=== PATIENT | female | born 1940 | race Caucasian/White ===

== ENCOUNTER 2018-02-01 18:26 | Inpatient (IN) ==
[2018-02-01] MEDS ORDERED: IOPAMIDOL 100 ML BOTTLE IV ONE (18:27)
[2018-02-01] MEDS ORDERED: 0.9 % SODIUM CHLORIDE 1,000 ML IV ONE ×2 (18:42→18:57)
[2018-02-01] MEDS ORDERED: POTASSIUM CHLORIDE 40 MEQ in DEXTROSE 5% IN WATER 500 ML IV ONE (19:09)
[2018-02-01] MEDS ORDERED: POTASSIUM CHLORIDE 20 MEQ/10 ML VIAL IV ONE (19:14)
[2018-02-01 19:27] LABS: Basophils # (Auto) 0 K/mcL (0.0-0.3); Basophils % (Auto) 0.4 % (0.0-2.0); Eosinophils # (Auto) 0 K/mcL (0.0-0.7); Eosinophils % (Auto) 0.1 % (0.0-7.0); Lymphocytes # (Auto) 0.5 K/mcL (1.5-4.8); Lymphocytes % (Auto) 17.6 % (15.5-49.0); Mean Cell Volume 88.9 fL (80.0-100.0); Mean Corpuscular HGB Conc 32.6 g/dL (31.0-36.0); Monocytes # (Auto) 0.4 K/mcL (0.1-0.9); Monocytes % (Auto) 11.9 % (1.0-12.0); Platelet Count 128 K/mcL (140-440); RBC 3.42 M/mcL (4.00-5.20); Red Cell Distribution Width 15.5 % (11.5-14.5)
[2018-02-01 20:00] LABS: ALT/SGPT 11 U/l (0-40); Albumin 2.5 gm/dL (3.2-5.2); Albumin/Globulin Ratio 1.3 (1.0-2.3); Alkaline Phosphatase 40 U/L (39-117); Blood Urea Nitrogen 19 mg/dl (8-23); Creatine Kinase 19 IU/L (24-170)
[2018-02-01] MEDS ORDERED: CALCIUM GLUCONATE 7 MEQ in DEXTROSE 5% IN WATER 50 ML IV ONE (20:07)
--- NOTE | 2018-02-01 20:09 | Emergency Department Note ---
General Adult HPI - General Chief complaint: Dizziness Stated complaint: Weakness/Diarrhea/hypotension Time Seen by Provider: 02/01/18 18:30 Source: patient, EMS Mode of arrival: EMS Limitations: no limitations - History of Present Illness HPI Narrative: 77-year-old female who lives alone since her 2 months ago, was found down by EMS unable to get up at home. She denies losing consciousness or any head injury but does state that she was so weak she could not get up. She has had a stroke and her balance has not been good ever since then. She has been sick for the last couple weeks with general malaise and incontinence of stool. It has been watery. She denies melena or hematochezia. She notes that she has not been taking her potassium pills. She has been having quite a bit of nausea but no vomiting. She last ate last night and had a chocolatey clear. She denies any fever - Related Data Home Medications Medication Instructions Recorded Confirmed Flexin Supplement PO .DAILY 05/07/15 01/17/18 biotin 1 mg tablet 1 mg PO QDAY tab 05/07/15 01/17/18 metoprolol tartrate 25 mg tablet 100 mg PO BID tab 08/12/16 01/17/18 Previous Rx's Medication Instructions Recorded atorvastatin 80 mg tablet 80 mg PO QDAY #90 tab 06/29/17 dabigatran etexilate 150 mg capsule 150 mg PO BID #180 cap 06/29/17 digoxin 125 mcg tablet 125 mcg PO QDAY #90 tab 06/29/17 furosemide 20 mg tablet 20 mg PO QDAY #90 tab 06/29/17 isosorbide mononitrate 10 mg tablet 10 mg PO BID 90 Days #180 tab 06/29/17 mirabegron ER 25 mg 25 mg PO QDAY #90 tab 06/29/17 tablet,extended release 24 hr omeprazole 40 mg capsule,delayed 40 mg PO QDAY #90 cap 06/29/17 release potassium chloride ER 10 mEq 10 meq PO QDAY #90 cap 06/29/17 capsule,extended release umeclidinium 62.5 mcg/actuation 1 inh INHALATION Q24H #90 each 06/29/17 blister powder for inhalation losartan 25 mg tablet 50 mg PO QDAY #180 tab 09/27/17 sertraline 100 mg tablet 200 mg PO QDAY #180 tab 09/27/17 gabapentin 300 mg capsule 300 mg PO TID #90 cap 10/28/17 trazodone 50 mg tablet 50 mg PO QHS PRN #30 tab 12/20/17 tapentadol ER 50 mg 50 mg PO Q12H #60 tab 01/17/18 tablet,extended release,12 hr Allergies Allergy/AdvReac Type Severity Reaction Status Date / Time No Known Allergies Allergy No allergy Verified 02/01/18 18:35 Influenza Virus Vaccines AdvReac Severe pain Verified 02/01/18 18:35 TAPE ALLERGY Allergy Intermediate RASH Uncoded 01/17/18 19:14 Review of Systems All systems ED: reviewed and negative except as stated. Past Medical History - Past Medical History Attestation: Yes: The following information was validated with the patient. Medical history: Reports: arthritis, atrial fibrillation, COPD, coronary artery disease, CVA, GERD, hypertension, liver disease (hepatitis B), peripheral artery disease, TIA, other (cerebral aneurysm non-ruptured, irritable bowel, diverticulitis, gout, HPV, abdominal aortic embolism) CARDIAC CATH TECH history: Reports: ectopic Surgical history ED: Reports: angioplasty/stent, appendectomy, cholecystectomy, herniorrhaphy, hysterectomy, orthopedic, other (Knee), HAMLET/BSO, vascular surgery (Carotid endarterectomy, vascular stent), other (Exploratory laparotomy) - Social History smoking status: Former smoker Physical Exam Globally weak but no acute distress. Hypotensive on admission 88/67. thin frail. Normocephalic atraumatic. Conjunctive are clear sclerae nonicteric. No nasal discharge or congestion. Oropharynx is pink but somewhat dry buccal mucosa. Neck is supple without lymphadenopathy thyromegaly or carotid bruit. I do see the scar from previous right-sided carotid endarterectomy. Heart is irregular, likely atrial fibrillation. Lungs are clear to auscultation bilaterally without wheezes rales rhonchi or respiratory distress. Abdomen soft mildly diffusely tender. No peritoneal signs or guarding. No pedal edema. +2 radial pulse. Alert oriented able to answer questions appropriately. No dysarthria Limitations: no limitations Course Vital Signs Temperature 98.6 F 02/01/18 18:28 Pulse Rate 95 H 02/01/18 18:28 Respiratory Rate 16 02/01/18 18:28 Blood Pressure 88/64 02/01/18 18:28 Pulse Oximetry (%) 93 02/01/18 18:28 Temperature 98.6 F 02/01/18 18:28 Pulse Rate 91 H 02/01/18 19:15 Respiratory Rate 23 H 02/01/18 19:15 Blood Pressure 96/67 02/01/18 19:15 Pulse Oximetry (%) 91 02/01/18 19:15 Medical Decision Making - Lab Data Lab results reviewed: Yes I reviewed the patient's lab results. Result diagrams: 02/01/18 18:55 02/01/18 18:55 Lab Results 02/01/18 02/01/18 02/01/18 Range/Units 18:55 18:55 18:55 WBC 3.1 L (4.5-11.0) K/mcL RBC 3.42 L (4.00-5.20) M/mcL Hgb 9.9 L (12.0-15.0) g/dL Hct 30.4 L (36.0-48.0) % POC Hct (36.0-48.0) % MCV 88.9 (80.0-100.0) fL MCH 29.0 (26.0-34.0) pg MCHC 32.6 (31.0-36.0) g/dL RDW 15.5 H (11.5-14.5) % Plt Count 128 L (140-440) K/mcL MPV 8.3 (7.4-10.4) fL Gran % 70.0 (38.0-78.0) % Lymph % (Auto) 17.6 (15.5-49.0) % [place] % (Auto) 11.9 (1.0-12.0) % Eos % (Auto) 0.1 (0.0-7.0) % Baso % (Auto) 0.4 (0.0-2.0) % Gran # 2.2 (1.8-8.0) K/mcL Lymph # (Auto) 0.5 L (1.5-4.8) K/mcL [place] # (Auto) 0.4 (0.1-0.9) K/mcL Eos # (Auto) 0 (0.0-0.7) K/mcL Baso # (Auto) 0 (0.0-0.3) K/mcL POC Sodium (133-145) mmol/L Sodium 141 (133-145) mmol/L POC Potassium (3.3-5.1) mmol/L Potassium 2.1 L* (3.3-5.1) mmol/L POC Chloride (96-108) mmol/L Chloride 109 H (96-108) mmol/L Carbon Dioxide 19 L (22-30) mmol/L POC Total CO2 (22-30) mmol/L Anion Gap 13.0 (8-16) POC BUN (8-23) mg/dl BUN 19 (8-23) mg/dl Creatinine 1.1 (0.6-1.1) mg/dl POC Creatinine (0.6-1.1) mg/dl GFR Calculation 48 Glucose 106 H (70-105) mg/dL POC Glucose (70-105) mg/dL Calcium 5.3 L* (8.6-10.4) mg/dl POC WB Ioniz Calcium (1.16-1.32) mmol/L Magnesium (1.6-2.5) mg/dL Total Bilirubin 0.6 (0.0-1.0) mg/dL AST 16 (0-37) U/l ALT 11 (0-40) U/l Alkaline Phosphatase 40 (39-117) U/L Total Creatine Kinase 19 L (24-170) IU/L CK-MB (CK-2) 1.0 (0-2.9) ng/ml Troponin T < 0.01 (0-0.03) ng/ml NT-Pro-B Natriuret Pep 389.0 (0-450) pg/ml Total Protein 4.5 L (5.9-8.4) gm/dL Albumin 2.5 L (3.2-5.2) gm/dL Globulin 2.0 L (2.2-3.7) gm/dL Albumin/Globulin Ratio 1.3 (1.0-2.3) Urine Color Urine Appearance Urine pH (5.0-9.0) Ur Specific [place] (1.000-1.035) Urine Protein (NEG) mg/dL Urine Glucose (UA) (NEG) mg/dL Urine Ketones (NEG) mg/dL Urine Occult Blood (<0.03) mg/dL Urine Nitrate (NEG) Urine Bilirubin (NEG) mg/dL Urine Urobilinogen (NEG) mg/dL Ur Leukocyte Esterase (NEG) /uL Urine RBC (0-1) /hpf Urine WBC (0-4) /hpf Ur Squamous Epith Cells (0-4) /hpf Ur Transition Epith Cell (0-2) /hpf Amorphous Crystals (0) /hpf Urine Bacteria (0) /hpf Hyaline Casts (0-2) /lpf Urine Mucus (0) /hpf Ur Culture Indicated? Digoxin ng/mL Digoxin Dose Digox Last Dose Time 02/01/18 02/01/18 02/01/18 Range/Units 18:55 18:55 18:55 WBC (4.5-11.0) K/mcL RBC (4.00-5.20) M/mcL Hgb (12.0-15.0) g/dL Hct (36.0-48.0) % POC Hct 26.0 L (36.0-48.0) % MCV (80.0-100.0) fL MCH (26.0-34.0) pg MCHC (31.0-36.0) g/dL RDW (11.5-14.5) % Plt Count (140-440) K/mcL MPV (7.4-10.4) fL Gran % (38.0-78.0) % Lymph % (Auto) (15.5-49.0) % [place] % (Auto) (1.0-12.0) % Eos % (Auto) (0.0-7.0) % Baso % (Auto) (0.0-2.0) % Gran # (1.8-8.0) K/mcL Lymph # (Auto) (1.5-4.8) K/mcL [place] # (Auto) (0.1-0.9) K/mcL Eos # (Auto) (0.0-0.7) K/mcL Baso # (Auto) (0.0-0.3) K/mcL POC Sodium 144 (133-145) mmol/L Sodium (133-145) mmol/L POC Potassium 2.1 L* (3.3-5.1) mmol/L Potassium (3.3-5.1) mmol/L POC Chloride 107 (96-108) mmol/L Chloride (96-108) mmol/L Carbon Dioxide (22-30) mmol/L POC Total CO2 18 L (22-30) mmol/L Anion Gap (8-16) POC BUN 20 (8-23) mg/dl BUN (8-23) mg/dl Creatinine (0.6-1.1) mg/dl POC Creatinine 1.2 H (0.6-1.1) mg/dl GFR Calculation Glucose (70-105) mg/dL POC Glucose 102 (70-105) mg/dL Calcium (8.6-10.4) mg/dl POC WB Ioniz Calcium 0.79 L (1.16-1.32) mmol/L Magnesium 1.3 L (1.6-2.5) mg/dL Total Bilirubin (0.0-1.0) mg/dL AST (0-37) U/l ALT (0-40) U/l Alkaline Phosphatase (39-117) U/L Total Creatine Kinase (24-170) IU/L CK-MB (CK-2) (0-2.9) ng/ml Troponin T (0-0.03) ng/ml NT-Pro-B Natriuret Pep (0-450) pg/ml Total Protein (5.9-8.4) gm/dL Albumin (3.2-5.2) gm/dL Globulin (2.2-3.7) gm/dL Albumin/Globulin Ratio (1.0-2.3) Urine Color Urine Appearance Urine pH (5.0-9.0) Ur Specific [place] (1.000-1.035) Urine Protein (NEG) mg/dL Urine Glucose (UA) (NEG) mg/dL Urine Ketones (NEG) mg/dL Urine Occult Blood (<0.03) mg/dL Urine Nitrate (NEG) Urine Bilirubin (NEG) mg/dL Urine Urobilinogen (NEG) mg/dL Ur Leukocyte Esterase (NEG) /uL Urine RBC (0-1) /hpf Urine WBC (0-4) /hpf Ur Squamous Epith Cells (0-4) /hpf Ur Transition Epith Cell (0-2) /hpf Amorphous Crystals (0) /hpf Urine Bacteria (0) /hpf Hyaline Casts (0-2) /lpf Urine Mucus (0) /hpf Ur Culture Indicated? Digoxin < 0.3 ng/mL Digoxin Dose Not Reportable Digox Last Dose Time Not Reportable 02/01/18 Range/Units 20:00 WBC (4.5-11.0) K/mcL RBC (4.00-5.20) M/mcL Hgb (12.0-15.0) g/dL Hct (36.0-48.0) % POC Hct (36.0-48.0) % MCV (80.0-100.0) fL MCH (26.0-34.0) pg MCHC (31.0-36.0) g/dL RDW (11.5-14.5) % Plt Count (140-440) K/mcL MPV (7.4-10.4) fL Gran % (38.0-78.0) % Lymph % (Auto) (15.5-49.0) % [place] % (Auto) (1.0-12.0) % Eos % (Auto) (0.0-7.0) % Baso % (Auto) (0.0-2.0) % Gran # (1.8-8.0) K/mcL Lymph # (Auto) (1.5-4.8) K/mcL [place] # (Auto) (0.1-0.9) K/mcL Eos # (Auto) (0.0-0.7) K/mcL Baso # (Auto) (0.0-0.3) K/mcL POC Sodium (133-145) mmol/L Sodium (133-145) mmol/L POC Potassium (3.3-5.1) mmol/L Potassium (3.3-5.1) mmol/L POC Chloride (96-108) mmol/L Chloride (96-108) mmol/L Carbon Dioxide (22-30) mmol/L POC Total CO2 (22-30) mmol/L Anion Gap (8-16) POC BUN (8-23) mg/dl BUN (8-23) mg/dl Creatinine (0.6-1.1) mg/dl POC Creatinine (0.6-1.1) mg/dl GFR Calculation Glucose (70-105) mg/dL POC Glucose (70-105) mg/dL Calcium (8.6-10.4) mg/dl POC WB Ioniz Calcium (1.16-1.32) mmol/L Magnesium (1.6-2.5) mg/dL Total Bilirubin (0.0-1.0) mg/dL AST (0-37) U/l ALT (0-40) U/l Alkaline Phosphatase (39-117) U/L Total Creatine Kinase (24-170) IU/L CK-MB (CK-2) (0-2.9) ng/ml Troponin T (0-0.03) ng/ml NT-Pro-B Natriuret Pep (0-450) pg/ml Total Protein (5.9-8.4) gm/dL Albumin (3.2-5.2) gm/dL Globulin (2.2-3.7) gm/dL Albumin/Globulin Ratio (1.0-2.3) Urine Color Yellow Urine Appearance Cloudy Urine pH 6.0 (5.0-9.0) Ur Specific [place] 1.014 (1.000-1.035) Urine Protein 100 A (NEG) mg/dL Urine Glucose (UA) 50 A (NEG) mg/dL Urine Ketones Neg (NEG) mg/dL Urine Occult Blood 0.2 A (<0.03) mg/dL Urine Nitrate Neg (NEG) Urine Bilirubin Neg (NEG) mg/dL Urine Urobilinogen Neg (NEG) mg/dL Ur Leukocyte Esterase 250 A (NEG) /uL Urine RBC 32 H (0-1) /hpf Urine WBC 32 H (0-4) /hpf Ur Squamous Epith Cells 81 H (0-4) /hpf Ur Transition Epith Cell 3 H (0-2) /hpf Amorphous Crystals Few A (0) /hpf Urine Bacteria Few A (0) /hpf Hyaline Casts 65 H (0-2) /lpf Urine Mucus Mod (0) /hpf Ur Culture Indicated? No Digoxin ng/mL Digoxin Dose Digox Last Dose Time - Radiology Data Radiology results reviewed: Yes I reviewed the patient's radiology results. CT scan of the abdomen pelvis shows extensive atherosclerotic disease however no acute findings - EKG Data EKG #1 EKG attestation: Yes I reviewed and interpreted this EKG. EKG results narrative: EKG shows a rate of 97 atrial fibrillation there is T-wave inversions in diffuse leads however this is not new when compared with EKG from 01/12/2017-that was read as a strain pattern. Possible left ventricular hypertrophy and long QT Disposition Pt seen by PATHOLOGY SPECIALIST/PA only: No Clinical Impression: Hypocalcemia, Hypokalemia, Hypomagnesemia, Acute kidney injury Summary: Patient initially worked up after interview and exam for significant abdominal abnormalities. However CT scan did not show anything acute. Laboratories show significant electrolyte abnormalities as well as acute kidney injury. IV fluids corrected hypotension. She is feeling better She is tolerating p.o. and has not vomited so we are potassium both orally and IV. Magnesium and calcium also replacing IV. Zofran is prescribed in case of nausea Discussed case with Dr. Washington, hospitalist, who agreed to accept patient for further care Disposition: Xfer As Inpt ([facility]) Condition: Critical Referrals: Shae Cheatham, JAMEL, MEDICAL AND HEALTH SERVICES MANAGER [Primary Care Provider] -
[2018-02-01] MEDS ORDERED: POTASSIUM CHLORIDE 20 MEQ TABLET PO ONE ×2 (20:36→21:13)
[2018-02-01] MEDS ORDERED: MAGNESIUM SULFATE 2 GM/50 ML BAG IV ONE (20:36)
--- NOTE | 2018-02-01 21:00 | Cat Scan Report ---
CLINICAL INFORMATION: Hypotension and diarrhea COMPARISON: 06/22/2016, 04/16/2016 TECHNIQUE: Axial images were obtained through the abdomen and pelvis. Sagittally and coronally reformatted images. 80 mL contrast material injected intravenously. Oral contrast material was given FINDINGS: Lung bases are negative. No parenchymal infiltrate or mass. No pleural fluid. No pericardial fluid. There is cardiomegaly with four-chamber cardiac enlargement. There are multiple low-density lesions within the liver. These have increased slightly in size but are consistent with benign cysts. No solid mass. Liver contour is smooth. No cirrhosis. No interval change. Gallbladder is not identified. Common bile duct measures 6 mm. No dilated intrahepatic bile ducts. Negative pancreas. No pancreatic mass. Borderline splenomegaly. Spleen measures 10.7 x 6.1 x 12.0 cm. Normal enhancement of splenic and portal veins. Negative adrenal glands. 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 This is chronic. There is a nonobstructing 5 mm right upper pole calculus. No hydronephrosis. No solid renal mass. There is extensive atherosclerotic calcification with dense calcification of the abdominal aorta and common iliac arteries. No abdominal aortic aneurysm. There is a stent within the superior mesenteric artery. Colon is negative. No diverticulitis. No detectable colonic mass. No appendicitis. Small bowel is negative. No small bowel dilatation. No retroperitoneal or mesenteric adenopathy. Previous hysterectomy. No pelvic mass. No pneumoperitoneum. No biliary or portal venous gas. No pneumatosis. Lumbar spine, sacrum, pelvis are negative IMPRESSION: 1. Cardiomegaly. Extensive atherosclerotic disease. No abdominal aortic aneurysm 2. Borderline splenomegaly 3. Hepatic cysts are benign 4. No acute colonic or small bowel abnormality. No diverticulitis. No detectable colonic mass. No small bowel obstruction. The exam was performed using radiation dose optimization techniques including, but not limited to, automated exposure control, adjustment of the mA and/or kV according to patient size and use of iterative reconstruction technique. Interpreted and Authenticated by: Musthaq Martinez 02/01/18
[2018-02-01 21:04] LABS: Appearance,Urine CLOUDY; Bacteria,Urine FEW /hpf (0); Bilirubin,Urine NEG (NEG); Color,Urine YELLOW; Glucose,Urine (UA) 50 mg/dL (NEG); Leukocyte Esterase,Urine 250 /uL (NEG); Mucus,Urine MOD /hpf (0); Protein,Urine 100 mg/dL (NEG); Specific Gravity,Urine 1.014 (1.000-1.035); Urine Amorphous Crystals FEW /hpf (0); Urine Blood 0.2 mg/dL (<0.03); Urine Hyaline Cast 65 /lpf (0-2); Urine RBC 32 /hpf (0-1); Urine Squamous Epithelial Cell 81 /hpf (0-4); Urine Transitional Epi Cells 3 /hpf (0-2); Urine WBC 32 /hpf (0-4); Urobilinogen,Urine NEG (NEG)
[2018-02-01] MEDS ORDERED: ONDANSETRON 4 MG/2 ML VIAL IV ONE (21:11)
[2018-02-01] MEDS ORDERED: ACETAMINOPHEN 325 MG TABLET PO PRN (21:51)
[2018-02-01] MEDS ORDERED: POTASSIUM CHLORIDE 20 MEQ PACKET PO PRN (21:51)
[2018-02-01] MEDS ORDERED: ONDANSETRON 4 MG/2 ML VIAL IV PRN (21:51)
[2018-02-01] MEDS: 0.9 % SODIUM CHLORIDE 10 ML SYRINGE IV SCH (22:28)
[2018-02-01] MEDS: LACTATED RINGERS 1,000 ML IV SCH (22:33)
[2018-02-01 23:04] LABS: Basophils # (Auto) 0 K/mcL (0.0-0.3); Basophils % (Auto) 0.4 % (0.0-2.0); Eosinophils # (Auto) 0 K/mcL (0.0-0.7); Eosinophils % (Auto) 0.3 % (0.0-7.0); Granulocytes % (Auto) 64.7 % (38.0-78.0); Lymphocytes # (Auto) 0.7 K/mcL (1.5-4.8); Lymphocytes % (Auto) 22.6 % (15.5-49.0); Mean Cell Volume 87.4 fL (80.0-100.0); Mean Corpuscular HGB Conc 32.6 g/dL (31.0-36.0); Mean Corpuscular Hemoglobin 28.5 pg (26.0-34.0); Monocytes # (Auto) 0.4 K/mcL (0.1-0.9); Platelet Count 155 K/mcL (140-440); RBC 3.74 M/mcL (4.00-5.20); Red Cell Distribution Width 14.7 % (11.5-14.5)
[2018-02-01] MEDS: HEPARIN 5,000 UNIT/ML VIAL SQ SCH (23:14)
--- NOTE | 2018-02-01 23:31 | Internal Med History&Physical ---
Medical - H&P: [facility] Patient information: Note initiated : 02/01/18 at 11:30 pm Service Date, if different from initiated Date: [] Patient: Dara Null a 77 y/o F admitted on 02/01/18 for Weakness/Diarrhea/ hypotension. Chief Complaint: [] Chief complaint: dirrhea, weakness History of present illness: Ms. Null is a 77 year old F who comes to the ER with above symptoms. Patient has been actively grieving recent loss of her in November and has been living alone. Over the last couple of months patient has not been able to take care of herself and has frequently missed her medications. She carries a history of irritable bowel syndrome and has had intermittent diarrhea over the last couple of weeks along with associated loss of appetite and failure to take her usual medications. She also endorses to feeling dizzy and weak and very lethargic. She denies associated, fever, abdominal cramps blood, mucus. She has also experienced multiple episodes of bowel incontinence without even realizing until she noticed stool dripping down her legs on the floor. She has a son who lives nearby and frequently checks on her. With worsening symptoms and increasing weakness patient presents to the ER today. Initial workup was significant for potassium 2.1 and calcium 5.3. Significant pyuria on UA. She is started on emergent electrolyte replacement protocol. Hospitalist service was consulted. At the time of evaluation patient is alert and oriented rest she appears fatigued but was able to put endorsed a history as above. She denies changes in medications. She denies sick contacts. She denies chest pain, shortness of breath ,weight loss, joint or glandular swelling. Review of systems A 10 point review of system was performed and is negative except for as discussed above Medical - H&P: [facility] Medical history: Medical History (Last Reviewed 01/17/18 @ 19:12 by Shae Cheatham, JAMEL, BUTCHER) Adenomatous polyp of colon (Chronic ~07/2016) Congestive heart failure (Chronic) Weakness of left upper extremity (Chronic) CVA (cerebral vascular accident) (Resolved) Abdominal pain (Chronic) Diverticulitis (Chronic) Abdominal distension (Chronic) Stenosis of right carotid artery (Chronic) Hematuria (Chronic) Disequilibrium (Chronic) Perimenopausal vasomotor symptoms (Chronic 04/22/14) Transient ischemic attack (TIA) (Chronic) Tobacco abuse (Chronic) Neck pain (Chronic) Neck injury (Chronic) Irritable bowel syndrome (Chronic) Hypertension, essential (Chronic) Hepatitis B infection (Chronic) Gout (Chronic) Gastroesophageal reflux (Chronic) Diverticulosis of colon (Chronic 08/17/04) Depression (Chronic) Coronary artery disease (Chronic 11/10/07) Chronic obstructive pulmonary disease (Chronic) Cerebral aneurysm, nonruptured (Chronic) Atrial fibrillation (Chronic) Arthritis (Chronic) 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) History of ectopic (Chronic) Hoarseness of voice (Resolved) Laryngeal nerve paralysis (Resolved) Sprain and strain of wrist (Resolved) Wrist injury (Resolved) Surgical history: Past Surgical History (Last Reviewed 01/17/18 @ 19:12 by Shae Cheatham, JAMEL, BUTCHER) History of appendectomy (Chronic) History of cardiac cath (Chronic 11/10/07) History of cataract extraction (Chronic) History of cholecystectomy (Chronic) History of exploratory laparotomy (Chronic 01/04/11) History of hernia repair (Chronic) History of hysterectomy (Chronic) History of right-sided carotid endarterectomy (Chronic 01/26/17) History of abdominal surgery (Resolved) History of appendectomy (Resolved) History of cardiac catheterization (Resolved 11/10/07) History of cholecystectomy (Resolved) History of colonoscopy (Resolved 08/17/04) History of hysterectomy (Resolved) History of inguinal hernia repair (Resolved) History of knee surgery (Resolved) History of laparoscopy (Resolved 01/04/11) History of oophorectomy (Resolved) History of salpingectomy (Resolved) History of vascular surgery (Resolved) Pertinent family history: Family History (Last Reviewed 01/17/18 @ 19:12 by Shae Cheatham, JAMEL, BUTCHER) Mother Malignant neoplasm of colon, Onset Age: 82 Congestive heart failure Social history: Lives independently Recent loss of 2 sons and a daughter One son Tito- lives locally No history of smoking alcoholism Medical - H&P: Meds Home Medications Medication Instructions Recorded Confirmed Type Flexin Supplement 1 supp PO .DAILY 05/07/15 02/01/18 History biotin 1 mg tablet 1 mg PO QDAY tab 05/07/15 02/01/18 History metoprolol tartrate 25 mg tablet 100 mg PO BID tab 08/12/16 02/01/18 History atorvastatin 80 mg tablet 80 mg PO QDAY #90 tab 06/29/17 02/01/18 Rx dabigatran etexilate 150 mg capsule 150 mg PO BID #180 cap 06/29/17 02/01/18 Rx digoxin 125 mcg tablet 125 mcg PO QDAY #90 tab 06/29/17 02/01/18 Rx furosemide 20 mg tablet 20 mg PO QDAY #90 tab 06/29/17 02/01/18 Rx isosorbide mononitrate 10 mg tablet 10 mg PO BID 90 Days #180 tab 06/29/1702/01 Rx mirabegron ER 25 mg 25 mg PO QDAY #90 tab 06/29/17 02/01/18 Rx tablet,extended release 24 hr omeprazole 40 mg capsule,delayed 40 mg PO QDAY #90 cap 06/29/17 02/01/18 Rx release potassium chloride ER 10 mEq 10 meq PO QDAY #90 cap 06/29/17 02/01/18 Rx capsule,extended release umeclidinium 62.5 mcg/actuation 1 inh INHALATION Q24H #90 each 06/29/17 Rx blister powder for inhalation losartan 25 mg tablet 50 mg PO QDAY #180 tab 09/27/17 02/01/18 Rx sertraline 100 mg tablet 200 mg PO QDAY #180 tab 09/27/17 02/01/18 Rx gabapentin 300 mg capsule 300 mg PO TID #90 cap 10/28/17 02/01/18 Rx trazodone 50 mg tablet 50 mg PO QHS PRN #30 tab 12/20/17 02/01/18 Rx tapentadol ER 50 mg 50 mg PO Q12H #60 tab 01/17/18 02/01/18 Rx tablet,extended release,12 hr Clopidogrel Bisulfate [Plavix] 75 mg PO ONCE 02/01/18 02/01/18 History Hydrocodone/APAP 7.5/325Mg [[place] 1 tab PO ONCE PRN 02/01/18 02/01/18 History 7.5-325Mg] Meclizine [Antivert] 12.5 mg PO DAILYP PRN 02/01/18 02/01/18 History Allergies Allergy/AdvReac Type Severity Reaction Status Date / Time No Known Allergies Allergy No allergy Verified 02/01/18 18:35 Influenza Virus Vaccines AdvReac Severe pain Verified 02/01/18 18:35 TAPE ALLERGY Allergy Intermediate RASH Uncoded 01/17/18 19:14 Medical - H&P: Exam - Constitutional Vitals: Temp Pulse Resp BP Pulse Ox 98.6 F 91 H 23 H 96/67 91 02/01/18 18:28 02/01/18 19:15 02/01/18 19:15 02/01/18 19:15 02/01/18 21:36 General appearance: no acute distress Exam: Fatigued and lethargic Eye movements normal oral cavity dry No ENT nose discharge Head normocephalic Neck no lymphadenopathy S1 and S2 tachycardia, irregular Diminished breath sounds bases abdomen soft, hypoactive bowel sounds Lower extremity no cyanosis clubbing No joint swelling erythema Skin no suspicious lesion Psych lethargic but no agitation and anxiety neuro nonfocal Medical - H&P: Reslt - Labs CBC & Chem 7: 02/02/18 04:02 02/02/18 04:02 Labs: Short CBC 02/01/18 02/01/18 Range/Units 18:55 22:20 WBC 3.1 L 3.1 L (4.5-11.0) K/mcL Hgb 9.9 L 10.7 L (12.0-15.0) g/dL Hct 30.4 L 32.7 L (36.0-48.0) % Plt Count 128 L 155 (140-440) K/mcL BMP 02/01/18 18:55 Sodium 141 Potassium 2.1 L* Chloride 109 H Carbon Dioxide 19 L BUN 19 Creatinine 1.1 Glucose 106 H Calcium 5.3 L* Cardiac Enzymes 02/01/18 02/01/18 Range/Units 18:55 18:55 Total Creatine Kinase 19 L (24-170) IU/L CK-MB (CK-2) 1.0 (0-2.9) ng/ml Troponin T < 0.01 (0-0.03) ng/ml Liver Function 02/01/18 Range/Units 18:55 Total Bilirubin 0.6 (0.0-1.0) mg/dL AST 16 (0-37) U/l ALT 11 (0-40) U/l Alkaline Phosphatase 40 (39-117) U/L Albumin 2.5 L (3.2-5.2) gm/dL Urine 02/01/18 Range/Units 20:00 Urine Color Yellow Urine Appearance Cloudy Urine pH 6.0 (5.0-9.0) Ur Specific [place] 1.014 (1.000-1.035) Urine Protein 100 A (NEG) mg/dL Urine Glucose (UA) 50 A (NEG) mg/dL Medical - H&P: A/P (1) Hypokalemia Current visit: Yes Status: Acute * Critical Hypokalemia- 2.1. Continue oral and IV replacement * Dirrhea-await stool studies. Continue crystalloids * Hypocalcemia-on replacement. * Acute grief reaction from loss of spouse, within expected limits. Patient on SSRI * Volume depletion on crystalloids * Non-complicated UTI-contaminated sample repeat UA. * Neuropathy on gabapentin * History of hypertension on metoprolol/ARB * History of atrial fibrillation rate controlled on digoxin/metoprolol * Anticoagulation on Pradaxa * Coronary artery disease on Plavix and aspirin metoprolol * Anxiety/depression continue sertraline Plan * Continue crystalloids * electrolyte replacement as per protocol * Telemetry admitted in light of critical electrolyte abnormalities * Pre-existing medical condition management and home meds Medical - H&P: Qual - VTE Deep Vein Thrombosis/Pulmonary Embolism Present on Admission: No
[2018-02-02] MEDS ORDERED: HYDROCODONE/APAP 7.5/325MG TABLET PO PRN
[2018-02-02] MEDS ORDERED: MECLIZINE 25 MG TABLET PO PRN
[2018-02-02] MEDS ORDERED: TAPENTADOL HCL 50 MG PO SCH
[2018-02-02] MEDS ORDERED: traZODone HCL 50 MG TABLET PO PRN
[2018-02-02] MEDS ORDERED: UMECLIDINIUM BROMIDE INHALATION SCH
[2018-02-02] MEDS ORDERED: CLOPIDOGREL 75 MG TABLET PO SCH
[2018-02-02 05:28] LABS: Basophils # (Auto) 0 K/mcL (0.0-0.3); Basophils % (Auto) 0.3 % (0.0-2.0); Eosinophils # (Auto) 0 K/mcL (0.0-0.7); Eosinophils % (Auto) 0 % (0.0-7.0); Granulocytes % (Auto) 53.5 % (38.0-78.0); Lymphocytes # (Auto) 1.1 K/mcL (1.5-4.8); Lymphocytes % (Auto) 33.9 % (15.5-49.0); Mean Cell Volume 88.7 fL (80.0-100.0); Mean Corpuscular HGB Conc 32.8 g/dL (31.0-36.0); Mean Corpuscular Hemoglobin 29.1 pg (26.0-34.0); Monocytes # (Auto) 0.4 K/mcL (0.1-0.9); Monocytes % (Auto) 12.3 % (1.0-12.0); Platelet Count 135 K/mcL (140-440); RBC 3.72 M/mcL (4.00-5.20)
[2018-02-02] MEDS: 0.9 % SODIUM CHLORIDE 10 ML SYRINGE IV SCH ×3 (05:38→22:49)
[2018-02-02 05:54] LABS: ALT/SGPT 14 U/l (0-40); Albumin 3.3 gm/dL (3.2-5.2); Albumin/Globulin Ratio 1.3 (1.0-2.3); Alkaline Phosphatase 51 U/L (39-117); Bilirubin,Direct < 0.2 mg/dL (0.0-0.3); Blood Urea Nitrogen 21 mg/dl (8-23); Gamma Glutamyl Transpeptidase 18 U/L (5-36); Uric Acid 5.4 mg/dL (2.5-8.0)
[2018-02-02] MEDS: OMEPRAZOLE 20 MG CAPSULE PO SCH (07:05)
[2018-02-02] MEDS ORDERED: ISOSORBIDE MONONITRATE PO SCH (09:00)
[2018-02-02] MEDS: POTASSIUM CHLORIDE 20 MEQ/15 ML ML PT SCH ×2 (09:22→17:19)
[2018-02-02] MEDS: POTASSIUM CHLORIDE 10 MEQ TABLET PO SCH (09:24)
[2018-02-02] MEDS: METOPROLOL TARTRATE 25 MG TABLET PO SCH ×2 (09:24→20:57)
[2018-02-02] MEDS: LOSARTAN 25 MG TABLET PO SCH (09:24)
[2018-02-02] MEDS: SERTRALINE 50 MG TABLET PO SCH (09:24)
[2018-02-02] MEDS: GABAPENTIN 300 MG CAPSULE PO SCH ×3 (09:24→20:57)
[2018-02-02] MEDS: CLOPIDOGREL 75 MG TABLET PO SCH (09:25)
[2018-02-02] MEDS: HEPARIN 5,000 UNIT/ML VIAL SQ SCH ×2 (09:25→20:55)
[2018-02-02] MEDS: TAPENTADOL HCL 50 MG PO SCH ×2 (09:25→22:49)
[2018-02-02] MEDS: Mirabegron [Myrbetriq] 25 MG PO SCH (09:25)
[2018-02-02] MEDS: UMECLIDINIUM BROMIDE INH SCH (09:26)
[2018-02-02] MEDS: DABIGATRAN ETEXILATE MESYLATE 75 MG CAPSULE PO SCH ×2 (09:29→20:55)
--- NOTE | 2018-02-02 09:48 | Internal Med Progress Note ---
Medical - PN: Subj Patient information: Note initiated : 02/02/18 at 9:46 am Service Date, if different from initiated Date: [] Patient: Dara Null a 77 y/o F admitted on 02/01/18 for Weakness/Diarrhea/ hypotension. Chief Complaint: [] Interval history: Ms. Null is a 77 year old F who comes to the ER with above symptoms. Patient has been actively grieving recent loss of her in November and has been living alone. Over the last couple of months patient has not been able to take care of herself and has frequently missed her medications. She carries a history of irritable bowel syndrome and has had intermittent diarrhea over the last couple of weeks along with associated loss of appetite and failure to take her usual medications. She also endorses to feeling dizzy and weak and very lethargic. She denies associated, fever, abdominal cramps blood, mucus. She has also experienced multiple episodes of bowel incontinence without even realizing until she noticed stool dripping down her legs on the floor. She has a son who lives nearby and frequently checks on her. With worsening symptoms and increasing weakness patient presents to the ER today. Initial workup was significant for potassium 2.1 and calcium 5.3. Significant pyuria on UA. She is started on emergent electrolyte replacement protocol. Hospitalist service was consulted. At the time of evaluation patient is alert and oriented rest she appears fatigued but was able to put endorsed a history as above. She denies changes in medications. She denies sick contacts. She denies chest pain, shortness of breath ,weight loss, joint or glandular swelling. 02/02-patient doing a lot better. Potassium from 2.1-3.1. Calcium 7.8. Improved systolics. Ongoing crystalloids. Diarrhea much improved. Improving renal function. Repeat UA. Stool studies including fecal leukocytes negative. C. difficile negative. Continue physical therapy. Continue aggressive electrolyte replacement. - Constitutional Vitals: Vital Signs Temp Pulse Resp BP Pulse Ox 97.4 F 77 25 H 152/91 92 02/02/18 07:01 02/02/18 07:01 02/02/18 03:01 02/02/18 07:01 02/02/18 07:01 Period Temp Pulse Resp BP Sys/Marques Pulse Ox Last 24 Hr 96.8 F-98.6 F 43-122 11-28 88-152/53-104 86-99 Intake and Output 02/01/18 02/02/18 02/02/18 21:59 05:59 13:59 Intake Total 2064.0537 / 2064.0537 240 / 240 90 / 90 Output Total 350 / 350 200 / 200 Balance 1715.0537 / 1715.0537 40 / 40 90 / 90 Weight 155 lb 6.4 oz Intake & Output: Intake & Output 02/01/18 02/02/18 02/02/18 21:59 05:59 13:59 Intake Total 2064.0537 / 2064.0537 240 / 240 90 / 90 Output Total 350 / 350 200 / 200 Balance 1715.0537 / 1715.0537 40 / 40 90 / 90 Weight 155 lb 6.4 oz Intake: IV 2064.536 / 2064.536 Sodium Chloride 0.9% 1,000 ml @ 1999 / 1999 Wide Open IV BOLUS ONE Rx#: [id number] Calcium Gluconate 7 Meq In 65.0537 / 65.0537 Dextrose 5% in Water 50 ml @ 200 mls/hr IV ONCE ONE Rx#: [id number] Oral 240 / 240 90 / 90 Output: Urine/Stool Mix 350 / 350 200 / 200 Other: Meal Breakfast Percent of Meal Consumed 95% General appearance: cooperative, no acute distress Exam: Alert oriented nonlabored breathing Flat affect No significant telemetry events overnight No abdominal distention Medical - PN: Obj Da - Labs CBC & Chem 7: 02/02/18 04:02 02/02/18 04:02 Labs: Abnormal Lab Results 02/02/18 02/02/18 02/01/18 04:02 04:02 22:20 WBC 3.1 L 3.1 L RBC 3.72 L 3.74 L Hgb 10.8 L 10.7 L Hct 33.0 L 32.7 L POC Hct RDW 16.0 H 14.7 H Plt Count 135 L [place] % (Auto) 12.3 H Gran # 1.7 L Lymph # (Auto) 1.1 L 0.7 L POC Potassium Potassium 3.1 L Chloride Carbon Dioxide POC Total CO2 POC Creatinine Glucose Calcium 7.8 L POC WB Ioniz Calcium Magnesium Total Creatine Kinase Total Protein Albumin Globulin Urine Protein Urine Glucose (UA) Urine Occult Blood Ur Leukocyte Esterase Urine RBC Urine WBC Ur Squamous Epith Cells Ur Transition Epith Cell Amorphous Crystals Urine Bacteria Hyaline Casts 02/01/18 02/01/18 02/01/18 20:00 18:55 18:55 WBC RBC Hgb Hct POC Hct 26.0 L RDW Plt Count [place] % (Auto) Gran # Lymph # (Auto) POC Potassium 2.1 L* Potassium Chloride Carbon Dioxide POC Total CO2 18 L POC Creatinine 1.2 H Glucose Calcium POC WB Ioniz Calcium 0.79 L Magnesium 1.3 L Total Creatine Kinase Total Protein Albumin Globulin Urine Protein 100 A Urine Glucose (UA) 50 A Urine Occult Blood 0.2 A Ur Leukocyte Esterase 250 A Urine RBC 32 H Urine WBC 32 H Ur Squamous Epith Cells 81 H Ur Transition Epith Cell 3 H Amorphous Crystals Few A Urine Bacteria Few A Hyaline Casts 65 H 02/01/18 02/01/18 18:55 18:55 WBC 3.1 L RBC 3.42 L Hgb 9.9 L Hct 30.4 L POC Hct RDW 15.5 H Plt Count 128 L [place] % (Auto) Gran # Lymph # (Auto) 0.5 L POC Potassium Potassium 2.1 L* Chloride 109 H Carbon Dioxide 19 L POC Total CO2 POC Creatinine Glucose 106 H Calcium 5.3 L* POC WB Ioniz Calcium Magnesium Total Creatine Kinase 19 L Total Protein 4.5 L Albumin 2.5 L Globulin 2.0 L Urine Protein Urine Glucose (UA) Urine Occult Blood Ur Leukocyte Esterase Urine RBC Urine WBC Ur Squamous Epith Cells Ur Transition Epith Cell Amorphous Crystals Urine Bacteria Hyaline Casts Meds: Medications Acetaminophen (Tylenol) 650 mg PO Q4-6HP PRN PRN Reason: PAIN/FEVER > 101 Hydrocodone Bitart/Acetaminophen ([place] 7.5/325mg) 1 tab PO ONCE PRN PRN Reason: Pain Atorvastatin Calcium (Lipitor) 80 mg PO HS [facility] Clopidogrel Bisulfate (Plavix) 75 mg PO DAILY [facility] Last Admin: 02/02/18 09:25 Dose: 75 mg Dabigatran (Pradaxa) 150 mg PO BID [facility] Last Admin: 02/02/18 09:29 Dose: 150 mg Digoxin (Lanoxin) 125 mcg PO DAILY@1400 [facility] Gabapentin (Neurontin) 300 mg PO TID [facility] Last Admin: 02/02/18 09:24 Dose: 300 mg Heparin Sodium (Porcine) (Heparin) 5,000 unit SQ Q12 [facility] Last Admin: 02/02/18 09:25 Dose: 5,000 unit Potassium Chloride 40 meq/ (Dextrose) 520 mls @ 130 mls/hr IV UD PRN PRN Reason: K+ = or < 3.5 Lactated Ringer's (Lactated Ringers) 1,000 mls @ 100 mls/hr IV .Q10H [facility] Stop: 02/03/18 03:50 Last Admin: 02/01/18 22:33 Dose: 100 mls/hr Magnesium Sulfate (Magnesium Sulfate) 2 gm in 50 mls @ 50 mls/hr IV UD PRN PRN Reason: MG = or < 1.7 Acetaminophen (Ofirmev) 1,000 mg in 100 mls @ 200 mls/hr IV Q6HP PRN PRN Reason: PAIN/FEVER > 101 Losartan Potassium (Cozaar) 50 mg PO QDAY [facility] Last Admin: 02/02/18 09:24 Dose: 50 mg Meclizine HCl (Antivert) 12.5 mg PO DAILYP PRN PRN Reason: dizzy Metoprolol Tartrate (Lopressor) 100 mg PO BID [facility] Last Admin: 02/02/18 09:24 Dose: 100 mg Non-Formulary Medication (Isosorbide Mononitrate [Isosorbide Mononitrate]) 10 mg PO BID [facility] Last Admin: 02/02/18 09:29 Dose: Not Given Omeprazole (Prilosec) 40 mg PO ACB [facility] Last Admin: 02/02/18 07:05 Dose: 40 mg Ondansetron HCl (Zofran) 4 mg IV Q4-6HP PRN PRN Reason: Nausea And Vomiting Mirabegron [ (Myrbetriq] 25 Mg) 1 dose PO DAILY [facility] Last Admin: 02/02/18 09:25 Dose: Not Given Tapentadol Hcl [ (Nucynta Er] 50 Mg) 1 dose PO Q12 [facility] Last Admin: 02/02/18 09:25 Dose: 1 dose Umeclidinium [place] [Incruse Ellipta] Inh 1 dose INH DAILY [facility] Last Admin: 02/02/18 09:26 Dose: Not Given Potassium Chloride (Potassium Chloride) 20 meq PT BIDCC [facility] Last Admin: 02/02/18 09:22 Dose: 20 meq Potassium Chloride (Klor-Con) 40 meq PO DAILYP PRN PRN Reason: K+ < 3.5 Potassium Chloride (Kdur) 10 meq PO QAMCC [facility] Last Admin: 02/02/18 09:24 Dose: 10 meq Sertraline HCl (Zoloft) 200 mg PO DAILY [facility] Last Admin: 02/02/18 09:24 Dose: 200 mg Sodium Chloride (Saline Flush) 10 ml IV Q8 [facility] Last Admin: 02/02/18 05:38 Dose: Not Given Trazodone HCl (Desyrel) 50 mg PO HSP PRN PRN Reason: insomnia Medical - PN: A/P - Time Spent With Patient Total time spent is greater than 50% in coordination of care (as documented) at patient's floor/unit and/or counseling patient: 25 - 35 minutes (1) Hypokalemia Status: Acute Assessment and plan: * Critical Hypokalemia- 2.1-> 3.1 Continue replacement * Dirrhea-await stool studies. Continue crystalloids * Hypocalcemia-on replacement. Calcium 7.8 * Acute grief reaction from loss of spouse, expected response continue SSRI * Volume depletion-clinically improved on crystalloids * Non-complicated UTI-await repeat UA * Neuropathy on gabapentin * History of hypertension on metoprolol/ARB * History of atrial fibrillation -on digoxin/metoprolol. Rate controlled * Anticoagulation on Pradaxa * Coronary artery disease continue home dose Plavix and aspirin metoprolol * Anxiety/depression continue SSRI Plan * Continue crystalloids * Repeat UA * Continue electrolyte replacement as per protocol * Pre-existing medical condition management and home meds Current Visit: Yes Medical - PN: Qual - VTE Deep Vein Thrombosis/Pulmonary Embolism Present on Admission: No
[2018-02-02] MEDS: LACTATED RINGERS 1,000 ML IV SCH (09:59)
--- NOTE | 2018-02-02 10:21 | XRay Report ---
INDICATION: Dyspnea TECHNIQUE: AP chest x-ray, COMPARISON: 02/02/2017, CT scan dated 02/01/2019 FINDINGS:Lungs are negative. No parenchymal infiltrate or mass. There is cardiomegaly. This is unchanged. No pulmonary edema. No pulmonary congestion. Janine and mediastinum are negative. No pleural fluid. IMPRESSION: 1. Mild cardiomegaly 2. Otherwise negative AP chest x-ray Interpreted and Authenticated by: Mushtaq Martinez 02/02/18
[2018-02-02] MEDS: ISOSORBIDE MONONITRATE 20 MG TABLET PO SCH ×2 (11:57→15:29)
[2018-02-02] MEDS: guaiFENesin/CODEINE 10 ML UDC PO PRN ×2 (11:57→21:40)
[2018-02-02] MEDS: DIGOXIN 125 MCG TABLET PO SCH (13:53)
[2018-02-02] MEDS: POTASSIUM CHLORIDE 40 MEQ in DEXTROSE 5% IN WATER 500 ML IV PRN (17:17)
[2018-02-02 20:21] LABS: Blood Urea Nitrogen 19 mg/dl (8-23)
[2018-02-02] MEDS: ATORVASTATIN 20 MG TABLET PO SCH (20:55)
[2018-02-03] MEDS: LACTATED RINGERS 1,000 ML IV SCH (00:43)
[2018-02-03] MEDS: guaiFENesin/CODEINE 10 ML UDC PO PRN (02:03)
[2018-02-03 05:57] LABS: Basophils # (Auto) 0 K/mcL (0.0-0.3); Basophils % (Auto) 0.1 % (0.0-2.0); Eosinophils # (Auto) 0 K/mcL (0.0-0.7); Eosinophils % (Auto) 0.1 % (0.0-7.0); Granulocytes % (Auto) 74.4 % (38.0-78.0); Lymphocytes # (Auto) 0.9 K/mcL (1.5-4.8); Lymphocytes % (Auto) 19.5 % (15.5-49.0); Mean Cell Volume 89.1 fL (80.0-100.0); Mean Corpuscular HGB Conc 32.4 g/dL (31.0-36.0); Mean Corpuscular Hemoglobin 28.9 pg (26.0-34.0); Monocytes # (Auto) 0.3 K/mcL (0.1-0.9); Monocytes % (Auto) 5.9 % (1.0-12.0); Platelet Count 133 K/mcL (140-440); RBC 3.55 M/mcL (4.00-5.20); Red Cell Distribution Width 15.6 % (11.5-14.5)
[2018-02-03 06:06] LABS: ALT/SGPT 12 U/l (0-40); Albumin 3.4 gm/dL (3.2-5.2); Albumin/Globulin Ratio 1.3 (1.0-2.3); Alkaline Phosphatase 51 U/L (39-117); Bilirubin,Direct < 0.2 mg/dL (0.0-0.3); Blood Urea Nitrogen 17 mg/dl (8-23); Gamma Glutamyl Transpeptidase 18 U/L (5-36); Uric Acid 3.7 mg/dL (2.5-8.0)
[2018-02-03] MEDS: IPRATROPIUM/ALBUTEROL 3 ML AMPUL.NEB NEB PRN ×2 (07:14→14:13)
[2018-02-03] MEDS: 0.9 % SODIUM CHLORIDE 10 ML SYRINGE IV SCH ×2 (07:25→14:10)
[2018-02-03] MEDS: MAGNESIUM SULFATE 2 GM/50 ML BAG IV PRN (07:26)
[2018-02-03] MEDS: OMEPRAZOLE 20 MG CAPSULE PO SCH (07:28)
--- NOTE | 2018-02-03 07:33 | Discharge Summary ---
Medical - DS: Prov Patient information: Note initiated : 02/03/18 at 7:28 am Service Date, if different from initiated Date: [] Patient: Dara uNll 77 y/o F admitted on 02/01/18 for Weakness, Diarrhea, Hypotension/Hypokalemia. Chief Complaint: [] Date of admission: 02/01/18 21:36 Discharge date: 02/03/18 Primary care physician: Shae Cheatham Medical - DS: Meds - Discharge Medications Prescriptions: Amoxicillin/Potassium Clav [Augmentin] 875 mg PO Q12H #10 tab Active and Home Medications: Home Medications Flexin Supplement 1 supp PO .DAILY 05/07/15 [History Confirmed 02/01/18 Last Taken 07/19/16] biotin 1 mg tablet 1 mg PO QDAY tab 05/07/15 [History Confirmed 02/01/18 Last Taken 07/19/16] metoprolol tartrate 25 mg tablet 100 mg PO BID tab 08/12/16 [History Confirmed 02/01/18 Last Taken Unknown] atorvastatin 80 mg tablet 80 mg PO QDAY #90 tab 06/29/17 [Rx Confirmed 02/01/18 Last Taken Unknown] dabigatran etexilate 150 mg capsule 150 mg PO BID #180 cap 06/29/17 [Rx Confirmed 02/01/18 Last Taken Unknown] digoxin 125 mcg tablet 125 mcg PO QDAY #90 tab 06/29/17 [Rx Confirmed 02/01/18 Last Taken Unknown] furosemide 20 mg tablet 20 mg PO QDAY #90 tab 06/29/17 [Rx Confirmed 02/01/18 Last Taken Unknown] isosorbide mononitrate 10 mg tablet 10 mg PO BID 90 Days #180 tab 06/29/17 [Rx Confirmed 02/01/18 Last Taken Unknown] mirabegron ER 25 mg tablet,extended release 24 hr 25 mg PO QDAY #90 tab [Rx Confirmed 02/01/18 Last Taken Unknown] omeprazole 40 mg capsule,delayed release 40 mg PO QDAY #90 cap 06/29/17 [Rx Confirmed 02/01/18 Last Taken Unknown] potassium chloride ER 10 mEq capsule,extended release 10 meq PO QDAY #90 cap [Rx Confirmed 02/01/18 Last Taken Unknown] umeclidinium 62.5 mcg/actuation blister powder for inhalation 1 inh INHALATION Q24H #90 each 06/29/17 [Rx Confirmed 02/01/18 Last Taken Unknown] losartan 25 mg tablet 50 mg PO QDAY #180 tab 09/27/17 [Rx Confirmed 02/01/18 Last Taken Unknown] sertraline 100 mg tablet 200 mg PO QDAY #180 tab 09/27/17 [Rx Confirmed Last Taken Unknown] gabapentin 300 mg capsule 300 mg PO TID #90 cap 10/28/17 [Rx Confirmed 02/01/18 Last Taken Unknown] trazodone 50 mg tablet 50 mg PO QHS PRN #30 tab 12/20/17 [Rx Confirmed 02/01/18 Last Taken Unknown] tapentadol ER 50 mg tablet,extended release,12 hr 50 mg PO Q12H #60 tab [Rx Confirmed 02/01/18 Last Taken Unknown] Clopidogrel Bisulfate [Plavix] 75 mg PO DAILY 02/01/18 [History Confirmed Last Taken Unknown] Hydrocodone/APAP 7.5/325Mg [[place] 7.5-325Mg] 1 tab PO DAILYP PRN 02/01/18 [ History Confirmed 02/02/18 Last Taken Unknown] Meclizine [Antivert] 12.5 mg PO DAILYP PRN 02/01/18 [History Confirmed 02/01/18 Last Taken Unknown] Medical - DS: Hosp Hospital course: Discharge diagnoses * Critical Hypokalemia- 2.1-> 3.1-> 4.1 likely secondary to alcohol and diarrhea * Diarrhea -clinically resolved. Negative stool studies. * Hypocalcemia-on replacement. Normalized * Acute grief reaction from loss of spouse, expected response. continue home dose SSRI * Volume depletion-clinically improved on crystalloids * Non-complicated UTI -continue additional 5 days oral Augmentin * Neuropathy on gabapentin * History of hypertension on metoprolol/ARB * History of atrial fibrillation -on digoxin/metoprolol. Rate controlled * Anticoagulation on Pradaxa * Coronary artery disease continue home dose Plavix and aspirin metoprolol * Anxiety/depression continue SSRI Brief hospital course Ms. Null is a 77 year old F who comes to the ER with above symptoms. Patient has been actively grieving recent loss of her in November and has been living alone. Over the last couple of months patient has not been able to take care of herself and has frequently missed her medications. She carries a history of irritable bowel syndrome and has had intermittent diarrhea over the last couple of weeks along with associated loss of appetite and failure to take her usual medications. She also endorses to feeling dizzy and weak and very lethargic. She denies associated, fever, abdominal cramps blood, mucus. She has also experienced multiple episodes of bowel incontinence without even realizing until she noticed stool dripping down her legs on the floor. She has a son who lives nearby and frequently checks on her. With worsening symptoms and increasing weakness patient presents to the ER today. Initial workup was significant for potassium 2.1 and calcium 5.3. Significant pyuria on UA. She is started on emergent electrolyte replacement protocol. Hospitalist service was consulted. At the time of evaluation patient is alert and oriented rest she appears fatigued but was able to put endorsed a history as above. She denies changes in medications. She denies sick contacts. She denies chest pain, shortness of breath ,weight loss, joint or glandular swelling. 02/02-patient doing a lot better. Potassium from 2.1-3.1. Calcium 7.8. Improved systolics. Ongoing crystalloids. Diarrhea much improved. Improving renal function. Repeat UA. Stool studies including fecal leukocytes negative. C. difficile negative. Continue physical therapy. Continue aggressive electrolyte replacement. 02/03-patient doing well. No overnight events. Persistent cough and negative chest imaging. Potassium up to 4. Feels at baseline however now showing early signs of alcohol withdrawal on CIWA score. Discharging home with 5 days oral Augmentin. Advised to refrain from alcohol use. Recommend home health physical therapy. ADDENDUM- Discharge cancelled due to etoh withdrawl symptoms. Discharge diagnosis: . - Time Spent with Patient Total time spent providing and/or coordinating discharge services: Greater than 30 minutes Medical - DS: Exam - Constitutional Vitals: Vital Signs Temp Pulse Pulse Resp BP BP Pulse Ox 02/03/18 07:15 98 H 20 98 02/03/18 05:26 90 02/03/18 05:01 20 134/70 89 L 02/03/18 04:23 90 02/03/18 04:19 99 F 18 130/70 91 02/03/18 02:07 98.0 F 18 102/71 94 02/03/18 00:02 97.8 F 18 95 02/03/18 00:01 95/76 94 02/02/18 23:29 103/62 92 02/02/18 23:09 95 02/02/18 23:07 79/44 94 02/02/18 22:31 97.9 F 20 89 L 02/02/18 21:14 92 02/02/18 20:03 97.7 F 74 18 93/61 95 02/02/18 20:00 97.7 F 74 18 93/61 96 02/02/18 19:12 74 82/51 95 02/02/18 18:01 72 86/74 95 02/02/18 17:35 67 96 02/02/18 17:32 88/66 02/02/18 16:00 97.8 F 71 18 122/68 93 02/02/18 14:00 94 02/02/18 12:00 97.6 F 87 20 134/78 99 02/02/18 09:01 103 H 122/83 95 02/02/18 08:01 92 H 161/89 91 Intake and Output 02/02/18 02/03/18 02/03/18 21:59 05:59 13:59 Intake Total 1122 / 1122 520 / 520 Output Total Balance 1121 / 1121 519 / 519 Intake: IV 732 / 732 520 / 520 Lactated Ringers 1,000 ml @ 100 732 / 732 0 / 0 mls/hr IV .Q10H [facility] Rx#: [id number] Potassium Chloride 40 Meq In 520 / 520 Dextrose 5% in Water 500 ml @ 130 mls/hr IV UD PRN Rx#: [id number] Oral 390 / 390 Output: # of times incontinent of urine Other: Weight 158 lb 8 oz Medical - DS: Data Labs on day of discharge: Labs from last 24 hours 02/03/18 02/03/18 02/02/18 04:02 04:02 18:30 WBC 4.8 RBC 3.55 L Hgb 10.3 L Hct 31.6 L MCV 89.1 MCH 28.9 MCHC 32.4 RDW 15.6 H Plt Count 133 L MPV 8.4 Gran % 74.4 Lymph % (Auto) 19.5 [place] % (Auto) 5.9 Eos % (Auto) 0.1 Baso % (Auto) 0.1 Gran # 3.6 Lymph # (Auto) 0.9 L [place] # (Auto) 0.3 Eos # (Auto) 0 Baso # (Auto) 0 Sodium 138 137 Potassium 4.2 3.7 Chloride 103 102 Carbon Dioxide 26 24 Anion Gap 9.0 11.0 BUN 17 19 Creatinine 0.9 1.0 GFR Calculation 61 54 Glucose 93 114 H Uric Acid 3.7 Calcium 7.5 L 7.8 L Phosphorus 2.7 Magnesium 1.4 L Total Bilirubin 0.6 Direct Bilirubin < 0.2 GGT 18 AST 21 ALT 12 Alkaline Phosphatase 51 Lactate Dehydrogenase 238 Total Protein 6.0 Albumin 3.4 Globulin 2.6 Albumin/Globulin Ratio 1.3 Triglycerides 114 Medical - DS: A/P - Patient/Caregiver Discharge Instructions Activity: as per physical therapy, increase activity as tolerated Diet: Regular Diet Additional Instructions: Pulmonary Function test at [facility] Radiology Dept. is scheduled for February 23 @ 10:00; No smoking or caffeine 2 hrs. prior to procedure. Wear comfortable clothing. If any questions call Follow-up PCP in 5 days--See scheduled appt. I recommend primary care physician to check CBC BMP UA as a posthospital follow- up in 1 week. Please schedule pulmonary function test as outpatient in 3 weeks--See scheduled appt. Continue fall precautions Continue home health PT OT All meals on chair sitting upright at 90 degrees to prevent aspiration Return to ER if worsening fever chills shortness of breath, diarrhea, bleeding Refrain from smoking and alcohol Continue diet and activity as advised Portions of this chart may have been created with [employer] voice recognition software. Occasional wrong-word or ?sound-like? substitutions may have occurred due to the inherent limitations of voice recognition software. Please read the chart carefully and recognize, using context, where the substitutions have occurred. CC- PCP Prescriptions: Amoxicillin/Potassium Clav [Augmentin] 875 mg PO Q12H #10 tab - Problem Maintenance (1) Hypokalemia Status: Acute - Follow up Plan Follow up with: Shae Cheatham, JAMEL, WHISTLE PUNK [Primary Care Provider] - 02/10/18 11:00 am Disposition: Home Health Service Prognosis: Critical Rehab Potential: Fair I certify that the patient requires SNF services: No Overall status at discharge: patient is progressing back to baseline Medical - DS: Qual - VTE Deep Vein Thrombosis/Pulmonary Embolism Present on Admission: No
--- NOTE | 2018-02-03 08:06 | XRay Report ---
INDICATION: Persistent cough TECHNIQUE: AP chest x-ray,portable semiupright COMPARISON: Chest x-rays dated 02/02/2018, 02/02/2017 FINDINGS:Mild cardiomegaly is unchanged. Pulmonary vascularity is prominent with increasing peribronchial thickening and possible subtle septal lines. Appearance is consistent with pulmonary congestion. There may be mild interstitial pulmonary edema. Findings are somewhat worse. Clinical correlation and follow-up radiograph recommended. No parenchymal consolidation. No evidence for pleural fluid. IMPRESSION: 1. Cardiomegaly and increasing pulmonary congestion. Possible mild interstitial edema 2. Findings are slightly worse than on 02/02/2018. Continued follow-up recommended Interpreted and Authenticated by: Mushtaq Martinez 02/03/18
[2018-02-03] MEDS: SERTRALINE 50 MG TABLET PO SCH (09:26)
[2018-02-03] MEDS: GABAPENTIN 300 MG CAPSULE PO SCH ×4 (09:26→21:16)
[2018-02-03] MEDS: LOSARTAN 25 MG TABLET PO SCH (09:26)
[2018-02-03] MEDS: METOPROLOL TARTRATE 25 MG TABLET PO SCH ×2 (09:26→21:16)
[2018-02-03] MEDS: CLOPIDOGREL 75 MG TABLET PO SCH (09:26)
[2018-02-03] MEDS: HEPARIN 5,000 UNIT/ML VIAL SQ SCH ×2 (09:31→21:15)
[2018-02-03] MEDS: POTASSIUM CHLORIDE 20 MEQ/15 ML ML PT SCH (09:31)
[2018-02-03] MEDS: POTASSIUM CHLORIDE 10 MEQ TABLET PO SCH (09:31)
[2018-02-03] MEDS: Mirabegron [Myrbetriq] 25 MG PO SCH (09:34)
[2018-02-03] MEDS: DABIGATRAN ETEXILATE MESYLATE 75 MG CAPSULE PO SCH ×3 (09:40→21:35)
[2018-02-03] MEDS: ISOSORBIDE MONONITRATE 20 MG TABLET PO SCH ×2 (09:43→16:14)
[2018-02-03] MEDS: TAPENTADOL HCL 50 MG PO SCH ×2 (11:17→21:19)
[2018-02-03] MEDS: UMECLIDINIUM BROMIDE INH SCH (11:17)
--- NOTE | 2018-02-03 11:59 | Internal Med Progress Note ---
Medical - PN: Subj Patient information: Note initiated : 02/03/18 at 11:56 am Service Date, if different from initiated Date: [] Patient: Dara Null a 77 y/o F admitted on 02/01/18 for Weakness, Diarrhea, Hypotension/Hypokalemia. Chief Complaint: [Patient with increasing confusion and tremulousness. ] Interval history: Patient tells me she drinks two highballs per day with scotch - and shows me about 6-7 cm with her fingers for how much scotch is in each. Notes her at home (expected, with hospice) about a month ago. States she is not doing well with that. States lonely quiet house. States she is aware of hospice resources for her, but has not used any yet. Also notes cough which has been present prior; previous smoker, quit about one month ago. No complaints of pain, GI upset at present. Pertinent ROS: Has MDI's at home for cough / breathing, but doesn't use. No sputum production. Cough unchanged. - Constitutional Vitals: Vital Signs Temp Pulse Resp BP Pulse Ox 99 F 98 H 20 134/70 98 02/03/18 04:19 02/03/18 07:15 02/03/18 07:15 02/03/18 05:01 02/03/18 07:15 Period Temp Pulse Resp BP Sys/Marques Pulse Ox Last 24 Hr 97.6 F-99 F 67-98 18-20 79-134/44-78 89-99 Intake and Output 02/02/18 02/03/18 02/03/18 21:59 05:59 13:59 Intake Total 1122 / 1122 520 / 520 50 / 50 Output Total Balance 1121 / 1121 519 / 519 50 / 50 Weight 158 lb 8 oz Intake & Output: Intake & Output 02/02/18 02/03/18 02/03/18 21:59 05:59 13:59 Intake Total 1122 / 1122 520 / 520 50 / 50 Output Total Balance 1121 / 1121 519 / 519 50 / 50 Weight 158 lb 8 oz Intake: IV 732 / 732 520 / 520 50 / 50 Lactated Ringers 1,000 ml @ 100 732 / 732 0 / 0 mls/hr IV .Q10H [facility] Rx#: [id number] Potassium Chloride 40 Meq In 520 / 520 Dextrose 5% in Water 500 ml @ 130 mls/hr IV UD PRN Rx#: [id number] Oral 390 / 390 Output: # of times incontinent of urine - Respiratory Respiratory exam: Present: prolonged expiratory phase, wheezes (Minimal end exp wheeze). Absent: rales - Cardiovascular Cardiovascular exam: Present: tachycardia (Mild tachycardia (98)) - Neurological Exam Additional comments: tremulous. No asterixis. Some mumbling to speech, slow to follow some directions (needs demonstrated more than once). Does reorient and did answer questions more appropriately as visit went on. - Psychiatric Psychiatric exam: Present: anxious Medical - PN: Obj Da - Labs CBC & Chem 7: 02/03/18 04:02 02/03/18 04:02 Labs: Abnormal Lab Results 02/03/18 02/03/18 02/02/18 04:02 04:02 18:30 WBC RBC 3.55 L Hgb 10.3 L Hct 31.6 L POC Hct RDW 15.6 H Plt Count 133 L [place] % (Auto) Gran # Lymph # (Auto) 0.9 L POC Potassium Potassium Chloride Carbon Dioxide POC Total CO2 POC Creatinine Glucose 114 H Calcium 7.5 L 7.8 L POC WB Ioniz Calcium Magnesium 1.4 L Total Creatine Kinase Total Protein Albumin Globulin Urine Protein Urine Glucose (UA) Urine Occult Blood Ur Leukocyte Esterase Urine RBC Urine WBC Ur Squamous Epith Cells Ur Transition Epith Cell Amorphous Crystals Urine Bacteria Hyaline Casts 02/02/18 02/02/18 02/01/18 04:02 04:02 22:20 WBC 3.1 L 3.1 L RBC 3.72 L 3.74 L Hgb 10.8 L 10.7 L Hct 33.0 L 32.7 L POC Hct RDW 16.0 H 14.7 H Plt Count 135 L [place] % (Auto) 12.3 H Gran # 1.7 L Lymph # (Auto) 1.1 L 0.7 L POC Potassium Potassium 3.1 L Chloride Carbon Dioxide POC Total CO2 POC Creatinine Glucose Calcium 7.8 L POC WB Ioniz Calcium Magnesium Total Creatine Kinase Total Protein Albumin Globulin Urine Protein Urine Glucose (UA) Urine Occult Blood Ur Leukocyte Esterase Urine RBC Urine WBC Ur Squamous Epith Cells Ur Transition Epith Cell Amorphous Crystals Urine Bacteria Hyaline Casts 02/01/18 02/01/18 02/01/18 20:00 18:55 18:55 WBC RBC Hgb Hct POC Hct 26.0 L RDW Plt Count [place] % (Auto) Gran # Lymph # (Auto) POC Potassium 2.1 L* Potassium Chloride Carbon Dioxide POC Total CO2 18 L POC Creatinine 1.2 H Glucose Calcium POC WB Ioniz Calcium 0.79 L Magnesium 1.3 L Total Creatine Kinase Total Protein Albumin Globulin Urine Protein 100 A Urine Glucose (UA) 50 A Urine Occult Blood 0.2 A Ur Leukocyte Esterase 250 A Urine RBC 32 H Urine WBC 32 H Ur Squamous Epith Cells 81 H Ur Transition Epith Cell 3 H Amorphous Crystals Few A Urine Bacteria Few A Hyaline Casts 65 H 02/01/18 02/01/18 18:55 18:55 WBC 3.1 L RBC 3.42 L Hgb 9.9 L Hct 30.4 L POC Hct RDW 15.5 H Plt Count 128 L [place] % (Auto) Gran # Lymph # (Auto) 0.5 L POC Potassium Potassium 2.1 L* Chloride 109 H Carbon Dioxide 19 L POC Total CO2 POC Creatinine Glucose 106 H Calcium 5.3 L* POC WB Ioniz Calcium Magnesium Total Creatine Kinase 19 L Total Protein 4.5 L Albumin 2.5 L Globulin 2.0 L Urine Protein Urine Glucose (UA) Urine Occult Blood Ur Leukocyte Esterase Urine RBC Urine WBC Ur Squamous Epith Cells Ur Transition Epith Cell Amorphous Crystals Urine Bacteria Hyaline Casts Meds: Medications Acetaminophen (Tylenol) 650 mg PO Q4-6HP PRN PRN Reason: PAIN/FEVER > 101 Hydrocodone Bitart/Acetaminophen ([place] 7.5/325mg) 1 tab PO DAILYP PRN PRN Reason: Pain Last Admin: 02/02/18 14:08 Dose: 1 tab Albuterol/Ipratropium (Duoneb) 3 ml NEB Q4HP PRN PRN Reason: Shortness Of Breath Last Admin: 02/03/18 07:14 Dose: 3 ml Atorvastatin Calcium (Lipitor) 80 mg PO HS [facility] Last Admin: 02/02/18 20:55 Dose: 80 mg Clopidogrel Bisulfate (Plavix) 75 mg PO DAILY [facility] Last Admin: 02/03/18 09:26 Dose: 75 mg Dabigatran (Pradaxa) 150 mg PO BID [facility] Last Admin: 02/03/18 09:40 Dose: 150 mg Digoxin (Lanoxin) 125 mcg PO DAILY@1400 [facility] Last Admin: 02/02/18 13:53 Dose: 125 mcg Folic Acid (Folic Acid) 1 mg PO DAILY [facility] Gabapentin (Neurontin) 300 mg PO TID [facility] Last Admin: 02/03/18 09:31 Dose: Not Given Guaifenesin/Codeine Phosphate (Robitussin Ac) 10 ml PO Q4HP PRN PRN Reason: Cough Last Admin: 02/03/18 02:03 Dose: 10 ml Heparin Sodium (Porcine) (Heparin) 5,000 unit SQ Q12 [facility] Last Admin: 02/03/18 09:31 Dose: 5,000 unit Potassium Chloride 40 meq/ (Dextrose) 520 mls @ 130 mls/hr IV UD PRN PRN Reason: K+ = or < 3.5 Last Infusion: 02/03/18 00:04 Dose: Infused Magnesium Sulfate (Magnesium Sulfate) 2 gm in 50 mls @ 50 mls/hr IV UD PRN PRN Reason: MG = or < 1.7 Last Infusion: 02/03/18 08:26 Dose: Infused Acetaminophen (Ofirmev) 1,000 mg in 100 mls @ 200 mls/hr IV Q6HP PRN PRN Reason: PAIN/FEVER > 101 Iron Carb/Multivit/[place]/Folic Acid (Multivitamin W/Minerals) 1 tab PO DAILY [facility] Isosorbide Mononitrate (Monoket) 20 mg PO BID@0800,1500 [facility] Last Admin: 02/03/18 09:43 Dose: 20 mg Lorazepam (Ativan) 0 mg PO Q4HP PRN; Protocol PRN Reason: Alcohol Withdrawal Losartan Potassium (Cozaar) 50 mg PO QDAY [facility] Last Admin: 02/03/18 09:26 Dose: 50 mg Meclizine HCl (Antivert) 12.5 mg PO DAILYP PRN PRN Reason: dizzy Metoprolol Tartrate (Lopressor) 100 mg PO BID [facility] Last Admin: 02/03/18 09:26 Dose: 100 mg Omeprazole (Prilosec) 40 mg PO ACB [facility] Last Admin: 02/03/18 07:28 Dose: 40 mg Ondansetron HCl (Zofran) 4 mg IV Q4-6HP PRN PRN Reason: Nausea And Vomiting Mirabegron [ (Myrbetriq] 25 Mg) 1 dose PO DAILY [facility] Last Admin: 02/03/18 09:34 Dose: Not Given Tapentadol Hcl [ (Nucynta Er] 50 Mg) 1 dose PO Q12 [facility] Last Admin: 02/03/18 11:17 Dose: Not Given Umeclidinium [place] [Incruse Ellipta] Inh 1 dose INH DAILY [facility] Last Admin: 02/03/18 11:17 Dose: Not Given Potassium Chloride (Potassium Chloride) 20 meq PT BIDCC [facility] Last Admin: 02/03/18 09:31 Dose: Not Given Potassium Chloride (Klor-Con) 40 meq PO DAILYP PRN PRN Reason: K+ < 3.5 Potassium Chloride (Kdur) 10 meq PO QAMCC [facility] Last Admin: 02/03/18 09:31 Dose: 10 meq Sertraline HCl (Zoloft) 200 mg PO DAILY [facility] Last Admin: 02/03/18 09:26 Dose: 200 mg Sodium Chloride (Saline Flush) 10 ml IV Q8 [facility] Thiamine HCl (Vitamin B1) 100 mg PO QDAY [facility] Trazodone HCl (Desyrel) 50 mg PO HSP PRN PRN Reason: insomnia - Imaging and cardiology Chest x-ray Status: image reviewed by me Additional comments: No infiltrate; no significant pulmonary edema. - ABG Interpretation Interpretation: normal Medical - PN: A/P - Time Spent With Patient Total time spent is greater than 50% in coordination of care (as documented) at patient's floor/unit and/or counseling patient: less than 15 minutes (With greater than 30 minutes with chart and result review in addition.) (1) Alcohol withdrawal Status: Acute Assessment and plan: Started CIWA, thiamine, benzodiazepine coverage. May consider adding catapres TTS. Current Visit: Yes (2) Hypomagnesemia Status: Acute Assessment and plan: Likely related to chronic EtOH use. Has had two riders of 2 grams each since admission; will recheck this afternoon and then tomorrow morning. Suspect still with significant total body deficit. Current Visit: Yes (3) Chronic obstructive pulmonary disease Status: Chronic Assessment and plan: I suspect this is source of her cough. Has minimal wheeze at present, however. May benefit from atrovent MDI. Current Visit: No Medical - PN: Qual - VTE Deep Vein Thrombosis/Pulmonary Embolism Present on Admission: No
[2018-02-03] MEDS: LORazepam 1 MG TABLET PO PRN ×3 (13:01→21:17)
[2018-02-03] MEDS: DIGOXIN 125 MCG TABLET PO SCH (13:46)
[2018-02-03] MEDS: ATORVASTATIN 20 MG TABLET PO SCH ×2 (21:15→21:36)
[2018-02-04] MEDS: LORazepam 2 MG/ML VIAL IV PRN ×3 (00:27→23:02)
[2018-02-04] MEDS ORDERED: LORazepam 2 MG/ML VIAL ONE (00:28)
[2018-02-04] MEDS: IPRATROPIUM/ALBUTEROL 3 ML AMPUL.NEB NEB SCH ×5 (02:00→19:43)
[2018-02-04] MEDS: 0.9 % SODIUM CHLORIDE 10 ML SYRINGE IV SCH ×4 (03:20→21:58)
[2018-02-04] MEDS: LORazepam 2 MG/ML VIAL ONE ×2 (05:15→05:18)
[2018-02-04 07:20] LABS: ALT/SGPT 10 U/l (0-40); Albumin 3.1 gm/dL (3.2-5.2); Albumin/Globulin Ratio 1.2 (1.0-2.3); Alkaline Phosphatase 46 U/L (39-117); Bilirubin,Direct 0.2 mg/dL (0.0-0.3); Blood Urea Nitrogen 11 mg/dl (8-23); Gamma Glutamyl Transpeptidase 15 U/L (5-36); Uric Acid 1.8 mg/dL (2.5-8.0)
[2018-02-04 07:29] LABS: Basophils # (Auto) 0 K/mcL (0.0-0.3); Basophils % (Auto) 0.2 % (0.0-2.0); Eosinophils # (Auto) 0 K/mcL (0.0-0.7); Eosinophils % (Auto) 0 % (0.0-7.0); Granulocytes % (Auto) 69.4 % (38.0-78.0); Lymphocytes # (Auto) 1.1 K/mcL (1.5-4.8); Lymphocytes % (Auto) 23.5 % (15.5-49.0); Mean Cell Volume 88.9 fL (80.0-100.0); Mean Corpuscular HGB Conc 32.6 g/dL (31.0-36.0); Monocytes # (Auto) 0.3 K/mcL (0.1-0.9); Monocytes % (Auto) 6.9 % (1.0-12.0); Platelet Count 107 K/mcL (140-440); RBC 3.49 M/mcL (4.00-5.20); Red Cell Distribution Width 15.6 % (11.5-14.5)
[2018-02-04] MEDS ORDERED: FOLIC ACID 1 MG TABLET PO SCH (09:00)
[2018-02-04] MEDS ORDERED: THIAMINE 100 MG TABLET PO SCH (09:00)
--- NOTE | 2018-02-04 09:24 | XRay Report ---
INDICATION: Cough. Tachypnea. TECHNIQUE: AP chest x-ray,portable upright COMPARISON: 02/03/2018, 02/02/2018, 02/02/2017 FINDINGS:There is cardiomegaly. Pulmonary vascularity is prominent. There is peribronchial thickening and septal lines. Appearance is consistent with interstitial pulmonary edema. Findings are worse than on previous examination. No parenchymal consolidation. No parenchymal mass IMPRESSION: 1. Cardiomegaly 2. Interstitial pulmonary edema 3. Findings are worse than on 02/03/2018 Interpreted and Authenticated by: Mushtaq Martinez 02/04/18
[2018-02-04] MEDS ORDERED: FUROSEMIDE 20 MG/2 ML VIAL IV ONE (09:43)
[2018-02-04] MEDS: OMEPRAZOLE 20 MG CAPSULE PO SCH (10:20)
[2018-02-04] MEDS: POTASSIUM CHLORIDE 10 MEQ TABLET PO SCH (10:20)
[2018-02-04] MEDS: METOPROLOL TARTRATE 25 MG TABLET PO SCH ×2 (10:21→20:14)
[2018-02-04] MEDS: Mirabegron [Myrbetriq] 25 MG PO SCH (10:21)
[2018-02-04] MEDS: MULTIVIT,THER IRON,CA,FA & MIN 1 TABLET PO SCH (10:21)
[2018-02-04] MEDS: GABAPENTIN 300 MG CAPSULE PO SCH ×3 (10:21→21:34)
[2018-02-04] MEDS: UMECLIDINIUM BROMIDE INH SCH (10:21)
[2018-02-04] MEDS: ISOSORBIDE MONONITRATE 20 MG TABLET PO SCH ×2 (10:21→17:18)
[2018-02-04] MEDS: LOSARTAN 25 MG TABLET PO SCH (10:21)
[2018-02-04] MEDS: TAPENTADOL HCL 50 MG PO SCH ×2 (10:21→21:34)
--- NOTE | 2018-02-04 10:36 | Internal Med Progress Note ---
Medical - PN: Subj Patient information: Note initiated : 02/04/18 at 10:33 am Service Date, if different from initiated Date: [] Patient: Dara Null a 77 y/o F admitted on 02/01/18 for Weakness, Diarrhea, Hypotension/Hypokalemia. She developed EtOH withdrawal syndrome on 02/03/18 and her discharge plans were cancelled. She has been scoring 10-19 on CIWA. She had some episodes of confusion overnight, and is minimally interactive this AM. When queried, she voices no complaints. Denies pain. Has been incontinent of urine, and nursing reports periurethral redness. Cough has also continued to be an issue. Minimal by mouth intake. Interval history: Her son is in the room today, and expresses concerns regarding her somnolence. He also expresses his own experiences with alcohol withdrawal. He notes some concerns regarding her overall nutritional status that she has not been eating much at home, and may even sleep for up to 48 hours at a time, only getting up to use the toilet. Per nursing, patient has been responsive to Ativan for withdrawal symptoms, and she also received another magnesium rider this morning. There are some concerns regarding her ability to swallow pills at this time. 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 - Constitutional Vitals: Vital Signs Temp Pulse Resp BP Pulse Ox 98.8 F 88 24 H 128/96 94 02/04/18 04:01 02/04/18 06:54 02/04/18 07:13 02/04/18 07:13 02/04/18 07:13 Period Temp Pulse Resp BP Sys/Marques Pulse Ox Last 24 Hr 98.8 F-98.9 F 88-121 17-34 103-128/55-96 86-98 Intake and Output 02/03/18 02/04/18 02/04/18 21:59 05:59 13:59 Intake Total 720 / 720 200 / 200 Output Total 2 2 Balance 719 / 719 198 / 198 Weight 158 lb 8 oz Intake & Output: Intake & Output 02/03/18 02/04/18 02/04/18 21:59 05:59 13:59 Intake Total 720 / 720 200 / 200 Output Total 2 2 Balance 719 / 719 198 / 198 Weight 158 lb 8 oz Intake: Oral 720 / 720 GI Tube Flush 200 / 200 Output: # of times incontinent of urine / 2 / 2 Other: Stool Size Smear Stool Color Brown # of times incontinent of 1 Bowels Exam: Patient is noted to be sleeping she is at approximately 60-70 angle. She remains tachypneic, with episodes of cough which sounds as if it may be looser. When I was there earlier this morning, her speech was somewhat mumbled and incoherent, however when visiting with her son she will open her eyes give side long grins regarding conversation having with her son. At that time, she also was answering less since appropriately with no mumbling but only 1 or 2 word answers. Of note I am not convinced that she manages secretions particularly well in watching her breathe and cough. - Eye Additional comments: No scleral icterus. No nystagmus. - ENT ENT exam: Present: mucous membranes moist - Neck Additional comments: No JVD, no bruits, no masses - Respiratory Additional comments: During sleep, was noted with tachypnea and shallow breaths. When waking respiratory rate decreases breaths appear deeper. No accessory muscle involvement. Lungs had air entry to the bases, fine crackles throughout, no coarse crackles in the bases, no focally diminished breath sounds, no wheezes. However when she coughs she does sound as if she has expiratory obstruction. - Cardiovascular Additional comments: Irregularly irregular, no murmurs rubs or gallops. - Extremities Exam Additional comments: No edema, obvious spider veins in her ankles. - Neurological Exam Additional comments: Tremor much improved from yesterday. 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 Unable to fully assess orientation as she is answering questions intermittently. Medical - PN: Obj Da - Labs CBC & Chem 7: 02/04/18 06:52 02/04/18 04:11 Labs: Abnormal Lab Results 02/04/18 02/04/18 02/03/18 06:52 04:11 04:02 WBC RBC 3.49 L 3.55 L Hgb 10.1 L 10.3 L Hct 31.0 L 31.6 L POC Hct RDW 15.6 H 15.6 H Plt Count 107 L 133 L [place] % (Auto) Gran # Lymph # (Auto) 1.1 L 0.9 L POC Potassium Potassium Chloride Carbon Dioxide POC Total CO2 POC Creatinine Glucose Uric Acid 1.8 L Calcium 7.4 L POC WB Ioniz Calcium Phosphorus 2.2 L Magnesium Total Creatine Kinase Total Protein 5.7 L Albumin 3.1 L Globulin Urine Protein Urine Glucose (UA) Urine Occult Blood Ur Leukocyte Esterase Urine RBC Urine WBC Ur Squamous Epith Cells Ur Transition Epith Cell Amorphous Crystals Urine Bacteria Hyaline Casts 02/03/18 02/02/18 02/02/18 04:02 18:30 04:02 WBC 3.1 L RBC 3.72 L Hgb 10.8 L Hct 33.0 L POC Hct RDW 16.0 H Plt Count 135 L [place] % (Auto) 12.3 H Gran # 1.7 L Lymph # (Auto) 1.1 L POC Potassium Potassium Chloride Carbon Dioxide POC Total CO2 POC Creatinine Glucose 114 H Uric Acid Calcium 7.5 L 7.8 L POC WB Ioniz Calcium Phosphorus Magnesium 1.4 L Total Creatine Kinase Total Protein Albumin Globulin Urine Protein Urine Glucose (UA) Urine Occult Blood Ur Leukocyte Esterase Urine RBC Urine WBC Ur Squamous Epith Cells Ur Transition Epith Cell Amorphous Crystals Urine Bacteria Hyaline Casts 02/02/18 02/01/18 02/01/18 04:02 22:20 20:00 WBC 3.1 L RBC 3.74 L Hgb 10.7 L Hct 32.7 L POC Hct RDW 14.7 H Plt Count [place] % (Auto) Gran # Lymph # (Auto) 0.7 L POC Potassium Potassium 3.1 L Chloride Carbon Dioxide POC Total CO2 POC Creatinine Glucose Uric Acid Calcium 7.8 L POC WB Ioniz Calcium Phosphorus Magnesium Total Creatine Kinase Total Protein Albumin Globulin Urine Protein 100 A Urine Glucose (UA) 50 A Urine Occult Blood 0.2 A Ur Leukocyte Esterase 250 A Urine RBC 32 H Urine WBC 32 H Ur Squamous Epith Cells 81 H Ur Transition Epith Cell 3 H Amorphous Crystals Few A Urine Bacteria Few A Hyaline Casts 65 H 02/01/18 02/01/18 02/01/18 18:55 18:55 18:55 WBC RBC Hgb Hct POC Hct 26.0 L RDW Plt Count [place] % (Auto) Gran # Lymph # (Auto) POC Potassium 2.1 L* Potassium 2.1 L* Chloride 109 H Carbon Dioxide 19 L POC Total CO2 18 L POC Creatinine 1.2 H Glucose 106 H Uric Acid Calcium 5.3 L* POC WB Ioniz Calcium 0.79 L Phosphorus Magnesium 1.3 L Total Creatine Kinase 19 L Total Protein 4.5 L Albumin 2.5 L Globulin 2.0 L Urine Protein Urine Glucose (UA) Urine Occult Blood Ur Leukocyte Esterase Urine RBC Urine WBC Ur Squamous Epith Cells Ur Transition Epith Cell Amorphous Crystals Urine Bacteria Hyaline Casts 02/01/18 18:55 WBC 3.1 L RBC 3.42 L Hgb 9.9 L Hct 30.4 L POC Hct RDW 15.5 H Plt Count 128 L [place] % (Auto) Gran # Lymph # (Auto) 0.5 L POC Potassium Potassium Chloride Carbon Dioxide POC Total CO2 POC Creatinine Glucose Uric Acid Calcium POC WB Ioniz Calcium Phosphorus Magnesium Total Creatine Kinase Total Protein Albumin Globulin Urine Protein Urine Glucose (UA) Urine Occult Blood Ur Leukocyte Esterase Urine RBC Urine WBC Ur Squamous Epith Cells Ur Transition Epith Cell Amorphous Crystals Urine Bacteria Hyaline Casts Meds: Medications Acetaminophen (Tylenol) 650 mg PO Q4-6HP PRN PRN Reason: PAIN/FEVER > 101 Hydrocodone Bitart/Acetaminophen ([place] 7.5/325mg) 1 tab PO DAILYP PRN PRN Reason: Pain Last Admin: 02/02/18 14:08 Dose: 1 tab Albuterol/Ipratropium (Duoneb) 3 ml NEB Q6HRT [facility] Last Admin: 02/04/18 06:53 Dose: 3 ml Atorvastatin Calcium (Lipitor) 80 mg PO HS [facility] Last Admin: 02/03/18 21:36 Dose: 20 mg Clopidogrel Bisulfate (Plavix) 75 mg PO DAILY [facility] Last Admin: 02/03/18 09:26 Dose: 75 mg Dabigatran (Pradaxa) 150 mg PO BID [facility] Last Admin: 02/03/18 21:35 Dose: Not Given Digoxin (Lanoxin) 125 mcg PO DAILY@1400 [facility] Last Admin: 02/03/18 13:46 Dose: 125 mcg Folic Acid (Folic Acid) 1 mg PO DAILY [facility] Last Admin: 02/04/18 10:21 Dose: Not Given Gabapentin (Neurontin) 300 mg PO TID [facility] Last Admin: 02/04/18 10:21 Dose: Not Given Heparin Sodium (Porcine) (Heparin) 5,000 unit SQ Q12 [facility] Last Admin: 02/03/18 21:15 Dose: 5,000 unit Potassium Chloride 40 meq/ (Dextrose) 520 mls @ 130 mls/hr IV UD PRN PRN Reason: K+ = or < 3.5 Last Infusion: 02/03/18 00:04 Dose: Infused Magnesium Sulfate (Magnesium Sulfate) 2 gm in 50 mls @ 50 mls/hr IV UD PRN PRN Reason: MG = or < 1.7 Last Infusion: 02/03/18 08:26 Dose: Infused Acetaminophen (Ofirmev) 1,000 mg in 100 mls @ 200 mls/hr IV Q6HP PRN PRN Reason: PAIN/FEVER > 101 Iron Carb/Multivit/[place]/Folic Acid (Multivitamin W/Minerals) 1 tab PO DAILY [facility] Last Admin: 02/04/18 10:21 Dose: Not Given Isosorbide Mononitrate (Monoket) 20 mg PO BID@0800,1500 [facility] Last Admin: 02/04/18 10:21 Dose: Not Given Lorazepam (Ativan) 0 mg PO Q4HP PRN; Protocol PRN Reason: Alcohol Withdrawal Last Admin: 02/03/18 21:17 Dose: 1 mg Lorazepam (Ativan) 0 mg IV Q1HP PRN; Protocol PRN Reason: Alcohol Withdrawal Last Admin: 02/04/18 00:27 Dose: 2 mg Losartan Potassium (Cozaar) 50 mg PO QDAY [facility] Last Admin: 02/04/18 10:21 Dose: Not Given Meclizine HCl (Antivert) 12.5 mg PO DAILYP PRN PRN Reason: dizzy Metoprolol Tartrate (Lopressor) 100 mg PO BID [facility] [place] Last Admin: 02/04/18 10:21 Dose: Not Given Omeprazole (Prilosec) 40 mg PO ACB [facility] Last Admin: 02/04/18 10:20 Dose: Not Given Ondansetron HCl (Zofran) 4 mg IV Q4-6HP PRN PRN Reason: Nausea And Vomiting Mirabegron [ (Myrbetriq] 25 Mg) 1 dose PO DAILY [facility] Last Admin: 02/04/18 10:21 Dose: Not Given Tapentadol Hcl [ (Nucynta Er] 50 Mg) 1 dose PO Q12 [facility] Last Admin: 02/04/18 10:21 Dose: Not Given Umeclidinium [place] [Incruse Ellipta] Inh 1 dose INH DAILY [facility] Last Admin: 02/04/18 10:21 Dose: Not Given Potassium Chloride (Klor-Con) 40 meq PO DAILYP PRN PRN Reason: K+ < 3.5 Potassium Chloride (Kdur) 10 meq PO QAMCC [facility] Last Admin: 02/04/18 10:20 Dose: Not Given Sertraline HCl (Zoloft) 200 mg PO DAILY [facility] Last Admin: 02/03/18 09:26 Dose: 200 mg Sodium Chloride (Saline Flush) 10 ml IV Q8 [facility] Last Admin: 02/04/18 05:19 Dose: 10 ml Thiamine HCl (Vitamin B1) 100 mg PO QDAY [facility] Trazodone HCl (Desyrel) 50 mg PO HSP PRN PRN Reason: insomnia Medical - PN: A/P - Time Spent With Patient Total time spent is greater than 50% in coordination of care (as documented) at patient's floor/unit and/or counseling patient: (1) Alcohol withdrawal Status: Acute Assessment and plan: Responding to benzodiazepines, some issues with swallowing. I am somewhat concerned about aspiration risk, will obtain speech therapy consult. She has been afebrile, white count does not appear elevated but given a depressed white count when she came in she may have some underlying suppression of her marrow. We will also recheck chest x-ray. Given her difficulty with medications will switch vitamins to IV, including thiamine. Current Visit: Yes (2) Hypomagnesemia Status: Acute Assessment and plan: 02/03:Likely related to chronic EtOH use. Has had two riders of 2 grams each since admission; will recheck this afternoon and then tomorrow morning. Suspect still with significant total body deficit. 02/04: Still slightly low this morning, will replete magnesium, and recheck in the morning. Current Visit: Yes (3) Chronic obstructive pulmonary disease Status: Chronic Assessment and plan: 02/03: I suspect this is source of her cough. Has minimal wheeze at present, however. May benefit from atrovent MDI. 02/04: She initially seemed to respond well to bronchodilator, however I am now concerned she may have another process in the lungs, either increasing pulmonary edema (as was suggested on chest x-ray yesterday), or an aspiration pneumonia. We will continue with aspiration precautions, and check chest x-ray , continue bronchodilators. Current Visit: No (4) Atrial fibrillation Status: Chronic Assessment and plan: Rate is stable on present medications. We will continue digoxin and metoprolol , use IV if unable to take by mouth. Current Visit: Yes (5) Chronic anticoagulation Status: Chronic Assessment and plan: Has been on Pradaxa chronically, had difficulty swallowing dose last night, if she misses more will hold and use therapeutic Lovenox until she is less somnolent. Current Visit: Yes (6) Hypophosphatemia Status: Acute Assessment and plan: Likely alcohol and nutrition related will replete IV and recheck tomorrow. Current Visit: Yes (7) At risk for aspiration Status: Acute Assessment and plan: Multiple risks, we will continue to elevate head of bed, obtain speech consult. Current Visit: Yes (8) Pulmonary edema Status: Acute Assessment and plan: Repeat chest x-ray today shows worsening pulmonary edema, I also wonder about the possibility of an aspiration pneumonia in addition. However she has been afebrile and cough has been non-productive. We will dose IV Lasix 20 mg, place [place] as she has been incontinent, and reevaluate. Underlying etiology may well be some transient decompensation of her atrial fibrillation due to alcohol before she was even admitted. Current Visit: Yes Medical - PN: Qual - VTE Deep Vein Thrombosis/Pulmonary Embolism Present on Admission: No
[2018-02-04] MEDS ORDERED: POTASSIUM PHOSPHATE 40 MEQ in DEXTROSE 5% IN WATER 500 ML IV ONE (10:56)
[2018-02-04] MEDS: CLOPIDOGREL 75 MG TABLET PO SCH (11:04)
[2018-02-04] MEDS: SERTRALINE 50 MG TABLET PO SCH (11:04)
[2018-02-04] MEDS: HEPARIN 5,000 UNIT/ML VIAL SQ SCH ×2 (11:05→22:35)
[2018-02-04] MEDS: MAGNESIUM SULFATE 2 GM/50 ML BAG IV PRN (11:08)
[2018-02-04] MEDS: MVI, ADULT NO.4 WITH VIT K 10 ML in DEXTROSE 5% IN WATER 500 ML IV SCH (12:33)
[2018-02-04] MEDS: DABIGATRAN ETEXILATE MESYLATE 75 MG CAPSULE PO SCH ×2 (12:33→21:35)
[2018-02-04 12:48] LABS: Appearance,Urine CLEAR; Bacteria,Urine 0 /hpf (0); Bilirubin,Urine NEG (NEG); Color,Urine YELLOW; Glucose,Urine (UA) NEGATIVE (NEG); Leukocyte Esterase,Urine NEG /uL (NEG); Mucus,Urine FEW /hpf (0); Protein,Urine 30 mg/dL (NEG); Specific Gravity,Urine 1.017 (1.000-1.035); Urine Blood >=1.0 mg/dL (<0.03); Urine RBC 73 /hpf (0-1); Urine Squamous Epithelial Cell < 1 /hpf (0-4); Urine WBC 1 /hpf (0-4)
[2018-02-04] MEDS: DIGOXIN 125 MCG TABLET PO SCH (17:17)
[2018-02-04] MEDS: ATORVASTATIN 20 MG TABLET PO SCH (21:34)
[2018-02-04] MEDS: METOPROLOL TARTRATE 5 MG/5 ML VIAL IV SCH (21:58)
[2018-02-04] MEDS: ACETAMINOPHEN 1,000 MG/100 ML BOTTLE IV PRN (23:53)
[2018-02-05] MEDS ORDERED: METOPROLOL TARTRATE 5 MG/5 ML VIAL IV ONE ×4 (00:39→22:58)
[2018-02-05] MEDS: LORazepam 2 MG/ML VIAL IV PRN ×2 (00:43→21:19)
[2018-02-05] MEDS: METOPROLOL TARTRATE 5 MG/5 ML VIAL IV SCH ×6 (02:34→21:19)
[2018-02-05] MEDS: IPRATROPIUM/ALBUTEROL 3 ML AMPUL.NEB NEB SCH ×4 (02:36→19:31)
[2018-02-05] MEDS: 0.9 % SODIUM CHLORIDE 10 ML SYRINGE IV SCH ×2 (05:53→14:10)
[2018-02-05 06:01] LABS: ALT/SGPT 10 U/l (0-40); Albumin 3.5 gm/dL (3.2-5.2); Albumin/Globulin Ratio 1.2 (1.0-2.3); Alkaline Phosphatase 61 U/L (39-117); Bilirubin,Direct 0.4 mg/dL (0.0-0.3); Blood Urea Nitrogen 8 mg/dl (8-23); Gamma Glutamyl Transpeptidase 19 U/L (5-36); Uric Acid 1.9 mg/dL (2.5-8.0)
[2018-02-05] MEDS ORDERED: DIGOXIN 500 MCG/2 ML AMPUL IV ONE (07:44)
[2018-02-05] MEDS: OMEPRAZOLE 20 MG CAPSULE PO SCH (08:00)
[2018-02-05] MEDS: POTASSIUM CHLORIDE 10 MEQ TABLET PO SCH (08:00)
[2018-02-05] MEDS: ISOSORBIDE MONONITRATE 20 MG TABLET PO SCH ×2 (08:00→14:10)
--- NOTE | 2018-02-05 09:01 | XRay Report ---
INDICATION: Tachypnea. Pulmonary edema. TECHNIQUE: AP chest x-ray,portable upright COMPARISON: Chest x-rays dated 02/04/2018, 02/03/2018, 02/02/2018 FINDINGS:Findings consistent with mild interstitial pulmonary edema. Appearance is improved since 02/04/2018 but not completely resolved. No new focal pulmonary parenchymal infiltrates. No new abnormality. IMPRESSION: Improved pulmonary edema Interpreted and Authenticated by: Mushtaq Martinez 02/05/18
[2018-02-05] MEDS: Mirabegron [Myrbetriq] 25 MG PO SCH (09:52)
[2018-02-05] MEDS: TAPENTADOL HCL 50 MG PO SCH ×2 (09:52→20:10)
[2018-02-05] MEDS: UMECLIDINIUM BROMIDE INH SCH (09:53)
[2018-02-05] MEDS: MULTIVIT,THER IRON,CA,FA & MIN 1 TABLET PO SCH (09:53)
[2018-02-05] MEDS: DABIGATRAN ETEXILATE MESYLATE 75 MG CAPSULE PO SCH ×3 (09:59→20:10)
[2018-02-05] MEDS: SERTRALINE 100 MG TABLET PO SCH ×2 (09:59→11:07)
[2018-02-05] MEDS: LOSARTAN 25 MG TABLET PO SCH ×2 (09:59→11:06)
[2018-02-05] MEDS: THIAMINE 100 MG in 0.9 % SODIUM CHLORIDE 50 ML IV SCH (09:59)
[2018-02-05] MEDS: HEPARIN 5,000 UNIT/ML VIAL SQ SCH ×2 (09:59→21:19)
[2018-02-05] MEDS: GABAPENTIN 300 MG CAPSULE PO SCH ×4 (09:59→20:10)
[2018-02-05] MEDS: CLOPIDOGREL 75 MG TABLET PO SCH ×2 (09:59→11:07)
--- NOTE | 2018-02-05 11:06 | Internal Med Progress Note ---
Medical - PN: Subj Patient information: Note initiated : 02/05/18 at 11:00 am Service Date, if different from initiated Date: [] Patient: Dara Null a 77 y/o F admitted on 02/01/18 for Weakness, Diarrhea, Hypotension/Hypokalemia, subsequently developed acute alcohol withdrawal syndrome. Interval history: 02/04: Her son is in the room today, and expresses concerns regarding her somnolence. He also expresses his own experiences with alcohol withdrawal. He notes some concerns regarding her overall nutritional status that she has not been eating much at home, and may even sleep for up to 48 hours at a time, only getting up to use the toilet. Per nursing, patient has been responsive to Ativan for withdrawal symptoms, and she also received another magnesium rider this morning. There are some concerns regarding her ability to swallow pills at this time. 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 02/05: Discussed with nursing. Patient generally had a better night with improving CIWA scores. Still with cough. Vital signs appear erratic, but on further evaluation, appears that reads are not accurate when she is moving or coughing. She has no complaints today, was sleeping when I first went in, does rouse to answer questions. Dry cough present. When she was sleeping, respirations unlabored at 20, sats 92-92% with her oxygen prongs around her neck. Reviewed I/O, night time notes. Is taking some sips of po, still not taking medications reliably, so has missed Plavix, Pradaxa, nitrobid. Has gotten some metoprolol and digoxin IV. Pertinent ROS: Patient unable to provide further or extensive ROS due to somnolence and withdrawal. - Constitutional Vitals: Vital Signs Temp Pulse Resp BP Pulse Ox 96.8 F L 80 30 H 140/90 94 02/05/18 07:02 02/05/18 07:06 02/05/18 10:51 02/05/18 10:01 02/05/18 10:51 Period Temp Pulse Resp BP Sys/Marques Pulse Ox Last 24 Hr 96.8 F-99.5 F 80-107 16-43 89-184/57-172 92-99 Intake and Output 02/04/18 02/05/18 02/05/18 21:59 05:59 13:59 Intake Total 1019.0909 / 1019.0909 100 / 100 Output Total 3150 / 3150 650 / 650 200 / 200 Balance -2130.9091 / -2130.9091 -650 / -650 -100 / -100 Weight 152 lb 1.6 oz 149 lb 8 oz Patient Weight 02/06/18 05:59 Weight 149 lb 8 oz Intake & Output: Intake & Output 02/04/18 02/05/18 02/05/18 21:59 05:59 13:59 Intake Total 1019.0909 / 1019.0909 100 / 100 Output Total 3150 / 3150 650 / 650 200 / 200 Balance -2130.9091 / -2130.9091 -650 / -650 -100 / -100 Weight 152 lb 1.6 oz 149 lb 8 oz Intake: IV 1019.0909 / 1019.0909 100 / 100 Infuvite Adult 10 ml In 510 / 510 Dextrose 5% in Water 500 ml @ 250 mls/hr IV Q24H [facility] Rx#: [id number] Output: Urine Catheter Amount 3150 / 3150 650 / 650 200 / 200 Other: # Bowel Movements 1 - Additional findings Additional findings: GENERAL: Sleeping comfortably, respirations unlabored during sleep. I roused her and she had episode of usual cough. Non-productive. Remains somewhat somnolent (recent dose Ativan). HEENT: No facial asymmetry, sclera without icterus. Oropharynx with moist membranes. NECK: No JVD noted (at approx 50 degrees at present), trachea midline, no stridor. LUNGS: End inspiratory wheezes notes, some prolongation of exp phase, no exp wheeze however. No crackles. COR: Irregularly irregular. Rate variable between 80 and 110 while I am in the room. No murmur. ABD: Soft and non-distended. EXTREMITIES: No edema, spider veins in feet; radial pulses easily palpated. DP pulses present, but very difficult to find. Weak, at most 1+ NEURO: No tremor at present, moves all extremities equally. Medical - PN: Obj Da - Labs CBC & Chem 7: 02/04/18 06:52 02/05/18 03:45 Labs: Abnormal Lab Results 02/05/18 02/04/18 02/04/18 03:45 11:30 06:52 RBC 3.49 L Hgb 10.1 L Hct 31.0 L RDW 15.6 H Plt Count 107 L Lymph # (Auto) 1.1 L Glucose 123 H Uric Acid 1.9 L Calcium 7.9 L Phosphorus Magnesium Total Bilirubin 1.5 H Direct Bilirubin 0.4 H Lactate Dehydrogenase 291 H Total Protein Albumin Urine Protein 30 A Urine Occult Blood >=1.0 A Urine Urobilinogen 2.0 A Urine RBC 73 H 02/04/18 02/03/18 02/03/18 04:11 04:02 04:02 RBC 3.55 L Hgb 10.3 L Hct 31.6 L RDW 15.6 H Plt Count 133 L Lymph # (Auto) 0.9 L Glucose Uric Acid 1.8 L Calcium 7.4 L 7.5 L Phosphorus 2.2 L Magnesium 1.4 L Total Bilirubin Direct Bilirubin Lactate Dehydrogenase Total Protein 5.7 L Albumin 3.1 L Urine Protein Urine Occult Blood Urine Urobilinogen Urine RBC 02/02/18 18:30 RBC Hgb Hct RDW Plt Count Lymph # (Auto) Glucose 114 H Uric Acid Calcium 7.8 L Phosphorus Magnesium Total Bilirubin Direct Bilirubin Lactate Dehydrogenase Total Protein Albumin Urine Protein Urine Occult Blood Urine Urobilinogen Urine RBC Meds: Medications Acetaminophen (Tylenol) 650 mg PO Q4-6HP PRN PRN Reason: PAIN/FEVER > 101 Hydrocodone Bitart/Acetaminophen ([place] 7.5/325mg) 1 tab PO DAILYP PRN PRN Reason: Pain Last Admin: 02/02/18 14:08 Dose: 1 tab Albuterol/Ipratropium (Duoneb) 3 ml NEB Q6HRT [facility] Last Admin: 02/05/18 07:04 Dose: 3 ml Atorvastatin Calcium (Lipitor) 80 mg PO HS [facility] Last Admin: 02/04/18 21:34 Dose: Not Given Clopidogrel Bisulfate (Plavix) 75 mg PO DAILY [facility] Last Admin: 02/04/18 11:04 Dose: Not Given Dabigatran (Pradaxa) 150 mg PO BID [facility] Last Admin: 02/04/18 21:35 Dose: Not Given Digoxin (Lanoxin) 125 mcg IV DAILY@1400 [facility] Gabapentin (Neurontin) 300 mg PO TID [facility] Last Admin: 02/04/18 21:34 Dose: Not Given Heparin Sodium (Porcine) (Heparin) 5,000 unit SQ Q12 [facility] Last Admin: 02/05/18 09:59 Dose: 5,000 unit Potassium Chloride 40 meq/ (Dextrose) 520 mls @ 130 mls/hr IV UD PRN PRN Reason: K+ = or < 3.5 Last Infusion: 02/03/18 00:04 Dose: Infused Magnesium Sulfate (Magnesium Sulfate) 2 gm in 50 mls @ 50 mls/hr IV UD PRN PRN Reason: MG = or < 1.7 Last Infusion: 02/04/18 12:08 Dose: Infused Acetaminophen (Ofirmev) 1,000 mg in 100 mls @ 200 mls/hr IV Q6HP PRN PRN Reason: PAIN/FEVER > 101 Last Infusion: 02/05/18 06:57 Dose: Infused Multivitamins/Minerals 10 ml/ (Dextrose) 510 mls @ 250 mls/hr IV Q24H [facility] Last Infusion: 02/04/18 15:06 Dose: Infused Thiamine HCl 100 mg/ Sodium (Chloride) 51 mls @ 50 mls/hr IV DAILY [facility] Stop: 02/07/18 10:02 Last Admin: 02/05/18 09:59 Dose: 50 mls/hr Iron Carb/Multivit/[place]/Folic Acid (Multivitamin W/Minerals) 1 tab PO DAILY [facility] Last Admin: 02/05/18 09:53 Dose: Not Given Isosorbide Mononitrate (Monoket) 20 mg PO BID@0800,1500 [facility] Last Admin: 02/05/18 08:00 Dose: Not Given Lorazepam (Ativan) 0 mg PO Q4HP PRN; Protocol PRN Reason: Alcohol Withdrawal Last Admin: 02/03/18 21:17 Dose: 1 mg Lorazepam (Ativan) 0 mg IV Q1HP PRN; Protocol PRN Reason: Alcohol Withdrawal Last Admin: 02/05/18 00:43 Dose: 3 mg Losartan Potassium (Cozaar) 50 mg PO QDAY [facility] Last Admin: 02/04/18 10:21 Dose: Not Given Meclizine HCl (Antivert) 12.5 mg PO DAILYP PRN PRN Reason: dizzy Metoprolol Tartrate (Lopressor) 5 mg IV Q4H [facility] Last Admin: 02/05/18 10:01 Dose: 5 mg Omeprazole (Prilosec) 40 mg PO ACB [facility] Last Admin: 02/05/18 08:00 Dose: Not Given Ondansetron HCl (Zofran) 4 mg IV Q4-6HP PRN PRN Reason: Nausea And Vomiting Mirabegron [ (Myrbetriq] 25 Mg) 1 dose PO DAILY [facility] Last Admin: 02/05/18 09:52 Dose: Not Given Tapentadol Hcl [ (Nucynta Er] 50 Mg) 1 dose PO Q12 [facility] Last Admin: 02/05/18 09:52 Dose: Not Given Umeclidinium [place] [Incruse Ellipta] Inh 1 dose INH DAILY [facility] Last Admin: 02/05/18 09:53 Dose: Not Given Potassium Chloride (Klor-Con) 40 meq PO DAILYP PRN PRN Reason: K+ < 3.5 Potassium Chloride (Kdur) 10 meq PO QAMCC [facility] Last Admin: 02/05/18 08:00 Dose: Not Given Sertraline HCl (Zoloft) 200 mg PO DAILY [facility] Sodium Chloride (Saline Flush) 10 ml IV Q8 [facility] Last Admin: 02/05/18 05:53 Dose: 10 ml Trazodone HCl (Desyrel) 50 mg PO HSP PRN PRN Reason: insomnia - EKG Data -: EKG Interpreted by Myself - EKG Data Prior EKG available for review: yes When compared to previous EKG: there are significant changes (I reviewed patient 's chart at length today; initial EKG had showed afib with ST depressions most prominent in V3-V5; repeat EKG today shows afib with no ST or T wave changes concerning for ischemia. Abnormalities noted on admission have resolved with no new Q waves or other issues. A fib remains, ventricular rate without concern.) Medical - PN: A/P - Time Spent With Patient Greater than 35 minutes - Narrative A/P Narrative: By system: 1) Cardiac: Afib / CHF / h/o CAD: Patient had developed pulmonary edema over last few days. Received dose furosemide yesterday with good diuresis. In review of chart, I became concerned there may have been a cardiac event either prior to or close to admission. Repeat EKG reassuring and troponin is normal suggesting no new cardiac events in the recent past. She had been unable / unreliable in taking her cardiac meds since developing EtOH withdrawal, and the increasing rate, I think, is reflective of that. She is on metoprolol and digoxin for rate control of her afib, and I restarted some coverage with IV alternatives. Ventricular rate seems to be stable. Her blood pressures have been adequate and unconcerning. At present, will continue the IV metoprolol and digoxin; try to encourage po medications (Plavix, Pradaxa (she is on for afib), Lipitor (although less of an issue at present)) Etiology of edema may have been combination of aggressive hydration on initial admission, borderline high rate on afib, and alcohol withdrawal. No further IV furosemide planned for today. 2) Pulmonary: CHF / COPD: CXR this AM with improved edema, no evidence of infiltrate or aspiration. Dry cough may still be from residual edema or COPD. Does have some wheezing and is receiving nebs. Oxygenates okay without O2. 3) Fluids / electrolytes / nutrition: I/O yesterday with net 3531 out. one BM. Has taken minimal oral sips today. Steele draining concentrated clear urine at present. Calcium slightly low at 7.9, with albumin of 3.5; Magnesium has been stable after multiple riders. Remainder of electrolytes look good. No hypokalemia after furosemide. Some concern regarding po intake; may need to start alternative nutritional route if she does not improve. Speech therapy consult ordered yesterday due to concerns regarding aspiration risk. 4) Neuro / Alcohol withdrawal: slow improvement. Responds to lorazepam; CIWA last = 14. Will continue appropriate coverage, replacement electrolytes as needed. May need support at home at discharge. 5) GI: Was chronically on PPI; has not been able to take. Will start IV alternative for PUD prophylaxis given signficiant risk during ICU stay. Tbili up slightly today, ?? due to hepatic congestion with volume overload. Will recheck in AM. Transaminases unremarkable, however. No further diarrhea since admission, no emesis noted. 6) Complication prophylaxis: IV protonix, subcut heparin (may need to switch to therapeutic lovenox as she takes Pradaxa for afib and has not been swallowing those meds). Medical - PN: Qual - VTE Deep Vein Thrombosis/Pulmonary Embolism Present on Admission: No
[2018-02-05] MEDS: MVI, ADULT NO.4 WITH VIT K 10 ML in DEXTROSE 5% IN WATER 500 ML IV SCH (11:07)
[2018-02-05] MEDS: ACETAMINOPHEN 1,000 MG/100 ML BOTTLE IV PRN (14:13)
[2018-02-05] MEDS: 0.9 % SODIUM CHLORIDE 1,000 ML IV SCH (16:24)
[2018-02-05] MEDS: SERTRALINE 50 MG TABLET PO SCH (19:14)
[2018-02-05] MEDS: ATORVASTATIN 20 MG TABLET PO SCH (20:10)
[2018-02-05] MEDS ORDERED: DIGOXIN 500 MCG/2 ML AMPUL IV SCH (21:39)
[2018-02-05] MEDS ORDERED: NYSTATIN CRM 1 DOSE TUBE TOPICAL PRN (21:47)
[2018-02-05] MEDS ORDERED: LORazepam 2 MG/ML VIAL IV ONE ×3 (21:49→23:43)
[2018-02-05] MEDS ORDERED: DILTIAZEM 25 MG/5 ML VIAL IV ONE ×2 (23:06→23:08)
[2018-02-05] MEDS ORDERED: DILTIAZEM 125 MG in DEXTROSE 5% IN WATER 100 ML IV SCH (23:15)
--- NOTE | 2018-02-05 23:27 | Critical Care Progress Note ---
Critical Care Note - Narrative Summary: Progress Note initiated : 02/05/18 at 11:07 pm Service Date, if different from initiated Date: [] Patient: Dara Null a 77 y/o F admitted on 02/01/18 for Weakness, Diarrhea, Hypotension/Hypokalemia. Called initially due to agitation due to skin irritation on buttocks with clean up of incontinent stool. Patient very agitated then, uncooperative. Skin was raw, and moist. I evaluated her at that time. Subsequently, she had further episodes of liquidy stool, and order for rectal tube placed. Patient became more agitated, developed significant tachycardia (up to 200 on the monitor), and staff notified me of change in status. Patient was found to be agitated, not following commands, squirming wildly on bed. No stool noted, skin was dry and raw with some epithelial peeling in the buttock area. Vitals were difficult to obtain due to her agitation. Ativan 1 mg given, subsequently a second mg (and she had received 1 mg prior) for a total of 3 mg in the space of about one hour. Continued with significant agitation. Tachypnea noted, but oxygen saturation continued generally reasonable. Tachycardia appeared on monitor to be afib (her usual underlying rhythm), with RVR variable from 160 to 200 initially. As she had not been getting her metoprolol at usual doses, two IV doses of 5 mg metoprolol was administered. There was minimal response, although at one point she dipped to 145 or so. Blood pressure was obtained at 160's/114 and felt to be fairly reliable. With good blood pressure, opted to start diltiazem drip (with understanding of close need to follow pulmonary status given recent edema) with 10 mg bolus. Ideally, plan would be to get rate under control and switch her back to her usual dose of metoprolol when taking po's well. 12 lead EKG obtained, and while of generally poor quality due to patient agitation, confirmed afib with RVR. Labs ordered. Exam: patient with significant agitation; skin dry, no significant diaphoresis noted. Heart - irregularly irregular, unable to discern murmurs with current tachycardia. Vitals signs as noted (although tachypneic, the resp rate on monitor very unreliable. Was in 30's fairly consistently, however). Constantly moving all extremities, arms and legs, squirming in bed. Pupils were small and equal. Extremities without pitting edema, spider veins noted in feet. Impression: 1) EtOH withdrawal - question inadequate coverage. Anticipate ativan to have effect shortly. May need to dose again. 2) Afib with RVR - rate usually controlled with metoprolol and digoxin. Has been receiving dig at usual outpatient doses, but metoprolol has been given IV and possibly in doses too low to provide adequate AV blockade. Dilt now for control of rate, anticipate switching back to usual metoprolol when under control. 3) H/O pulmonary edema - will need to use caution with diltiazem, hoping that negative chronotropic effect will be greater on cardiac output than any negative inotropic effect at present, and may need to redose Lasix. However, more important to provide rate control and increase cardiac output that way at present. 4) Possible electrolyte imbalance - has been in EtOH withdrawal, had lasix yesterday; will check stat BMP, proBNP, Troponin, ABG's, Magnesium, phosphorus. Addendum: As I was finishing this note, received call with dropping sats; rate now 140's, will check stat CXR, may need Lasix. Chest X-ray showed florid bilateral pulmonary edema. Given 40 mg Lasix. Also noted that she had not been getting her nitrobid which would help with afterload reduction, placed nitropaste. Started BiPAP both for oxygenation and for increased pressure to assist with failure. Call placed to son Mushtaq in [place], update given, questions answered. He will try to get a flight out, would appreciate update if situation changes. Time spent - 90 minutes of critical care time. Was code activated?: No - CC Time CC start date: 02/05/18 CC start time: 22:38 CC end date: 02/06/18 CC end time: 00:07 CC total mins: 89 Critical care time: 75 - 104 mins
[2018-02-05] MEDS ORDERED: FUROSEMIDE 40 MG/4 ML VIAL IV ONE ×2 (23:36→23:37)
[2018-02-05] MEDS ORDERED: NITROGLYCERIN 1 GM OINT.TOP ONE (23:37)
[2018-02-05] MEDS ORDERED: NITROGLYCERIN 1 GM OINT.TOP TD ONE (23:39)
[2018-02-05] MEDS ORDERED: SODIUM BICARBONATE ADULT 50 MEQ/50 ML SYRINGE IV ONE (23:52)
[2018-02-06 00:06] LABS: Blood Urea Nitrogen 10 mg/dl (8-23)
[2018-02-06] MEDS: MAGNESIUM SULFATE 2 GM/50 ML BAG IV PRN (00:38)
[2018-02-06] MEDS: 0.9 % SODIUM CHLORIDE 10 ML SYRINGE IV SCH ×4 (02:41→21:16)
[2018-02-06] MEDS: IPRATROPIUM/ALBUTEROL 3 ML AMPUL.NEB NEB SCH ×4 (02:59→19:26)
[2018-02-06] MEDS: METOPROLOL TARTRATE 5 MG/5 ML VIAL IV SCH ×10 (03:04→23:57)
[2018-02-06] MEDS: LORazepam 2 MG/ML VIAL IV PRN (04:02)
--- NOTE | 2018-02-06 05:05 | XRay Report ---
INDICATION: History of congestive heart failure. Respiratory distress TECHNIQUE: AP chest x-ray,portable supine COMPARISON: Chest x-rays dated 02/05/2018, 02/04/2018, 02/03/2018 FINDINGS:There is cardiomegaly. There are bilateral parenchymal infiltrates with bilateral upper lobe distribution. These are new or at least significantly worse since previous examination. Findings are most consistent with atypical distribution of pulmonary edema. If this patient has been supine position distribution of edema may be more upper lobe than typical central. Pneumonia, including bilateral aspiration pneumonia is not excluded. Clinical correlation follow-up radiographs are recommended. IMPRESSION: 1. Cardiomegaly 2. Bilateral pulmonary parenchymal infiltrates with bilateral upper lobe distribution 3. Atypical distribution of pulmonary edema is favored. Pneumonia is not excluded Interpreted and Authenticated by: Mushtaq Martinez 02/06/18
[2018-02-06 06:15] LABS: ALT/SGPT 65 U/l (0-40); Albumin 3.3 gm/dL (3.2-5.2); Alkaline Phosphatase 64 U/L (39-117); Bilirubin,Direct 0.4 mg/dL (0.0-0.3); Blood Urea Nitrogen 13 mg/dl (8-23); Gamma Glutamyl Transpeptidase 23 U/L (5-36); Uric Acid 4.1 mg/dL (2.5-8.0)
[2018-02-06] MEDS: OMEPRAZOLE 20 MG CAPSULE PO SCH (07:19)
[2018-02-06] MEDS: NITROGLYCERIN 1 GM OINT.TOP TD SCH ×3 (07:19→17:54)
[2018-02-06] MEDS: ISOSORBIDE MONONITRATE 20 MG TABLET PO SCH ×2 (07:20→15:50)
[2018-02-06] MEDS: POTASSIUM CHLORIDE 10 MEQ TABLET PO SCH (07:20)
[2018-02-06] MEDS ORDERED: SODIUM BICARBONATE ADULT 50 MEQ/50 ML SYRINGE IV ONE (08:07)
[2018-02-06] MEDS ORDERED: DILTIAZEM 125 MG in DEXTROSE 5% IN WATER 100 ML IV PRN (09:00)
[2018-02-06] MEDS ORDERED: ETOMIDATE 20 MG/10 ML VIAL IV ONE (09:30)
[2018-02-06] MEDS ORDERED: MIDAZOLAM 2 MG/2 ML VIAL IV ONE ×2 (09:30→13:45)
[2018-02-06] MEDS ORDERED: ROCURONIUM 10 MG/ML ML IV ONE (09:30)
[2018-02-06] MEDS ORDERED: KETAMINE 100 MG/ML ML IV ONE (09:30)
[2018-02-06] MEDS ORDERED: HEPARIN/NS 500 ML IV ONE (09:41)
[2018-02-06] MEDS ORDERED: [UNRECOGNIZED DRUG - OTHER] ONE (10:52)
[2018-02-06] MEDS ORDERED: MIDAZOLAM PF 50 MG in 0.9 % SODIUM CHLORIDE 90 ML IV SCH (11:00)
--- NOTE | 2018-02-06 11:15 | Procedure Note ---
Procedures - Arterial Line Consent obtained: written consent Time out performed: Yes Size (Gauge): 20 Technique used: other (20 G Arrow) Post-Procedure: dry sterile dressing placed, easily flushed, waveform correlation Patient tolerated procedure: well, no complications Complications: none Site: left, radial - Central Line Placement Right IJ Consent obtained: written consent Time out performed: Yes Patient placed on monitor/pulse ox: Yes MD prep: mask, sterile gown, sterile gloves, cap Central line prep: 2% Chlorhexidine scrub, large sterile drapes applied, proper hand hygiene Ultrasound used for placement: Yes (Printer failure) Central line lumen inserted: quad, 16 cm Post procedure: sutured in place, good blood return, all ports aspirated, flushed, capped, sterile dressing applied Post procedure x-ray: other (Awaiting x-ray for confirmation) Patient tolerated procedure: well, no complications - Intubation Time out performed: Yes Sedative: other (See aneshesia sheet) ETT: ETCO2, BBS Assist device used: glide ET tube size: 7.5 ET tube uncuffed: No Tube secured depth (cm): 23 Tube secured location: lips Tube placement confirmation: visualized tube passing through cords, equal breath sounds bilaterally, no breath sounds over epigastrium, confirmation by capnometry # of Attempts: 1 Patient tolerated procedure: well, no complications Intubation complications: none
--- NOTE | 2018-02-06 11:27 | XRay Report ---
CLINICAL INFORMATION: Reason for Exam:ET tube placement, Central line placement. COMPARISON: 02/05/2018 FINDINGS: Moderate cardiomegaly is unchanged mediastinum is unremarkable. A new right IJ central line tip overlies the SVC azygos junction. Endotracheal tip is 5.7 cm above the tabitha - the tube end abuts the left lateral wall of the trachea. The pulmonary vessels remain normal. Bilateral upper lobe and right lower lobe airspace disease has improved considerably. No effusions IMPRESSION: 1. Endotracheal tip 5.7 cm above the tabitha. Consider advancing the tube 2 cm 2. Considerable improvement in bilateral upper lobe and right lower lobe infiltrates or edema since yesterday's x-ray Interpreted and Authenticated by: Mushtaq Ware 02/06/18
[2018-02-06] MEDS: THIAMINE 100 MG in 0.9 % SODIUM CHLORIDE 50 ML IV SCH (11:51)
[2018-02-06] MEDS: LOSARTAN 25 MG TABLET PO SCH (12:34)
[2018-02-06] MEDS: GABAPENTIN 300 MG CAPSULE PO SCH (12:35)
[2018-02-06] MEDS: DABIGATRAN ETEXILATE MESYLATE 75 MG CAPSULE PO SCH ×2 (12:35→21:23)
[2018-02-06] MEDS: Mirabegron [Myrbetriq] 25 MG PO SCH (12:35)
[2018-02-06] MEDS: UMECLIDINIUM BROMIDE INH SCH (12:35)
[2018-02-06] MEDS: CLOPIDOGREL 75 MG TABLET PO SCH (12:35)
[2018-02-06] MEDS: MULTIVIT,THER IRON,CA,FA & MIN 1 TABLET PO SCH (12:35)
[2018-02-06] MEDS: TAPENTADOL HCL 50 MG PO SCH ×2 (12:35→21:15)
[2018-02-06] MEDS: SERTRALINE 100 MG TABLET PO SCH (12:35)
[2018-02-06] MEDS: HEPARIN 5,000 UNIT/ML VIAL SQ SCH ×2 (12:38→21:30)
[2018-02-06] MEDS: 0.9 % SODIUM CHLORIDE 1,000 ML IV SCH ×2 (12:38→22:05)
[2018-02-06] MEDS: MVI, ADULT NO.4 WITH VIT K 10 ML in DEXTROSE 5% IN WATER 500 ML IV SCH (12:39)
--- NOTE | 2018-02-06 13:05 | Internal Med Progress Note ---
Medical - PN: Subj Patient information: Note initiated : 02/06/18 at 1:01 pm Patient: Dara Null a 77 y/o F admitted on 02/01/18 for Weakness, Diarrhea, Hypotension/Hypokalemia. She developed acute alcohol withdrawal on day of discharge, discharge was cancelled. Last night she developed acute decompensation of rate control on her afib and went into RVR up to 200, although blood pressures remained good, rate was difficult to control and eventually responded to a diltiazem drip. As rate was controlled, she developed acute respiratory distress, CXR showed significant pulmonary edema. BiPAP initiated, nitropaste placed, Lasix given ( poor response in urine output). Diltiazem was gtt was discontinued as rate controlled, and her metoprolol was restarted. Interval history: 02/04: Her son is in the room today, and expresses concerns regarding her somnolence. He also expresses his own experiences with alcohol withdrawal. He notes some concerns regarding her overall nutritional status that she has not been eating much at home, and may even sleep for up to 48 hours at a time, only getting up to use the toilet. Per nursing, patient has been responsive to Ativan for withdrawal symptoms, and she also received another magnesium rider this morning. There are some concerns regarding her ability to swallow pills at this time. 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 02/05: Discussed with nursing. Patient generally had a better night with improving CIWA scores. Still with cough. Vital signs appear erratic, but on further evaluation, appears that reads are not accurate when she is moving or coughing. She has no complaints today, was sleeping when I first went in, does rouse to answer questions. Dry cough present. When she was sleeping, respirations unlabored at 20, sats 92-92% with her oxygen prongs around her neck. Reviewed I/O, night time notes. Is taking some sips of po, still not taking medications reliably, so has missed Plavix, Pradaxa, nitrobid. Has gotten some metoprolol and digoxin IV. 02/06: Last night patient developed acute RVR with her chronic afib. She developed flash pulmonary edema with acute respiratory distress following. Please refer to critical care note for details. She has since stabilized hemodynamically on scheduled IV metoprolol. However, I received call this AM that she was having significant apneic episodes on BiPAP. ABG's were obtained which were reassuring with pH 7.42, pCO2 around 40, pO2 approx 110. Blood pressure stable. On evaluation of tidal volumes on BiPAP, she would go from 700 -800, then slowly get shallow and move into apneic spells of up to 30 seconds. She appeared to be tiring, and decision was made to electively intubate. It is anticipated this will be fairly short term, likely no more than 48 hours. Her CXR for tube and line placement showed marked improvement in pulmonary edema. I had considered cautious dobutamine last night given poor response to Lasix, I suspect that improvement is related more to the positive pressure ventilation and nitropaste. Vital signs have been stable since intubation, and she has required only modest oxygen supplementation (currently FiO2 30-35%). Patient unable to voice complaints, but appears comfortable. Currently on midazolam gtt. Status was discussed with son, Tito. Unable as yet to reach son, Mushtaq. Remains critical with rapidly changing exam through the morning. At time of initial evaluation, decision made to intubate. Now improved status. Several visits thus far today. Pertinent ROS: Unable to obtain - patient intubated. - Constitutional Vitals: Vital Signs Temp Pulse Resp BP Pulse Ox 98.7 F 98 H 17 119/75 99 02/05/18 12:01 02/06/18 06:52 02/06/18 12:11 02/06/18 12:01 02/06/18 12:11 Period Temp Pulse Resp BP Sys/Marques Pulse Ox Last 24 Hr 89-125 15-56 76-181/56-143 65-100 Intake and Output 02/05/18 02/06/18 02/06/18 21:59 05:59 13:59 Intake Total 100 / 100 55 / 55 1022 / 1022 Output Total 400 / 400 340 / 340 100 / 100 Balance -300 / -300 -285 / -285 922 / 922 Weight 146 lb 6.4 oz Intake & Output: Intake & Output 02/05/18 02/06/18 02/06/18 21:59 05:59 13:59 Intake Total 100 / 100 55 / 55 1022 / 1022 Output Total 400 / 400 340 / 340 100 / 100 Balance -300 / -300 -285 / -285 922 / 922 Weight 146 lb 6.4 oz Intake: IV 100 / 100 55 / 55 1022 / 1022 Sodium Chloride 0.9% 1,000 ml @ 1000 / 1000 50 mls/hr IV .Q20H [facility] Rx#: [id number] Cardizem 125 mg In Dextrose 5% 55 / 55 in Water 100 ml @ 5 MG/HR 5 mls /hr IV Q12H [facility] Rx#:[id number] Versed 50 mg In Sodium Chloride 22 / 22 0.9% 90 ml @ 0.02 MG/KG/HR 2. 65 mls/hr IV Q24H [facility] Rx#: [id number] Output: Urine Catheter Amount 400 / 400 340 / 340 100 / 100 Exam: Was in severe distress last night, moderate this AM, but increase in apneic spells. Opted to intubate semi-electively. Appears comfortable at present. Intubated, SIMV, 16/8, rate 15, tidal volume 500, FiO2 35%. - Additional findings Additional findings: HEENT: Pupils equal, no scleral icterus. Mucus membranes dry last night, much improved now with moist membranes, dry lips. NECK: No JVD. No masses. Trachea midline, intubated. Central line in place. LUNGS: Improved breath sounds on vent. Air entry bilateral, no wheezes, diffuse posterior coarseness. COR: irregularly irregular. Rate around 90-100. Did not appreciate murmurs. ABDOMEN: Non-distended, soft. No masses. SKIN: some excoriation in gluteal cleft, ecchymosis bilateral UE, no new rashes , skin warm and dry at present. No diaphoresis noted at present (but has been noted within last 8 hours) : De [place] Rosa in place; had some de [place] ro[place] trauma last night with agitation, blood noted last night seems to be clearing. Urine dark and concentrated in bag; noted to be clear, dark yellow in tubing. EXT: warm, no edema. NEURO: She rouses some even with midazolam at 25 mg/hr right now. Moves all extremities. Not consistently following directions. Medical - PN: Obj Da - Labs CBC & Chem 7: 02/04/18 06:52 02/06/18 03:41 Labs: Abnormal Lab Results 05/02/05/18 02/05/18 03:41 23:16 03:45 RBC Hgb Hct RDW Plt Count Lymph # (Auto) Carbon Dioxide 19 L Anion Gap 21.0 H Glucose 144 H 188 H 123 H Uric Acid 1.9 L Calcium 8.0 L 7.9 L Phosphorus Total Bilirubin 1.6 H 1.5 H Direct Bilirubin 0.4 H 0.4 H AST 115 H ALT 65 H Lactate Dehydrogenase 446 H 291 H NT-Pro-B Natriuret Pep 3201.0 H Total Protein Albumin Urine Protein Urine Occult Blood Urine Urobilinogen Urine RBC 02/04/18 02/04/18 02/04/18 11:30 06:52 04:11 RBC 3.49 L Hgb 10.1 L Hct 31.0 L RDW 15.6 H Plt Count 107 L Lymph # (Auto) 1.1 L Carbon Dioxide Anion Gap Glucose Uric Acid 1.8 L Calcium 7.4 L Phosphorus 2.2 L Total Bilirubin Direct Bilirubin AST ALT Lactate Dehydrogenase NT-Pro-B Natriuret Pep Total Protein 5.7 L Albumin 3.1 L Urine Protein 30 A Urine Occult Blood >=1.0 A Urine Urobilinogen 2.0 A Urine RBC 73 H Meds: Medications Acetaminophen (Tylenol) 650 mg PO Q4-6HP PRN PRN Reason: PAIN/FEVER > 101 Hydrocodone Bitart/Acetaminophen (Daisy 7.5/325mg) 1 tab PO DAILYP PRN PRN Reason: Pain Last Admin: 02/02/18 14:08 Dose: 1 tab Albuterol/Ipratropium (Duoneb) 3 ml NEB Q6HRT [facility] Last Admin: 02/06/18 06:36 Dose: 3 ml Atorvastatin Calcium (Lipitor) 80 mg PO HS [facility] Last Admin: 02/05/18 20:10 Dose: Not Given Chlorhexidine Gluconate (Peridex) 15 ml SWABMOUTH BID [facility] Clopidogrel Bisulfate (Plavix) 75 mg PO DAILY [facility] Last Admin: 02/06/18 12:35 Dose: Not Given Dabigatran (Pradaxa) 150 mg PO BID [facility] Last Admin: 02/06/18 12:35 Dose: Not Given Digoxin (Lanoxin) 125 mcg IV DAILY@1400 [facility] Famotidine (Pepcid) 20 mg IV Q12 [facility] Gabapentin (Neurontin) 300 mg PO TID [facility] Last Admin: 02/06/18 12:35 Dose: Not Given Heparin Sodium (Porcine) (Heparin) 5,000 unit SQ Q12 [facility] Last Admin: 02/06/18 12:38 Dose: 5,000 unit Potassium Chloride 40 meq/ (Dextrose) 520 mls @ 130 mls/hr IV UD PRN PRN Reason: K+ = or < 3.5 Last Infusion: 02/03/18 00:04 Dose: Infused Magnesium Sulfate (Magnesium Sulfate) 2 gm in 50 mls @ 50 mls/hr IV UD PRN PRN Reason: MG = or < 1.7 Last Admin: 02/06/18 00:38 Dose: 50 mls/hr Acetaminophen (Ofirmev) 1,000 mg in 100 mls @ 200 mls/hr IV Q6HP PRN PRN Reason: PAIN/FEVER > 101 Last Infusion: 02/05/18 15:42 Dose: Infused Multivitamins/Minerals 10 ml/ (Dextrose) 510 mls @ 250 mls/hr IV Q24H [facility] Last Admin: 02/06/18 12:39 Dose: 250 mls/hr Thiamine HCl 100 mg/ Sodium (Chloride) 51 mls @ 50 mls/hr IV DAILY [facility] Stop: 02/07/18 10:02 Last Admin: 02/06/18 11:51 Dose: 50 mls/hr Sodium Chloride (Sodium Chloride 0.9%) 1,000 mls @ 50 mls/hr IV .Q20H [facility] Last Admin: 02/06/18 12:38 Dose: 50 mls/hr Diltiazem HCl 125 mg/ Dextrose 125 mls @ 5 mls/hr IV Q12HP PRN; Protocol; 5 MG/ HR PRN Reason: Tachyarrhythmias Heparin Sodium/Sodium Chloride (Heparin/Ns) 500 mls @ 0 mls/hr IV .Q0M [facility]; KVO PRN Reason: Protocol Midazolam HCl 50 mg/ Sodium (Chloride) 100 mls @ 2.65 mls/hr IV Q24H [facility]; 0.02 MG/KG/HR PRN Reason: Protocol Last Titration: 02/06/18 12:39 Dose: 0.22 mg/kg/hr, 30 mls/hr Iron Carb/Multivit/Sigel/Folic Acid (Multivitamin W/Minerals) 1 tab PO DAILY [facility] Last Admin: 02/06/18 12:35 Dose: Not Given Isosorbide Mononitrate (Monoket) 20 mg PO BID@0800,1500 [facility] Last Admin: 02/06/18 07:20 Dose: Not Given Lorazepam (Ativan) 0 mg PO Q4HP PRN; Protocol PRN Reason: Alcohol Withdrawal Last Admin: 02/03/18 21:17 Dose: 1 mg Lorazepam (Ativan) 0 mg IV Q1HP PRN; Protocol PRN Reason: Alcohol Withdrawal Last Admin: 02/06/18 04:02 Dose: 2 mg Losartan Potassium (Cozaar) 50 mg PO QDAY [facility] Last Admin: 02/06/18 12:34 Dose: Not Given Meclizine HCl (Antivert) 12.5 mg PO DAILYP PRN PRN Reason: dizzy Metoprolol Tartrate (Lopressor) 5 mg IV Q2H [facility] Last Admin: 02/06/18 12:34 Dose: Not Given Nitroglycerin (Nitro-Bid) 1 gm TD Q6HX2R@1800 [facility] Last Admin: 02/06/18 12:37 Dose: 1 gm Nitroglycerin (Nitro-Bid) 0 gm TD DAILY@1800 [facility] Nystatin (Nystatin Crm) 1 dose TOPICAL TIDP PRN PRN Reason: Skin Irritation Omeprazole (Prilosec) 40 mg PO ACB [facility] Last Admin: 02/06/18 07:19 Dose: Not Given Ondansetron HCl (Zofran) 4 mg IV Q4-6HP PRN PRN Reason: Nausea And Vomiting Mirabegron [ (Myrbetriq] 25 Mg) 1 dose PO DAILY [facility] Last Admin: 02/06/18 12:35 Dose: Not Given Tapentadol Hcl [ (Nucynta Er] 50 Mg) 1 dose PO Q12 [facility] Last Admin: 02/06/18 12:35 Dose: Not Given Umeclidinium [place] [Incruse Ellipta] Inh 1 dose INH DAILY [facility] Last Admin: 02/06/18 12:35 Dose: Not Given Potassium Chloride (Klor-Con) 40 meq PO DAILYP PRN PRN Reason: K+ < 3.5 Potassium Chloride (Kdur) 10 meq PO QAMCC [facility] Last Admin: 02/06/18 07:20 Dose: Not Given Sertraline HCl (Zoloft) 200 mg PO DAILY [facility] Last Admin: 02/06/18 12:35 Dose: Not Given Sodium Chloride (Saline Flush) 10 ml IV Q8 [facility] Last Admin: 02/06/18 05:57 Dose: 10 ml Trazodone HCl (Desyrel) 50 mg PO HSP PRN PRN Reason: insomnia - Imaging and cardiology Chest x-ray Status: image reviewed by me Additional comments: Two images: (my eval) Last night, florid pulmonary edema, This AM - much improved. Per radiology read at midnight: FINDINGS:There is cardiomegaly. There are bilateral parenchymal infiltrates with bilateral upper lobe distribution. These are new or at least significantly worse since previous examination. Findings are most consistent with atypical distribution of pulmonary edema. If this patient has been supine position distribution of edema may be more upper lobe than typical central. Pneumonia, including bilateral aspiration pneumonia is not excluded. Clinical correlation follow-up radiographs are recommended. IMPRESSION: 1. Cardiomegaly 2. Bilateral pulmonary parenchymal infiltrates with bilateral upper lobe distribution 3. Atypical distribution of pulmonary edema is favored. Pneumonia is not excluded This AM: FINDINGS: Moderate cardiomegaly is unchanged mediastinum is unremarkable. A new right IJ central line tip overlies the SVC azygos junction. Endotracheal tip is 5.7 cm above the tabitha - the tube end abuts the left lateral wall of the trachea. The pulmonary vessels remain normal. Bilateral upper lobe and right lower lobe airspace disease has improved considerably. No effusions IMPRESSION: 1. Endotracheal tip 5.7 cm above the tabitha. Consider advancing the tube 2 cm 2. Considerable improvement in bilateral upper lobe and right lower lobe infiltrates or edema since yesterday's x-ray - ABG Interpretation Interpretation: normal - EKG Data -: EKG Interpreted by Myself (atrial fibrillation with RVR) Medical - PN: A/P - Time Spent With Patient Total time spent is greater than 50% in coordination of care (as documented) at patient's floor/unit and/or counseling patient: - Narrative A/P Narrative: By system: 02/05: 1) Cardiac: Afib / CHF / h/o CAD: Patient had developed pulmonary edema over last few days. Received dose furosemide yesterday with good diuresis. In review of chart, I became concerned there may have been a cardiac event either prior to or close to admission. Repeat EKG reassuring and troponin is normal suggesting no new cardiac events in the recent past. She had been unable / unreliable in taking her cardiac meds since developing EtOH withdrawal, and the increasing rate, I think, is reflective of that. She is on metoprolol and digoxin for rate control of her afib, and I restarted some coverage with IV alternatives. Ventricular rate seems to be stable. Her blood pressures have been adequate and unconcerning. At present, will continue the IV metoprolol and digoxin; try to encourage po medications (Plavix, Pradaxa (she is on for afib), Lipitor (although less of an issue at present)) Etiology of edema may have been combination of aggressive hydration on initial admission, borderline high rate on afib, and alcohol withdrawal. No further IV furosemide planned for today. 2) Pulmonary: CHF / COPD: CXR this AM with improved edema, no evidence of infiltrate or aspiration. Dry cough may still be from residual edema or COPD. Does have some wheezing and is receiving nebs. Oxygenates okay without O2. 3) Fluids / electrolytes / nutrition: I/O yesterday with net 3531 out. one BM. Has taken minimal oral sips today. [place] draining concentrated clear urine at present. Calcium slightly low at 7.9, with albumin of 3.5; Magnesium has been stable after multiple riders. Remainder of electrolytes look good. No hypokalemia after furosemide. Some concern regarding po intake; may need to start alternative nutritional route if she does not improve. Speech therapy consult ordered yesterday due to concerns regarding aspiration risk. 4) Neuro / Alcohol withdrawal: slow improvement. Responds to lorazepam; CIWA last = 14. Will continue appropriate coverage, replacement electrolytes as needed. May need support at home at discharge. 5) GI: Was chronically on PPI; has not been able to take. Will start IV alternative for PUD prophylaxis given signficiant risk during ICU stay. Tbili up slightly today, ?? due to hepatic congestion with volume overload. Will recheck in AM. Transaminases unremarkable, however. No further diarrhea since admission, no emesis noted. 6) Complication prophylaxis: IV famotidine, subcut heparin (may need to switch to therapeutic lovenox as she takes Pradaxa for afib and has not been swallowing those meds). 02/06: 1) Atrial fibrillation: Marked decompensation in rate control last night. Given diltiazem, rate controlled, restarted on usual metoprolol at more regular dosing. Has done well with regard to rate since. Flash pulmonary edema likely result of decreased cardiac output due to decreased filling time. Repeat troponin last night normal. Echocardiogram ordered given issues with pulmonary edema and unknown underlying cardiac function. Will continue IV metoprolol, IV digoxin, and subQ heparin. 2) Pulmonary: marked decompensation last night. [place] related to tachycardia induced pulmonary edema. Echo ordered today. Had maintained on BiPAP since approximately midnight, usual tachypnea noted. However this AM started having apneic episodes, clearly tiring. Decision made to intubate semi-electively. Discussed with son, Tito (unable to reach Mushtaq). Has done well since intubation. CXR shows much improved edema. 3) Fluids/electrolytes/nutrition: I/O yesterday with minimal urine output (816/ 940). Subsequent Lasix dose with minimal response. CVP at present 5-6, patient received 1L IV NS during line placement. Chemistries from this AM look surprisingly normal. Concern regarding nutrition, however. She has had poor po intake since admission, and although I think intubation will be short term, likely will need feeding tube placement for nutritional support. Consult placed. Could restart some of her oral meds at that time as well. 4) Hemodynamic status: pulse and blood pressure have normalized and she appears to be perfusing well in her extremities. Elevated lactic acid during RVR (up to 7) with some thought that her metabolic acidosis also increased her tachypnea at that time. This has normalized this AM. 5) Neuro: After intubation, I had started a midazolam drip - her requirements for sedation were quite high; switched to propofol gtt with ativan supplement gtt instead. Suspect still some high benzodiazepine requirement due to alcohol withdrawal. No evidence of acute neurologic event - moving all extremities well , pupils equal. 6) GI: Continue IV famotidine. No further diarrhea since last night. Obtaining nutrition consult for tube feeds. Total bilirubin at 1.6; essentially unchanged from yesterday. LDH increased however with increases in AST and ALT which are new. Likely related to events from last night; will recheck tomorrow. 7) Infectious Disease: White count still low, afebrile. No convincing pneumonia on chest X-ray, but will continue to watch closely for that. No antibiotics at present. 8) Complication prophylaxis: IV famotidine, continue subcut heparin at present ( has received no Pradaxa for 3 days, will cover with therapeutic Lovenox if unable to give Pradaxa per NG tube tomorrow) 9) Social: Discussed status with son, Tito. Issues explained, he expresses understanding. Questions answered. Pino Landin is on his way here from [place]. Time spent thus far on patient care and evaluation through multiple visits today is 60 minutes on critical care, 15 minute discussion with son. Medical - PN: Qual - VTE Deep Vein Thrombosis/Pulmonary Embolism Present on Admission: No Procedures - Arterial Line Size (Gauge): 20
[2018-02-06] MEDS ORDERED: MIDAZOLAM 5 MG/5 ML VIAL IV ONE (13:20)
[2018-02-06] MEDS ORDERED: MIDAZOLAM 2 MG/2 ML VIAL ONE (13:26)
[2018-02-06] MEDS ORDERED: PROPOFOL 1,000 MG in PREMIX 1 BAG IV ONE (13:44)
[2018-02-06] MEDS ORDERED: PROPOFOL 100 ML IV ONE (13:46)
[2018-02-06] MEDS ORDERED: FLUMAZENIL 0.1 MG/ML ML IV ONE (14:03)
[2018-02-06] MEDS: LORazepam 50 MG in DEXTROSE 5% IN WATER 75 ML IV SCH (14:24)
[2018-02-06] MEDS: PROPOFOL 1,000 MG in PREMIX 1 BAG IV SCH ×2 (14:35→23:20)
[2018-02-06] MEDS: DIGOXIN 500 MCG/2 ML AMPUL IV SCH (14:35)
[2018-02-06] MEDS ORDERED: 0.9 % SODIUM CHLORIDE 500 ML IV ONE ×2 (15:51→18:36)
[2018-02-06] MEDS ORDERED: NITROGLYCERIN 1 GM OINT.TOP TD SCH (18:00)
[2018-02-06] MEDS: ATORVASTATIN 20 MG TABLET PO SCH (21:20)
[2018-02-06] MEDS: CHLORHEXIDINE GLUCONATE 1 ML ORAL.SOL SWABMOUTH SCH (21:28)
[2018-02-06] MEDS: FAMOTIDINE/PF 20 MG/2 ML VIAL IV SCH (21:30)
[2018-02-06] MEDS: METOPROLOL TARTRATE 50 MG TABLET PO SCH (21:30)
[2018-02-07] MEDS: LORazepam 50 MG in DEXTROSE 5% IN WATER 75 ML IV SCH ×4 (02:36→21:33)
[2018-02-07] MEDS: IPRATROPIUM/ALBUTEROL 3 ML AMPUL.NEB NEB SCH ×2 (02:37→07:53)
[2018-02-07 05:25] LABS: Ionized Calcium 0.95 mmol/L (1.16-1.32)
[2018-02-07] MEDS ORDERED: LORazepam 2 MG/ML VIAL ONE ×2 (05:44→05:46)
[2018-02-07 05:54] LABS: ALT/SGPT 54 U/l (0-40); Albumin 2.6 gm/dL (3.2-5.2); Alkaline Phosphatase 50 U/L (39-117); Bilirubin,Direct 0.3 mg/dL (0.0-0.3); Blood Urea Nitrogen 9 mg/dl (8-23); Gamma Glutamyl Transpeptidase 18 U/L (5-36)
[2018-02-07] MEDS: 0.9 % SODIUM CHLORIDE 10 ML SYRINGE IV SCH ×3 (06:16→23:46)
[2018-02-07] MEDS ORDERED: POTASSIUM PHOSPHATE 40 MEQ in DEXTROSE 5% IN WATER 500 ML IV ONE (06:49)
[2018-02-07] MEDS ORDERED: CALCIUM GLUCONATE 4.65 MEQ/10 ML VIAL IV ONE (06:50)
--- NOTE | 2018-02-07 07:31 | XRay Report ---
CLINICAL INFORMATION: OG placement COMPARISON: 01/04/2011 FINDINGS: OG tip overlies the proximal gastric body. Stool gas pattern is unremarkable. No free air, soft tissue mass or organomegaly. Visualized lungs again show COPD changes - no infiltrates IMPRESSION: OG tip overlies the proximal gastric body. No acute disease Interpreted and Authenticated by: Mushtaq Ware 02/07/18
--- NOTE | 2018-02-07 07:32 | XRay Report ---
CLINICAL INFORMATION: Hypoxia on mechanical ventilation COMPARISON: 02/06/2018 FINDINGS: Endotracheal tube is been advanced and is now in satisfactory position 3 cm above the tabitha. Right IJ central line maintain stable satisfactory position. Cardiomediastinal silhouette and pulmonary vessels are normal. Small vague infiltrate appears to be developing in the right base. No effusion IMPRESSION: Small vague right basilar infiltrate developing. Interpreted and Authenticated by: Mushtaq Ware 02/07/18
[2018-02-07] MEDS: CHLORHEXIDINE GLUCONATE 1 ML ORAL.SOL SWABMOUTH SCH ×2 (08:10→21:41)
[2018-02-07] MEDS: PROPOFOL 1,000 MG in PREMIX 1 BAG IV SCH ×2 (08:11→19:07)
[2018-02-07] MEDS: LOSARTAN 25 MG TABLET PO SCH (08:22)
[2018-02-07] MEDS: 0.9 % SODIUM CHLORIDE 1,000 ML IV SCH ×3 (08:22→23:46)
[2018-02-07] MEDS: ISOSORBIDE MONONITRATE 20 MG TABLET PO SCH ×2 (09:15→14:58)
[2018-02-07] MEDS: ENOXAPARIN 60 MG/0.6 ML SYRINGE SQ SCH ×2 (09:15→21:34)
[2018-02-07] MEDS: METOPROLOL TARTRATE 50 MG TABLET PO SCH ×2 (09:15→21:34)
[2018-02-07] MEDS: CLOPIDOGREL 75 MG TABLET PO SCH (09:16)
[2018-02-07] MEDS: SERTRALINE 100 MG TABLET PO SCH (09:16)
[2018-02-07] MEDS: Mirabegron [Myrbetriq] 25 MG PO SCH (09:28)
[2018-02-07] MEDS: TAPENTADOL HCL 50 MG PO SCH ×2 (09:28→21:35)
[2018-02-07] MEDS: UMECLIDINIUM BROMIDE INH SCH (09:28)
[2018-02-07] MEDS: MULTIVIT,THER IRON,CA,FA & MIN 1 TABLET PO SCH (09:28)
[2018-02-07] MEDS: FAMOTIDINE/PF 20 MG/2 ML VIAL IV SCH ×2 (09:29→21:35)
[2018-02-07] MEDS: THIAMINE 100 MG in 0.9 % SODIUM CHLORIDE 50 ML IV SCH (10:12)
[2018-02-07] MEDS ORDERED: IPRATROPIUM/ALBUTEROL 3 ML AMPUL.NEB NEB PRN (10:31)
[2018-02-07] MEDS: MVI, ADULT NO.4 WITH VIT K 10 ML in DEXTROSE 5% IN WATER 500 ML IV SCH (11:44)
[2018-02-07] MEDS: MAGNESIUM SULFATE 2 GM/50 ML BAG IV PRN (12:25)
[2018-02-07 13:08] LABS: Appearance,Urine HAZY; Bacteria,Urine FEW /hpf (0); Bilirubin,Urine NEG (NEG); Color,Urine YELLOW; Glucose,Urine (UA) NEGATIVE (NEG); Leukocyte Esterase,Urine 25 /uL (NEG); Mucus,Urine FEW /hpf (0); Protein,Urine 100 mg/dL (NEG); Specific Gravity,Urine 1.027 (1.000-1.035); Urine Blood >=1.0 mg/dL (<0.03); Urine Hyaline Cast 2 /lpf (0-2); Urine RBC > 182 /hpf (0-1); Urine Squamous Epithelial Cell 1 /hpf (0-4); Urine WBC 13 /hpf (0-4); Urobilinogen,Urine NEG (NEG)
[2018-02-07] MEDS: DIGOXIN 500 MCG/2 ML AMPUL IV SCH (14:58)
--- NOTE | 2018-02-07 17:02 | Internal Med Progress Note ---
Medical - PN: Subj Patient information: Note initiated : 02/07/18 at 4:59 pm CRITICAL CARE NOTE: Patient: Dara Null a 77 y/o F admitted on 02/01/18 for Weakness, Diarrhea, Hypotension/Hypokalemia; developed overt alcohol withdrawal syndrome on hospital day #2, afib with RVR on hospital day #4, intubated on hospital day #5 due to respiratory fatigue, flash pulmonary edema due to episode of afib and RVR , remains intubated, vss on current day, hospital day #6, but still with multiple, actively evolving medical issues. Interval history: 02/04: Her son is in the room today, and expresses concerns regarding her somnolence. He also expresses his own experiences with alcohol withdrawal. He notes some concerns regarding her overall nutritional status that she has not been eating much at home, and may even sleep for up to 48 hours at a time, only getting up to use the toilet. Per nursing, patient has been responsive to Ativan for withdrawal symptoms, and she also received another magnesium rider this morning. There are some concerns regarding her ability to swallow pills at this time. 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 02/05: Discussed with nursing. Patient generally had a better night with improving CIWA scores. Still with cough. Vital signs appear erratic, but on further evaluation, appears that reads are not accurate when she is moving or coughing. She has no complaints today, was sleeping when I first went in, does rouse to answer questions. Dry cough present. When she was sleeping, respirations unlabored at 20, sats 92-92% with her oxygen prongs around her neck. Reviewed I/O, night time notes. Is taking some sips of po, still not taking medications reliably, so has missed Plavix, Pradaxa, nitrobid. Has gotten some metoprolol and digoxin IV. 02/06: Last night patient developed acute RVR with her chronic afib. She developed flash pulmonary edema with acute respiratory distress following. Please refer to critical care note for details. She has since stabilized hemodynamically on scheduled IV metoprolol. However, I received call this AM that she was having significant apneic episodes on BiPAP. ABG's were obtained which were reassuring with pH 7.42, pCO2 around 40, pO2 approx 110. Blood pressure stable. On evaluation of tidal volumes on BiPAP, she would go from 700 -800, then slowly get shallow and move into apneic spells of up to 30 seconds. She appeared to be tiring, and decision was made to electively intubate. It is anticipated this will be fairly short term, likely no more than 48 hours. Her CXR for tube and line placement showed marked improvement in pulmonary edema. I had considered cautious dobutamine last night given poor response to Lasix, I suspect that improvement is related more to the positive pressure ventilation and nitropaste. Vital signs have been stable since intubation, and she has required only modest oxygen supplementation (currently FiO2 30-35%). Patient unable to voice complaints, but appears comfortable. Currently on midazolam gtt. Status was discussed with son, Tito. Unable as yet to reach son, Mushtaq. Remains critical with rapidly changing exam through the morning. At time of initial evaluation, decision made to intubate. Now improved status. Several visits thus far today. 02/07: yesterday, after I'd seen patient initially, I met with sons Mushtaq and Tito and daughter Nan. Questions were answered, and they all informed me that she has decompensated due to alcohol withdrawal at previous hospital stays. They expressed concern regarding her resistance to treatment for alcohol dependence or depression as she does not view herself as "that type of person". Her daughter eloquently explained that she is a "lady" and is always very careful with her appearance and image. All siblings in agreement on care and management. Nurse casework supervisor helped locate previous EKG which had demonstrated preserved EF at 65% and moderate to severe TR (06/2017); repeat echo yesterday showed decreased EF at 40-45% and focal wall motion abnormalities in inferior wall and septum. Repeat troponin was negative (third since admission), leading me to suspect a possible cardiac event between June and present admission which may have placed her at risk of pulmonary edema. Overnight, Nayeli remained stable on the vent. Vital signs were stable, urine output decreased towards morning, CVP remained in the 5-8 range (had been 1-3 at time of intubation). Today, also spent 30 minutes meeting with case work aide, Mushtaq, and Nan discussing current status and plan forward, another 15 minutes coordinating with nursing staff directly through the day. Inverted T waves noted on monitor toward end of afternoon, 12 lead EKG showed inversions in same leads as had been present at admission. QTc prolonged. She did have Mg, Phos, K+, Ca++ repleted this AM. - Constitutional Vitals: Vital Signs Temp Pulse Resp BP Pulse Ox 98.7 F 80 20 98/66 100 02/07/18 12:01 02/07/18 08:07 02/07/18 15:34 02/07/18 14:01 02/07/18 15:34 Period Temp Pulse Resp BP Sys/Marques Pulse Ox Last 24 Hr 97.4 F-98.8 F 80-98 16-25 90-138/52-126 30-100 Intake and Output 02/07/18 02/07/18 02/07/18 05:59 13:59 21:59 Intake Total 1312 / 1312 119 / 119 Output Total 385 / 385 215 / 215 Balance -385 / -385 1097 / 1097 Weight 146 lb Patient Weight 02/08/18 05:59 Weight 146 lb Intake & Output: Intake & Output 02/07/18 02/07/18 02/07/18 05:59 13:59 21:59 Intake Total 1312 / 1312 119 / 119 Output Total 385 / 385 215 / 215 Balance -385 / -385 1097 / 1097 Weight 146 lb Intake: IV 1172 / 1172 79 / 79 Sodium Chloride 0.9% 1,000 ml @ 1000 / 1000 100 mls/hr IV .Q10H [facility] Rx#: [id number] Ativan 50 mg In Dextrose 5% in 72 / 72 79 / 79 Water 75 ml @ 0.01 MG/KG/HR 1. 32 mls/hr IV Q12H [facility] Rx#: [id number] Diprivan 1,000 mg In Premix 1 100 / 100 Bag @ 25 MCG/KG/MIN 9.96 mls/hr IV .Q10H3M [facility] Rx#:[id number] Tube Feeding 40 / 40 GI Tube Flush 140 / 140 Output: Urine Catheter Amount 385 / 385 215 / 215 - Additional findings Additional findings: GENERAL: remains intubated. Vent settings SIMV pressures 8/16, rate 15, tidal volume at 500, FiO2 at 30%, oxygenating well. Appropriately sedated with propofol and ativan drip for her withdrawal syndrome. HEENT: Pupils equal, no scleral icterus. OG tube has been placed, nutrition initiated. NECK: No JVD. No masses. Trachea midline, intubated. Central line in place on right. No surrounding erythema. LUNGS: Improved breath sounds on vent. Air entry bilateral, no wheezes, posterior coarseness from yesterday not appreciated today. COR: irregularly irregular. Rate running 80's during AM, 60's in afternoon. Did not appreciate murmurs, even at tricuspid distribution. ABDOMEN: Non-distended, soft. No masses. SKIN: Clean, dry. : De [place] Rosa in place; had some de [place] rosa trauma last night with agitation, blood noted last night seems to be clearing. Urine dark and concentrated in bag; noted to be clear, dark yellow in tubing. Subsequent in the day, appeared more muddy brown, and UA was sent to look for casts suggestive of ATN (which would be related to earlier hypovolemia) EXT: warm, no edema. NEURO: Appears comfortable. Cognitive restraints in place, required for management of tube and lines. Medical - PN: Obj Da - Labs CBC & Chem 7: 02/04/18 06:52 02/07/18 04:00 Labs: Abnormal Lab Results 02/07/18 02/07/18 02/06/18 11:15 04:00 03:41 Chloride 110 H Carbon Dioxide Anion Gap Glucose 144 H Uric Acid 2.0 L Calcium 7.1 L 8.0 L Ionized Calcium Dany 0.95 L Phosphorus 2.2 L Total Bilirubin 1.6 H Direct Bilirubin 0.4 H AST 61 H 115 H ALT 54 H 65 H Lactate Dehydrogenase 269 H 446 H NT-Pro-B Natriuret Pep Total Protein 5.3 L Albumin 2.6 L Urine Protein 100 A Urine Occult Blood >=1.0 A Ur Leukocyte Esterase 25 A Urine RBC > 182 H Urine WBC 13 H Urine Bacteria Few A 02/05/18 02/05/18 23:16 03:45 Chloride Carbon Dioxide 19 L Anion Gap 21.0 H Glucose 188 H 123 H Uric Acid 1.9 L Calcium 7.9 L Ionized Calcium Dany Phosphorus Total Bilirubin 1.5 H Direct Bilirubin 0.4 H AST ALT Lactate Dehydrogenase 291 H NT-Pro-B Natriuret Pep 3201.0 H Total Protein Albumin Urine Protein Urine Occult Blood Ur Leukocyte Esterase Urine RBC Urine WBC Urine Bacteria Meds: Medications Acetaminophen (Tylenol) 650 mg PO Q4-6HP PRN PRN Reason: PAIN/FEVER > 101 Albuterol/Ipratropium (Duoneb) 3 ml NEB Q4HP PRN PRN Reason: Shortness Of Breath Or Wheezing Atorvastatin Calcium (Lipitor) 80 mg PO HS [facility] Last Admin: 02/06/18 21:20 Dose: Not Given Chlorhexidine Gluconate (Peridex) 15 ml SWABMOUTH BID [facility] Last Admin: 02/07/18 08:10 Dose: 15 ml Clopidogrel Bisulfate (Plavix) 75 mg PO DAILY [facility] Last Admin: 02/07/18 09:16 Dose: 75 mg Digoxin (Lanoxin) 125 mcg IV DAILY@1400 [facility] Last Admin: 02/07/18 14:58 Dose: 125 mcg Enoxaparin Sodium (Lovenox) 60 mg SQ BID [facility] Last Admin: 02/07/18 09:15 Dose: 60 mg Famotidine (Pepcid) 20 mg IV Q12 [facility] Last Admin: 02/07/18 09:29 Dose: 20 mg Potassium Chloride 40 meq/ (Dextrose) 520 mls @ 130 mls/hr IV UD PRN PRN Reason: K+ = or < 3.5 Last Infusion: 02/03/18 00:04 Dose: Infused Magnesium Sulfate (Magnesium Sulfate) 2 gm in 50 mls @ 50 mls/hr IV UD PRN PRN Reason: MG = or < 1.7 Last Admin: 02/07/18 12:25 Dose: 50 mls/hr Acetaminophen (Ofirmev) 1,000 mg in 100 mls @ 200 mls/hr IV Q6HP PRN PRN Reason: PAIN/FEVER > 101 Last Infusion: 02/05/18 15:42 Dose: Infused Multivitamins/Minerals 10 ml/ (Dextrose) 510 mls @ 250 mls/hr IV Q24H [facility] Last Admin: 02/07/18 11:44 Dose: 250 mls/hr Heparin Sodium/Sodium Chloride (Heparin/Ns) 500 mls @ 0 mls/hr IV .Q0M [facility]; KVO PRN Reason: Protocol Propofol 1,000 mg/ Premix 100 mls @ 9.96 mls/hr IV .Q10H3M [facility]; 25 MCG/KG/MIN PRN Reason: Protocol Last Admin: 02/07/18 08:11 Dose: 30 mcg/kg/min, 11.95 mls/hr Lorazepam 50 mg/ Dextrose 100 mls @ 1.32 mls/hr IV Q12H [facility]; 0.01 MG/KG/HR PRN Reason: Protocol Last Titration: 02/07/18 16:04 Dose: 0.04 mg/kg/hr, 6 mls/hr Sodium Chloride (Sodium Chloride 0.9%) 1,000 mls @ 100 mls/hr IV .Q10H [facility] Last Admin: 02/07/18 14:59 Dose: Not Given Iron Carb/Multivit/Ophthalmology Assistant/Folic Acid (Multivitamin W/Minerals) 1 tab PO DAILY [facility] Last Admin: 02/07/18 09:28 Dose: Not Given Isosorbide Mononitrate (Monoket) 10 mg PO BID@0800,1500 [facility] Last Admin: 02/07/18 14:58 Dose: 10 mg Losartan Potassium (Cozaar) 50 mg PO QDAY [facility] Last Admin: 02/07/18 08:22 Dose: Not Given Metoprolol Tartrate (Lopressor) 50 mg PO BID [facility] Last Admin: 02/07/18 09:15 Dose: 50 mg Metoprolol Tartrate (Lopressor) 5 mg IV Q2H PRN PRN Reason: pulse greater than 100 Nystatin (Nystatin Crm) 1 dose TOPICAL TIDP PRN PRN Reason: Skin Irritation Ondansetron HCl (Zofran) 4 mg IV Q4-6HP PRN PRN Reason: Nausea And Vomiting Mirabegron [ (Myrbetriq] 25 Mg) 1 dose PO DAILY [facility] Last Admin: 02/07/18 09:28 Dose: Not Given Tapentadol Hcl [ (Nucynta Er] 50 Mg) 1 dose PO Q12 [facility] Last Admin: 02/07/18 09:28 Dose: Not Given Umeclidinium Tavernier [Incruse Ellipta] Inh 1 dose INH DAILY [facility] Last Admin: 02/07/18 09:28 Dose: Not Given Sertraline HCl (Zoloft) 200 mg PO DAILY [facility] Last Admin: 02/07/18 09:16 Dose: 200 mg Sodium Chloride (Saline Flush) 10 ml IV Q8 [facility] Last Admin: 02/07/18 14:58 Dose: 10 ml - EKG Data -: EKG Interpreted by Myself (atrial fibrillation, rate controlled, deep T wave inversions V3-V5; ) - EKG Data Prior EKG available for review: yes When compared to previous EKG: there are significant changes Interpretation: acute development of conduction abnormality (QT prolongation; deep inverted T waves (similar distribution to admission - ? ischemia vs electrolyte related repolarization abnormality) Medical - PN: A/P - Time Spent With Patient Total time spent is greater than 50% in coordination of care (as documented) at patient's floor/unit and/or counseling patient: Greater than 35 minutes (75 minutes on patient care today, 45 minutes of which was family discussion and coordination of care.) - Narrative A/P Narrative: 02/06: 1) CARDIAC: Atrial fibrillation: Rate controlled. I restarted her metoprolol yesterday evening at half her regular dose: 50 mg bid per OG tube. Continued the IV metoprolol prn, but she has needed no coverage. Digoxin continued IV. This evening 12-lead EKG with new T wave inversions, prolonged QTc at 579 will check electrolytes, Mg, Ca, Phos, digoxin level. Reviewed echocardiogram, new focal wall motion abnormalities noted in comparison to echo report from last fall. Troponins up to and including results this AM have been negative, which is reassuring regarding acute event. 2) Pulmonary: Minimal oxygen needs - 30% FiO2 with excellent sats. CXR continues with improvement in edema, now with some question whether "subtle infiltrate" represents a clinically significant new infection. No sputum output from tube, afebrile, easy to oxygenate, no elevated white count, pressures look good. Will check procalcitonin, repeat chest Xray in AM. Opted to defer antibiotics at present and monitor closely. Plan at present to lighten sedation tomorrow and see if she is wean appropriate. 3) Fluids/electrolytes/nutrition: CVP normalized, electrolytes repleted this AM (K+, Phos, Mg+, Ca++). OG in place, nutrition initiated. 4) Renal function: BUN/Cr remain normal. Urine with dark brown appearance this AM, UA sent looking for casts, none reported, but still with significant RBC's. Culture was set up. Appearance may be due to residual blood from [place] trauma. 5) Hemodynamic status: pulse and blood pressure have normalized and she appears to be perfusing well in her extremities. 6) Neuro: propofol gtt with ativan supplement gtt with good sedation. Suspect still some high benzodiazepine requirement due to alcohol withdrawal. No evidence of acute neurologic event - moving all extremities well when sedation lightens, pupils equal. 6) GI: Continue IV famotidine. Transaminases and bilirubin much improved with complete normalization of bilirubin. May have been related to perfusion related issues during afib with RVR. Follow daily at present. No further diarrhea. On review of her records, appears she was on Nucynta at admission and has not received it since the . May have had some withdrawal symptoms related to that as well which impacted some of her GI symptoms. Will restart when off vent , awake, and alert if report of pain. 7) Infectious Disease: White count still low, afebrile. No convincing pneumonia on chest X-ray, but will continue to watch closely for that. No antibiotics at present, will check procalcitonin in AM. 8) Complication prophylaxis: IV famotidine, unable to use Pradaxa via OG tube, started IV Lovenox at therapeutic doses. 9) Social: Discussed with son Mushtaq and daughter Nan today. Time spent thus far on patient care and evaluation through multiple visits today is 75 minutes including 30 minutes direct patient evaluation, 15 minutes coordination with nurses, 30 minute discussion with family. Medical - PN: Qual - VTE Deep Vein Thrombosis/Pulmonary Embolism Present on Admission: No Procedures - Arterial Line Size (Gauge): 20
[2018-02-07 17:42] LABS: Ionized Calcium 1.01 mmol/L (1.16-1.32)
[2018-02-07 17:54] LABS: Blood Urea Nitrogen 11 mg/dl (8-23)
[2018-02-07] MEDS ORDERED: POTASSIUM CHLORIDE 40 MEQ in DEXTROSE 5% IN WATER 250 ML IV ONE (18:10)
[2018-02-07] MEDS ORDERED: POTASSIUM CHLORIDE 20 MEQ/10 ML VIAL IV ONE (18:34)
[2018-02-07] MEDS: ATORVASTATIN 20 MG TABLET PO SCH (21:34)
[2018-02-08] MEDS: 0.9 % SODIUM CHLORIDE 250 ML IV SCH ×2 (01:45→18:02)
[2018-02-08] MEDS: PROPOFOL 1,000 MG in PREMIX 1 BAG IV SCH ×3 (02:01→15:32)
[2018-02-08] MEDS: LORazepam 50 MG in DEXTROSE 5% IN WATER 75 ML IV SCH ×2 (02:38→14:45)
[2018-02-08] MEDS: 0.9 % SODIUM CHLORIDE 10 ML SYRINGE IV SCH ×3 (05:41→22:02)
[2018-02-08 06:00] LABS: ALT/SGPT 67 U/l (0-40); Albumin 2.6 gm/dL (3.2-5.2); Alkaline Phosphatase 56 U/L (39-117); Bilirubin,Direct 0.2 mg/dL (0.0-0.3); Blood Urea Nitrogen 10 mg/dl (8-23); Gamma Glutamyl Transpeptidase 19 U/L (5-36); Uric Acid 1.2 mg/dL (2.5-8.0)
[2018-02-08] MEDS ORDERED: CALCIUM GLUCONATE 4.65 MEQ/10 ML VIAL IV ONE (06:35)
[2018-02-08] MEDS ORDERED: POTASSIUM CHLORIDE 40 MEQ in DEXTROSE 5% IN WATER 250 ML IV ONE (06:36)
--- NOTE | 2018-02-08 07:00 | XRay Report ---
CLINICAL INFORMATION: Mechanical ventilation dyspnea COMPARISON: 02/07/2018 FINDINGS: Lines and tubes are in stable, satisfactory position. The heart is minimally enlarged, but stable. Mediastinum and pulmonary vessels are normal. Small right basilar infiltrate has improved with minimal residual. IMPRESSION: Near complete resolution - small right basilar infiltrate Interpreted and Authenticated by: Mushtaq Ware 02/08/18
[2018-02-08] MEDS: MAGNESIUM SULFATE 2 GM/50 ML BAG IV PRN (08:31)
[2018-02-08] MEDS ORDERED: LEVOFLOXACIN 750 MG/150 ML BAG IV SCH (09:00)
[2018-02-08] MEDS: CHLORHEXIDINE GLUCONATE 1 ML ORAL.SOL SWABMOUTH SCH ×2 (09:11→20:34)
[2018-02-08] MEDS: ENOXAPARIN 60 MG/0.6 ML SYRINGE SQ SCH ×2 (09:12→20:34)
[2018-02-08] MEDS: TAPENTADOL HCL 50 MG PO SCH ×2 (09:12→20:35)
[2018-02-08] MEDS: Mirabegron [Myrbetriq] 25 MG PO SCH (09:12)
[2018-02-08] MEDS: UMECLIDINIUM BROMIDE INH SCH (09:13)
[2018-02-08] MEDS: ISOSORBIDE MONONITRATE 20 MG TABLET PO SCH ×2 (09:13→15:47)
[2018-02-08] MEDS: FAMOTIDINE/PF 20 MG/2 ML VIAL IV SCH ×2 (09:14→20:33)
[2018-02-08] MEDS: METOPROLOL TARTRATE 50 MG TABLET PO SCH ×2 (09:14→20:34)
[2018-02-08] MEDS: MULTIVIT,THER IRON,CA,FA & MIN 1 TABLET PO SCH (09:16)
[2018-02-08] MEDS: LOSARTAN 25 MG TABLET PO SCH (09:19)
[2018-02-08] MEDS: SERTRALINE 100 MG TABLET PO SCH (09:21)
[2018-02-08] MEDS: CLOPIDOGREL 75 MG TABLET PO SCH (09:21)
[2018-02-08] MEDS: PIPERACILLIN SODIUM/TAZOBACTAM 4.5 GM in DEXTROSE 5% IN WATER 50 ML IV SCH ×3 (10:57→23:59)
[2018-02-08] MEDS: 0.9 % SODIUM CHLORIDE 1,000 ML IV SCH ×2 (10:57→18:38)
[2018-02-08] MEDS: MVI, ADULT NO.4 WITH VIT K 10 ML in DEXTROSE 5% IN WATER 500 ML IV SCH (11:50)
[2018-02-08] MEDS: DIGOXIN 500 MCG/2 ML AMPUL IV SCH (14:47)
[2018-02-08] MEDS ORDERED: DEXTROSE 50% 50 ML VIAL IV PRN (16:48)
[2018-02-08] MEDS: INSULIN LISPRO 1 UNIT/0.01 ML UNIT SQ SCH ×2 (17:54→23:59)
--- NOTE | 2018-02-08 17:54 | Internal Med Progress Note ---
Medical - PN: Subj Patient information: Note initiated : 02/08/18 at 5:48 pm Patient: Dara Null a 77 y/o F admitted on 02/01/18 for Weakness, Diarrhea, Hypotension/Hypokalemia, developed alcohol withdrawal syndrome, subsequently episode of afib with RVR and flash pulmonary edema which required intubation. Interval history: 02/04: Her son is in the room today, and expresses concerns regarding her somnolence. He also expresses his own experiences with alcohol withdrawal. He notes some concerns regarding her overall nutritional status that she has not been eating much at home, and may even sleep for up to 48 hours at a time, only getting up to use the toilet. Per nursing, patient has been responsive to Ativan for withdrawal symptoms, and she also received another magnesium rider this morning. There are some concerns regarding her ability to swallow pills at this time. 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 02/05: Discussed with nursing. Patient generally had a better night with improving CIWA scores. Still with cough. Vital signs appear erratic, but on further evaluation, appears that reads are not accurate when she is moving or coughing. She has no complaints today, was sleeping when I first went in, does rouse to answer questions. Dry cough present. When she was sleeping, respirations unlabored at 20, sats 92-92% with her oxygen prongs around her neck. Reviewed I/O, night time notes. Is taking some sips of po, still not taking medications reliably, so has missed Plavix, Pradaxa, nitrobid. Has gotten some metoprolol and digoxin IV. 02/06: Last night patient developed acute RVR with her chronic afib. She developed flash pulmonary edema with acute respiratory distress following. Please refer to critical care note for details. She has since stabilized hemodynamically on scheduled IV metoprolol. However, I received call this AM that she was having significant apneic episodes on BiPAP. ABG's were obtained which were reassuring with pH 7.42, pCO2 around 40, pO2 approx 110. Blood pressure stable. On evaluation of tidal volumes on BiPAP, she would go from 700 -800, then slowly get shallow and move into apneic spells of up to 30 seconds. She appeared to be tiring, and decision was made to electively intubate. It is anticipated this will be fairly short term, likely no more than 48 hours. Her CXR for tube and line placement showed marked improvement in pulmonary edema. I had considered cautious dobutamine last night given poor response to Lasix, I suspect that improvement is related more to the positive pressure ventilation and nitropaste. Vital signs have been stable since intubation, and she has required only modest oxygen supplementation (currently FiO2 30-35%). Patient unable to voice complaints, but appears comfortable. Currently on midazolam gtt. Status was discussed with son, Tito. Unable as yet to reach sonMushtaq. Remains critical with rapidly changing exam through the morning. At time of initial evaluation, decision made to intubate. Now improved status. Several visits thus far today. 02/07: yesterday, after I'd seen patient initially, I met with sons Mushtaq and Tito and daughter Nan. Questions were answered, and they all informed me that she has decompensated due to alcohol withdrawal at previous hospital stays. They expressed concern regarding her resistance to treatment for alcohol dependence or depression as she does not view herself as "that type of person". Her daughter eloquently explained that she is a "lady" and is always very careful with her appearance and image. All siblings in agreement on care and management. Nurse boat cleaning supervisor helped locate previous EKG which had demonstrated preserved EF at 65% and moderate to severe TR (06/2017); repeat echo yesterday showed decreased EF at 40-45% and new focal wall motion abnormalities in inferior wall and septum. Repeat troponin was negative (third since admission) , leading me to suspect a possible cardiac event between June and present admission which may have placed her at risk of pulmonary edema. Overnight, Nayeli remained stable on the vent. Vital signs were stable, urine output decreased towards morning, CVP remained in the 5-8 range (had been 1-3 at time of intubation). Today, also spent 30 minutes meeting with watch caser, Mushtaq, and Nan discussing current status and plan forward, another 15 minutes coordinating with nursing staff directly through the day. Inverted T waves noted on monitor toward end of afternoon, 12 lead EKG showed inversions in same leads as had been present at admission. QTc prolonged. She did have Mg, Phos, K+, Ca++ repleted this AM. ? related to dig? - levels drawn. 02/08: Brief update with family. They do note that she has had a cough for several months (perhaps since new year?) and wonder about possibility that was due to chronic pulmonary edema. Patient with quiet night, the Ativan had been halved early this AM with no lightening of sedation. Opted to turn off entirely to see if she would follow directions and be extubatable. Patient did wake up some with Ativan off, but was pulling tidal volumes sometimes only in the 200-300 range. Urine output improving and clearing significantly. Tube feeds are in place, she had diarrhea develop yesterday afternoon, rectal tube now in place. C diff sent and was negative. Hemodynamically has been stable. Discussed with nursing, no new nursing concerns noted. Remains afebrile. - Constitutional Vitals: Vital Signs Temp Pulse Resp BP Pulse Ox 98.7 F 76 22 107/77 100 02/08/18 14:01 02/08/18 02:00 02/08/18 17:15 02/08/18 17:01 02/08/18 17:15 Period Temp Pulse Resp BP Sys/Marques Pulse Ox Last 24 Hr 97.0 F-98.7 F 76-80 17-30 89-128/51-77 97-100 Intake and Output 02/08/18 02/08/18 02/08/18 05:59 13:59 21:59 Intake Total 1498 / 1498 1637 / 1637 1840 / 1840 Output Total 180 / 180 147 / 147 308 / 308 Balance 1318 / 1318 1490 / 1490 1532 / 1532 Weight 161 lb 168 lb 3.2 oz Patient Weight 02/09/18 05:59 Weight 168 lb 3.2 oz Intake & Output: Intake & Output 02/08/18 02/08/18 02/08/18 05:59 13:59 21:59 Intake Total 1498 / 1498 1637 / 1637 1840 / 1840 Output Total 180 / 180 147 / 147 308 / 308 Balance 1318 / 1318 1490 / 1490 1532 / 1532 Weight 161 lb 168 lb 3.2 oz Intake: IV 1158 / 1158 1267 / 1267 1493 / 1493 Sodium Chloride 0.9% 1,000 ml @ 1000 / 1000 1100 / 1100 900 / 900 100 mls/hr IV .Q10H [facility] Rx#: [id number] Ativan 50 mg In Dextrose 5% in 39 / 39 13 / 13 Water 75 ml @ 0.01 MG/KG/HR 1. 32 mls/hr IV Q12H [facility] Rx#: [id number] Infuvite Adult 10 ml In 510 / 510 Dextrose 5% in Water 500 ml @ 250 mls/hr IV Q24H [facility] Rx#: [id number] Zosyn 4.5 gm In Dextrose 5% in 50 / 50 Water 50 ml @ 100 mls/hr IV Q6H [facility] Rx#:[id number] Diprivan 1,000 mg In Premix 1 119 / 119 54 / 54 83 / 83 Bag @ 25 MCG/KG/MIN 9.96 mls/hr IV .Q10H3M [facility] Rx#:[id number] Tube Feeding 280 / 280 347 / 347 GI Tube Flush 60 / 60 50 / 50 IV - Manual Only 320 / 320 Output: Urine Catheter Amount 180 / 180 147 / 147 158 / 158 Stool 150 / 150 Other: Meal Nourishment/Supplement Stool Size Moderate Moderate Stool Color Brown Brown Brown Yellow Ian Colored Gage Stool Consistency Liquid Liquid Liquid Watery Watery Watery # of times incontinent of 1 Bowels - Additional findings Additional findings: GENERAL: remains intubated. Vent settings SIMV PEEP 8, rate 15, tidal volume at 500, FiO2 at 30%, oxygenating well. Appropriately sedated with propofol only. No sign of decompensated off Ativan, and propofol has been decreased to 20 mcg. HEENT: Pupils equal, no scleral icterus. OG tube has been placed, nutrition initiated. NECK: No JVD. No masses. Trachea midline, intubated. Central line in place on right. No surrounding erythema. LUNGS: Improved breath sounds on vent. Air entry bilateral, no wheezes, coarseness in bases again noted. COR: irregularly irregular. Rate running 80's most of day. Did not appreciate murmurs, even at tricuspid distribution. ABDOMEN: Non-distended, soft. No masses. SKIN: Clean, dry. : Steele in place; urine has cleared considerably. No muddy brown casts noted on UA, now clear, yellow, and more dilute. EXT: warm, no edema. NEURO: Appears comfortable. Cognitive restraints in place, required for management of tube and lines, given ongoing need for mechanical ventilation, will need cognitive restraints for management of tubes and lines. Medical - PN: Obj Da - Labs CBC & Chem 7: 02/04/18 06:52 02/08/18 04:00 Labs: Abnormal Lab Results 02/08/18 02/07/18 02/07/18 04:00 17:00 11:15 Chloride Carbon Dioxide 20 L Anion Gap Creatinine 0.5 L Glucose Uric Acid 1.2 L Calcium 7.2 L Ionized Calcium Dany 1.01 L Phosphorus Total Bilirubin Direct Bilirubin AST 58 H ALT 67 H Lactate Dehydrogenase NT-Pro-B Natriuret Pep Total Protein 5.3 L Albumin 2.6 L Triglycerides 164 H Urine Protein 100 A Urine Occult Blood >=1.0 A Ur Leukocyte Esterase 25 A Urine RBC > 182 H Urine WBC 13 H Urine Bacteria Few A 02/07/18 02/06/18 02/05/18 04:00 03:41 23:16 Chloride 110 H Carbon Dioxide 19 L Anion Gap 21.0 H Creatinine Glucose 144 H 188 H Uric Acid 2.0 L Calcium 7.1 L 8.0 L Ionized Calcium Dany 0.95 L Phosphorus 2.2 L Total Bilirubin 1.6 H Direct Bilirubin 0.4 H AST 61 H 115 H ALT 54 H 65 H Lactate Dehydrogenase 269 H 446 H NT-Pro-B Natriuret Pep 3201.0 H Total Protein 5.3 L Albumin 2.6 L Triglycerides Urine Protein Urine Occult Blood Ur Leukocyte Esterase Urine RBC Urine WBC Urine Bacteria Meds: Medications Acetaminophen (Tylenol) 650 mg PO Q4-6HP PRN PRN Reason: PAIN/FEVER > 101 Albuterol/Ipratropium (Duoneb) 3 ml NEB Q4HP PRN PRN Reason: Shortness Of Breath Or Wheezing Atorvastatin Calcium (Lipitor) 80 mg PO HS [facility] Last Admin: 02/07/18 21:34 Dose: 80 mg Chlorhexidine Gluconate (Peridex) 15 ml SWABMOUTH BID [facility] Last Admin: 02/08/18 09:11 Dose: 15 ml Clopidogrel Bisulfate (Plavix) 75 mg PO DAILY [facility] Last Admin: 02/08/18 09:21 Dose: 75 mg Dextrose (Dextrose 50%) 0 ml IV UD PRN PRN Reason: Hypoglycemia Diagnostic Test (Pha) (Accu-Chek) 1 each FS Q6 [facility] Digoxin (Lanoxin) 125 mcg IV DAILY@1400 [facility] Last Admin: 02/08/18 14:47 Dose: Not Given Enoxaparin Sodium (Lovenox) 60 mg SQ BID [facility] Last Admin: 02/08/18 09:12 Dose: 60 mg Famotidine (Pepcid) 20 mg IV Q12 [facility] Last Admin: 02/08/18 09:14 Dose: 20 mg Potassium Chloride 40 meq/ (Dextrose) 520 mls @ 130 mls/hr IV UD PRN PRN Reason: K+ = or < 3.5 Last Infusion: 02/03/18 00:04 Dose: Infused Magnesium Sulfate (Magnesium Sulfate) 2 gm in 50 mls @ 50 mls/hr IV UD PRN PRN Reason: MG = or < 1.7 Last Infusion: 02/08/18 11:58 Dose: Infused Acetaminophen (Ofirmev) 1,000 mg in 100 mls @ 200 mls/hr IV Q6HP PRN PRN Reason: PAIN/FEVER > 101 Last Infusion: 02/05/18 15:42 Dose: Infused Multivitamins/Minerals 10 ml/ (Dextrose) 510 mls @ 250 mls/hr IV Q24H [facility] Last Infusion: 02/08/18 15:35 Dose: Infused Heparin Sodium/Sodium Chloride (Heparin/Ns) 500 mls @ 0 mls/hr IV .Q0M [facility]; KVO PRN Reason: Protocol Propofol 1,000 mg/ Premix 100 mls @ 9.96 mls/hr IV .Q10H3M [facility]; 25 MCG/KG/MIN PRN Reason: Protocol Last Admin: 02/08/18 15:32 Dose: 30 mcg/kg/min, 11.95 mls/hr Lorazepam 50 mg/ Dextrose 100 mls @ 1.32 mls/hr IV Q12H [facility]; 0.01 MG/KG/HR PRN Reason: Protocol Last Admin: 02/08/18 14:45 Dose: Not Given Sodium Chloride (Sodium Chloride 0.9%) 1,000 mls @ 100 mls/hr IV .Q10H [facility] Last Infusion: 02/08/18 15:34 Dose: Infused Sodium Chloride (Sodium Chloride 0.9%) 250 mls @ 20 mls/hr IV .[id number] [facility] Last Admin: 02/08/18 01:45 Dose: 20 mls/hr Piperacillin Sod/Tazobactam (Sod 4.5 gm/ Dextrose) 50 mls @ 100 mls/hr IV Q6H [facility] Last Infusion: 02/08/18 11:50 Dose: Infused Insulin Human Lispro (Humalog) 0 unit SQ Q6 [facility] PRN Reason: Protocol Iron Carb/Multivit/Harrison/Folic Acid (Multivitamin W/Minerals) 1 tab PO DAILY [facility] Last Admin: 02/08/18 09:16 Dose: Not Given Isosorbide Mononitrate (Monoket) 10 mg PO BID@0800,1500 [facility] Last Admin: 02/08/18 15:47 Dose: 10 mg Losartan Potassium (Cozaar) 50 mg PO QDAY [facility] Last Admin: 02/08/18 09:19 Dose: Not Given Metoprolol Tartrate (Lopressor) 50 mg PO BID [facility] Last Admin: 02/08/18 09:14 Dose: 50 mg Metoprolol Tartrate (Lopressor) 5 mg IV Q2H PRN PRN Reason: pulse greater than 100 Nystatin (Nystatin Crm) 1 dose TOPICAL TIDP PRN PRN Reason: Skin Irritation Ondansetron HCl (Zofran) 4 mg IV Q4-6HP PRN PRN Reason: Nausea And Vomiting Mirabegron [ (Myrbetriq] 25 Mg) 1 dose PO DAILY [facility] Last Admin: 02/08/18 09:12 Dose: Not Given Tapentadol Hcl [ (Nucynta Er] 50 Mg) 1 dose PO Q12 [facility] Last Admin: 02/08/18 09:12 Dose: Not Given Umeclidinium [place] [Incruse Ellipta] Inh 1 dose INH DAILY [facility] Last Admin: 02/08/18 09:13 Dose: Not Given Sertraline HCl (Zoloft) 200 mg PO DAILY [facility] Last Admin: 02/08/18 09:21 Dose: 200 mg Sodium Chloride (Saline Flush) 10 ml IV Q8 [facility] Last Admin: 02/08/18 14:47 Dose: 10 ml Medical - PN: A/P - Time Spent With Patient Total time spent is greater than 50% in coordination of care (as documented) at patient's floor/unit and/or counseling patient: Greater than 35 minutes (Still complex and evolving patient. Three visits to room today, discussed with RT. Total 40 minutes.) - Narrative A/P Narrative: 02/06: 1) CARDIAC: Atrial fibrillation: Rate controlled. Concern yesterday with prolonged QTc and T wave changes. Suspect may be related to digoxin. Level was in therapeutic range. Will hold digoxin today, continue metoprolol 50 mg bid through OG. Echo suggests cardiomyopathy underlying her risk for pulmonary edema as well. Continue her Plavix and nitrobid. Will not check further troponin (all negative thus far) unless new changes in status. It may be that her rate can be controlled with just the metoprolol. Stroke prophylaxis with therapeutic Lovenox. 2) Pulmonary: Minimal oxygen needs - 30% FiO2 with excellent sats. CXR showed near total clearing of previous findings. However, mid-morning, respiratory therapy informed me she had copious "creamy" secretions suctioned from her ET tube. I had already started Levaquin for possible UTI, switched to Zosyn. Would be HCAP, but her MRSA is negative, so Zosyn should be appropriate coverage. Afebrile, easy to oxygenate, no elevated white count, pressures look good. Will continue to be alert for weaning and extubation. 3) Fluids/electrolytes/nutrition: CVP normalized, urine output picking up by end of today, running 50-60 cc /hr. (previously 15-40/hr). UA without signs ATN. Repleted K, Mg, Ca this AM. OG in place, nutrition initiated. Currently receiving Propofol 20 ml/hr, IVF NS 100/hr, and OG feeds at 30/hr. Also intermittent Zosyn, and electrolyte riders. Fluid balance yesterday was +3616; I am concerned re potential for overload again as appears today's fluid balance headed in similar direction. Her CVP is creeping up to 8-9, will decrease IVF to 50/hr. She may require another dose of Lasix. 4) Renal function: BUN/Cr remain normal. Urine with dark brown appearance this AM, UA sent looking for casts, none reported, but still with significant RBC's. Culture was set up. 5) Hemodynamic status: pulse and blood pressure have normalized and she appears to be perfusing well in her extremities. 6) Neuro: propofol gtt, appears comfortable. No benzodiazepine, lower dose of propofol, I suspect alcohol withdrawal issues have significantly stabilized. No evidence of acute neurologic event - moving all extremities well when sedation lightens, pupils equal. 6) GI: Recurrent diarrhea, likely related to tube feeds, C diff neg. Continue IV famotidine. Transaminases about 30% above normal. May have been related to perfusion related issues during afib with RVR, no evidence of significant shock liver. Follow daily at present. No further diarrhea. On review of her records, appears she was on Nucynta at admission and has not received it since the . May have had some withdrawal symptoms related to that as well which impacted some of her GI symptoms. Will restart when off vent, awake, and alert, if she reports pain. 7) Infectious Disease: White count still low, afebrile. Chest X ray essentially cleared. UA with RBC's, had h/o Steele trauma. Culture is pending. I initially started Levaquin thinking that might be possible source as procalcitonin came back >3.0 this AM, with no clear explanation. Stool sent, negative for C diff. Sputum culture from 2 days ago grew out no pathogens. Will resend given creamy secretions this AM (which improved to almost nothing by this afternoon), and switched to Zosyn. She remains hemodynamically stable, has never required pressors. 8) Complication prophylaxis: IV famotidine, unable to use Pradaxa via OG tube, started IV Lovenox at therapeutic doses. New orders today: Zosyn Repeat Sputum Decrease IVF Replete Ca++ and K+ Hold digoxin (january d/c) Time spent thus far on patient care and evaluation through multiple visits today is 45 minutes. Patient still with evolving and active diagnoses, remains in critical condition. Medical - PN: Qual - VTE Deep Vein Thrombosis/Pulmonary Embolism Present on Admission: No Procedures - Arterial Line Size (Gauge): 20
[2018-02-08] MEDS: ATORVASTATIN 20 MG TABLET PO SCH (20:34)
[2018-02-08] MEDS ORDERED: FUROSEMIDE 40 MG/4 ML VIAL IV ONE ×2 (21:49→21:56)
[2018-02-08] MEDS: METOPROLOL TARTRATE 5 MG/5 ML VIAL IV PRN (22:03)
[2018-02-09] MEDS: ACETAMINOPHEN 1,000 MG/100 ML BOTTLE IV PRN ×2 (00:15→16:12)
[2018-02-09] MEDS: METOPROLOL TARTRATE 5 MG/5 ML VIAL IV PRN (00:32)
[2018-02-09] MEDS: PROPOFOL 1,000 MG in PREMIX 1 BAG IV SCH ×2 (00:36→13:00)
[2018-02-09 05:38] LABS: ALT/SGPT 60 U/l (0-40); Albumin 2.6 gm/dL (3.2-5.2); Albumin/Globulin Ratio 0.7 (1.0-2.3); Alkaline Phosphatase 65 U/L (39-117); Bilirubin,Direct 0.2 mg/dL (0.0-0.3); Blood Urea Nitrogen 8 mg/dl (8-23); Gamma Glutamyl Transpeptidase 26 U/L (5-36)
[2018-02-09] MEDS: 0.9 % SODIUM CHLORIDE 250 ML IV SCH ×2 (05:51→15:56)
[2018-02-09] MEDS: LORazepam 50 MG in DEXTROSE 5% IN WATER 75 ML IV SCH ×2 (05:51→14:10)
[2018-02-09] MEDS: PIPERACILLIN SODIUM/TAZOBACTAM 4.5 GM in DEXTROSE 5% IN WATER 50 ML IV SCH ×3 (05:52→17:10)
[2018-02-09] MEDS: INSULIN LISPRO 1 UNIT/0.01 ML UNIT SQ SCH ×3 (05:52→17:47)
[2018-02-09 07:41] LABS: Basophils # (Auto) 0 K/mcL (0.0-0.3); Basophils % (Auto) 0.1 % (0.0-2.0); Eosinophils # (Auto) 0 K/mcL (0.0-0.7); Eosinophils % (Auto) 0.5 % (0.0-7.0); Granulocytes % (Auto) 79.5 % (38.0-78.0); Lymphocytes # (Auto) 0.7 K/mcL (1.5-4.8); Lymphocytes % (Auto) 12.4 % (15.5-49.0); Mean Cell Volume 89.1 fL (80.0-100.0); Mean Corpuscular HGB Conc 34.1 g/dL (31.0-36.0); Mean Corpuscular Hemoglobin 30.4 pg (26.0-34.0); Monocytes # (Auto) 0.4 K/mcL (0.1-0.9); Monocytes % (Auto) 7.5 % (1.0-12.0); Platelet Count 187 K/mcL (140-440); RBC 3.16 M/mcL (4.00-5.20); Red Cell Distribution Width 16.2 % (11.5-14.5)
[2018-02-09] MEDS: MAGNESIUM SULFATE 2 GM/50 ML BAG IV PRN (08:17)
[2018-02-09] MEDS: 0.9 % SODIUM CHLORIDE 10 ML SYRINGE IV SCH ×3 (08:17→20:43)
--- NOTE | 2018-02-09 08:48 | XRay Report ---
CLINICAL INFORMATION: Mechanical ventilation - hypoxia COMPARISON: 02/08/2018 FINDINGS: Moderate cardiomegaly is unchanged. Mediastinum and pulmonary vessels are normal. Lines and tubes are in stable satisfactory position. Mild patchy airspace disease is developed in the right perihilar region. No effusion IMPRESSION: Mild patchy infiltrate developing in the right perihilar region. Interpreted and Authenticated by: Mushtaq Ware 02/09/18
[2018-02-09] MEDS: ISOSORBIDE MONONITRATE 20 MG TABLET PO SCH ×2 (09:12→16:12)
[2018-02-09] MEDS: LOSARTAN 25 MG TABLET PO SCH (09:13)
[2018-02-09] MEDS: TAPENTADOL HCL 50 MG PO SCH ×2 (09:13→20:41)
[2018-02-09] MEDS: UMECLIDINIUM BROMIDE INH SCH (09:13)
[2018-02-09] MEDS: MULTIVIT,THER IRON,CA,FA & MIN 1 TABLET PO SCH (09:13)
[2018-02-09] MEDS: METOPROLOL TARTRATE 50 MG TABLET PO SCH ×2 (09:13→20:42)
[2018-02-09] MEDS: FAMOTIDINE/PF 20 MG/2 ML VIAL IV SCH ×2 (09:13→20:41)
[2018-02-09] MEDS: CLOPIDOGREL 75 MG TABLET PO SCH (09:13)
[2018-02-09] MEDS: Mirabegron [Myrbetriq] 25 MG PO SCH (09:14)
[2018-02-09] MEDS: CHLORHEXIDINE GLUCONATE 1 ML ORAL.SOL SWABMOUTH SCH ×2 (09:16→20:42)
[2018-02-09] MEDS: ENOXAPARIN 60 MG/0.6 ML SYRINGE SQ SCH ×2 (09:21→20:42)
[2018-02-09] MEDS: SERTRALINE 100 MG TABLET PO SCH (09:21)
[2018-02-09] MEDS: MVI, ADULT NO.4 WITH VIT K 10 ML in DEXTROSE 5% IN WATER 500 ML IV SCH (11:02)
--- NOTE | 2018-02-09 12:52 | Cat Scan Report ---
CLINICAL INFORMATION: Left-sided weakness COMPARISON: None. TECHNIQUE: 2.5 mm helical slices were obtained in the skull base to vertex. Following reconstruction, axial reformatted images were reviewed at bone and parenchymal windows. The exam was performed using radiation dose optimization techniques including, but not limited to, automated exposure control, adjustment of the mA and/or kV according to patient size and use of iterative reconstruction technique. FINDINGS: The ventricles, sulci, fissures, and cisterns are symmetrically enlarged bowel with mild age-related atrophy. There is no subdural hemorrhage or other extra-axial fluid collection appreciated. Moderate size remote cortical-based infarct in the right frontal lobe and patchy chronic ischemic changes in deep cerebral white matter - more prominent in the left hemisphere are unchanged from previous study. No acute intracerebral hemorrhage, mass effect or edema. 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 No acute findings Interpreted and Authenticated by: Mushtaq Ware 02/09/18
[2018-02-09] MEDS: DIGOXIN 500 MCG/2 ML AMPUL IV SCH (14:10)
[2018-02-09] MEDS: 0.9 % SODIUM CHLORIDE 1,000 ML IV SCH (14:46)
[2018-02-09] MEDS ORDERED: VANCOMYCIN PER PHARMACY IV SCH (15:00)
--- NOTE | 2018-02-09 15:33 | Internal Med History&Physical ---
Medical - H&P: HPI Patient information: Note initiated : 02/09/18 at 3:31 pm Service Date, if different from initiated Date: [] Patient: Dara Null a 77 y/o F admitted on 02/01/18 for Weakness, Diarrhea, Hypotension/Hypokalemia; developed acute alcohol withdrawal on day of discharge , scored up to 19 on CIWA, discharge cancelled. Course complicated by afib with RVR 02/05, and subsequent development of resp distress and pulmonary edema requiring intubation. Has been more stable, still requiring mechanical ventilation, all sedating medications off, remains quite sedated. Enterococcus UTI, sensitivities pending. History of present illness: Ms. Null is a 77 year old F Medical - H&P: Meds Home Medications Medication Instructions Recorded Confirmed Type Flexin Supplement 1 supp PO .DAILY 05/07/15 02/01/18 History biotin 1 mg tablet 1 mg PO QDAY tab 05/07/15 02/01/18 History metoprolol tartrate 25 mg tablet 100 mg PO BID tab 08/12/16 02/01/18 History atorvastatin 80 mg tablet 80 mg PO QDAY #90 tab 06/29/17 02/01/18 Rx dabigatran etexilate 150 mg capsule 150 mg PO BID #180 cap 06/29/17 02/01/18 Rx digoxin 125 mcg tablet 125 mcg PO QDAY #90 tab 06/29/17 02/01/18 Rx furosemide 20 mg tablet 20 mg PO QDAY #90 tab 06/29/17 02/01/18 Rx isosorbide mononitrate 10 mg tablet 10 mg PO BID 90 Days #180 tab 06/29/1702/01 Rx mirabegron ER 25 mg 25 mg PO QDAY #90 tab 06/29/17 02/01/18 Rx tablet,extended release 24 hr omeprazole 40 mg capsule,delayed 40 mg PO QDAY #90 cap 06/29/17 02/01/18 Rx release potassium chloride ER 10 mEq 10 meq PO QDAY #90 cap 06/29/17 02/01/18 Rx capsule,extended release umeclidinium 62.5 mcg/actuation 1 inh INHALATION Q24H #90 each 06/29/17 Rx blister powder for inhalation losartan 25 mg tablet 50 mg PO QDAY #180 tab 09/27/17 02/01/18 Rx sertraline 100 mg tablet 200 mg PO QDAY #180 tab 09/27/17 02/01/18 Rx gabapentin 300 mg capsule 300 mg PO TID #90 cap 10/28/17 02/01/18 Rx trazodone 50 mg tablet 50 mg PO QHS PRN #30 tab 12/20/17 02/01/18 Rx tapentadol ER 50 mg 50 mg PO Q12H #60 tab 01/17/18 02/01/18 Rx tablet,extended release,12 hr Clopidogrel Bisulfate [Plavix] 75 mg PO DAILY 02/01/18 02/02/18 History Hydrocodone/APAP 7.5/325Mg [[place] 1 tab PO DAILYP PRN 02/01/18 02/02/18 History 7.5-325Mg] Meclizine [Antivert] 12.5 mg PO DAILYP PRN 02/01/18 02/01/18 History Amoxicillin/Potassium Clav 875 mg PO Q12H #10 tab 02/03/18 Rx [Augmentin] Allergies Allergy/AdvReac Type Severity Reaction Status Date / Time Influenza Virus Vaccines AdvReac Severe pain Verified 02/01/18 18:35 TAPE ALLERGY Allergy Intermediate RASH Uncoded 01/17/18 19:14 Medical - H&P: Exam - Constitutional Vitals: Temp Pulse Resp BP Pulse Ox 97.6 F 81 19 117/65 100 02/09/18 13:04 02/09/18 13:04 02/09/18 13:28 02/09/18 11:01 02/09/18 13:28 General appearance: cooperative, no acute distress Medical - H&P: Reslt - Labs CBC & Chem 7: 02/09/18 04:00 02/09/18 04:00 Labs: Short CBC 02/09/18 Range/Units 04:00 WBC 5.5 (4.5-11.0) K/mcL Hgb 9.6 L (12.0-15.0) g/dL Hct 28.1 L (36.0-48.0) % Plt Count 187 (140-440) K/mcL BMP 02/09/18 04:00 Sodium 138 Potassium 3.7 Chloride 105 Carbon Dioxide 18 L BUN 8 Creatinine 0.7 Glucose 121 H Calcium 7.5 L Liver Function 02/09/18 Range/Units 04:00 Total Bilirubin 0.8 (0.0-1.0) mg/dL Direct Bilirubin 0.2 (0.0-0.3) mg/dL GGT 26 (5-36) U/L AST 39 H (0-37) U/l ALT 60 H (0-40) U/l Alkaline Phosphatase 65 (39-117) U/L Albumin 2.6 L (3.2-5.2) gm/dL Medical - H&P: Qual - VTE Deep Vein Thrombosis/Pulmonary Embolism Present on Admission: No Procedures - Arterial Line Size (Gauge): 20
--- NOTE | 2018-02-09 15:57 | Internal Med Progress Note ---
Medical - PN: Subj Patient information: Note initiated : 02/09/18 at 3:48 pm Patient: Dara Null a 77 y/o F admitted on 02/01/18 for Weakness, Diarrhea, Hypotension/Hypokalemia; developed acute alcohol withdrawal on day of discharge , scored up to 19 on CIWA, discharge cancelled. Course complicated by afib with RVR 02/05, and subsequent development of resp distress and pulmonary edema requiring intubation. Has been more stable, still requiring mechanical ventilation, all sedating medications off, remains quite sedated. Enterococcus UTI, sensitivities pending. Interval history: Has been stable overnight. Given Lasix with good diuretic response. Diarrhea slowing, rectal tube in place, C.diff neg. Ativan drip has been off x 24 hours - had been at 1.5 mg/hr prior to that, and then 3 mg/hr for first 24 hours or so (required at that time - still w/d issues and quite agitated. Propofol off since this AM. No other concerns in discussion with nursing staff. Patient unable to give subjective info due to intubated status. - Constitutional Vitals: Vital Signs Temp Pulse Resp BP Pulse Ox 97.6 F 81 19 117/65 100 02/09/18 13:04 02/09/18 13:04 02/09/18 13:28 02/09/18 11:01 02/09/18 13:28 Period Temp Pulse Resp BP Sys/Marques Pulse Ox Last 24 Hr 97.1 F-98.3 F 81 18-25 104-151/59-89 98-100 Intake and Output 02/09/18 02/09/18 02/09/18 05:59 13:59 21:59 Intake Total 556 / 556 1278 / 1278 Output Total 2415 / 2415 510 / 510 300 / 300 Balance -1859 / -1859 768 / 768 -300 / -300 Intake & Output: Intake & Output 02/09/18 02/09/18 02/09/18 05:59 13:59 21:59 Intake Total 556 / 556 1278 / 1278 Output Total 2415 / 2415 510 / 510 300 / 300 Balance -1859 / -1859 768 / 768 -300 / -300 Intake: IV 211 / 211 1016 / 1016 Sodium Chloride 0.9% 1,000 ml @ 839 / 839 50 mls/hr IV .Q20H [facility] Rx#: [id number] Zosyn 4.5 gm In Dextrose 5% in 50 / 50 50 / 50 Water 50 ml @ 100 mls/hr IV Q6H [facility] Rx#:[id number] Diprivan 1,000 mg In Premix 1 61 / 61 77 / 77 Bag @ 25 MCG/KG/MIN 9.96 mls/hr IV .Q10H3M [facility] Rx#:[id number] Tube Feeding 315 / 315 172 / 172 GI Tube Flush 30 / 30 90 / 90 Output: Urine Catheter Amount 2275 / 2275 510 / 510 300 / 300 Stool 140 / 140 Other: Stool Size Small Stool Color Brown Brown Yellow Yellow Stool Consistency Liquid Liquid Watery Loose Exam: GENERAL: remains intubated. Vent settings SIMV PEEP 6, rate 15, tidal volume at 500, FiO2 at 30%, oxygenating well. Has been off all sedating medications, remains quite unresponsive. Respiratory rate 22 with set rate 15. HEENT: Pupils equal, no scleral icterus. OG tube has been placed, nutrition initiated. No facial asymmetry NECK: Examined at 45 degrees reclining. JVD more prominent, just about at sternal angle, No masses. Trachea midline, intubated. Central line in place on right. No surrounding erythema. LUNGS: Improved breath sounds on vent. Air entry bilateral, no wheezes, no rales or crackles noted today. Essentially clear. COR: irregularly irregular. Rate running 80's most of day. Did not appreciate murmurs, even at tricuspid distribution. ABDOMEN: Non-distended, soft. No masses. SKIN: Clean, dry. : Steele in place; urine has cleared considerably. Urine output has continued vigorous today without additional diuresis: now at 100 ml/hr EXT: warm, no edema. NEURO: Appears comfortable. Remains sedated despite discontinuing gtt. Cognitive restraints in place, required for management of tube and lines, given ongoing need for mechanical ventilation, will need cognitive restraints for management of tubes and lines. Urine culture + Enterococcus; no blood cultures drawn. Medical - PN: Obj Da - Labs CBC & Chem 7: 02/09/18 04:00 02/09/18 04:00 Labs: Abnormal Lab Results 02/09/18 02/09/18 02/08/18 04:00 04:00 04:00 RBC 3.16 L Hgb 9.6 L Hct 28.1 L RDW 16.2 H Gran % 79.5 H Lymph % (Auto) 12.4 L Lymph # (Auto) 0.7 L Chloride Carbon Dioxide 18 L 20 L Creatinine 0.5 L Glucose 121 H Uric Acid 1.0 L 1.2 L Calcium 7.5 L 7.2 L Ionized Calcium Dany Phosphorus AST 39 H 58 H ALT 60 H 67 H Lactate Dehydrogenase 307 H Total Protein 5.3 L Albumin 2.6 L 2.6 L Albumin/Globulin Ratio 0.7 L Triglycerides 164 H Urine Protein Urine Occult Blood Ur Leukocyte Esterase Urine RBC Urine WBC Urine Bacteria 02/07/18 02/07/18 02/07/18 17:00 11:15 04:00 RBC Hgb Hct RDW Gran % Lymph % (Auto) Lymph # (Auto) Chloride 110 H Carbon Dioxide Creatinine Glucose Uric Acid 2.0 L Calcium 7.1 L Ionized Calcium Dany 1.01 L 0.95 L Phosphorus 2.2 L AST 61 H ALT 54 H Lactate Dehydrogenase 269 H Total Protein 5.3 L Albumin 2.6 L Albumin/Globulin Ratio Triglycerides Urine Protein 100 A Urine Occult Blood >=1.0 A Ur Leukocyte Esterase 25 A Urine RBC > 182 H Urine WBC 13 H Urine Bacteria Few A Meds: Medications Acetaminophen (Tylenol) 650 mg PO Q4-6HP PRN PRN Reason: PAIN/FEVER > 101 Albuterol/Ipratropium (Duoneb) 3 ml NEB Q4HP PRN PRN Reason: Shortness Of Breath Or Wheezing Atorvastatin Calcium (Lipitor) 80 mg PO HS [facility] Last Admin: 02/08/18 20:34 Dose: 80 mg Chlorhexidine Gluconate (Peridex) 15 ml SWABMOUTH BID [facility] Last Admin: 02/09/18 09:16 Dose: 15 ml Clopidogrel Bisulfate (Plavix) 75 mg PO DAILY [facility] Last Admin: 02/09/18 09:13 Dose: 75 mg Dextrose (Dextrose 50%) 0 ml IV UD PRN PRN Reason: Hypoglycemia Diagnostic Test (Pha) (Accu-Chek) 1 each FS Q6 [facility] Last Admin: 02/09/18 11:31 Dose: 1 each Digoxin (Lanoxin) 125 mcg IV DAILY@1400 [facility] Last Admin: 02/09/18 14:10 Dose: Not Given Enoxaparin Sodium (Lovenox) 60 mg SQ BID [facility] Last Admin: 02/09/18 09:21 Dose: 60 mg Famotidine (Pepcid) 20 mg IV Q12 [facility] Last Admin: 02/09/18 09:13 Dose: 20 mg Potassium Chloride 40 meq/ (Dextrose) 520 mls @ 130 mls/hr IV UD PRN PRN Reason: K+ = or < 3.5 Last Infusion: 02/03/18 00:04 Dose: Infused Magnesium Sulfate (Magnesium Sulfate) 2 gm in 50 mls @ 50 mls/hr IV UD PRN PRN Reason: MG = or < 1.7 Last Infusion: 02/09/18 09:17 Dose: Infused Acetaminophen (Ofirmev) 1,000 mg in 100 mls @ 200 mls/hr IV Q6HP PRN PRN Reason: PAIN/FEVER > 101 Last Infusion: 02/09/18 01:15 Dose: Infused Multivitamins/Minerals 10 ml/ (Dextrose) 510 mls @ 250 mls/hr IV Q24H [facility] Last Admin: 02/09/18 11:02 Dose: 250 mls/hr Heparin Sodium/Sodium Chloride (Heparin/Ns) 500 mls @ 0 mls/hr IV .Q0M [facility]; KVO PRN Reason: Protocol Propofol 1,000 mg/ Premix 100 mls @ 9.96 mls/hr IV .Q10H3M [facility]; 25 MCG/KG/MIN PRN Reason: Protocol Last Admin: 02/09/18 13:00 Dose: Not Given Lorazepam 50 mg/ Dextrose 100 mls @ 1.32 mls/hr IV Q12H [facility]; 0.01 MG/KG/HR PRN Reason: Protocol Last Admin: 02/09/18 14:10 Dose: Not Given Sodium Chloride (Sodium Chloride 0.9%) 250 mls @ 20 mls/hr IV .[id number] [facility] Last Admin: 02/09/18 05:51 Dose: 20 mls/hr Piperacillin Sod/Tazobactam (Sod 4.5 gm/ Dextrose) 50 mls @ 100 mls/hr IV Q6H [facility] Last Admin: 02/09/18 12:55 Dose: 100 mls/hr Vancomycin HCl 1,000 mg/ (Sodium Chloride) 250 mls @ 250 mls/hr IV Q24H [facility] Insulin Human Lispro (Humalog) 0 unit SQ Q6 [facility] PRN Reason: Protocol Last Admin: 02/09/18 11:34 Dose: Not Given Iron Carb/Multivit/[place]/Folic Acid (Multivitamin W/Minerals) 1 tab PO DAILY [facility] Last Admin: 02/09/18 09:13 Dose: 1 tab Isosorbide Mononitrate (Monoket) 10 mg PO BID@0800,1500 [facility] Last Admin: 02/09/18 09:12 Dose: 10 mg Losartan Potassium (Cozaar) 50 mg PO QDAY [facility] Last Admin: 02/09/18 09:13 Dose: 50 mg Metoprolol Tartrate (Lopressor) 50 mg PO BID [facility] Last Admin: 02/09/18 09:13 Dose: 50 mg Metoprolol Tartrate (Lopressor) 5 mg IV Q2H PRN PRN Reason: pulse greater than 100 Last Admin: 02/09/18 00:32 Dose: 5 mg Nystatin (Nystatin Crm) 1 dose TOPICAL TIDP PRN PRN Reason: Skin Irritation Ondansetron HCl (Zofran) 4 mg IV Q4-6HP PRN PRN Reason: Nausea And Vomiting Mirabegron [ (Myrbetriq] 25 Mg) 1 dose PO DAILY [facility] Last Admin: 02/09/18 09:14 Dose: Not Given Tapentadol Hcl [ (Nucynta Er] 50 Mg) 1 dose PO Q12 [facility] Last Admin: 02/09/18 09:13 Dose: Not Given Umeclidinium Humphrey [Incruse Ellipta] Inh 1 dose INH DAILY [facility] Last Admin: 02/09/18 09:13 Dose: Not Given Sertraline HCl (Zoloft) 200 mg PO DAILY [facility] Last Admin: 02/09/18 09:21 Dose: 200 mg Sodium Chloride (Saline Flush) 10 ml IV Q8 [facility] Last Admin: 02/09/18 14:11 Dose: 10 ml Vancomycin HCl (Vancomycin Per Pharmacy) 1 order IV [facility] [place] Medical - PN: A/P - Time Spent With Patient Total time spent is greater than 50% in coordination of care (as documented) at patient's floor/unit and/or counseling patient: Greater than 35 minutes - Narrative A/P Narrative: 1) Atrial fibrillation: Rate controlled with metoprolol only. Will discontinue digoxin due to QT issues, repolarization abnormalities on EKG. Stroke prophylaxis with therapeutic Lovenox. 2) Hypertension: Has had increasing blood pressures. Will restart her losartan at her home dose. 3) Pulmonary: Minimal oxygen needs, easy to ventilate - 30% FiO2 with excellent sats. CXR now shows some emerging right perihilar infiltrate per radiology read. Is on Zosyn at present. This infiltrate may have been the source of creamy sputum on suction yesterday. Had order sputum culture with next aspirate , I do not see that a sample was obtained. Report today is no further purulent sputum. Continue to wait for patient to wake up for extubation. 4) Fluids/electrolytes/nutrition: CVP on the high side now (12-14), diuresing on her own with urine output now running about 100/hr. Normal saline is off, on tube feeds with free water via OG tube, and medications only (Zosyn, vitamins, and electrolyte riders prn). Calcium still on low side; will replete and recheck in AM. 5) Renal function: BUN/Cr remain normal. Urine output increased. No diminished renal function noted. 6) Neuro: Remained more sedated than I would have expected. CT scan obtained with no acute findings. Likely metabolic encephalopathy due to delayed metabolism of Ativan. This tendency had been noted when CIWA coverage was initially started, and the most likely issue now is that she is still clearing the drug from the higher doses required initially for appropriate ventilator sedation. Will avoid restarting any sedating drugs, anticipate resolution of sedation. I see no indication at present that she will not recover. 6) GI: Recurrent diarrhea, likely related to tube feeds, C diff neg. Continue IV famotidine. Transaminases continue to improve (AST 39, ALT 60 today), Tbili 0.8. 7) Infectious Disease: WBC 5.5; Urine culture + Enterococcus. Sensitivities pending. Although I suspect this will be ampicillin sensitive, given improvement , will expand coverage with Vanc pending sensitivities. 8) Complication prophylaxis: IV famotidine, unable to use Pradaxa via OG tube, started IV Lovenox at therapeutic doses. 9) Disposition: Family has located SNF for PT/strengthening. Anticipate patient will require a SNF bed. New orders today: d/c digoxin Start Vancomycin pending urine sensitivities DC maintenance normal saline Replete calcium, recheck in AM Medical - PN: Qual - VTE Deep Vein Thrombosis/Pulmonary Embolism Present on Admission: No Procedures - Arterial Line Size (Gauge): 20
[2018-02-09] MEDS: VANCOMYCIN 1,000 MG in 0.9 % SODIUM CHLORIDE 250 ML IV SCH (16:12)
[2018-02-09] MEDS ORDERED: CALCIUM CHLORIDE 1,000 MG/10 ML SYRINGE IV ONE (16:20)
[2018-02-09] MEDS: ATORVASTATIN 20 MG TABLET PO SCH (20:41)
[2018-02-10] MEDS: INSULIN LISPRO 1 UNIT/0.01 ML UNIT SQ SCH ×4 (00:14→17:20)
[2018-02-10] MEDS: PROPOFOL 1,000 MG in PREMIX 1 BAG IV SCH ×3 (00:14→12:42)
[2018-02-10] MEDS: PIPERACILLIN SODIUM/TAZOBACTAM 4.5 GM in DEXTROSE 5% IN WATER 50 ML IV SCH ×4 (00:14→17:01)
[2018-02-10] MEDS: LORazepam 50 MG in DEXTROSE 5% IN WATER 75 ML IV SCH ×2 (05:49→13:11)
[2018-02-10] MEDS: 0.9 % SODIUM CHLORIDE 10 ML SYRINGE IV SCH ×3 (05:51→23:07)
--- NOTE | 2018-02-10 06:22 | Internal Med Progress Note ---
Medical - PN: Subj Patient information: Note initiated : 02/10/18 at 6:10 am PROGRESS NOTE / OFF SERVICE NOTE Patient: Dara Null a 77 y/o F admitted on 02/01/18 for Weakness, Diarrhea, Hypotension/Hypokalemia, developed acute alcohol withdrawal on day of planned discharge (02/03), discharge cancelled. CIWA started, decompensated with afib with RVR 02/05, respiratory distress with flash pulmonary edema subsequent, intubated 02/06. Continued on propofol and ativan gtt, all have been off, slow to wake up, suspect due to metabolic encephalopathy due to high ativan doses. Is waking up, but slowly. Extubation should be possible when she is awake, otherwise, other problems stable and improving. Interval history: Has been stable overnight. Reviewed with nursing. Urine output continues with spontaneous diuresis - has been running about 80/hr last few hours. Diarrhea slowing, rectal tube in place, C.diff neg. No sedative drips for last 24 hours. Is slowly becoming more responsive. No other concerns in discussion with nursing staff. Patient unable to give subjective info due to intubated status. - Constitutional Vitals: Vital Signs Temp Pulse Resp BP Pulse Ox 97.6 F 86 18 117/65 99 02/10/18 06:01 02/09/18 18:25 02/10/18 06:01 02/09/18 11:01 02/10/18 06:01 Period Temp Pulse Resp BP Sys/Marques Pulse Ox Last 24 Hr 97.1 F-99.8 F 75-86 17-25 117-142/63-77 98-100 Intake and Output 02/09/18 02/10/18 02/10/18 21:59 05:59 13:59 Intake Total 840 / 840 380 / 380 Output Total 1645 / 1645 735 / 735 50 / 50 Balance -805 / -805 -355 / -355 -50 / -50 Weight 165 lb 9.6 oz Intake & Output: Intake & Output 02/09/18 02/10/18 02/10/18 21:59 05:59 13:59 Intake Total 840 / 840 380 / 380 Output Total 1645 / 1645 735 / 735 50 / 50 Balance -805 / -805 -355 / -355 -50 / -50 Weight 165 lb 9.6 oz Intake: IV 400 / 400 50 / 50 Zosyn 4.5 gm In Dextrose 5% in 50 / 50 50 / 50 Water 50 ml @ 100 mls/hr IV Q6H [facility] Rx#:[id number] Vancomycin 1,000 mg In Sodium 250 / 250 Chloride 0.9% 250 ml @ 250 mls/ hr IV Q24H [facility] Rx#:[id number] Tube Feeding 350 / 350 270 / 270 GI Tube Flush 90 / 90 60 / 60 Output: Urine Catheter Amount 1445 / 1445 455 / 455 50 / 50 Stool 200 / 200 280 / 280 Other: Stool Size Small Small Stool Color Brown Brown Yellow Yellow Stool Consistency Liquid Liquid Exam: GENERAL: remains intubated. Vent settings SIMV PEEP 6, rate 15, tidal volume at 500, FiO2 at 30%, oxygenating well. Has been off all sedating medications, slowly becoming more responsive. Respiratory rate 22 with set rate 15. HEENT: Pupils equal, no scleral icterus. OG tube has been placed, nutrition initiated. No facial asymmetry NECK: Examined at 45 degrees reclining. No JVD noted today. No masses. Trachea midline, intubated. Central line in place on right. No surrounding erythema. LUNGS: Clear bilaterally today; no crackles or wheezes, equal breath sounds to bases. COR: irregularly irregular. Rate running 70's most of day. Did not appreciate murmurs, even at tricuspid distribution. ABDOMEN: Non-distended, soft. No masses. SKIN: Clean, dry. : Steele in place; urine has cleared considerably. Urine output has continued vigorous today without additional diuresis: now at 100 ml/hr EXT: warm, no pedal edema, hands still appear puffy without pitting edema, but improving. NEURO: Appears comfortable. Moved her tongue when I spoke to her today, some facial movement, more eye movement. Does not follow commands, but definitely improved level of consciousness. Medical - PN: Obj Da - Labs CBC & Chem 7: 02/10/18 04:00 02/10/18 04:00 Labs: Abnormal Lab Results 02/09/18 02/09/18 02/08/18 04:00 04:00 04:00 RBC 3.16 L Hgb 9.6 L Hct 28.1 L RDW 16.2 H Gran % 79.5 H Lymph % (Auto) 12.4 L Lymph # (Auto) 0.7 L Carbon Dioxide 18 L 20 L Creatinine 0.5 L Glucose 121 H Uric Acid 1.0 L 1.2 L Calcium 7.5 L 7.2 L Ionized Calcium Dany AST 39 H 58 H ALT 60 H 67 H Lactate Dehydrogenase 307 H Total Protein 5.3 L Albumin 2.6 L 2.6 L Albumin/Globulin Ratio 0.7 L Triglycerides 164 H Urine Protein Urine Occult Blood Ur Leukocyte Esterase Urine RBC Urine WBC Urine Bacteria 02/07/18 02/07/18 17:00 11:15 RBC Hgb Hct RDW Gran % Lymph % (Auto) Lymph # (Auto) Carbon Dioxide Creatinine Glucose Uric Acid Calcium Ionized Calcium Dany 1.01 L AST ALT Lactate Dehydrogenase Total Protein Albumin Albumin/Globulin Ratio Triglycerides Urine Protein 100 A Urine Occult Blood >=1.0 A Ur Leukocyte Esterase 25 A Urine RBC > 182 H Urine WBC 13 H Urine Bacteria Few A Meds: Medications Acetaminophen (Tylenol) 650 mg PO Q4-6HP PRN PRN Reason: PAIN/FEVER > 101 Albuterol/Ipratropium (Duoneb) 3 ml NEB Q4HP PRN PRN Reason: Shortness Of Breath Or Wheezing Atorvastatin Calcium (Lipitor) 80 mg PO HS [facility] Last Admin: 02/09/18 20:41 Dose: 80 mg Chlorhexidine Gluconate (Peridex) 15 ml SWABMOUTH BID [facility] Last Admin: 02/09/18 20:42 Dose: 15 ml Clopidogrel Bisulfate (Plavix) 75 mg PO DAILY [facility] Last Admin: 02/09/18 09:13 Dose: 75 mg Dextrose (Dextrose 50%) 0 ml IV UD PRN PRN Reason: Hypoglycemia Diagnostic Test (Pha) (Accu-Chek) 1 each FS Q6 [facility] Last Admin: 02/10/18 05:50 Dose: 1 each Enoxaparin Sodium (Lovenox) 60 mg SQ BID [facility] Last Admin: 02/09/18 20:42 Dose: 60 mg Famotidine (Pepcid) 20 mg IV Q12 [facility] Last Admin: 02/09/18 20:41 Dose: 20 mg Potassium Chloride 40 meq/ (Dextrose) 520 mls @ 130 mls/hr IV UD PRN PRN Reason: K+ = or < 3.5 Last Infusion: 02/03/18 00:04 Dose: Infused Magnesium Sulfate (Magnesium Sulfate) 2 gm in 50 mls @ 50 mls/hr IV UD PRN PRN Reason: MG = or < 1.7 Last Infusion: 02/09/18 09:17 Dose: Infused Acetaminophen (Ofirmev) 1,000 mg in 100 mls @ 200 mls/hr IV Q6HP PRN PRN Reason: PAIN/FEVER > 101 Last Infusion: 02/09/18 16:42 Dose: Infused Multivitamins/Minerals 10 ml/ (Dextrose) 510 mls @ 250 mls/hr IV Q24H [facility] Last Infusion: 02/09/18 13:55 Dose: Infused Heparin Sodium/Sodium Chloride (Heparin/Ns) 500 mls @ 0 mls/hr IV .Q0M DORA; KVO PRN Reason: Protocol Propofol 1,000 mg/ Premix 100 mls @ 9.96 mls/hr IV .Q10H3M DORA; 25 MCG/KG/MIN PRN Reason: Protocol Last Admin: 02/10/18 00:14 Dose: Not Given Lorazepam 50 mg/ Dextrose 100 mls @ 1.32 mls/hr IV Q12H DORA; 0.01 MG/KG/HR PRN Reason: Protocol Last Admin: 02/10/18 05:49 Dose: Not Given Sodium Chloride (Sodium Chloride 0.9%) 250 mls @ 20 mls/hr IV .[id number] [facility] Last Admin: 02/09/18 15:56 Dose: Not Given Piperacillin Sod/Tazobactam (Sod 4.5 gm/ Dextrose) 50 mls @ 100 mls/hr IV Q6H [facility] Last Admin: 02/10/18 05:50 Dose: 100 mls/hr Vancomycin HCl 1,000 mg/ (Sodium Chloride) 250 mls @ 250 mls/hr IV Q24H [facility] Last Infusion: 02/09/18 18:39 Dose: Infused Insulin Human Lispro (Humalog) 0 unit SQ Q6 [facility]A PRN Reason: Protocol Last Admin: 02/10/18 00:14 Dose: Not Given Iron Carb/Multivit/[place]/Folic Acid (Multivitamin W/Minerals) 1 tab PO DAILY [facility] Last Admin: 02/09/18 09:13 Dose: 1 tab Isosorbide Mononitrate (Monoket) 10 mg PO BID@0800,1500 [facility] Last Admin: 02/09/18 16:12 Dose: 10 mg Losartan Potassium (Cozaar) 50 mg PO QDAY [facility] Last Admin: 02/09/18 09:13 Dose: 50 mg Metoprolol Tartrate (Lopressor) 50 mg PO BID [facility] Last Admin: 02/09/18 20:42 Dose: 50 mg Metoprolol Tartrate (Lopressor) 5 mg IV Q2H PRN PRN Reason: pulse greater than 100 Last Admin: 02/09/18 00:32 Dose: 5 mg Nystatin (Nystatin Crm) 1 dose TOPICAL TIDP PRN PRN Reason: Skin Irritation Ondansetron HCl (Zofran) 4 mg IV Q4-6HP PRN PRN Reason: Nausea And Vomiting Mirabegron [ (Myrbetriq] 25 Mg) 1 dose PO DAILY [facility] Last Admin: 02/09/18 09:14 Dose: Not Given Tapentadol Hcl [ (Nucynta Er] 50 Mg) 1 dose PO Q12 [facility] Last Admin: 02/09/18 20:41 Dose: Not Given Umeclidinium Alexis [Incruse Ellipta] Inh 1 dose INH DAILY [facility] Last Admin: 02/09/18 09:13 Dose: Not Given Sertraline HCl (Zoloft) 200 mg PO DAILY [facility] Last Admin: 02/09/18 09:21 Dose: 200 mg Sodium Chloride (Saline Flush) 10 ml IV Q8 [facility] Last Admin: 02/10/18 05:51 Dose: 10 ml Vancomycin HCl (Vancomycin Per Pharmacy) 1 order IV UD [facility] - Imaging and cardiology Chest x-ray Additional comments: FINDINGS: Mild cardiomegaly is unchanged. Lines and tubes in stable satisfactory position. Mediastinum and pulmonary vessels are normal. Small infiltrate in the right base show slight progression. Minor left basilar atelectasis noted IMPRESSION: Small right basilar infiltrate showing slight progression. Mild stable cardiomegaly - no CHF - ABG Interpretation Additional comments: Pending for this AM; has been with normal results for several days. Current vent settings: PEEP 6, rate 15, tidal volume 500. FiO2 30%, with pulse ox sats in high 90's. Medical - PN: A/P - Time Spent With Patient Total time spent is greater than 50% in coordination of care (as documented) at patient's floor/unit and/or counseling patient: - Narrative A/P Narrative: Brief review of this weeks events: Admitted for fluid and electrolyte disturbance, on day of discharge, developed alcohol withdrawal, discharge cancelled. CIWA initiated. Sporadic intake of oral medications, likely inadequate dosing of IV metoprolol, led to decompensation of her rate control on afib. Controlled with diltiazem, developed rapid onset respiratory distress. CXR with pulmonary edema, diltiazem rapidly titrated as rate controlled. CPAP, nitropaste started. Lasix given with minimal output, however repeat CXR after CPAP showed near clearing. However patient tired and was intubated semielectively. CVP at that point was low, fluids added back. Subsequent dark urine, UA sent, did not show evidence of ATN, did reveal UTI with enterococcus. Currently on Zosyn and Vanc (pending sensitivities). Now off all sedation, remains sedated. She received a fair amount of Ativan via gtt, suspect still on board. Of note, during this, no blood cultures were drawn, sputum has been negative. Current issues: 1) Atrial fibrillation: Rate controlled in the 70's with metoprolol only. On stroke prophylaxis with therapeutic Lovenox doses. Would plan on restarting her usual Pradaxa when she is extubated and able to take po. 2) Cardiomyopathy: Wonder about an event between June (echo with 50-65% EF, no wall motion abnormalities) and sometime before admission (echo 40-45% EF, focal wall motion abnormalities in septum and inferior wall). Troponins here have been negative. Alternatively, possible this could be transient ischemia due to hospital events without evidence of troponin leak. Will need echo sometime in the future and further evaluation if findings persist. Family notes that she started with a chronic cough a few months ago and I wonder about possible cardiogenic bronchospasm or mild pulmonary edema as a contributor. Of note, she was on isosorbide, Lipitor, and Plavix at admission. Family notes she was not reliable in taking medications. 3) Hypertension: Was on Cozaar and metoprolol on admit. Pressures seem to be controlled fairly well on Cozaar (restarted 02/09) and 50 mg metoprolol bid ( half of admission dose; suspect she can be discharged on this dose as it seems to be adequate to control afib rate as well) 4) History of CVA in past - no significant sequelae, she had been prescribed atorvastatin and Plavix previously, these have been continued via OG tube. 5) Pulmonary: Intubated due to encephalopathy (felt to be related to prolonged metabolism of Ativan). No clear evidence pneumonia. Minimal oxygen needs, easy to ventilate - 30% FiO2 with excellent sats. CXR, previously most significant for pulmonary edema, now shows some emerging right perihilar infiltrate per radiology read. Is on Zosyn at present empirically. This infiltrate may have been the source of creamy sputum on suction yesterday. Had order sputum culture with next aspirate, I do not see that a sample was obtained. Report today is no further purulent sputum. Continue to wait for patient to wake up for extubation. Radiology read today notes progression of small right basilar infiltrate. I do not appreciate significant change. Respiratory status has overall been quite stable on ventilator. 6) Fluids/electrolytes/nutrition: CVP running 10-12, spontaneous diuresis. K+, Mg+, Ca++ all repleted today. Is on tube feeds at goal rate, diarrhea improving. No longer on maintenance IV fluids. 7) Renal function: BUN/Cr remain normal. Preserved GFR Urine output increased. No diminished renal function noted. 8) History of chronic left knee pain. Was on Nucynta at admission. Prior to intubation, there were several days she did not get it due to inability to take po's and florid alcohol withdrawal symptoms. Haven't restarted. Will likely need to as she wakes up and starts to move more. 9) Alcohol dependence: Family notes she has had significant issues with alcohol withdrawal previously with similar decompensation when hospitalized for surgery. She is off all benzodiazepines at present, is slowly waking up. Still getting banana bag daily and requiring magnesium riders. 10) Neuro: Slowly waking up after Ativan gtt discontinued. Has been off propofol as well. Likely metabolic encephalopathy due to delayed metabolism of Ativan. This tendency had been noted when CIWA coverage was initially started, and the most likely issue now is that she is still clearing the drug from the higher doses required initially for appropriate ventilator sedation. Will avoid restarting any sedating drugs, anticipate resolution of sedation. Improved spontaneous activity today. 11) GI: Recurrent diarrhea, likely related to tube feeds, C diff neg. Continue IV famotidine. Transaminases essentially normalized (AST 23, ALT 42 today), Tbili 0.6. 12) Hematologic - Decrease in Hgb today down to 8.5 from 9.6 - no evidence of new bleed, and has been diuresing. Simply rechecking in the morning. 13) Infectious Disease: WBC 4.1; afebrile during entire stay. Urine culture + Enterococcus. Sensitivities pending. Although I suspect this will be ampicillin sensitive, given her improvement coverage expanded yesterday with Vanc pending sensitivities. If ampicillin sensitive, could dc the vanc. Unfortunately, blood cultures not drawn at any point, but no evidence of septic picture at any point. 14) Complication prophylaxis: IV famotidine, unable to use Pradaxa via OG tube, started IV Lovenox at therapeutic doses. 15) Disposition: Family has located SNF for PT/strengthening. Anticipate patient will require a SNF bed. Family (sons Mushtaq (MARILIN), Tito, and daughter Nan) have been involved and are supportive. They are helpful resources for patient history and how to approach this independent woman in discussion with her own future plan of care when she wakes up. Advice at present is to discuss SNF in terms of her knee, strengthening, and further PT. Case management ( Gini has been working with them) aware of specifics. Would plan on having case management and family present and perhaps even having them lead discussion regarding placement plans. New orders today: Replete K, Mg, Ca Continue nutrition as is Continue to hold all sedatives Planning for extubation when awake. Adjust antibiotics when sensitivities come back on urine. Medical - PN: Qual - VTE Deep Vein Thrombosis/Pulmonary Embolism Present on Admission: No Procedures - Arterial Line Size (Gauge): 20
[2018-02-10 07:00] LABS: Basophils # (Auto) 0 K/mcL (0.0-0.3); Basophils % (Auto) 0.2 % (0.0-2.0); Eosinophils # (Auto) 0 K/mcL (0.0-0.7); Eosinophils % (Auto) 0.7 % (0.0-7.0); Granulocytes % (Auto) 76.1 % (38.0-78.0); Lymphocytes # (Auto) 0.6 K/mcL (1.5-4.8); Lymphocytes % (Auto) 14.1 % (15.5-49.0); Mean Cell Volume 89.2 fL (80.0-100.0); Mean Corpuscular HGB Conc 32.9 g/dL (31.0-36.0); Mean Corpuscular Hemoglobin 29.4 pg (26.0-34.0); Monocytes # (Auto) 0.4 K/mcL (0.1-0.9); Monocytes % (Auto) 8.9 % (1.0-12.0); Platelet Count 150 K/mcL (140-440); RBC 2.91 M/mcL (4.00-5.20); Red Cell Distribution Width 15.9 % (11.5-14.5)
--- NOTE | 2018-02-10 07:01 | XRay Report ---
CLINICAL INFORMATION: Hypoxia on mechanical ventilation COMPARISON: 02/09/2018. FINDINGS: Mild cardiomegaly is unchanged. Lines and tubes in stable satisfactory position. Mediastinum and pulmonary vessels are normal. Small infiltrate in the right base show slight progression. Minor left basilar atelectasis noted IMPRESSION: Small right basilar infiltrate showing slight progression. Mild stable cardiomegaly - no CHF Interpreted and Authenticated by: Mushtaq Ware 02/10/18
[2018-02-10 07:04] LABS: ALT/SGPT 42 U/l (0-40); Albumin 2.1 gm/dL (3.2-5.2); Albumin/Globulin Ratio 0.6 (1.0-2.3); Alkaline Phosphatase 63 U/L (39-117); Bilirubin,Direct < 0.2 mg/dL (0.0-0.3); Blood Urea Nitrogen 7 mg/dl (8-23); Gamma Glutamyl Transpeptidase 32 U/L (5-36)
[2018-02-10] MEDS: 0.9 % SODIUM CHLORIDE 250 ML IV SCH ×3 (07:10→16:19)
[2018-02-10] MEDS ORDERED: CALCIUM CHLORIDE 1,000 MG/10 ML SYRINGE IV ONE (07:27)
[2018-02-10] MEDS ORDERED: POTASSIUM CHLORIDE 80 MEQ in DEXTROSE 5% IN WATER 500 ML IV ONE (07:33)
[2018-02-10] MEDS: MAGNESIUM SULFATE 2 GM/50 ML BAG IV PRN (07:50)
[2018-02-10] MEDS: CHLORHEXIDINE GLUCONATE 1 ML ORAL.SOL SWABMOUTH SCH ×2 (08:22→21:02)
[2018-02-10] MEDS: ISOSORBIDE MONONITRATE 20 MG TABLET PO SCH ×2 (08:28→16:16)
[2018-02-10] MEDS: METOPROLOL TARTRATE 50 MG TABLET PO SCH ×2 (08:29→21:02)
[2018-02-10] MEDS: LOSARTAN 25 MG TABLET PO SCH (08:29)
[2018-02-10] MEDS: MULTIVIT,THER IRON,CA,FA & MIN 1 TABLET PO SCH (08:29)
[2018-02-10] MEDS: SERTRALINE 100 MG TABLET PO SCH (08:29)
[2018-02-10] MEDS: ENOXAPARIN 60 MG/0.6 ML SYRINGE SQ SCH ×2 (08:29→21:03)
[2018-02-10] MEDS: CLOPIDOGREL 75 MG TABLET PO SCH (08:29)
[2018-02-10] MEDS: FAMOTIDINE/PF 20 MG/2 ML VIAL IV SCH ×2 (08:29→21:02)
[2018-02-10] MEDS: UMECLIDINIUM BROMIDE INH SCH (09:18)
[2018-02-10] MEDS: TAPENTADOL HCL 50 MG PO SCH ×2 (09:18→21:00)
[2018-02-10] MEDS: Mirabegron [Myrbetriq] 25 MG PO SCH (09:18)
[2018-02-10] MEDS: VANCOMYCIN 1,000 MG in 0.9 % SODIUM CHLORIDE 250 ML IV SCH (10:23)
[2018-02-10] MEDS: MVI, ADULT NO.4 WITH VIT K 10 ML in DEXTROSE 5% IN WATER 500 ML IV SCH (11:14)
[2018-02-10] MEDS: ACETAMINOPHEN 1,000 MG/100 ML BOTTLE IV PRN (14:37)
[2018-02-10] MEDS: ATORVASTATIN 20 MG TABLET PO SCH (21:02)
[2018-02-11] MEDS: PIPERACILLIN SODIUM/TAZOBACTAM 4.5 GM in DEXTROSE 5% IN WATER 50 ML IV SCH ×4 (00:52→17:12)
[2018-02-11] MEDS: HEPARIN/NS 500 ML IV SCH (01:42)
[2018-02-11] MEDS: LORazepam 50 MG in DEXTROSE 5% IN WATER 75 ML IV SCH (02:38)
[2018-02-11] MEDS: 0.9 % SODIUM CHLORIDE 250 ML IV SCH ×3 (02:41→17:16)
[2018-02-11] MEDS: PROPOFOL 1,000 MG in PREMIX 1 BAG IV SCH ×3 (02:45→16:27)
[2018-02-11 05:26] LABS: Basophils # (Auto) 0 K/mcL (0.0-0.3); Basophils % (Auto) 0.1 % (0.0-2.0); Eosinophils # (Auto) 0.1 K/mcL (0.0-0.7); Eosinophils % (Auto) 1.3 % (0.0-7.0); Granulocytes % (Auto) 79.1 % (38.0-78.0); Lymphocytes # (Auto) 0.6 K/mcL (1.5-4.8); Lymphocytes % (Auto) 13.3 % (15.5-49.0); Mean Cell Volume 88.3 fL (80.0-100.0); Mean Corpuscular HGB Conc 32.6 g/dL (31.0-36.0); Mean Corpuscular Hemoglobin 28.8 pg (26.0-34.0); Monocytes # (Auto) 0.3 K/mcL (0.1-0.9); Monocytes % (Auto) 6.2 % (1.0-12.0); Platelet Count 161 K/mcL (140-440); RBC 2.92 M/mcL (4.00-5.20); Red Cell Distribution Width 15.9 % (11.5-14.5)
[2018-02-11 05:54] LABS: ALT/SGPT 35 U/l (0-40); Albumin 2.3 gm/dL (3.2-5.2); Albumin/Globulin Ratio 0.7 (1.0-2.3); Alkaline Phosphatase 64 U/L (39-117); Bilirubin,Direct < 0.2 mg/dL (0.0-0.3); Blood Urea Nitrogen 9 mg/dl (8-23); Gamma Glutamyl Transpeptidase 35 U/L (5-36)
[2018-02-11] MEDS: INSULIN LISPRO 1 UNIT/0.01 ML UNIT SQ SCH ×4 (06:00→17:16)
[2018-02-11] MEDS: 0.9 % SODIUM CHLORIDE 10 ML SYRINGE IV SCH ×3 (06:00→21:47)
[2018-02-11] MEDS: MAGNESIUM SULFATE 2 GM/50 ML BAG IV PRN (07:47)
[2018-02-11] MEDS: ACETAMINOPHEN 1,000 MG/100 ML BOTTLE IV PRN ×3 (07:50→21:15)
[2018-02-11] MEDS ORDERED: FUROSEMIDE 40 MG/4 ML VIAL IV ONE (08:10)
[2018-02-11] MEDS: METOPROLOL TARTRATE 50 MG TABLET PO SCH (08:13)
[2018-02-11] MEDS: ISOSORBIDE MONONITRATE 20 MG TABLET PO SCH ×2 (08:13→17:00)
[2018-02-11] MEDS: CLOPIDOGREL 75 MG TABLET PO SCH (08:13)
[2018-02-11] MEDS: SERTRALINE 100 MG TABLET PO SCH (08:13)
[2018-02-11] MEDS: MULTIVIT,THER IRON,CA,FA & MIN 1 TABLET PO SCH (08:13)
[2018-02-11] MEDS: FAMOTIDINE/PF 20 MG/2 ML VIAL IV SCH ×2 (08:13→21:46)
[2018-02-11] MEDS: ENOXAPARIN 60 MG/0.6 ML SYRINGE SQ SCH ×2 (08:13→21:45)
--- NOTE | 2018-02-11 08:22 | XRay Report ---
CLINICAL INFORMATION: Shortness of breath on mechanical ventilation COMPARISON: 02/10/2018 FINDINGS: Mild cardiomegaly is unchanged. Mediastinum and pulmonary vessels are unremarkable. Small right basilar infiltrate shows slight progression. Lines and tubes in stable satisfactory position IMPRESSION: Slight progression in small patchy right basilar infiltrate. Interpreted and Authenticated by: Mushtaq Ware 02/11/18
[2018-02-11] MEDS: CHLORHEXIDINE GLUCONATE 1 ML ORAL.SOL SWABMOUTH SCH ×2 (08:44→21:47)
[2018-02-11] MEDS: UMECLIDINIUM BROMIDE INH SCH (08:45)
[2018-02-11] MEDS: Mirabegron [Myrbetriq] 25 MG PO SCH (08:45)
[2018-02-11] MEDS: TAPENTADOL HCL 50 MG PO SCH ×2 (08:45→21:48)
[2018-02-11] MEDS: LOSARTAN 25 MG TABLET PO SCH (09:13)
[2018-02-11] MEDS: POTASSIUM CHLORIDE 40 MEQ in DEXTROSE 5% IN WATER 500 ML IV PRN (09:30)
[2018-02-11] MEDS ORDERED: LORazepam 50 MG in DEXTROSE 5% IN WATER 75 ML IV SCH (11:00)
[2018-02-11] MEDS: VANCOMYCIN 1,000 MG in 0.9 % SODIUM CHLORIDE 250 ML IV SCH ×2 (11:05→21:47)
[2018-02-11] MEDS: MVI, ADULT NO.4 WITH VIT K 10 ML in DEXTROSE 5% IN WATER 500 ML IV SCH (11:05)
--- NOTE | 2018-02-11 13:26 | Internal Med Progress Note ---
Medical - PN: Subj Patient information: Note initiated : 02/11/18 at 1:24 pm Service Date, if different from initiated Date: [] Patient: Dara Null a 77 y/o F admitted on 02/01/18 for Weakness, Diarrhea, Hypotension/Hypokalemia. Chief Complaint: [] Interval history: Has been stable overnight. Reviewed with nursing. Urine output continues with spontaneous diuresis - has been running about 80/hr last few hours. Diarrhea slowing, rectal tube in place, C.diff neg. No sedative drips for last 24 hours. Is slowly becoming more responsive. No other concerns in discussion with nursing staff. Patient unable to give subjective info due to intubated status. 6/2 Pt seen examined, [facility], no baseline settings, ABG, CXR Reviewed, Pt is 11L positive since admission, started on IV lasix, does get a bit tachypneic when off sedation, but mental status is still quite poor, recent CT head reviewed, ammonia level is neg, ABG 7.42/35/105 plan of care reviewed with her 2 sons and her daugther, noted that mental status decline still could be lingering effect of high doses of ativan used, will wait till body clears it. avoid sedation for now, ok profol if pt gets agitated, no ativan labs reviewed, Pertinent ROS: unable Additional PMFSH (Level 3 Only): Medical History (Last Reviewed 01/17/18 @ 19:12 by Shae Cheatham, DNP, [employer]) Adenomatous polyp of colon (Chronic ~07/2016) Congestive heart failure (Chronic) Weakness of left upper extremity (Chronic) CVA (cerebral vascular accident) (Resolved) Abdominal pain (Chronic) Diverticulitis (Chronic) Abdominal distension (Chronic) Stenosis of right carotid artery (Chronic) Hematuria (Chronic) Disequilibrium (Chronic) Perimenopausal vasomotor symptoms (Chronic 04/22/14) Transient ischemic attack (TIA) (Chronic) Tobacco abuse (Chronic) Neck pain (Chronic) Neck injury (Chronic) Irritable bowel syndrome (Chronic) Hypertension, essential (Chronic) Hepatitis B infection (Chronic) Gout (Chronic) Gastroesophageal reflux (Chronic) Diverticulosis of colon (Chronic 08/17/04) Depression (Chronic) Coronary artery disease (Chronic 11/10/07) Chronic obstructive pulmonary disease (Chronic) Cerebral aneurysm, nonruptured (Chronic) Atrial fibrillation (Chronic) Arthritis (Chronic) 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) History of ectopic (Chronic) Hoarseness of voice (Resolved) Laryngeal nerve paralysis (Resolved) Sprain and strain of wrist (Resolved) Wrist injury (Resolved) - Constitutional Vitals: Vital Signs Temp Pulse Resp BP Pulse Ox 98.6 F 106 H 31 H 119/77 100 02/11/18 12:00 02/11/18 13:00 02/11/18 13:00 02/10/18 19:48 02/11/18 13:00 Period Temp Pulse Resp BP Sys/Marques Pulse Ox Last 24 Hr 97.3 F-98.6 F 57-106 17-31 93-119/49-77 99-100 Intake and Output 02/10/18 02/11/18 02/11/18 21:59 05:59 13:59 Intake Total 1824 / 1824 747 / 747 1018 / 1018 Output Total 945 / 945 765 / 765 3450 / 3450 Balance 879 / 879 -18 / -18 -2432 / -2432 Weight 170 lb 9.6 oz Intake & Output: Intake & Output 02/10/18 02/11/18 02/11/18 21:59 05:59 13:59 Intake Total 1824 / 1824 747 / 747 1018 / 1018 Output Total 945 / 945 765 / 765 3450 / 3450 Balance 879 / 879 -18 / -18 -2432 / -2432 Weight 170 lb 9.6 oz Intake: IV 821 / 821 231 / 231 523 / 523 Sodium Chloride 0.9% 250 ml @ 80 / 80 160 / 160 20 mls/hr IV .[id number] [facility] Rx#: [id number] Zosyn 4.5 gm In Dextrose 5% in 50 / 50 50 / 50 100 / 100 Water 50 ml @ 100 mls/hr IV Q6H [facility] Rx#:[id number] Potassium Chloride 80 Meq In 540 / 540 Dextrose 5% in Water 500 ml @ 67.5 mls/hr IV ONCE ONE Rx#: [id number] Diprivan 1,000 mg In Premix 1 51 / 51 / Bag @ 25 MCG/KG/MIN 9.96 mls/hr IV .Q10H3M [facility] Rx#:[id number] Vancomycin 1,000 mg In Sodium 250 / 250 Chloride 0.9% 250 ml @ 250 mls/ hr IV Q12H [facility] Rx#:[id number] Tube Feeding 613 / 613 396 / 396 330 / 330 GI Tube Flush 390 / 390 120 / 120 165 / 165 Output: Urine Catheter Amount 945 / 945 765 / 765 3450 / 3450 Other: Stool Size Moderate Moderate Large Stool Color Brown Brown Brown Yellow Stool Consistency Liquid Liquid Liquid # of times incontinent of 1 1 1 Bowels Exam: Constitutional; Afebrile, drowsy, sedated on vent, no distress noted. Eyes- No icterus, , No periorbital swelling , pupils balwinder equal reactive to light. Ears- Ext ear normal, Neck- Midline trachea Respiratory system: Air Entry equal on both sides, No crackles or wheezing, no rhonchi. ET tube in place, CVS- Rate rhythm regular, S1,S2 heard, no gallop, no rub. 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 wakes up to deep touch only. Medical - PN: Obj Da - Labs CBC & Chem 7: 02/11/18 04:00 02/11/18 04:00 Labs: Abnormal Lab Results 02/11/18 02/11/18 02/10/18 04:00 04:00 04:00 WBC 4.2 L RBC 2.92 L Hgb 8.4 L Hct 25.8 L RDW 15.9 H Gran % 79.1 H Lymph % (Auto) 13.3 L Lymph # (Auto) 0.6 L Potassium 3.1 L Carbon Dioxide BUN 7 L Creatinine 0.5 L Glucose Uric Acid 1.0 L 1.0 L Calcium 8.0 L 7.7 L AST ALT 42 H Lactate Dehydrogenase Total Protein 5.7 L 5.4 L Albumin 2.3 L 2.1 L Albumin/Globulin Ratio 0.7 L 0.6 L 02/10/18 02/09/18 02/09/18 04:00 04:00 04:00 WBC 4.1 L RBC 2.91 L 3.16 L Hgb 8.5 L 9.6 L Hct 25.9 L 28.1 L RDW 15.9 H 16.2 H Gran % 79.5 H Lymph % (Auto) 14.1 L 12.4 L Lymph # (Auto) 0.6 L 0.7 L Potassium Carbon Dioxide 18 L BUN Creatinine Glucose 121 H Uric Acid 1.0 L Calcium 7.5 L AST 39 H ALT 60 H Lactate Dehydrogenase 307 H Total Protein Albumin 2.6 L Albumin/Globulin Ratio 0.7 L Meds: Medications Acetaminophen (Tylenol) 650 mg PO Q4-6HP PRN PRN Reason: PAIN/FEVER > 101 Last Admin: 02/10/18 08:29 Dose: 650 mg Albuterol/Ipratropium (Duoneb) 3 ml NEB Q4HP PRN PRN Reason: Shortness Of Breath Or Wheezing Atorvastatin Calcium (Lipitor) 80 mg PO HS [facility] Last Admin: 02/10/18 21:02 Dose: 80 mg Chlorhexidine Gluconate (Peridex) 15 ml SWABMOUTH BID [facility] Last Admin: 02/11/18 08:44 Dose: 15 ml Clopidogrel Bisulfate (Plavix) 75 mg PO DAILY [facility] Last Admin: 02/11/18 08:13 Dose: 75 mg Dextrose (Dextrose 50%) 0 ml IV UD PRN PRN Reason: Hypoglycemia Diagnostic Test (Pha) (Accu-Chek) 1 each FS Q6 [facility] Last Admin: 02/11/18 12:30 Dose: 1 each Enoxaparin Sodium (Lovenox) 60 mg SQ BID [facility] Last Admin: 02/11/18 08:13 Dose: 60 mg Famotidine (Pepcid) 20 mg IV Q12 [facility] Last Admin: 02/11/18 08:13 Dose: 20 mg Furosemide (Lasix) 40 mg IV BIDD [facility] Potassium Chloride 40 meq/ (Dextrose) 520 mls @ 130 mls/hr IV UD PRN PRN Reason: K+ = or < 3.5 Last Admin: 02/11/18 09:30 Dose: 130 mls/hr Magnesium Sulfate (Magnesium Sulfate) 2 gm in 50 mls @ 50 mls/hr IV UD PRN PRN Reason: MG = or < 1.7 Last Infusion: 02/11/18 08:47 Dose: Infused Acetaminophen (Ofirmev) 1,000 mg in 100 mls @ 200 mls/hr IV Q6HP PRN PRN Reason: PAIN/FEVER > 101 Last Infusion: 02/11/18 08:20 Dose: Infused Multivitamins/Minerals 10 ml/ (Dextrose) 510 mls @ 250 mls/hr IV Q24H [facility] Last Admin: 02/11/18 11:05 Dose: 250 mls/hr Heparin Sodium/Sodium Chloride (Heparin/Ns) 500 mls @ 0 mls/hr IV .Q0M [facility]; KVO PRN Reason: Protocol Last Admin: 02/11/18 01:42 Dose: 20 mls/hr Propofol 1,000 mg/ Premix 100 mls @ 9.96 mls/hr IV .Q10H3M [facility]; 25 MCG/KG/MIN PRN Reason: Protocol Last Titration: 02/11/18 08:35 Dose: 0 mcg/kg/min, 0 mls/hr Sodium Chloride (Sodium Chloride 0.9%) 250 mls @ 20 mls/hr IV .[id number] [facility] Last Admin: 02/11/18 06:39 Dose: Not Given Piperacillin Sod/Tazobactam (Sod 4.5 gm/ Dextrose) 50 mls @ 100 mls/hr IV Q6H [facility] Last Infusion: 02/11/18 12:29 Dose: Infused Vancomycin HCl 1,000 mg/ (Sodium Chloride) 250 mls @ 250 mls/hr IV Q12H [facility] Last Infusion: 02/11/18 12:05 Dose: Infused Lorazepam 50 mg/ Dextrose 100 mls @ 1.32 mls/hr IV UD [facility]; 0.01 MG/KG/HR PRN Reason: Protocol Insulin Human Lispro (Humalog) 0 unit SQ Q6 [facility] PRN Reason: Protocol Last Admin: 02/11/18 12:50 Dose: Not Given Iron Carb/Multivit/[place]/Folic Acid (Multivitamin W/Minerals) 1 tab PO DAILY [facility] Last Admin: 02/11/18 08:13 Dose: 1 tab Isosorbide Mononitrate (Monoket) 10 mg PO BID@0800,1500 [facility] Last Admin: 02/11/18 08:13 Dose: 10 mg Losartan Potassium (Cozaar) 50 mg PO QDAY [facility] Last Admin: 02/11/18 09:13 Dose: 50 mg Metoprolol Tartrate (Lopressor) 50 mg PO BID [facility] Last Admin: 02/11/18 08:13 Dose: 50 mg Metoprolol Tartrate (Lopressor) 5 mg IV Q2H PRN PRN Reason: pulse greater than 100 Last Admin: 02/09/18 00:32 Dose: 5 mg Nystatin (Nystatin Crm) 1 dose TOPICAL TIDP PRN PRN Reason: Skin Irritation Ondansetron HCl (Zofran) 4 mg IV Q4-6HP PRN PRN Reason: Nausea And Vomiting Mirabegron [ (Myrbetriq] 25 Mg) 1 dose PO DAILY [facility] Last Admin: 02/11/18 08:45 Dose: Not Given Tapentadol Hcl [ (Nucynta Er] 50 Mg) 1 dose PO Q12 [facility] Last Admin: 02/11/18 08:45 Dose: Not Given Umeclidinium Rinard [Incruse Ellipta] Inh 1 dose INH DAILY [facility] Last Admin: 02/11/18 08:45 Dose: Not Given Sertraline HCl (Zoloft) 200 mg PO DAILY [facility] Last Admin: 02/11/18 08:13 Dose: 200 mg Sodium Chloride (Saline Flush) 10 ml IV Q8 [facility] Last Admin: 02/11/18 06:00 Dose: 10 ml Vancomycin HCl (Vancomycin Per Pharmacy) 1 order IV UD [facility] Medical - PN: A/P - Time Spent With Patient Total time spent is greater than 50% in coordination of care (as documented) at patient's floor/unit and/or counseling patient: - Narrative A/P Narrative: Atrial fibrillation: Rate controlled in the 70's with metoprolol only. On stroke prophylaxis with therapeutic Lovenox doses. Would plan on restarting her usual Pradaxa when she is extubated and able to take po. Cardiomyopathy: Wonder about an event between June (echo with 50-65% EF, no wall motion abnormalities) and sometime before admission (echo 40-45% EF, focal wall motion abnormalities in septum and inferior wall). Troponins here have been negative. Alternatively, possible this could be transient ischemia due to hospital events without evidence of troponin leak. Will need echo sometime in the future and further evaluation if findings persist. Family notes that she started with a chronic cough a few months ago and I wonder about possible cardiogenic bronchospasm or mild pulmonary edema as a contributor. Of note, she was on isosorbide, Lipitor, and Plavix at admission. Family notes she was not reliable in taking medications. Hypertension: Was on Cozaar and metoprolol on admit. Pressures seem to be controlled fairly well on Cozaar (restarted 02/09) and 50 mg metoprolol bid ( half of admission dose; suspect she can be discharged on this dose as it seems to be adequate to control afib rate as well) History of CVA in past - no significant sequelae, she had been prescribed atorvastatin and Plavix previously, these have been continued via OG tube. CT head done was negative this admission. Pulmonary/ Acute respiratory Failure : Intubated due to encephalopathy (felt to be related to prolonged metabolism of Ativan). No clear evidence pneumonia, though cxr is interpreted as same, no increased secretions, or increased oxygen needs noted on vent, at baseline vent settings, is on vanco and zosyn for now, due to enterococcus UTI, I will continue abx for now. will d/c if cxr shows improvement. Fluids/electrolytes/nutrition: replace electrolytes, mg and K, feeding per dietary via NG tube. Renal function: BUN/Cr remain normal. Preserved GFR Urine output increased. No diminished renal function noted. History of chronic left knee pain. Was on Nucynta at admission. Prior to intubation, there were several days she did not get it due to inability to take po's and florid alcohol withdrawal symptoms. Haven't restarted. Will likely need to as she wakes up and starts to move more. Alcohol dependence: Family notes she has had significant issues with alcohol withdrawal previously with similar decompensation when hospitalized for surgery. She is off all benzodiazepines at present, is slowly waking up. Still getting banana bag daily and requiring magnesium riders. Metabolic encephalopaty: due to etoh/ slow clearnce of ativan, on infuvite, wll d/c same nad resume IV thiamine at 100mg daily, she is on folate and mv supplements. Head CT is neg, ammonia is neg, if pt does not improve in another 24 hrs, repeat head CT and consider EEG. GI: Recurrent diarrhea, likely related to tube feeds, C diff neg. Continue IV famotidine. Transaminases essentially normalized (AST 23, ALT 42 today), Tbili 0.6. on banatrol for now, Hematologic - Decrease in Hgb today down to 8.4 from 9.6 - no evidence of new bleed, and has been diuresing. monitor for now. UTI: enterococcus, on vancomycin, contine same. Complication prophylaxis: IV famotidine, unable to use Pradaxa via OG tube, started IV Lovenox at therapeutic doses. Disposition plan of c are reviewed with family, Spent > 60 mins reviewing chart, coordinating care, family discussion, rendering critical care, abg, [facility] vent, reviewing labs and radiology Medical - PN: Qual - VTE Deep Vein Thrombosis/Pulmonary Embolism Present on Admission: No Procedures - Arterial Line Size (Gauge): 20
[2018-02-11] MEDS ORDERED: POTASSIUM CHLORIDE 20 MEQ PACKET PT ONE (13:36)
[2018-02-11] MEDS: THIAMINE 100 MG in 0.9 % SODIUM CHLORIDE 50 ML IV SCH (14:00)
[2018-02-11] MEDS: METOPROLOL TARTRATE 5 MG/5 ML VIAL IV PRN ×4 (14:18→21:30)
[2018-02-11] MEDS ORDERED: METOPROLOL TARTRATE 50 MG TABLET PT ONE (14:55)
[2018-02-11] MEDS: FUROSEMIDE 40 MG/4 ML VIAL IV SCH (15:14)
[2018-02-11] MEDS: hydrALAZINE 20 MG/ML VIAL IV PRN (21:06)
[2018-02-11] MEDS: METOPROLOL TARTRATE 50 MG TABLET PT SCH (21:45)
[2018-02-11] MEDS: LOPERAMIDE 2 MG CAPSULE PO PRN (21:45)
[2018-02-11] MEDS: ATORVASTATIN 20 MG TABLET PO SCH (21:45)
[2018-02-12] MEDS: PIPERACILLIN SODIUM/TAZOBACTAM 4.5 GM in DEXTROSE 5% IN WATER 50 ML IV SCH ×4 (00:34→17:45)
[2018-02-12] MEDS: INSULIN LISPRO 1 UNIT/0.01 ML UNIT SQ SCH ×4 (00:35→17:44)
[2018-02-12] MEDS: PROPOFOL 1,000 MG in PREMIX 1 BAG IV SCH ×2 (00:44→18:55)
[2018-02-12] MEDS: LOPERAMIDE 2 MG CAPSULE PO PRN ×3 (04:43→21:48)
[2018-02-12 05:07] LABS: Basophils # (Auto) 0 K/mcL (0.0-0.3); Basophils % (Auto) 0.4 % (0.0-2.0); Eosinophils # (Auto) 0 K/mcL (0.0-0.7); Eosinophils % (Auto) 0.7 % (0.0-7.0); Granulocytes % (Auto) 76.5 % (38.0-78.0); Lymphocytes # (Auto) 0.9 K/mcL (1.5-4.8); Lymphocytes % (Auto) 15.6 % (15.5-49.0); Mean Corpuscular HGB Conc 33.2 g/dL (31.0-36.0); Mean Corpuscular Hemoglobin 29.2 pg (26.0-34.0); Monocytes # (Auto) 0.4 K/mcL (0.1-0.9); Monocytes % (Auto) 6.8 % (1.0-12.0); Platelet Count 222 K/mcL (140-440); RBC 3.18 M/mcL (4.00-5.20); Red Cell Distribution Width 15.4 % (11.5-14.5)
[2018-02-12] MEDS: 0.9 % SODIUM CHLORIDE 250 ML IV SCH (05:14)
[2018-02-12] MEDS: 0.9 % SODIUM CHLORIDE 10 ML SYRINGE IV SCH ×3 (05:15→21:05)
[2018-02-12 05:22] LABS: ALT/SGPT 30 U/l (0-40); Albumin 2.9 gm/dL (3.2-5.2); Albumin/Globulin Ratio 0.8 (1.0-2.3); Alkaline Phosphatase 73 U/L (39-117); Bilirubin,Direct < 0.2 mg/dL (0.0-0.3); Blood Urea Nitrogen 10 mg/dl (8-23); Gamma Glutamyl Transpeptidase 44 U/L (5-36); Uric Acid 1.4 mg/dL (2.5-8.0)
[2018-02-12] MEDS: hydrALAZINE 20 MG/ML VIAL IV PRN (05:26)
[2018-02-12] MEDS: MAGNESIUM SULFATE 2 GM/50 ML BAG IV PRN (07:18)
[2018-02-12] MEDS: FUROSEMIDE 40 MG/4 ML VIAL IV SCH ×2 (08:12→16:27)
[2018-02-12] MEDS: 0.9 % SODIUM CHLORIDE 10 ML SYRINGE IV PRN ×7 (08:13→18:07)
[2018-02-12] MEDS ORDERED: MAGNESIUM SULFATE 4 GM/100 ML BAG IV ONE (08:15)
[2018-02-12] MEDS: ISOSORBIDE MONONITRATE 20 MG TABLET PO SCH ×2 (08:15→15:55)
[2018-02-12] MEDS ORDERED: MAGNESIUM SULFATE 2 GM/50 ML BAG IV ONE (08:58)
[2018-02-12] MEDS: CHLORHEXIDINE GLUCONATE 1 ML ORAL.SOL SWABMOUTH SCH ×2 (09:12→21:04)
[2018-02-12] MEDS: CLOPIDOGREL 75 MG TABLET PO SCH (09:13)
[2018-02-12] MEDS: FAMOTIDINE/PF 20 MG/2 ML VIAL IV SCH ×2 (09:13→21:00)
[2018-02-12] MEDS: LOSARTAN 25 MG TABLET PO SCH (09:13)
[2018-02-12] MEDS: MULTIVIT,THER IRON,CA,FA & MIN 1 TABLET PO SCH (09:13)
[2018-02-12] MEDS: POTASSIUM CHLORIDE 20 MEQ PACKET PT SCH ×2 (09:14→20:59)
[2018-02-12] MEDS: METOPROLOL TARTRATE 50 MG TABLET PT SCH ×2 (09:14→21:00)
[2018-02-12] MEDS: Mirabegron [Myrbetriq] 25 MG PO SCH (09:16)
[2018-02-12] MEDS: TAPENTADOL HCL 50 MG PO SCH (09:16)
[2018-02-12] MEDS: UMECLIDINIUM BROMIDE INH SCH (09:16)
[2018-02-12] MEDS: ENOXAPARIN 60 MG/0.6 ML SYRINGE SQ SCH ×2 (09:22→20:59)
[2018-02-12] MEDS: SERTRALINE 100 MG TABLET PO SCH (09:22)
[2018-02-12] MEDS: VANCOMYCIN 1,000 MG in 0.9 % SODIUM CHLORIDE 250 ML IV SCH ×2 (09:26→21:00)
[2018-02-12] MEDS ORDERED: RACEPINEPHRINE 0.5 ML AMPUL.NEB NEB ONE (09:43)
[2018-02-12] MEDS: THIAMINE 100 MG in 0.9 % SODIUM CHLORIDE 50 ML IV SCH (10:05)
[2018-02-12] MEDS ORDERED: methylPREDNISolone SOD SUCC 125 MG/2 ML VIAL IV ONE (10:33)
--- NOTE | 2018-02-12 10:47 | Internal Med Progress Note ---
Medical - PN: Subj Patient information: Note initiated : 02/12/18 at 10:43 am Service Date, if different from initiated Date: [] Patient: Dara Null a 77 y/o F admitted on 02/01/18 for Weakness, Diarrhea, Hypotension/Hypokalemia. Chief Complaint: [] Interval history: Has been stable overnight. Reviewed with nursing. Urine output continues with spontaneous diuresis - has been running about 80/hr last few hours. Diarrhea slowing, rectal tube in place, C.diff neg. No sedative drips for last 24 hours. Is slowly becoming more responsive. No other concerns in discussion with nursing staff. Patient unable to give subjective info due to intubated status. 6/2 Pt seen examined, still on mech vent, no baseline settings, ABG, CXR Reviewed, Pt is 11L positive since admission, started on IV lasix, does get a bit tachypneic when off sedation, but mental status is still quite poor, recent CT head reviewed, ammonia level is neg, ABG 7.42/35/105 plan of care reviewed with her 2 sons and her daugther, noted that mental status decline still could be lingering effect of high doses of ativan used, will wait till body clears it. avoid sedation for now, ok profol if pt gets agitated, no ativan labs reviewed, 6/3 Pt seen examined, no acute overnight events, vital signs stable, she did try to touch her ET tube last night but did not pull any lines. This AM she remained off sedation, Her mental status somewhat better, able to open eyes and try to squeeze hands to verbal commands but still quite drowsy, Her abg on wean parameters acceptable good cough reflex x ray reviewed by self, still has right lower lobe infitltrate but has no increased oxygen needs, baseline vent settings, and no incrased resp secretaions RSI index < 100 leak test positive, Patient was extubated sucessfully, somestridor noted post extubation, racemic epi given, IV steroids to be started Patient to be placed on bipap, as she has some tachypenia after extubation Monitor closely labs stable her son at bedside was updated on the plan,, Pertinent ROS: unable. - Constitutional Vitals: Vital Signs Temp Pulse Resp BP Pulse Ox 98.5 F 113 H 26 H 192/101 97 02/12/18 10:00 02/12/18 10:00 02/12/18 10:00 02/12/18 05:25 02/12/18 10:00 Period Temp Pulse Resp BP Sys/Marques Pulse Ox Last 24 Hr 97.1 F-98.6 F 88-113 19-41 174-195/96-104 97-100 Intake and Output 02/11/18 02/12/18 02/12/18 21:59 05:59 13:59 Intake Total 909 / 909 878 / 878 50 / 50 Output Total 3270 / 3270 620 / 620 2550 / 2550 Balance -2361 / -2361 258 / 258 -2500 / -2500 Weight 162 lb 12.8 oz Intake & Output: Intake & Output 02/11/18 02/12/18 02/12/18 21:59 05:59 13:59 Intake Total 909 / 909 878 / 878 50 / 50 Output Total 3270 / 3270 620 / 620 2550 / 2550 Balance -2361 / -2361 258 / 258 -2500 / -2500 Weight 162 lb 12.8 oz Intake: IV 201 / 201 302 / 302 50 / 50 Zosyn 4.5 gm In Dextrose 5% in 50 / 50 52 / 52 Water 50 ml @ 100 mls/hr IV Q6H D[facility] Rx#:[id number] Diprivan 1,000 mg In Premix 1 0 / 0 Bag @ 25 MCG/KG/MIN 9.96 mls/hr IV .Q10H3M D[facility]A Rx#:[id number] Vitamin B1 100 mg In Sodium 51 / 51 Chloride 0.9% 50 ml @ 50 mls/hr IV DAILY DORA Rx#:[id number] Vancomycin 1,000 mg In Sodium 250 / 250 Chloride 0.9% 250 ml @ 250 mls/ hr IV Q12H [facility]OR[facility] Rx#:[id number] Tube Feeding 438 / 438 426 / 426 GI Tube Flush 270 / 270 150 / 150 Output: Urine Catheter Amount 3270 / 3270 620 / 620 2550 / 2550 Other: Stool Size Moderate Stool Color Brown Stool Consistency Liquid # of times incontinent of 1 1 Bowels Exam: Constitutional; Afebrile, cooperative, drowsy, but tries to follow commands, Eyes- No icterus, , No periorbital swelling Ears- Ext ear normal, Neck- Midline trachea, supple Respiratory system: Air Entry equal on both sides,mild stridor tracheal, no wheeze, good air entry, tachypnea noted. CVS- Rate rhythm regular, S1,S2 heard, no gallop, no rub. Abdomen- Soft nontender abdomen, no organomegaly, no tenderness, no guarding or rigidity, [employer]- AOOx0, moving all extremities, no gross focal deficit noted. Right IJ in place Left radial Art line Steele in place. ET and OG tube removed this AM Medical - PN: Obj Da - Labs CBC & Chem 7: 02/12/18 04:00 02/12/18 04:00 Labs: Abnormal Lab Results 02/12/18 02/12/18 02/11/18 04:00 04:00 04:00 WBC RBC 3.18 L Hgb 9.3 L Hct 28.0 L RDW 15.4 H Gran % Lymph % (Auto) Lymph # (Auto) 0.9 L Potassium BUN Creatinine Uric Acid 1.4 L 1.0 L Calcium 8.2 L 8.0 L GGT 44 H ALT Total Protein 5.7 L Albumin 2.9 L 2.3 L Albumin/Globulin Ratio 0.8 L 0.7 L 02/11/18 02/10/18 02/10/18 04:00 04:00 04:00 WBC 4.2 L 4.1 L RBC 2.92 L 2.91 L Hgb 8.4 L 8.5 L Hct 25.8 L 25.9 L RDW 15.9 H 15.9 H Gran % 79.1 H Lymph % (Auto) 13.3 L 14.1 L Lymph # (Auto) 0.6 L 0.6 L Potassium 3.1 L BUN 7 L Creatinine 0.5 L Uric Acid 1.0 L Calcium 7.7 L GGT ALT 42 H Total Protein 5.4 L Albumin 2.1 L Albumin/Globulin Ratio 0.6 L Meds: Medications Acetaminophen (Tylenol) 650 mg PO Q4-6HP PRN PRN Reason: PAIN/FEVER > 101 Last Admin: 02/10/18 08:29 Dose: 650 mg Albuterol/Ipratropium (Duoneb) 3 ml NEB Q4HP PRN PRN Reason: Shortness Of Breath Or Wheezing Albuterol/Ipratropium (Duoneb) 3 ml NEB Q4HRT [facility] Atorvastatin Calcium (Lipitor) 80 mg PO HS ON LICENSE OF [facility] Last Admin: 02/11/18 21:45 Dose: 80 mg Chlorhexidine Gluconate (Peridex) 15 ml SWABMOUTH BID ON LICENSE OF [facility] Last Admin: 02/12/18 09:12 Dose: 15 ml Clopidogrel Bisulfate (Plavix) 75 mg PO DAILY ON LICENSE OF [facility] Last Admin: 02/12/18 09:13 Dose: 75 mg Dextrose (Dextrose 50%) 0 ml IV UD PRN PRN Reason: Hypoglycemia Diagnostic Test (Pha) (Accu-Chek) 1 each FS Q6 ON LICENSE OF [facility] Last Admin: 02/12/18 05:53 Dose: 1 each Enoxaparin Sodium (Lovenox) 60 mg SQ BID ON LICENSE OF [facility] Last Admin: 02/12/18 09:22 Dose: 60 mg Famotidine (Pepcid) 20 mg IV Q12 ON LICENSE OF [facility] Last Admin: 02/12/18 09:13 Dose: 20 mg Furosemide (Lasix) 40 mg IV BIDD ON LICENSE OF [facility] Last Admin: 02/12/18 08:12 Dose: 40 mg Hydralazine HCl (Apresoline) 10 mg IV Q4-6HP PRN PRN Reason: Hypertension Last Admin: 02/12/18 05:26 Dose: 10 mg Potassium Chloride 40 meq/ (Dextrose) 520 mls @ 130 mls/hr IV UD PRN PRN Reason: K+ = or < 3.5 Last Infusion: 02/11/18 13:30 Dose: Infused Magnesium Sulfate (Magnesium Sulfate) 2 gm in 50 mls @ 50 mls/hr IV UD PRN PRN Reason: MG = or < 1.7 Last Infusion: 02/12/18 08:20 Dose: Infused Acetaminophen (Ofirmev) 1,000 mg in 100 mls @ 200 mls/hr IV Q6HP PRN PRN Reason: PAIN/FEVER > 101 Last Infusion: 02/11/18 21:45 Dose: Infused Heparin Sodium/Sodium Chloride (Heparin/Ns) 500 mls @ 0 mls/hr IV .Q0M DORA; KVO PRN Reason: Protocol Last Admin: 02/11/18 01:42 Dose: 20 mls/hr Propofol 1,000 mg/ Premix 100 mls @ 9.96 mls/hr IV .Q10H3M DORA; 25 MCG/KG/MIN PRN Reason: Protocol Last Admin: 02/12/18 00:44 Dose: Not Given Sodium Chloride (Sodium Chloride 0.9%) 250 mls @ 20 mls/hr IV .[id number] ON LICENSE OF [facility] Last Admin: 02/12/18 05:14 Dose: Not Given Piperacillin Sod/Tazobactam (Sod 4.5 gm/ Dextrose) 50 mls @ 100 mls/hr IV Q6H ON LICENSE OF [facility] Last Infusion: 02/12/18 05:45 Dose: Infused Vancomycin HCl 1,000 mg/ (Sodium Chloride) 250 mls @ 250 mls/hr IV Q12H ON LICENSE OF [facility] Last Admin: 02/12/18 09:26 Dose: 250 mls/hr Thiamine HCl 100 mg/ Sodium (Chloride) 51 mls @ 50 mls/hr IV DAILY ON LICENSE OF [facility] Stop: 02/13/18 08:59 Last Admin: 02/12/18 10:05 Dose: 50 mls/hr Insulin Human Lispro (Humalog) 0 unit SQ Q6 [facility] PRN Reason: Protocol Last Admin: 02/12/18 05:54 Dose: Not Given Iron Carb/Multivit/[place]/Folic Acid (Multivitamin W/Minerals) 1 tab PO DAILY ON LICENSE OF [facility] Last Admin: 02/12/18 09:13 Dose: 1 tab Isosorbide Mononitrate (Monoket) 10 mg PO BID@0800,1500 ON LICENSE OF [facility] Last Admin: 02/12/18 08:15 Dose: 10 mg Loperamide HCl (Imodium) 2 mg PO PRN PRN PRN Reason: Diarrhea Last Admin: 02/12/18 04:43 Dose: 2 mg Losartan Potassium (Cozaar) 50 mg PO QDAY ON LICENSE OF [facility] Last Admin: 02/12/18 09:13 Dose: 50 mg Metoprolol Tartrate (Lopressor) 100 mg PT BID ON LICENSE OF [facility] Last Admin: 02/12/18 09:14 Dose: 100 mg Nystatin (Nystatin Crm) 1 dose TOPICAL TIDP PRN PRN Reason: Skin Irritation Ondansetron HCl (Zofran) 4 mg IV Q4-6HP PRN PRN Reason: Nausea And Vomiting Mirabegron [ (Myrbetriq] 25 Mg) 1 dose PO DAILY ON LICENSE OF [facility] Last Admin: 02/12/18 09:16 Dose: Not Given Tapentadol Hcl [ (Nucynta Er] 50 Mg) 1 dose PO Q12 ON LICENSE OF [facility] Last Admin: 02/12/18 09:16 Dose: Not Given Umeclidinium [place] [Incruse Ellipta] Inh 1 dose INH DAILY ON LICENSE OF [facility] Last Admin: 02/12/18 09:16 Dose: Not Given Potassium Chloride (Klor-Con) 40 meq PT BID ON LICENSE OF [facility] Last Admin: 02/12/18 09:14 Dose: 40 meq Sertraline HCl (Zoloft) 200 mg PO DAILY ON LICENSE OF [facility] Last Admin: 02/12/18 09:22 Dose: 200 mg Sodium Chloride (Saline Flush) 10 ml IV Q12 ON LICENSE OF [facility] Last Admin: 02/12/18 09:17 Dose: 10 ml Sodium Chloride (Saline Flush) 10 ml IV UD PRN PRN Reason: FLUSH Last Admin: 02/12/18 10:06 Dose: 10 ml Vancomycin HCl (Vancomycin Per Pharmacy) 1 order IV UD ON LICENSE OF [facility] Medical - PN: A/P - Time Spent With Patient Total time spent is greater than 50% in coordination of care (as documented) at patient's floor/unit and/or counseling patient: - Narrative A/P Narrative: Atrial fibrillation: Rate controlled in the 70's with metoprolol only. On stroke prophylaxis with therapeutic Lovenox doses. Would plan on restarting her usual Pradaxa when she is extubated and able to take po. metoprolol dose is 100mg bid as home dose, continue same for now. Cardiomyopathy: Wonder about an event between June (echo with 50-65% EF, no wall motion abnormalities) and sometime before admission (echo 40-45% EF, focal wall motion abnormalities in septum and inferior wall). Troponins here have been negative. Alternatively, possible this could be transient ischemia due to hospital events without evidence of troponin leak. Will need echo sometime in the future and further evaluation if findings persist. Family notes that she started with a chronic cough a few months ago and I wonder about possible cardiogenic bronchospasm or mild pulmonary edema as a contributor. Of note, she was on isosorbide, Lipitor, and Plavix at admission. Family notes she was not reliable in taking medications. Hypertension: Was on Cozaar and metoprolol on admit. Pressures seem to be controlled fairly well on Cozaar (restarted 02/09) and 50 mg metoprolol bid ( half of admission dose; suspect she can be discharged on this dose as it seems to be adequate to control afib rate as well). Dose of metoprolol back up to 100mg bid as HR was elevated. History of CVA in past - no significant sequelae, she had been prescribed atorvastatin and Plavix previously, these have been continued via OG tube. CT head done was negative this admission. Pulmonary/ Acute respiratory Failure : s/p exubation, on NIVV for now. monitor closely. Fluids/electrolytes/nutrition: replace electrolytes, mg and K, feeding per dietary. will need to get Swallow eval to determine if she can take po Renal function: BUN/Cr remain normal. Preserved GFR Urine output increased. No diminished renal function noted. History of chronic left knee pain. Was on Nucynta at admission. Prior to intubation, there were several days she did not get it due to inability to take po's and florid alcohol withdrawal symptoms. Haven't restarted. Will likely need to as she wakes up and starts to move more. Alcohol dependence: will need to quit DT: resolving. Metabolic encephalopaty: due to etoh/ slow clearnce of ativan, on infuvite, wll d/c same nad resume IV thiamine at 100mg daily, she is on folate and mv supplements. Head CT is neg, ammonia is neg, clinically improving slowly. GI: Recurrent diarrhea, likely related to tube feeds, C diff neg. Continue IV famotidine. Transaminases essentially normalized (AST 23, ALT 42 today), Tbili 0.6. on banatrol for now, imodium added yesterday, improved stool output. Anemia: Hb stable monitor, no e/o gi bleed. UTI: enterococcus, on vancomycin, contine same. Complication prophylaxis: IV famotidine, unable to use Pradaxa via OG tube, started IV Lovenox at therapeutic doses. Disposition plan of c are reviewed with family, Spent > 45 mins reviewing chart, coordinating care, family discussion, rendering critical care, abg, [facility] vent, reviewing labs and radiology Medical - PN: Qual - VTE Deep Vein Thrombosis/Pulmonary Embolism Present on Admission: No Procedures - Arterial Line Size (Gauge): 20
[2018-02-12] MEDS ORDERED: BUDESONIDE 0.5 MG/2 ML AMPUL.NEB NEB ONE (10:57)
[2018-02-12] MEDS: IPRATROPIUM/ALBUTEROL 3 ML AMPUL.NEB NEB SCH ×3 (11:03→19:20)
--- NOTE | 2018-02-12 13:08 | XRay Report ---
CLINICAL INFORMATION: NG placement COMPARISON: 02/06/2018 FINDINGS: NG tube overlies the proximal gastric fundus. The small and large bowel are slightly dilated suggesting ileus. No free air, soft tissue mass or organomegaly. There is a stent in the left L3 paraspinous region IMPRESSION: Mild ileus NG tip overlying the proximal gastric fundus. Nurses instructed to advance tube 6 cm Interpreted and Authenticated by: Mushtaq Ware 02/12/18
--- NOTE | 2018-02-12 13:22 | XRay Report ---
CLINICAL INFORMATION: Follow right basilar infiltrate COMPARISON: 02/11/2018 FINDINGS: Lines and tubes are in stable satisfactory position. Mild cardiomegaly is unchanged. Mediastinum and pulmonary vessels are normal. Small patchy right basilar infiltrate has worsened slightly. There is minor atelectasis left base IMPRESSION: Slight worsening - small patchy right basilar infiltrate. Interpreted and Authenticated by: Mushtaq Ware 02/12/18
[2018-02-12] MEDS: HEPARIN/NS 500 ML IV SCH (16:53)
[2018-02-12] MEDS: ACETAMINOPHEN 1,000 MG/100 ML BOTTLE IV PRN (17:32)
[2018-02-12] MEDS: METOPROLOL TARTRATE 5 MG/5 ML VIAL IV SCH ×3 (18:07→18:30)
[2018-02-12] MEDS ORDERED: METOPROLOL TARTRATE 5 MG/5 ML VIAL IV ONE (18:07)
[2018-02-12] MEDS: ATORVASTATIN 20 MG TABLET PO SCH (20:59)
[2018-02-12] MEDS ORDERED: 0.9 % SODIUM CHLORIDE 500 ML IV ONE (21:10)
[2018-02-13] MEDS: PIPERACILLIN SODIUM/TAZOBACTAM 4.5 GM in DEXTROSE 5% IN WATER 50 ML IV SCH ×4 (00:26→17:41)
[2018-02-13] MEDS: IPRATROPIUM/ALBUTEROL 3 ML AMPUL.NEB NEB SCH ×7 (00:26→22:59)
[2018-02-13] MEDS: ACETAMINOPHEN 1,000 MG/100 ML BOTTLE IV PRN ×2 (02:33→08:49)
[2018-02-13 05:44] LABS: Basophils # (Auto) 0 K/mcL (0.0-0.3); Basophils % (Auto) 0 % (0.0-2.0); Eosinophils # (Auto) 0 K/mcL (0.0-0.7); Eosinophils % (Auto) 0.5 % (0.0-7.0); Granulocytes % (Auto) 79.6 % (38.0-78.0); Lymphocytes # (Auto) 0.8 K/mcL (1.5-4.8); Lymphocytes % (Auto) 13.4 % (15.5-49.0); Mean Cell Volume 86.9 fL (80.0-100.0); Mean Corpuscular HGB Conc 32.5 g/dL (31.0-36.0); Mean Corpuscular Hemoglobin 28.2 pg (26.0-34.0); Monocytes # (Auto) 0.4 K/mcL (0.1-0.9); Monocytes % (Auto) 6.5 % (1.0-12.0); Platelet Count 270 K/mcL (140-440); RBC 3.38 M/mcL (4.00-5.20); Red Cell Distribution Width 15.2 % (11.5-14.5)
[2018-02-13] MEDS: INSULIN LISPRO 1 UNIT/0.01 ML UNIT SQ SCH ×4 (06:01→17:37)
[2018-02-13 06:27] LABS: ALT/SGPT 25 U/l (0-40); Albumin 3.2 gm/dL (3.2-5.2); Albumin/Globulin Ratio 0.9 (1.0-2.3); Alkaline Phosphatase 65 U/L (39-117); Bilirubin,Direct < 0.2 mg/dL (0.0-0.3); Blood Urea Nitrogen 15 mg/dl (8-23); Gamma Glutamyl Transpeptidase 43 U/L (5-36); Uric Acid 1.8 mg/dL (2.5-8.0)
[2018-02-13] MEDS: ISOSORBIDE MONONITRATE 20 MG TABLET PO SCH ×2 (08:05→14:36)
[2018-02-13] MEDS: VANCOMYCIN 1,000 MG in 0.9 % SODIUM CHLORIDE 250 ML IV SCH ×2 (08:28→22:16)
[2018-02-13] MEDS: 0.9 % SODIUM CHLORIDE 10 ML SYRINGE IV PRN ×3 (08:28→11:57)
[2018-02-13] MEDS: CHLORHEXIDINE GLUCONATE 1 ML ORAL.SOL SWABMOUTH SCH ×2 (08:59→22:12)
[2018-02-13] MEDS: POTASSIUM CHLORIDE 20 MEQ PACKET PT SCH ×2 (09:00→22:11)
[2018-02-13] MEDS: METOPROLOL TARTRATE 50 MG TABLET PT SCH ×2 (09:02→22:16)
[2018-02-13] MEDS: CLOPIDOGREL 75 MG TABLET PO SCH (09:02)
[2018-02-13] MEDS: MULTIVIT,THER IRON,CA,FA & MIN 1 TABLET PO SCH (09:02)
[2018-02-13] MEDS: LOSARTAN 25 MG TABLET PO SCH (09:02)
[2018-02-13] MEDS: FAMOTIDINE/PF 20 MG/2 ML VIAL IV SCH ×2 (09:02→22:15)
[2018-02-13] MEDS: SERTRALINE 100 MG TABLET PO SCH (09:06)
[2018-02-13] MEDS: ENOXAPARIN 60 MG/0.6 ML SYRINGE SQ SCH ×2 (09:06→22:14)
[2018-02-13] MEDS: Mirabegron [Myrbetriq] 25 MG PO SCH (09:06)
[2018-02-13] MEDS: UMECLIDINIUM BROMIDE INH SCH (09:06)
[2018-02-13] MEDS: 0.9 % SODIUM CHLORIDE 10 ML SYRINGE IV SCH ×2 (09:07→22:11)
[2018-02-13] MEDS: LOPERAMIDE 2 MG CAPSULE PO PRN ×2 (09:28→13:21)
--- NOTE | 2018-02-13 10:52 | Internal Med Progress Note ---
Medical - PN: Subj Patient information: Note initiated : 02/13/18 at 10:50 am Service Date, if different from initiated Date: [] Patient: Dara Null a 77 y/o F admitted on 02/01/18 for Weakness, Diarrhea, Hypotension/Hypokalemia. Chief Complaint: [] Interval history: Has been stable overnight. Reviewed with nursing. Urine output continues with spontaneous diuresis - has been running about 80/hr last few hours. Diarrhea slowing, rectal tube in place, C.diff neg. No sedative drips for last 24 hours. Is slowly becoming more responsive. No other concerns in discussion with nursing staff. Patient unable to give subjective info due to intubated status. / Pt seen examined, [facility], no baseline settings, ABG, CXR Reviewed, Pt is 11L positive since admission, started on IV lasix, does get a bit tachypneic when off sedation, but mental status is still quite poor, recent CT head reviewed, ammonia level is neg, ABG 7.42/35/105 plan of care reviewed with her 2 sons and her daugther, noted that mental status decline still could be lingering effect of high doses of ativan used, will wait till body clears it. avoid sedation for now, ok profol if pt gets agitated, no ativan labs reviewed, / Pt seen examined, no acute overnight events, vital signs stable, she did try to touch her ET tube last night but did not pull any lines. This AM she remained off sedation, Her mental status somewhat better, able to open eyes and try to squeeze hands to verbal commands but still quite drowsy, Her abg on wean parameters acceptable good cough reflex x ray reviewed by self, still has right lower lobe infitltrate but has no increased oxygen needs, baseline vent settings, and no incrased resp secretaions RSI index < 100 leak test positive, Patient was extubated sucessfully, somestridor noted post extubation, racemic epi given, IV steroids to be started Patient to be placed on bipap, as she has some tachypenia after extubation Monitor closely labs stable her son at bedside was updated on the plan,, 02/13 Pt seen examined, overnght did have some afib with rvr one episode of low bp yesterday, responded to IV salien, not sure if was accurate reading though. Pt hr stable now, back on home dose of digoxin 125mcg starting today, also on metoprolol 100 bid Off bipap since last night, this AM saturating well and not in resp distress, Still unable to speak well or have much st rength has NG placed yesterday for meds and feeds, Pt improving slowly expect protracted recovery. Pertinent ROS: unable - Constitutional Vitals: Vital Signs Temp Pulse Resp BP Pulse Ox 98.0 F 99 H 15 140/95 100 02/13/18 07:00 02/13/18 05:00 02/13/18 10:01 02/13/18 10:01 02/13/18 10:01 Period Temp Pulse Resp BP Sys/Marques Pulse Ox Last 24 Hr 97.4 F-98.2 F 85-136 13-37 102-149/50-95 95-100 Intake and Output 02/12/18 02/13/18 02/13/18 21:59 05:59 13:59 Intake Total 1380 / 1380 1565 / 1565 750 / 750 Output Total 1989 305 / 305 235 / 235 Balance -610 / -610 1260 / 1260 515 / 515 Weight 151 lb Intake & Output: Intake & Output 02/12/18 02/13/18 02/13/18 21:59 05:59 13:59 Intake Total 1380 / 1380 1565 / 1565 750 / 750 Output Total 1989 305 / 305 235 / 235 Balance -610 / -610 1260 / 1260 515 / 515 Weight 151 lb Intake: IV 650 / 650 900 / 900 400 / 400 Sodium Chloride 0.9% 250 ml @ 0 / 0 20 mls/hr IV .[id number] DORA Rx#: [id number] Heparin/Ns 500 ml @ KVO IV .Q0M 500 / 500 DORA Rx#:[id number] Zosyn 4.5 gm In Dextrose 5% in 50 / 50 50 / 50 50 / 50 Water 50 ml @ 100 mls/hr IV Q6H DORA Rx#:[id number] Vancomycin 1,000 mg In Sodium 250 / 250 250 / 250 Chloride 0.9% 250 ml @ 250 mls/ hr IV Q12H DORA Rx#:[id number] Tube Feeding 220 / 220 545 / 545 GI Tube Flush 510 / 510 120 / 120 350 / 350 Output: Urine Catheter Amount 1989 305 / 305 235 / 235 Other: Stool Size Small Small Stool Color Brown Brown Green Stool Consistency Liquid Liquid Liquid # of times incontinent of 1 1 Bowels Exam: Constitutional; Afebrile drowys, but opens eyes to commands, and tries to follow commands, did distribution tech my hand . Eyes- No icterus, , No periorbital swelling Ears- Ext ear normal, Neck- Midline trachea, supple Respiratory system: Air Entry equal on both sides, No crackles or wheezing, no rhonchi. CVS- Rate rhythm irregular, S1,S2 heard, no gallop, no rub. Abdomen- Soft nontender abdomen, no organomegaly, no tenderness, no guarding or rigidity, SWITCHING OPERATOR- AOOx1, moving all extremities, no gross focal deficit noted. Medical - PN: Obj Da - Labs CBC & Chem 7: 02/13/18 04:00 02/13/18 04:00 Labs: Abnormal Lab Results 02/13/18 02/13/18 02/12/18 04:00 04:00 04:00 WBC RBC 3.38 L Hgb 9.5 L Hct 29.3 L RDW 15.2 H Gran % 79.6 H Lymph % (Auto) 13.4 L Lymph # (Auto) 0.8 L Potassium 3.1 L Glucose 114 H Uric Acid 1.8 L 1.4 L Calcium 8.3 L 8.2 L Phosphorus 2.0 L GGT 43 H 44 H Total Protein Albumin 2.9 L Albumin/Globulin Ratio 0.9 L 0.8 L 02/12/18 02/11/18 02/11/18 04:00 04:00 04:00 WBC 4.2 L RBC 3.18 L 2.92 L Hgb 9.3 L 8.4 L Hct 28.0 L 25.8 L RDW 15.4 H 15.9 H Gran % 79.1 H Lymph % (Auto) 13.3 L Lymph # (Auto) 0.9 L 0.6 L Potassium Glucose Uric Acid 1.0 L Calcium 8.0 L Phosphorus GGT Total Protein 5.7 L Albumin 2.3 L Albumin/Globulin Ratio 0.7 L Meds: Medications Acetaminophen (Tylenol) 650 mg PO Q4-6HP PRN PRN Reason: PAIN/FEVER > 101 Last Admin: 02/10/18 08:29 Dose: 650 mg Albuterol/Ipratropium (Duoneb) 3 ml NEB Q4HP PRN PRN Reason: Shortness Of Breath Or Wheezing Albuterol/Ipratropium (Duoneb) 3 ml NEB Q4HRT [facility] Last Admin: 02/13/18 08:03 Dose: Not Given Atorvastatin Calcium (Lipitor) 80 mg PO HS [facility] Last Admin: 02/12/18 20:59 Dose: 80 mg Chlorhexidine Gluconate (Peridex) 15 ml SWABMOUTH BID [facility] Last Admin: 02/13/18 08:59 Dose: 15 ml Clopidogrel Bisulfate (Plavix) 75 mg PO DAILY [facility] Last Admin: 02/13/18 09:02 Dose: 75 mg Dextrose (Dextrose 50%) 0 ml IV UD PRN PRN Reason: Hypoglycemia Diagnostic Test (Pha) (Accu-Chek) 1 each FS Q6 [facility] Last Admin: 02/13/18 06:00 Dose: 1 each Digoxin (Lanoxin Pediatric) 125 mcg PT DAILY@1400 [facility] Last Admin: 02/13/18 08:08 Dose: 125 mcg Enoxaparin Sodium (Lovenox) 60 mg SQ BID [facility] Last Admin: 02/13/18 09:06 Dose: 60 mg Famotidine (Pepcid) 20 mg IV Q12 [facility] Last Admin: 02/13/18 09:02 Dose: 20 mg Hydralazine HCl (Apresoline) 10 mg IV Q4-6HP PRN PRN Reason: Hypertension Last Admin: 02/12/18 05:26 Dose: 10 mg Magnesium Sulfate (Magnesium Sulfate) 2 gm in 50 mls @ 50 mls/hr IV UD PRN PRN Reason: MG = or < 1.7 Last Infusion: 02/12/18 08:20 Dose: Infused Acetaminophen (Ofirmev) 1,000 mg in 100 mls @ 200 mls/hr IV Q6HP PRN PRN Reason: PAIN/FEVER > 101 Last Infusion: 02/13/18 09:27 Dose: Infused Heparin Sodium/Sodium Chloride (Heparin/Ns) 500 mls @ 0 mls/hr IV .Q0M DORA; KVO PRN Reason: Protocol Last Admin: 02/12/18 16:53 Dose: 5 mls/hr Piperacillin Sod/Tazobactam (Sod 4.5 gm/ Dextrose) 50 mls @ 100 mls/hr IV Q6H [facility] Last Infusion: 02/13/18 06:30 Dose: Infused Vancomycin HCl 1,000 mg/ (Sodium Chloride) 250 mls @ 250 mls/hr IV Q12H [facility] Last Infusion: 02/13/18 09:30 Dose: Infused Insulin Human Lispro (Humalog) 0 unit SQ Q6 [facility]A PRN Reason: Protocol Last Admin: 02/13/18 06:01 Dose: Not Given Iron Carb/Multivit/Hardin/Folic Acid (Multivitamin W/Minerals) 1 tab PO DAILY [facility] Last Admin: 02/13/18 09:02 Dose: 1 tab Isosorbide Mononitrate (Monoket) 10 mg PO BID@0800,1500 [facility] Last Admin: 02/13/18 08:05 Dose: 10 mg Loperamide HCl (Imodium) 2 mg PO PRN PRN PRN Reason: Diarrhea Last Admin: 02/13/18 09:28 Dose: 2 mg Losartan Potassium (Cozaar) 50 mg PO QDAY [facility] Last Admin: 02/13/18 09:02 Dose: 50 mg Metoprolol Tartrate (Lopressor) 100 mg PT BID [facility] Last Admin: 02/13/18 09:02 Dose: 100 mg Nystatin (Nystatin Crm) 1 dose TOPICAL TIDP PRN PRN Reason: Skin Irritation Ondansetron HCl (Zofran) 4 mg IV Q4-6HP PRN PRN Reason: Nausea And Vomiting Mirabegron [ (Myrbetriq] 25 Mg) 1 dose PO DAILY [facility] Last Admin: 02/13/18 09:06 Dose: Not Given Umeclidinium [place] [Incruse Ellipta] Inh 1 dose INH DAILY [facility] Last Admin: 02/13/18 09:06 Dose: Not Given Potassium Chloride (Klor-Con) 40 meq PT BID [facility] Last Admin: 02/13/18 09:00 Dose: 40 meq Sertraline HCl (Zoloft) 200 mg PO DAILY [facility] Last Admin: 02/13/18 09:06 Dose: 200 mg Sodium Chloride (Saline Flush) 10 ml IV Q12 [facility] Last Admin: 02/13/18 09:07 Dose: 10 ml Sodium Chloride (Saline Flush) 10 ml IV UD PRN PRN Reason: FLUSH Last Admin: 02/13/18 09:03 Dose: 10 ml Vancomycin HCl (Vancomycin Per Pharmacy) 1 order IV UD [facility] Medical - PN: A/P - Time Spent With Patient Total time spent is greater than 50% in coordination of care (as documented) at patient's floor/unit and/or counseling patient: - Narrative A/P Narrative: Atrial fibrillation: intermittent rvr, resume digoxin and continue metoprolol, bp stable, rate controlled today, anticoagulation with lovenox for now, at home is on oral anticoagulation. Cardiomyopathy: Wonder about an event between June (echo with 50-65% EF, no wall motion abnormalities) and sometime before admission (echo 40-45% EF, focal wall motion abnormalities in septum and inferior wall). Troponins here have been negative. Alternatively, possible this could be transient ischemia due to hospital events without evidence of troponin leak. Will need echo sometime in the future and further evaluation if findings persist. Family notes that she started with a chronic cough a few months ago and I wonder about possible cardiogenic bronchospasm or mild pulmonary edema as a contributor. Of note, she was on isosorbide, Lipitor, and Plavix at admission. Family notes she was not reliable in taking medications. Hypertension: on cozaar and metoprolol continue same, bp st able. History of CVA in past - no significant sequelae, she had been prescribed atorvastatin and Plavix previously, these have been continued via OG tube. CT head done was negative this admission. Pulmonary/ Acute respiratory Failure : s/p exubation, on NIVV for 1 day, on 2 L oxygen for now, BIPAP on standby. Fluids/electrolytes/nutrition: replace electrolytes, mg and K, feeding per dietary. will need to get Swallow eval to determine if she can take po History of chronic left knee pain. Was on Nucynta at admission. Prior to intubation, there were several days she did not get it due to inability to take po's and florid alcohol withdrawal symptoms. Haven't restarted. Will likely need to as she wakes up and starts to move more. Alcohol dependence: will need to quit DT: resolving. Metabolic encephalopaty: due to etoh/ ecephalopathy, ativan given during Dt, clearing up slowly, workup has been negative, very slow improvement. GI: Recurrent diarrhea, likely related to tube feeds, C diff neg. on banatrol for now, imodium added , improved stool output. CT abdomen was negative. Anemia: Hb stable monitor, no e/o gi bleed. UTI: enterococcus, on vancomycin, contine same. Complication prophylaxis: IV famotidine, unable to use Pradaxa via OG tube, started sq Lovenox at therapeutic doses. Disposition plan of c are reviewed with family, will see if LTAC Is an option. xfer to tele status. Medical - PN: Qual - VTE Deep Vein Thrombosis/Pulmonary Embolism Present on Admission: No Procedures - Arterial Line Size (Gauge): 20
[2018-02-13] MEDS ORDERED: hydrALAZINE 20 MG/ML VIAL IV PRN (12:18)
[2018-02-13] MEDS ORDERED: VANCOMYCIN PER PHARMACY IV SCH (12:18)
[2018-02-13] MEDS ORDERED: ONDANSETRON 4 MG/2 ML VIAL IV PRN (12:18)
[2018-02-13] MEDS ORDERED: IPRATROPIUM/ALBUTEROL 3 ML AMPUL.NEB NEB PRN (12:18)
[2018-02-13] MEDS ORDERED: MAGNESIUM SULFATE 2 GM/50 ML BAG IV PRN (12:18)
[2018-02-13] MEDS ORDERED: 0.9 % SODIUM CHLORIDE 10 ML SYRINGE IV PRN (12:18)
[2018-02-13] MEDS ORDERED: DEXTROSE 50% 50 ML VIAL IV PRN (12:18)
[2018-02-13] MEDS ORDERED: ACETAMINOPHEN 1,000 MG/100 ML BOTTLE IV PRN (12:18)
[2018-02-13] MEDS ORDERED: DIGOXIN 50 MCG/ML PT SCH (14:00)
[2018-02-13] MEDS: NYSTATIN CRM 1 DOSE TUBE TOPICAL PRN (14:15)
[2018-02-13] MEDS: FLUCONAZOLE 40 MG/ML PT SCH (14:37)
[2018-02-13] MEDS: ACETAMINOPHEN 325 MG TABLET PO PRN (15:56)
--- NOTE | 2018-02-13 18:05 | Internal Medicine Consult Note ---
Medical - CN: HPI - Data of Consult Patient: known to practice within the last 3 years Consult date: 02/13/18 Requesting Physician: Dr. Chavez Primary Care Provider: Shae Cheatham Family Provider: Shae Cheatham - Consult Narrative Reason for consult: Diarrhea History of present illness: Ms. Null is a 77 year old F alcoholic who is admitted for diarrhea; weakness; hypotension with hypokalemia, hypocalcemia, hypoalbuminemia; and atrial fibrillation who was preparing to discharge February 01 but began to have DTs and required ativan and intubation. She has since been extubated but is unable to provide history so history is obtained from hospitalist and nurse NGOZI Lee, at bedside. She has a 4 week history of diarrhea predating admission and would drink about 6 oz of scotch nightly prior to admission. She has had nothing but dark green to brown liquid stool since admission and has a rectal tube in place (480ml yesterday, 300ml day today)and c. difficile assay has been negative x 2. She is on tube feedings and formula was changed today from [employer] to V[employer] AF. SHe is also on Banatrol and Imodium (prn diarrhea NTE 8/day) for control of diarrhea. No hematochezia or abdominal distention. No nausea or vomiting. She was seen in our clinic as an outpatient in 2016 for complaints of diarrhea. At that time, she'd been "a social" drinker. Colonoscopy revealed adenomatous colon polyps. No random colon biopsies were taken. Diarrhea complaints improved after a course of Cipro and Flagyl, but she developed Achilles tendonitis. CC: Yony COON unobtainable: due to mental status Medical - CN: PMH Medical history: Atrial fibrillation, Right SMA thrombosis with stent, migraine, COPD, cerebral aneurysm. There is no history of chronic hepatitis B or C--her acute hepatitis panel was negative in 2016. 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 Recently . Current smoker. Smoking status: Current every day smoker Alcohol use: heavy Medical - CN: Meds Home Medications Medication Instructions Recorded Confirmed Type Flexin Supplement 1 supp PO .DAILY 05/07/15 02/01/18 History biotin 1 mg tablet 1 mg PO QDAY tab 05/07/15 02/01/18 History metoprolol tartrate 25 mg tablet 100 mg PO BID tab 08/12/16 02/01/18 History atorvastatin 80 mg tablet 80 mg PO QDAY #90 tab 06/29/17 02/01/18 Rx dabigatran etexilate 150 mg capsule 150 mg PO BID #180 cap 06/29/17 02/01/18 Rx digoxin 125 mcg tablet 125 mcg PO QDAY #90 tab 06/29/17 02/01/18 Rx furosemide 20 mg tablet 20 mg PO QDAY #90 tab 06/29/17 02/01/18 Rx isosorbide mononitrate 10 mg tablet 10 mg PO BID 90 Days #180 tab 06/29/1702/01 Rx mirabegron ER 25 mg 25 mg PO QDAY #90 tab 06/29/17 02/01/18 Rx tablet,extended release 24 hr omeprazole 40 mg capsule,delayed 40 mg PO QDAY #90 cap 06/29/17 02/01/18 Rx release potassium chloride ER 10 mEq 10 meq PO QDAY #90 cap 06/29/17 02/01/18 Rx capsule,extended release umeclidinium 62.5 mcg/actuation 1 inh INHALATION Q24H #90 each 06/29/17 Rx blister powder for inhalation losartan 25 mg tablet 50 mg PO QDAY #180 tab 09/27/17 02/01/18 Rx sertraline 100 mg tablet 200 mg PO QDAY #180 tab 09/27/17 02/01/18 Rx gabapentin 300 mg capsule 300 mg PO TID #90 cap 10/28/17 02/01/18 Rx trazodone 50 mg tablet 50 mg PO QHS PRN #30 tab 12/20/17 02/01/18 Rx tapentadol ER 50 mg 50 mg PO Q12H #60 tab 01/17/18 02/01/18 Rx tablet,extended release,12 hr Clopidogrel Bisulfate [Plavix] 75 mg PO DAILY 02/01/18 02/02/18 History Hydrocodone/APAP 7.5/325Mg [[place] 1 tab PO DAILYP PRN 02/01/18 02/02/18 History 7.5-325Mg] Meclizine [Antivert] 12.5 mg PO DAILYP PRN 02/01/18 02/01/18 History Amoxicillin/Potassium Clav 875 mg PO Q12H #10 tab 02/03/18 Rx [Augmentin] Allergies Allergy/AdvReac Type Severity Reaction Status Date / Time Influenza Virus Vaccines AdvReac Severe pain Verified 02/01/18 18:35 TAPE ALLERGY Allergy Intermediate RASH Uncoded 01/17/18 19:14 Medical - CN: Exam - Constitutional Vitals: Temp Pulse Resp BP Pulse Ox 97.5 F 88 15 152/91 100 02/13/18 16:01 02/13/18 11:38 02/13/18 16:01 02/13/18 16:01 02/13/18 16:01 General appearance: average body habitus, no acute distress - Head Head exam: Present: atraumatic, normal inspection - Eye Eye exam: Present: normal appearance - Neck Neck exam: Present: normal inspection. Absent: lymphadenopathy, thyromegaly - Respiratory Respiratory exam: Present: normal respiratory exam, CTAB - Cardiovascular Cardiovascular exam: Present: normal rate and rhythm. Absent: diastolic murmur , systolic murmur - GI/Abdominal GI/Abdominal exam: Present: normal bowel sounds, soft. Absent: hernia, mass, organomegaly, tenderness - Rectal Additional comments: RN had just performed rectal exam prior to my arrival and insertion of rectal tube. She did not feel any stool in rectal vault. - Neurological Exam Neurological exam: Present: altered - Skin Skin exam: Present: erythema (skin break down under gluteal cleft) Medical - CN: Result - Labs CBC & Chem 7: 02/13/18 04:00 02/13/18 04:00 Labs: Short CBC 02/13/18 Range/Units 04:00 WBC 6.0 (4.5-11.0) K/mcL Hgb 9.5 L (12.0-15.0) g/dL Hct 29.3 L (36.0-48.0) % Plt Count 270 (140-440) K/mcL BMP 02/13/18 04:00 Sodium 143 Potassium 3.1 L Chloride 103 Carbon Dioxide 29 BUN 15 Creatinine 0.7 Glucose 114 H Calcium 8.3 L Liver Function 02/13/18 Range/Units 04:00 Total Bilirubin 0.4 (0.0-1.0) mg/dL Direct Bilirubin < 0.2 (0.0-0.3) mg/dL GGT 43 H (5-36) U/L AST 20 (0-37) U/l ALT 25 (0-40) U/l Alkaline Phosphatase 65 (39-117) U/L Albumin 3.2 (3.2-5.2) gm/dL Medical - CN: A/P (1) Diarrhea Status: Acute Assessment and plan: I reviewed her case with Dr. Kelsey. We agree with Dr. Chavez that her diarrhea is likely related to tube feeds and agree with the supervisor [employer]'s choice to change tube feed formula. We would recommend slowing the rate of tube feeds to 30cc/hr to see if this decreases diarrhea. Continue Imodium. We suspect her diarrhea is also related to alcohol use AKA 'beer drinker's diarrhea', related to alcohol's effects on pancreatic secretions, gut permeability, etc which can take up to 4 weeks of alcohol abstention to resolve. If diarrhea persists despite changing tube feeds and using Imodium, will consider colonoscopy. In light of her alcohol abuse, we will also check an INR to fully assess liver function. We will continue to follow her along with hospitalist. Procedures - Arterial Line Size (Gauge): 20
[2018-02-13] MEDS: ATORVASTATIN 20 MG TABLET PO SCH (22:15)
[2018-02-14] MEDS: INSULIN LISPRO 1 UNIT/0.01 ML UNIT SQ SCH ×4 (01:12→18:30)
[2018-02-14] MEDS: PIPERACILLIN SODIUM/TAZOBACTAM 4.5 GM in DEXTROSE 5% IN WATER 50 ML IV SCH ×4 (01:12→18:30)
[2018-02-14] MEDS: NYSTATIN CRM 1 DOSE TUBE TOPICAL PRN ×3 (01:14→21:40)
[2018-02-14] MEDS: IPRATROPIUM/ALBUTEROL 3 ML AMPUL.NEB NEB SCH ×6 (03:12→23:05)
[2018-02-14 05:35] LABS: Basophils # (Auto) 0 K/mcL (0.0-0.3); Basophils % (Auto) 0.1 % (0.0-2.0); Eosinophils # (Auto) 0 K/mcL (0.0-0.7); Eosinophils % (Auto) 0.1 % (0.0-7.0); Granulocytes % (Auto) 87.2 % (38.0-78.0); Lymphocytes # (Auto) 0.8 K/mcL (1.5-4.8); Lymphocytes % (Auto) 8.8 % (15.5-49.0); Mean Cell Volume 88.9 fL (80.0-100.0); Mean Corpuscular HGB Conc 32.4 g/dL (31.0-36.0); Mean Corpuscular Hemoglobin 28.8 pg (26.0-34.0); Monocytes # (Auto) 0.4 K/mcL (0.1-0.9); Monocytes % (Auto) 3.8 % (1.0-12.0); Platelet Count 261 K/mcL (140-440); RBC 3.35 M/mcL (4.00-5.20); Red Cell Distribution Width 16.6 % (11.5-14.5)
[2018-02-14 06:18] LABS: ALT/SGPT 27 U/l (0-40); Albumin 3.1 gm/dL (3.2-5.2); Albumin/Globulin Ratio 0.9 (1.0-2.3); Alkaline Phosphatase 64 U/L (39-117); Bilirubin,Direct < 0.2 mg/dL (0.0-0.3); Blood Urea Nitrogen 12 mg/dl (8-23); Gamma Glutamyl Transpeptidase 40 U/L (5-36); Uric Acid 1.6 mg/dL (2.5-8.0)
--- NOTE | 2018-02-14 06:20 | XRay Report ---
CLINICAL INFORMATION: NG placement COMPARISON: 02/12/2018 FINDINGS: NG tube overlies the mid gastric body. Stool gas pattern is unremarkable. No free air, soft tissue mass or organomegaly. No pathologic calcification. IMPRESSION: No acute disease. NG tube overlies the mid gastric body Interpreted and Authenticated by: Mushtaq Ware 02/14/18
--- NOTE | 2018-02-14 06:29 | XRay Report ---
CLINICAL INFORMATION: Shortness of breath - possible aspiration COMPARISON: 02/12/2018. FINDINGS: Moderate cardiomegaly is noted. Mediastinum is unremarkable. Endotracheal tube now out. NG sidehole is at the the gastric fundus. Right IJ line in stable satisfactory position. Pulmonary vessels remain normal caliber. Moderate patchy infiltrate right base is worsening. A new moderate, yet they infiltrate is seen in the left base. Small bilateral pleural effusions noted IMPRESSION: Following extubation, moderate patchy right basilar infiltrate has worsened and there is a new moderate, yet vague, left basilar infiltrate. Suspect aspiration Interpreted and Authenticated by: Mushtaq Ware 02/14/18
[2018-02-14] MEDS: LOPERAMIDE 2 MG CAPSULE PO PRN ×3 (06:42→21:37)
[2018-02-14] MEDS: ACETAMINOPHEN 325 MG TABLET PO PRN ×3 (06:42→21:48)
[2018-02-14] MEDS: CHLORHEXIDINE GLUCONATE 1 ML ORAL.SOL SWABMOUTH SCH (08:50)
[2018-02-14] MEDS: POTASSIUM CHLORIDE 20 MEQ PACKET PT SCH ×2 (08:51→21:37)
[2018-02-14] MEDS: FAMOTIDINE/PF 20 MG/2 ML VIAL IV SCH ×2 (08:52→21:40)
[2018-02-14] MEDS: MULTIVIT,THER IRON,CA,FA & MIN 1 TABLET PO SCH (08:52)
[2018-02-14] MEDS: CLOPIDOGREL 75 MG TABLET PO SCH (08:52)
[2018-02-14] MEDS: LOSARTAN 25 MG TABLET PO SCH (08:52)
[2018-02-14] MEDS: METOPROLOL TARTRATE 50 MG TABLET PT SCH ×2 (08:52→21:38)
[2018-02-14] MEDS: 0.9 % SODIUM CHLORIDE 10 ML SYRINGE IV SCH ×2 (08:53→21:40)
[2018-02-14] MEDS: SERTRALINE 100 MG TABLET PO SCH (08:58)
[2018-02-14] MEDS: FLUCONAZOLE 40 MG/ML PT SCH (08:59)
[2018-02-14] MEDS: ENOXAPARIN 60 MG/0.6 ML SYRINGE SQ SCH ×2 (08:59→21:38)
[2018-02-14] MEDS: ISOSORBIDE MONONITRATE 20 MG TABLET PO SCH ×2 (08:59→14:20)
[2018-02-14] MEDS ORDERED: UMECLIDINIUM INH SCH (09:00)
[2018-02-14] MEDS ORDERED: FUROSEMIDE 20 MG/2 ML VIAL IV ONE (09:49)
[2018-02-14] MEDS: VANCOMYCIN 1,000 MG in 0.9 % SODIUM CHLORIDE 250 ML IV SCH ×2 (10:21→22:18)
[2018-02-14] MEDS: DIGOXIN 50 MCG/ML PT SCH (14:20)
--- NOTE | 2018-02-14 15:16 | Internal Med Progress Note ---
Medical - PN: Subj Patient information: Note initiated : 02/14/18 at 3:14 pm Service Date, if different from initiated Date: [] Patient: Dara Null a 77 y/o F admitted on 02/01/18 for Weakness, Diarrhea, Hypotension/Hypokalemia. Chief Complaint: [] Interval history: Has been stable overnight. Reviewed with nursing. Urine output continues with spontaneous diuresis - has been running about 80/hr last few hours. Diarrhea slowing, rectal tube in place, C.diff neg. No sedative drips for last 24 hours. Is slowly becoming more responsive. No other concerns in discussion with nursing staff. Patient unable to give subjective info due to intubated status. / Pt seen examined, [facility], no baseline settings, ABG, CXR Reviewed, Pt is 11L positive since admission, started on IV lasix, does get a bit tachypneic when off sedation, but mental status is still quite poor, recent CT head reviewed, ammonia level is neg, ABG 7.42/35/105 plan of care reviewed with her 2 sons and her daugther, noted that mental status decline still could be lingering effect of high doses of ativan used, will wait till body clears it. avoid sedation for now, ok profol if pt gets agitated, no ativan labs reviewed, / Pt seen examined, no acute overnight events, vital signs stable, she did try to touch her ET tube last night but did not pull any lines. This AM she remained off sedation, Her mental status somewhat better, able to open eyes and try to squeeze hands to verbal commands but still quite drowsy, Her abg on wean parameters acceptable good cough reflex x ray reviewed by self, still has right lower lobe infitltrate but has no increased oxygen needs, baseline vent settings, and no incrased resp secretaions RSI index < 100 leak test positive, Patient was extubated sucessfully, somestridor noted post extubation, racemic epi given, IV steroids to be started Patient to be placed on bipap, as she has some tachypenia after extubation Monitor closely labs stable her son at bedside was updated on the plan,, 02/13 Pt seen examined, overnght did have some afib with rvr one episode of low bp yesterday, responded to IV salien, not sure if was accurate reading though. Pt hr stable now, back on home dose of digoxin 125mcg starting today, also on metoprolol 100 bid Off bipap since last night, this AM saturating well and not in resp distress, Still unable to speak well or have much [facility] has NG placed yesterday for meds and feeds, Pt improving slowly expect protracted recovery. 02/14 patient seen and examined, overnight the ET tube came back out after he was placed back in repeat chest x-ray done. Chest x-ray shows possible worsening of pneumonia on the right side and some new infiltrate on the left side, labs are stable, patient has no increased oxygen needs. Patient is likely aspirating slowly. This morning again mental status is better compared to yesterday she is able to speak a few words although softly. We are going to try and see if she is able to swallow some.ST to evaluate We were considering to see if the patient would qualify for long-term acute care facility however it seems that the family does not wish for same. Will continue with aggressive speech therapy continue nutritional support, continue antibiotics, concern for thrush yesterday and IV Diflucan was added. GI consult appreciated, diarrhea likely to tube feeds. Pertinent ROS: Patient unable to provide any meaningful review of system She nods her head has no when asked about specific complaints as an chest pain shortness of breath or abdominal pain - Constitutional Vitals: Vital Signs Temp Pulse Resp BP Pulse Ox 97.3 F 90 12 168/96 100 02/14/18 11:34 02/14/18 11:18 02/14/18 11:34 02/14/18 11:34 02/14/18 11:34 Period Temp Pulse Resp BP Sys/Marques Pulse Ox Last 24 Hr 97.2 F-98.1 F 90-121 10-25 131-168/90-104 92-100 Intake and Output 02/14/18 02/14/18 02/14/18 05:59 13:59 21:59 Intake Total 976 / 976 740 / 740 40 / 40 Output Total 800 / 800 1700 / 1700 Balance 176 / 176 -960 / -960 40 / 40 Intake & Output: Intake & Output 02/14/18 02/14/18 02/14/18 05:59 13:59 21:59 Intake Total 976 / 976 740 / 740 40 / 40 Output Total 800 / 800 1700 / 1700 Balance 176 / 176 -960 / -960 40 / 40 Intake: IV 400 / 400 300 / 300 Zosyn 4.5 gm In Dextrose 5% in 50 / 50 50 / 50 Water 50 ml @ 100 mls/hr IV Q6H [facility] Rx#:[id number] Vancomycin 1,000 mg In Sodium 250 / 250 250 / 250 Chloride 0.9% 250 ml @ 250 mls/ hr IV Q12H [facility] Rx#:[id number] Tube Feeding 486 / 486 GI Tube Flush 90 / 90 440 / 440 40 / 40 Output: Urine Catheter Amount 500 / 500 1700 / 1700 Stool 300 / 300 Other: Stool Color Brown Green Green Stool Consistency Liquid Liquid Exam: Constitutional; Afebrile, cooperative, alert, not in distress. Eyes- No icterus, , No periorbital swelling Ears- Ext ear normal, hearing normal to conversation. Neck- Midline trachea, supple Respiratory system: Air Entry equal on both sides, No crackles or wheezing, no rhonchi. CVS- Rate rhythm regular, S1,S2 heard, no gallop, no rub. Abdomen- Soft nontender abdomen, no organomegaly, no tenderness, no guarding or rigidity, [employer]- AOOx1, moving all extremities, no gross focal deficit noted. Medical - PN: Obj Da - Labs CBC & Chem 7: 02/14/18 03:36 02/14/18 03:36 Labs: Abnormal Lab Results 02/14/18 02/14/18 02/14/18 03:36 03:36 03:36 RBC 3.35 L Hgb 9.6 L Hct 29.8 L RDW 16.6 H Gran % 87.2 H Lymph % (Auto) 8.8 L Gran # 8.2 H Lymph # (Auto) 0.8 L PT 15.0 H INR 1.2 H Potassium Chloride 109 H Glucose 109 H Uric Acid 1.6 L Calcium 8.5 L Phosphorus GGT 40 H Albumin 3.1 L Albumin/Globulin Ratio 0.9 L Triglycerides 151 H 02/13/18 02/13/18 02/12/18 04:00 04:00 04:00 RBC 3.38 L Hgb 9.5 L Hct 29.3 L RDW 15.2 H Gran % 79.6 H Lymph % (Auto) 13.4 L Gran # Lymph # (Auto) 0.8 L PT INR Potassium 3.1 L Chloride Glucose 114 H Uric Acid 1.8 L 1.4 L Calcium 8.3 L 8.2 L Phosphorus 2.0 L GGT 43 H 44 H Albumin 2.9 L Albumin/Globulin Ratio 0.9 L 0.8 L Triglycerides 02/12/18 04:00 RBC 3.18 L Hgb 9.3 L Hct 28.0 L RDW 15.4 H Gran % Lymph % (Auto) Gran # Lymph # (Auto) 0.9 L PT INR Potassium Chloride Glucose Uric Acid Calcium Phosphorus GGT Albumin Albumin/Globulin Ratio Triglycerides Meds: Medications Acetaminophen (Tylenol) 650 mg PO Q4-6HP PRN PRN Reason: PAIN/FEVER > 101 Last Admin: 02/14/18 06:42 Dose: 650 mg Albuterol/Ipratropium (Duoneb) 3 ml NEB Q4HRT [facility] Last Admin: 02/14/18 11:17 Dose: 3 ml Atorvastatin Calcium (Lipitor) 80 mg PO HS [facility] Last Admin: 02/13/18 22:15 Dose: 80 mg Chlorhexidine Gluconate (Peridex) 15 ml [place]TH BID [facility] Last Admin: 02/14/18 08:50 Dose: 15 ml Clopidogrel Bisulfate (Plavix) 75 mg PO DAILY [facility] Last Admin: 02/14/18 08:52 Dose: 75 mg Dextrose (Dextrose 50%) 0 ml IV UD PRN PRN Reason: Hypoglycemia Diagnostic Test (Pha) (Accu-Chek) 1 each FS Q6 [facility] Last Admin: 02/14/18 11:56 Dose: 1 each Digoxin (Lanoxin Pediatric) 125 mcg PT DAILY@1400 [facility] Last Admin: 02/14/18 14:20 Dose: 125 mcg Enoxaparin Sodium (Lovenox) 60 mg SQ BID [facility] Last Admin: 02/14/18 08:59 Dose: 60 mg Famotidine (Pepcid) 20 mg IV Q12 [facility] Last Admin: 02/14/18 08:52 Dose: 20 mg Fluconazole (Diflucan) 200 mg PT DAILY [facility] Stop: 02/20/18 14:59 Last Admin: 02/14/18 08:59 Dose: 200 mg Hydralazine HCl (Apresoline) 10 mg IV Q4-6HP PRN PRN Reason: Hypertension Magnesium Sulfate (Magnesium Sulfate) 2 gm in 50 mls @ 50 mls/hr IV UD PRN PRN Reason: MG = or < 1.7 Acetaminophen (Ofirmev) 1,000 mg in 100 mls @ 200 mls/hr IV Q6HP PRN PRN Reason: PAIN/FEVER > 101 Last Infusion: 02/14/18 01:55 Dose: Infused Piperacillin Sod/Tazobactam (Sod 4.5 gm/ Dextrose) 50 mls @ 100 mls/hr IV Q6H [facility] Last Admin: 02/14/18 12:26 Dose: 100 mls/hr Vancomycin HCl 1,000 mg/ (Sodium Chloride) 250 mls @ 250 mls/hr IV Q12H [facility] Last Infusion: 02/14/18 11:54 Dose: Infused Insulin Human Lispro (Humalog) 0 unit SQ Q6 [facility] PRN Reason: Protocol Last Admin: 02/14/18 11:56 Dose: Not Given Iron Carb/Multivit/[place]/Folic Acid (Multivitamin W/Minerals) 1 tab PO DAILY [facility] Last Admin: 02/14/18 08:52 Dose: 1 tab Isosorbide Mononitrate (Monoket) 10 mg PO BID@0800,1500 [facility] Last Admin: 02/14/18 14:20 Dose: 10 mg Loperamide HCl (Imodium) 2 mg PO PRN PRN PRN Reason: Diarrhea Last Admin: 02/14/18 06:42 Dose: 2 mg Losartan Potassium (Cozaar) 50 mg PO QDAY [facility] Last Admin: 02/14/18 08:52 Dose: 50 mg Metoprolol Tartrate (Lopressor) 100 mg PT BID [facility] Last Admin: 02/14/18 08:52 Dose: 100 mg Nystatin (Nystatin Crm) 1 dose TOPICAL TIDP PRN PRN Reason: Skin Irritation Last Admin: 02/14/18 12:26 Dose: 1 dose Ondansetron HCl (Zofran) 4 mg IV Q4-6HP PRN PRN Reason: Nausea And Vomiting Potassium Chloride (Klor-Con) 40 meq PT BID [facility] Last Admin: 02/14/18 08:51 Dose: 40 meq Sertraline HCl (Zoloft) 200 mg PO DAILY [facility] Last Admin: 02/14/18 08:58 Dose: 200 mg Sodium Chloride (Saline Flush) 10 ml IV UD PRN PRN Reason: FLUSH Last Admin: 02/14/18 10:22 Dose: 10 ml Sodium Chloride (Saline Flush) 10 ml IV Q12 [facility] Last Admin: 02/14/18 08:53 Dose: 10 ml Vancomycin HCl (Vancomycin Per Pharmacy) [address] [facility] [place] Medical - PN: A/P - Time Spent With Patient Total time spent is greater than 50% in coordination of care (as documented) at patient's floor/unit and/or counseling patient: - Narrative A/P Narrative: Atrial fibrillation: intermittent rvr, resume digoxin and continue metoprolol, bp stable, rate controlled today, anticoagulation with lovenox for now, at home is on oral anticoagulation. Cardiomyopathy: possible cardiac event prior to admit, Hypertension: on cozaar and metoprolol continue same, bp st able. History of CVA in past - no significant sequelae, she had been prescribed atorvastatin and Plavix previously, these have been continued via OG tube. CT head done was negative this admission. Pulmonary/ Acute respiratory Failure : s/p exubation, on NIVV for 1 day, on 2 L oxygen for now, BIPAP on standby. Fluids/electrolytes/nutrition: replace electrolytes, mg and K, feeding per dietary. will need to get Swallow eval to determine if she can take po History of chronic left knee pain. Was on Nucynta at admission. Prior to intubation, there were several days she did not get it due to inability to take po's and florid alcohol withdrawal symptoms. Haven't restarted. Will likely need to as she wakes up and starts to move more. Alcohol dependence: will need to quit DT: resolving. Metabolic encephalopaty: due to etoh/ ecephalopathy, ativan given during Dt, clearing up slowly, workup has been negative, very slow improvement. GI: Recurrent diarrhea, likely related to tube feeds, C diff neg. on banatrol for now, imodium added , improved stool output. CT abdomen was negative. Anemia: Hb stable monitor, no e/o gi bleed. UTI: enterococcus, on vancomycin, contine same. Complication prophylaxis: IV famotidine, unable to use Pradaxa via OG tube, started sq Lovenox at therapeutic doses. Disposition plan of c are reviewed with family, will see if LTAC Is an option. xfer to tele status. Medical - PN: Qual - VTE Deep Vein Thrombosis/Pulmonary Embolism Present on Admission: No Procedures - Arterial Line Size (Gauge): 20
[2018-02-14] MEDS: ATORVASTATIN 20 MG TABLET PO SCH (21:37)
[2018-02-15] MEDS: PIPERACILLIN SODIUM/TAZOBACTAM 4.5 GM in DEXTROSE 5% IN WATER 50 ML IV SCH ×4 (01:02→17:13)
[2018-02-15 05:39] LABS: Basophils # (Auto) 0 K/mcL (0.0-0.3); Basophils % (Auto) 0.3 % (0.0-2.0); Eosinophils # (Auto) 0 K/mcL (0.0-0.7); Eosinophils % (Auto) 0 % (0.0-7.0); Granulocytes % (Auto) 83.3 % (38.0-78.0); Lymphocytes # (Auto) 0.9 K/mcL (1.5-4.8); Lymphocytes % (Auto) 11.3 % (15.5-49.0); Mean Cell Volume 88.2 fL (80.0-100.0); Mean Corpuscular HGB Conc 32.7 g/dL (31.0-36.0); Mean Corpuscular Hemoglobin 28.8 pg (26.0-34.0); Monocytes # (Auto) 0.4 K/mcL (0.1-0.9); Monocytes % (Auto) 5.1 % (1.0-12.0); Platelet Count 272 K/mcL (140-440); RBC 3.54 M/mcL (4.00-5.20); Red Cell Distribution Width 16.1 % (11.5-14.5)
[2018-02-15 05:57] LABS: ALT/SGPT 27 U/l (0-40); Albumin 3.5 gm/dL (3.2-5.2); Albumin/Globulin Ratio 1.1 (1.0-2.3); Alkaline Phosphatase 63 U/L (39-117); Bilirubin,Direct < 0.2 mg/dL (0.0-0.3); Blood Urea Nitrogen 13 mg/dl (8-23); Gamma Glutamyl Transpeptidase 41 U/L (5-36); Uric Acid 1.9 mg/dL (2.5-8.0)
[2018-02-15] MEDS: IPRATROPIUM/ALBUTEROL 3 ML AMPUL.NEB NEB SCH ×6 (05:59→23:11)
[2018-02-15] MEDS: INSULIN LISPRO 1 UNIT/0.01 ML UNIT SQ SCH ×4 (06:03→17:21)
[2018-02-15] MEDS: DEXTROSE 5%-1/2NS W/20MEQ KCL 1,000 ML IV SCH (07:54)
[2018-02-15] MEDS: NYSTATIN CRM 1 DOSE TUBE TOPICAL PRN ×2 (09:45→21:24)
[2018-02-15] MEDS: VANCOMYCIN 1,000 MG in 0.9 % SODIUM CHLORIDE 250 ML IV SCH ×2 (09:47→21:24)
[2018-02-15] MEDS: FLUCONAZOLE 40 MG/ML PT SCH (09:47)
[2018-02-15] MEDS: LOSARTAN 25 MG TABLET PO SCH (09:48)
[2018-02-15] MEDS: FAMOTIDINE/PF 20 MG/2 ML VIAL IV SCH ×2 (09:48→21:30)
[2018-02-15] MEDS: ISOSORBIDE MONONITRATE 20 MG TABLET PO SCH ×2 (09:48→15:44)
[2018-02-15] MEDS: SERTRALINE 100 MG TABLET PO SCH (09:48)
[2018-02-15] MEDS: MULTIVIT,THER IRON,CA,FA & MIN 1 TABLET PO SCH (09:49)
[2018-02-15] MEDS: METOPROLOL TARTRATE 50 MG TABLET PT SCH ×2 (09:49→21:31)
[2018-02-15] MEDS: CLOPIDOGREL 75 MG TABLET PO SCH (09:49)
[2018-02-15] MEDS: 0.9 % SODIUM CHLORIDE 10 ML SYRINGE IV SCH ×2 (09:49→21:33)
[2018-02-15] MEDS: POTASSIUM CHLORIDE 20 MEQ PACKET PT SCH ×2 (09:49→21:30)
[2018-02-15] MEDS: ENOXAPARIN 60 MG/0.6 ML SYRINGE SQ SCH ×2 (09:51→21:29)
[2018-02-15] MEDS ORDERED: TPN PER PHARMACY IV SCH (11:19)
--- NOTE | 2018-02-15 11:22 | Internal Med Progress Note ---
Medical - PN: Subj Patient information: Note initiated : 02/15/18 at 11:20 am Service Date, if different from initiated Date: [] Patient: Dara Null a 77 y/o F admitted on 02/01/18 for Weakness, Diarrhea, Hypotension/Hypokalemia. Chief Complaint: [] Interval history: Has been stable overnight. Reviewed with nursing. Urine output continues with spontaneous diuresis - has been running about 80/hr last few hours. Diarrhea slowing, rectal tube in place, C.diff neg. No sedative drips for last 24 hours. Is slowly becoming more responsive. No other concerns in discussion with nursing staff. Patient unable to give subjective info due to intubated status. 6/ [facility] no baseline settings, ABG, CXR Reviewed, Pt is 11L positive since admission, started on IV lasix, does get a bit tachypneic when off sedation, but mental status is still quite poor, recent CT head reviewed, ammonia level is neg, ABG 7.42/35/105 plan of care reviewed with her 2 sons and her daugther, noted that mental status decline still could be lingering effect of high doses of ativan used, will wait till body clears it. avoid sedation for now, ok profol if pt gets agitated, no ativan labs reviewed, 6/3 Pt seen examined, no acute overnight events, vital signs stable, she did try to touch her ET tube last night but did not pull any lines. This AM she remained off sedation, Her mental status somewhat better, able to open eyes and try to squeeze hands to verbal commands but still quite drowsy, Her abg on wean parameters acceptable good cough reflex x ray reviewed by self, still has right lower lobe infitltrate but has no increased oxygen needs, baseline vent settings, and no incrased resp secretaions RSI index < 100 leak test positive, Patient was extubated sucessfully, somestridor noted post extubation, racemic epi given, IV steroids to be started Patient to be placed on bipap, as she has some tachypenia after extubation Monitor closely labs stable her son at bedside was updated on the plan,, / Pt seen examined, overnght did have some afib with rvr one episode of low bp yesterday, responded to IV salien, not sure if was accurate reading though. Pt hr stable now, back on home dose of digoxin 125mcg starting today, also on metoprolol 100 bid Off bipap since last night, this AM saturating well and not in resp distress, Still unable to speak well or have much [facility] has NG placed yesterday for meds and feeds, Pt improving slowly expect protracted recovery. 02/14 patient seen and examined, overnight the ET tube came back out after he was placed back in repeat chest x-ray done. Chest x-ray shows possible worsening of pneumonia on the right side and some new infiltrate on the left side, labs are stable, patient has no increased oxygen needs. Patient is likely aspirating slowly. This morning again mental status is better compared to yesterday she is able to speak a few words although softly. We are going to try and see if she is able to swallow some.ST to evaluate We were considering to see if the patient would qualify for long-term acute care facility however it seems that the family does not wish for same. Will continue with aggressive speech therapy continue nutritional support, continue antibiotics, concern for thrush yesterday and IV Diflucan was added. GI consult appreciated, diarrhea likely to tube feeds. 02/15 Pt seen examined, no acute overnight issues, intermittent confustion, but no aggression, pt often has episodes of confusion, but overall is in better condition than yesterday, we have removed the NG tube today, as the diarrhea is still significant despite the loperamide. Plan to see if TPN helps with stool output, may need a colonoscopy, Plan to see how she does on ST eval today without any NG tube, will use TPN for caloric needs Continue antibiotics for possible pna/ uti, Pertinent ROS: denies any complaints, soft words Denies headache, dizziness Denies chest pain, palpitations Denies cough or shortness of breath Denies abdominal pain, nausea or vomiting. - Constitutional Vitals: Vital Signs Temp Pulse Resp BP Pulse Ox 98.7 F 120 H 24 H 180/86 96 02/15/18 08:00 02/15/18 08:00 02/15/18 08:00 02/15/18 08:00 02/15/18 08:00 Period Temp Pulse Resp BP Sys/Marques Pulse Ox Last 24 Hr 97.2 F-98.7 F 100-120 10-29 135-180/78-108 92-100 Intake and Output 02/14/18 02/15/18 02/15/18 21:59 05:59 13:59 Intake Total 1230 / 1230 799 / 799 190 / 190 Output Total 475 / 475 650 / 650 Balance 755 / 755 149 / 149 190 / 190 Weight 147 lb 8 oz Intake & Output: Intake & Output 02/14/18 02/15/18 02/15/18 21:59 05:59 13:59 Intake Total 1230 / 1230 799 / 799 190 / 190 Output Total 475 / 475 650 / 650 Balance 755 / 755 149 / 149 190 / 190 Weight 147 lb 8 oz Intake: IV 50 / 50 300 / 300 50 / 50 Zosyn 4.5 gm In Dextrose 5% in 50 / 50 50 / 50 50 / 50 Water 50 ml @ 100 mls/hr IV Q6H DORA Rx#:[id number] Vancomycin 1,000 mg In Sodium 250 / 250 Chloride 0.9% 250 ml @ 250 mls/ hr IV Q12H COUNT INCLUDES THE [facility] Rx#:[id number] Tube Feeding 870 / 870 409 / 409 GI Tube Flush 310 / 310 90 / 90 140 / 140 Output: Urine Catheter Amount 375 / 375 525 / 525 Stool 100 / 100 125 / 125 Other: Stool Color Green Stool Consistency Liquid Exam: Constitutional; Afebrile, cooperative, awake, not in distress. Eyes- No icterus, , No periorbital swelling Ears- Ext ear normal, Neck- Midline trachea, supple Respiratory system: Air Entry equal on both sides, No crackles or wheezing, no rhonchi. ant exam CVS- Rate rhythm regular, S1,S2 heard, no gallop, no rub. Abdomen- Soft nontender abdomen, no organomegaly, no tenderness, no guarding or rigidity, green st ool in the bag [employer]- AOOx1, moving all extremities, no gross focal deficit noted. Medical - PN: Obj Da - Labs CBC & Chem 7: 02/15/18 03:51 02/15/18 03:51 Labs: Abnormal Lab Results 02/15/18 02/15/18 02/14/18 03:51 03:51 03:36 RBC 3.54 L Hgb 10.2 L Hct 31.2 L RDW 16.1 H Gran % 83.3 H Lymph % (Auto) 11.3 L Gran # Lymph # (Auto) 0.9 L PT INR Sodium 149 H Potassium Chloride 109 H 109 H Glucose 109 H Uric Acid 1.9 L 1.6 L Calcium 8.5 L Phosphorus GGT 41 H 40 H Lactate Dehydrogenase 265 H Albumin 3.1 L Albumin/Globulin Ratio 0.9 L Triglycerides 151 H 02/14/18 02/14/18 02/13/18 03:36 03:36 04:00 RBC 3.35 L Hgb 9.6 L Hct 29.8 L RDW 16.6 H Gran % 87.2 H Lymph % (Auto) 8.8 L Gran # 8.2 H Lymph # (Auto) 0.8 L PT 15.0 H INR 1.2 H Sodium Potassium 3.1 L Chloride Glucose 114 H Uric Acid 1.8 L Calcium 8.3 L Phosphorus 2.0 L GGT 43 H Lactate Dehydrogenase Albumin Albumin/Globulin Ratio 0.9 L Triglycerides 02/13/18 04:00 RBC 3.38 L Hgb 9.5 L Hct 29.3 L RDW 15.2 H Gran % 79.6 H Lymph % (Auto) 13.4 L Gran # Lymph # (Auto) 0.8 L PT INR Sodium Potassium Chloride Glucose Uric Acid Calcium Phosphorus GGT Lactate Dehydrogenase Albumin Albumin/Globulin Ratio Triglycerides Meds: Medications Acetaminophen (Tylenol) 650 mg PO Q4-6HP PRN PRN Reason: PAIN/FEVER > 101 Last Admin: 02/14/18 21:48 Dose: 650 mg Albuterol/Ipratropium (Duoneb) 3 ml NEB Q4HRT COUNT INCLUDES THE [facility] Last Admin: 02/15/18 07:32 Dose: Not Given Atorvastatin Calcium (Lipitor) 80 mg PO HS COUNT INCLUDES THE [facility] Last Admin: 02/14/18 21:37 Dose: 80 mg Clopidogrel Bisulfate (Plavix) 75 mg PO DAILY COUNT INCLUDES THE [facility] Last Admin: 02/15/18 09:49 Dose: 75 mg Dextrose (Dextrose 50%) 0 ml IV UD PRN PRN Reason: Hypoglycemia Diagnostic Test (Pha) (Accu-Chek) 1 each FS Q6 COUNT INCLUDES THE [facility] Last Admin: 02/15/18 06:03 Dose: 1 each Digoxin (Lanoxin Pediatric) 125 mcg PT DAILY@1400 COUNT INCLUDES THE [facility] Last Admin: 02/14/18 14:20 Dose: 125 mcg Enoxaparin Sodium (Lovenox) 60 mg SQ BID COUNT INCLUDES THE [facility] Last Admin: 02/15/18 09:51 Dose: 60 mg Famotidine (Pepcid) 20 mg IV Q12 COUNT INCLUDES THE [facility] Last Admin: 02/15/18 09:48 Dose: 20 mg Fluconazole (Diflucan) 200 mg PT DAILY COUNT INCLUDES THE [facility] Stop: 02/20/18 14:59 Last Admin: 02/15/18 09:47 Dose: 200 mg Hydralazine HCl (Apresoline) 10 mg IV Q4-6HP PRN PRN Reason: Hypertension Magnesium Sulfate (Magnesium Sulfate) 2 gm in 50 mls @ 50 mls/hr IV UD PRN PRN Reason: MG = or < 1.7 Acetaminophen (Ofirmev) 1,000 mg in 100 mls @ 200 mls/hr IV Q6HP PRN PRN Reason: PAIN/FEVER > 101 Last Infusion: 02/14/18 01:55 Dose: Infused Piperacillin Sod/Tazobactam (Sod 4.5 gm/ Dextrose) 50 mls @ 100 mls/hr IV Q6H COUNT INCLUDES THE [facility] Last Infusion: 02/15/18 07:52 Dose: Infused Vancomycin HCl 1,000 mg/ (Sodium Chloride) 250 mls @ 250 mls/hr IV Q12H COUNT INCLUDES THE [facility] Last Admin: 02/15/18 09:47 Dose: 250 mls/hr Potassium Chloride/Dextrose/Sod Cl (Dextrose 5%-1/2ns W/20meq Kcl) 1,000 mls @ 50 mls/hr IV .Q20H COUNT INCLUDES THE [facility] Stop: 02/16/18 23:14 Last Admin: 02/15/18 07:54 Dose: 50 mls/hr Dextrose (Dextrose 5% In Water) 1,000 mls @ 0 mls/hr IV .Q0M [facility]OR[facility] PRN Reason: KVO Stop: 02/15/18 15:19 Insulin Human Lispro (Humalog) 0 unit SQ Q6 DORA PRN Reason: Protocol Last Admin: 02/15/18 06:03 Dose: Not Given Iron Carb/Multivit/Deputy Treasurer/Folic Acid (Multivitamin W/Minerals) 1 tab PO DAILY COUNT INCLUDES THE [facility] Last Admin: 02/15/18 09:49 Dose: 1 tab Isosorbide Mononitrate (Monoket) 10 mg PO BID@0800,1500 COUNT INCLUDES THE [facility] Last Admin: 02/15/18 09:48 Dose: 10 mg Loperamide HCl (Imodium) 2 mg PO PRN PRN PRN Reason: Diarrhea Last Admin: 02/14/18 21:37 Dose: 2 mg Losartan Potassium (Cozaar) 50 mg PO QDAY COUNT INCLUDES THE [facility] Last Admin: 02/15/18 09:48 Dose: 50 mg Metoprolol Tartrate (Lopressor) 100 mg PT BID COUNT INCLUDES THE [facility] Last Admin: 02/15/18 09:49 Dose: 100 mg Nystatin (Nystatin Crm) 1 dose TOPICAL TIDP PRN PRN Reason: Skin Irritation Last Admin: 02/15/18 09:45 Dose: 1 dose Ondansetron HCl (Zofran) 4 mg IV Q4-6HP PRN PRN Reason: Nausea And Vomiting Potassium Chloride (Klor-Con) 40 meq PT BID COUNT INCLUDES THE [facility] Last Admin: 02/15/18 09:49 Dose: 40 meq Sertraline HCl (Zoloft) 200 mg PO DAILY COUNT INCLUDES THE [facility] Last Admin: 02/15/18 09:48 Dose: 200 mg Sodium Chloride (Saline Flush) 10 ml IV UD PRN PRN Reason: FLUSH Last Admin: 02/14/18 10:22 Dose: 10 ml Sodium Chloride (Saline Flush) 10 ml IV Q12 COUNT INCLUDES THE [facility] Last Admin: 02/15/18 09:49 Dose: 10 ml Vancomycin HCl (Vancomycin Per Pharmacy) 1 order IV UD COUNT INCLUDES THE [facility] Medical - PN: A/P - Time Spent With Patient Total time spent is greater than 50% in coordination of care (as documented) at patient's floor/unit and/or counseling patient: - Narrative A/P Narrative: a/p Atrial fibrillation: on metoprolol and digoxin, rate better controlled, continue to monitor on tele, intermittent RVR but overall better control Cardiomyopathy: possible cardiac event prior to admit, low lvef, out patient follow up Hypertension: on cozaar and metoprolol continue same, bp st able. PNA : right lower and now new left side pna noted, likely aspirations, on broad spectrum abx, continue same, oral thrush: IV diflucan, improving. History of CVA in past - no significant sequelae, she had been prescribed atorvastatin and Plavix previously. Pulmonary/ Acute respiratory Failure : s/p exubation, on NIVV for 1 day, now doing well, monitor. Hypernatremia: start on d51/2 ns for now see how she does. Fluids/electrolytes/nutrition: replace electrolytes, mg and K, start on TPN today as NG might be impeding the swallow eval and function. Dysphagia: due to sedation/ intubation, unable to swallow still, st eval to continue, slow progress on this front. History of chronic left knee pain. Was on Nucynta at admission. Prior to intubation, there were several days she did not get it due to inability to take po's and florid alcohol withdrawal symptoms. Haven't restarted. Will likely need to as she wakes up and starts to move more. Alcohol dependence: will need to quit. DT: resolving. Metabolic encephalopaty: due to etoh/ ecephalopathy, ativan given during Dt, clearing up slowly, workup has been negative, very slow improvement. she has intermittent delirum but ovearll slow improvement. GI: Recurrent diarrhea, likely tube feeds, also component of opiate withdrawal ? not on her usual opiates due to poor mentation, alcohol related? appreciate GI Input, on imodium, may need a colonoscopy. hold tube feeds and see how she does. Anemia: Hb stable monitor, no e/o gi bleed. UTI: enterococcus, on vancomycin, continue same. Complication prophylaxis: IV famotidine, unable to use Pradaxa via OG tube, started sq Lovenox at therapeutic doses. Disposition plan of c are reviewed with family, they do not want to persue LTAC option. Medical - PN: Qual - VTE Deep Vein Thrombosis/Pulmonary Embolism Present on Admission: No Procedures - Arterial Line Size (Gauge): 20
[2018-02-15] MEDS ORDERED: DEXTROSE 5% IN WATER 1,000 ML IV SCH (11:30)
[2018-02-15] MEDS: DIGOXIN 50 MCG/ML PT SCH (15:20)
[2018-02-15] MEDS ORDERED: FAT EMULSION 20% 250 ML in PREMIX 1 BAG IV SCH (16:00)
[2018-02-15] MEDS ORDERED: [UNRECOGNIZED DRUG - REMARK] IV SCH (16:00)
[2018-02-15] MEDS: ATORVASTATIN 20 MG TABLET PO SCH (21:30)
[2018-02-16] MEDS: PIPERACILLIN SODIUM/TAZOBACTAM 4.5 GM in DEXTROSE 5% IN WATER 50 ML IV SCH ×3 (00:13→11:18)
[2018-02-16 05:37] LABS: Basophils # (Auto) 0 K/mcL (0.0-0.3); Basophils % (Auto) 0.3 % (0.0-2.0); Eosinophils # (Auto) 0.2 K/mcL (0.0-0.7); Eosinophils % (Auto) 2.8 % (0.0-7.0); Granulocytes % (Auto) 73.7 % (38.0-78.0); Lymphocytes # (Auto) 1.2 K/mcL (1.5-4.8); Mean Cell Volume 88.4 fL (80.0-100.0); Mean Corpuscular HGB Conc 32.9 g/dL (31.0-36.0); Mean Corpuscular Hemoglobin 29.1 pg (26.0-34.0); Monocytes # (Auto) 0.4 K/mcL (0.1-0.9); Monocytes % (Auto) 6.2 % (1.0-12.0); Platelet Count 253 K/mcL (140-440); RBC 3.36 M/mcL (4.00-5.20); Red Cell Distribution Width 16.4 % (11.5-14.5)
[2018-02-16] MEDS: IPRATROPIUM/ALBUTEROL 3 ML AMPUL.NEB NEB SCH ×3 (05:57→10:37)
[2018-02-16] MEDS: INSULIN LISPRO 1 UNIT/0.01 ML UNIT SQ SCH ×4 (05:59→17:54)
[2018-02-16 06:17] LABS: ALT/SGPT 24 U/l (0-40); Albumin 3.5 gm/dL (3.2-5.2); Albumin/Globulin Ratio 1.2 (1.0-2.3); Alkaline Phosphatase 55 U/L (39-117); Bilirubin,Direct < 0.2 mg/dL (0.0-0.3); Blood Urea Nitrogen 13 mg/dl (8-23); Gamma Glutamyl Transpeptidase 39 U/L (5-36); Uric Acid 1.8 mg/dL (2.5-8.0)
[2018-02-16] MEDS: CHLORHEXIDINE GLUCONATE 1 ML ORAL.SOL SWABMOUTH SCH (07:11)
[2018-02-16] MEDS: DEXTROSE 5%-1/2NS W/20MEQ KCL 1,000 ML IV SCH (07:22)
[2018-02-16] MEDS ORDERED: POTASSIUM CHLORIDE 20 MEQ PACKET PO SCH (08:00)
[2018-02-16] MEDS: VANCOMYCIN 1,000 MG in 0.9 % SODIUM CHLORIDE 250 ML IV SCH ×2 (09:00→21:36)
[2018-02-16] MEDS: FLUCONAZOLE 40 MG/ML PT SCH (11:17)
[2018-02-16] MEDS: METOPROLOL TARTRATE 50 MG TABLET PT SCH ×2 (11:17→21:36)
[2018-02-16] MEDS: ISOSORBIDE MONONITRATE 20 MG TABLET PO SCH ×2 (11:17→17:51)
[2018-02-16] MEDS: CLOPIDOGREL 75 MG TABLET PO SCH (11:18)
[2018-02-16] MEDS: LOSARTAN 25 MG TABLET PO SCH (11:18)
[2018-02-16] MEDS: MULTIVIT,THER IRON,CA,FA & MIN 1 TABLET PO SCH (11:18)
[2018-02-16] MEDS: ACETAMINOPHEN 325 MG TABLET PO PRN (11:18)
[2018-02-16] MEDS: FAMOTIDINE/PF 20 MG/2 ML VIAL IV SCH ×2 (11:18→21:36)
[2018-02-16] MEDS: SERTRALINE 100 MG TABLET PO SCH (11:23)
[2018-02-16] MEDS: ENOXAPARIN 60 MG/0.6 ML SYRINGE SQ SCH ×2 (11:23→22:26)
[2018-02-16] MEDS: 0.9 % SODIUM CHLORIDE 10 ML SYRINGE IV SCH ×2 (11:23→22:26)
[2018-02-16] MEDS ORDERED: IPRATROPIUM/ALBUTEROL 3 ML AMPUL.NEB NEB PRN ×2 (12:24→16:55)
--- NOTE | 2018-02-16 12:28 | Internal Med Progress Note ---
Medical - PN: Subj Patient information: Note initiated : 02/16/18 at 12:25 pm Service Date, if different from initiated Date: [] Patient: Dara Null a 77 y/o F admitted on 02/01/18 for Weakness, Diarrhea, Hypotension/Hypokalemia. Chief Complaint: [] Interval history: Has been stable overnight. Reviewed with nursing. Urine output continues with spontaneous diuresis - has been running about 80/hr last few hours. Diarrhea slowing, rectal tube in place, C.diff neg. No sedative drips for last 24 hours. Is slowly becoming more responsive. No other concerns in discussion with nursing staff. Patient unable to give subjective info due to intubated status. 6/ Pt seen examined, still on [place] vent, no baseline settings, ABG, CXR Reviewed, Pt is 11L positive since admission, started on IV lasix, does get a bit tachypneic when off sedation, but mental status is still quite poor, recent CT head reviewed, ammonia level is neg, ABG 7.42/35/105 plan of care reviewed with her 2 sons and her daugther, noted that mental status decline still could be lingering effect of high doses of ativan used, will wait till body clears it. avoid sedation for now, ok profol if pt gets agitated, no ativan labs reviewed, 6/3 Pt seen examined, no acute overnight events, vital signs stable, she did try to touch her ET tube last night but did not pull any lines. This AM she remained off sedation, Her mental status somewhat better, able to open eyes and try to squeeze hands to verbal commands but still quite drowsy, Her abg on wean parameters acceptable good cough reflex x ray reviewed by self, still has right lower lobe infitltrate but has no increased oxygen needs, baseline vent settings, and no incrased resp secretaions RSI index < 100 leak test positive, Patient was extubated sucessfully, somestridor noted post extubation, racemic epi given, IV steroids to be started Patient to be placed on bipap, as she has some tachypenia after extubation Monitor closely labs stable her son at bedside was updated on the plan,, / Pt seen examined, overnght did have some afib with rvr one episode of low bp yesterday, responded to IV salien, not sure if was accurate reading though. Pt hr stable now, back on home dose of digoxin 125mcg starting today, also on metoprolol 100 bid Off bipap since last night, this AM saturating well and not in resp distress, Still unable to speak well or have much [facility] has NG placed yesterday for meds and feeds, Pt improving slowly expect protracted recovery. 02/14 patient seen and examined, overnight the ET tube came back out after he was placed back in repeat chest x-ray done. Chest x-ray shows possible worsening of pneumonia on the right side and some new infiltrate on the left side, labs are stable, patient has no increased oxygen needs. Patient is likely aspirating slowly. This morning again mental status is better compared to yesterday she is able to speak a few words although softly. We are going to try and see if she is able to swallow some.ST to evaluate We were considering to see if the patient would qualify for long-term acute care facility however it seems that the family does not wish for same. Will continue with aggressive speech therapy continue nutritional support, continue antibiotics, concern for thrush yesterday and IV Diflucan was added. GI consult appreciated, diarrhea likely to tube feeds. 02/15 Pt seen examined, no acute overnight issues, intermittent confustion, but no aggression, pt often has episodes of confusion, but overall is in better condition than yesterday, we have removed the NG tube today, as the diarrhea is still significant despite the loperamide. Plan to see if TPN helps with stool output, may need a colonoscopy, Plan to see how she does on ST eval today without any NG tube, will use TPN for caloric needs Continue antibiotics for possible pna/ uti, 02/16 Patient seen and examined, no acute overnight events, hemodynamically stable continues to have intermittent confusion but slow progression slow improvement every day, is able to tolerate p.o. diet now only pured foods. Had 25% of the meals yesterday. She is on TPN. Still having diarrhea. Awaiting to see if this resolves after cessation of tube feeds if not she may need a colonoscopy. We will plan to have a family conference today. I believe that the patient may benefit from an LTAC facility given that she is on antibiotics, and is on TPN. Pertinent ROS: Denies headache, dizziness Denies chest pain, palpitations Denies cough or shortness of breath Denies abdominal pain, nausea or vomiting. soft muffled voice, denies any complaints. - Constitutional Vitals: Vital Signs Temp Pulse Resp BP Pulse Ox 97.2 F 97 H 17 159/82 94 02/16/18 07:36 02/16/18 07:49 02/16/18 07:49 02/16/18 07:36 02/16/18 07:49 Period Temp Pulse Resp BP Sys/Marques Pulse Ox Last 24 Hr 97.2 F-98.7 F 90-102 17-27 134-159/82-103 94-100 Intake and Output 02/15/18 02/16/18 02/16/18 21:59 05:59 13:59 Intake Total 350 / 350 300 / 300 1300 / 1300 Output Total 500 / 500 550 / 550 Balance -150 / -150 -250 / -250 1300 / 1300 Weight 146 lb 9.6 oz Intake & Output: Intake & Output 02/15/18 02/16/18 02/16/18 21:59 05:59 13:59 Intake Total 350 / 350 300 / 300 1300 / 1300 Output Total 500 / 500 550 / 550 Balance -150 / -150 -250 / -250 1300 / 1300 Weight 146 lb 9.6 oz Intake: IV 350 / 350 300 / 300 1300 / 1300 Dextrose 5%-1/2Ns W/20Meq KCl 1 1000 / 1000 ,000 ml @ 50 mls/hr IV .Q20H [facility] Rx#:[id number] Intralipid 20% 250 ml In Premix 250 / 250 1 Bag @ 25 mls/hr IV MoWeFr@ 1600 [facility] Rx#:[id number] Zosyn 4.5 gm In Dextrose 5% in 100 / 100 50 / 50 50 / 50 Water 50 ml @ 100 mls/hr IV Q6H [facility] Rx#:[id number] Vancomycin 1,000 mg In Sodium 250 / 250 250 / 250 Chloride 0.9% 250 ml @ 250 mls/ hr IV Q12H [facility] Rx#:[id number] Output: Urine Catheter Amount 500 / 500 500 / 500 Stool 50 / 50 Other: Meal Dinner Percent of Meal Consumed 25% Feeding Ability Total Assistance Stool Size Small Stool Color Brown Green Green Green Stool Consistency Liquid Liquid Liquid Exam: Constitutional; Afebrile, cooperative, alert, not in distress. Eyes- No icterus, , No periorbital swelling Ears- Ext ear normal, hearing normal to conversation. Neck- Midline trachea, supple Respiratory system: Air Entry equal on both sides, No crackles or wheezing, no rhonchi. CVS- Rate rhythm irregular, S1,S2 heard, no gallop, no rub. Abdomen- Soft nontender abdomen, no organomegaly, no tenderness, no guarding or rigidity, [employer]- AOOx2, moving all extremities, no gross focal deficit noted. Medical - PN: Obj Da - Labs CBC & Chem 7: 02/16/18 03:55 02/16/18 03:55 Labs: Abnormal Lab Results 02/16/18 02/16/18 02/15/18 03:55 03:55 03:51 RBC 3.36 L Hgb 9.8 L Hct 29.7 L RDW 16.4 H Gran % Lymph % (Auto) Gran # Lymph # (Auto) 1.2 L PT INR Sodium 149 H Chloride 110 H 109 H Glucose 107 H Uric Acid 1.8 L 1.9 L Calcium 8.3 L GGT 39 H 41 H Lactate Dehydrogenase 265 H Albumin Albumin/Globulin Ratio Triglycerides 02/15/18 02/14/18 02/14/18 03:51 03:36 03:36 RBC 3.54 L 3.35 L Hgb 10.2 L 9.6 L Hct 31.2 L 29.8 L RDW 16.1 H 16.6 H Gran % 83.3 H 87.2 H Lymph % (Auto) 11.3 L 8.8 L Gran # 8.2 H Lymph # (Auto) 0.9 L 0.8 L PT INR Sodium Chloride 109 H Glucose 109 H Uric Acid 1.6 L Calcium 8.5 L GGT 40 H Lactate Dehydrogenase Albumin 3.1 L Albumin/Globulin Ratio 0.9 L Triglycerides 151 H 02/14/18 03:36 RBC Hgb Hct RDW Gran % Lymph % (Auto) Gran # Lymph # (Auto) PT 15.0 H INR 1.2 H Sodium Chloride Glucose Uric Acid Calcium GGT Lactate Dehydrogenase Albumin Albumin/Globulin Ratio Triglycerides Meds: Medications Acetaminophen (Tylenol) 650 mg PO Q4-6HP PRN PRN Reason: PAIN/FEVER > 101 Last Admin: 02/16/18 11:18 Dose: 650 mg Albuterol/Ipratropium (Duoneb) 3 ml NEB Q4HP PRN PRN Reason: Shortness Of Breath Atorvastatin Calcium (Lipitor) 80 mg PO HS [facility] Last Admin: 02/15/18 21:30 Dose: 80 mg Clopidogrel Bisulfate (Plavix) 75 mg PO DAILY [facility] Last Admin: 02/16/18 11:18 Dose: 75 mg Dextrose (Dextrose 50%) 0 ml IV UD PRN PRN Reason: Hypoglycemia Diagnostic Test (Pha) (Accu-Chek) 1 each FS Q6 [facility] Last Admin: 02/16/18 11:24 Dose: 1 each Digoxin (Lanoxin Pediatric) 125 mcg PT DAILY@1400 [facility] Last Admin: 02/15/18 15:20 Dose: 125 mcg Enoxaparin Sodium (Lovenox) 60 mg SQ BID [facility] Last Admin: 02/16/18 11:23 Dose: 60 mg Famotidine (Pepcid) 20 mg IV Q12 [facility] Last Admin: 02/16/18 11:18 Dose: 20 mg Fluconazole (Diflucan) 200 mg PT DAILY [facility] Stop: 02/20/18 14:59 Last Admin: 02/16/18 11:17 Dose: 200 mg Hydralazine HCl (Apresoline) 10 mg IV Q4-6HP PRN PRN Reason: Hypertension Magnesium Sulfate (Magnesium Sulfate) 2 gm in 50 mls @ 50 mls/hr IV UD PRN PRN Reason: MG = or < 1.7 Acetaminophen (Ofirmev) 1,000 mg in 100 mls @ 200 mls/hr IV Q6HP PRN PRN Reason: PAIN/FEVER > 101 Last Infusion: 02/14/18 01:55 Dose: Infused Piperacillin Sod/Tazobactam (Sod 4.5 gm/ Dextrose) 50 mls @ 100 mls/hr IV Q6H [facility] Last Admin: 02/16/18 11:18 Dose: 100 mls/hr Vancomycin HCl 1,000 mg/ (Sodium Chloride) 250 mls @ 250 mls/hr IV Q12H [facility] Last Admin: 02/16/18 09:00 Dose: 250 mls/hr Potassium Chloride/Dextrose/Sod Cl (Dextrose 5%-1/2ns W/20meq Kcl) 1,000 mls @ 50 mls/hr IV .Q20H [facility] Stop: 02/16/18 23:14 Last Admin: 02/16/18 07:22 Dose: 50 mls/hr Fat Emulsion Intravenous 250 (ml/ Premix) 250 mls @ 25 mls/hr IV MoWeFr@1600 [facility] Last Infusion: 02/16/18 06:30 Dose: Infused Potassium Phosphate 20 meq/Multivitamins/Minerals 10 ml/Selenium 60 mcg/ Amino Acids 1,016.0455 mls @ 35 mls/hr IV DAILY@1600 [facility] Stop: 02/16/18 15:59 Last Admin: 02/15/18 15:45 Dose: 35 mls/hr Potassium Phosphate 40 meq/Multivitamins/Minerals 10 ml/Selenium 60 mcg/ Potassium Acetate 40 meq/ Amino Acids 2,040.5909 mls @ 70 mls/hr IV Q24H [facility] Insulin Human Lispro (Humalog) 0 unit SQ Q6 [facility] PRN Reason: Protocol Last Admin: 02/16/18 11:26 Dose: Not Given Iron Carb/Multivit/[place]/Folic Acid (Multivitamin W/Minerals) 1 tab PO DAILY [facility] Last Admin: 02/16/18 11:18 Dose: 1 tab Isosorbide Mononitrate (Monoket) 10 mg PO BID@0800,1500 [facility] Last Admin: 02/16/18 11:17 Dose: 10 mg Loperamide HCl (Imodium) 2 mg PO PRN PRN PRN Reason: Diarrhea Last Admin: 02/14/18 21:37 Dose: 2 mg Losartan Potassium (Cozaar) 50 mg PO QDAY [facility] Last Admin: 02/16/18 11:18 Dose: 50 mg Metoprolol Tartrate (Lopressor) 100 mg PT BID [facility] Last Admin: 02/16/18 11:17 Dose: 100 mg Nystatin (Nystatin Crm) 1 dose TOPICAL TIDP PRN PRN Reason: Skin Irritation Last Admin: 02/15/18 21:24 Dose: 1 dose Ondansetron HCl (Zofran) 4 mg IV Q4-6HP PRN PRN Reason: Nausea And Vomiting Potassium Chloride (Klor-Con) 40 meq PO BIDCC [facility] Last Admin: 02/16/18 11:17 Dose: 40 meq Sertraline HCl (Zoloft) 200 mg PO DAILY [facility] Last Admin: 02/16/18 11:23 Dose: 200 mg Sodium Chloride (Saline Flush) 10 ml IV UD PRN PRN Reason: FLUSH Last Admin: 02/14/18 10:22 Dose: 10 ml Sodium Chloride (Saline Flush) 10 ml IV Q12 [facility] Last Admin: 02/16/18 11:23 Dose: 10 ml Vancomycin HCl (Vancomycin Per Pharmacy) 1 order IV UD [facility] Medical - PN: A/P - Time Spent With Patient Total time spent is greater than 50% in coordination of care (as documented) at patient's floor/unit and/or counseling patient: - Narrative A/P Narrative: a/p Atrial fibrillation: on metoprolol and digoxin, rate better controlled, continue to monitor on tele, intermittent RVR but overall better control, continue present meds, d/c telemetery Cardiomyopathy: possible cardiac event prior to admit, low lvef, out patient follow up Hypertension: on cozaar and metoprolol continue same, bp st able. PNA : right lower and now new left side pna noted, likely aspirations, no e/o acute infection, d/c abx completed course. oral thrush: IV diflucan, improving. History of CVA in past - no significant sequelae, she had been prescribed atorvastatin and Plavix previously. Pulmonary/ Acute respiratory Failure : s/p exubation, on NIVV for 1 day, now doing well, monitor. Hypernatremia: start on d51/2 ns, sodium back to normal. Fluids/electrolytes/nutrition: replace electrolytes, mg and K, started on TPN now, NG out, this seems to be helping with oral nutrition. Dysphagia: due to sedation/ intubation, unable to swallow still, st eval to continue, slow progress on this front., able to take puree diet. History of chronic left knee pain. Was on Nucynta at admission. Prior to intubation, there were several days she did not get it due to inability to take po's and florid alcohol withdrawal symptoms. Haven't restarted. Will likely need to as she wakes up and starts to move more. Alcohol dependence: will need to quit. DT: resolving. Metabolic encephalopathy: due to etoh/ encephalopathy, ativan given during Dt, clearing up slowly, workup has been negative, very slow improvement. she has intermittent delirum but over all slow improvement. GI: Recurrent diarrhea, likely tube feeds, also component of opiate withdrawal ? not on her usual opiates due to poor mentation, alcohol related? appreciate GI Input, on imodium, may need a colonoscopy. hold tube feeds and see how she does. start on chlolestyramine and see if this helps. Anemia: Hb stable monitor, no e/o gi bleed. UTI: enterococcus, on vancomycin, continue same. total 10-14 days treatment planned. Complication prophylaxis: IV famotidine, unable to use Pradaxa via OG tube, started sq Lovenox at therapeutic doses. continue with aggresive rehab for now, Xfer to med surg status Talk to family to see if they would reconsider LTAC status, if pt is accepted. Medical - PN: Qual - VTE Deep Vein Thrombosis/Pulmonary Embolism Present on Admission: No Procedures - Arterial Line Size (Gauge): 20
[2018-02-16] MEDS ORDERED: CHOLESTYRAMINE/ASPARTAME 4 GM POWD.PACK PO SCH (12:41)
[2018-02-16] MEDS ORDERED: ALTEPLASE 2 MG VIAL IV ONE (12:55)
[2018-02-16] MEDS ORDERED: MAGNESIUM CITRATE 300 ML ORAL.SOL PO ONE (13:07)
[2018-02-16] MEDS: DIGOXIN 50 MCG/ML PT SCH (14:05)
[2018-02-16] MEDS ORDERED: IPRATROPIUM/ALBUTEROL 3 ML AMPUL.NEB NEB SCH (15:00)
--- NOTE | 2018-02-16 15:47 | XRay Report ---
CLINICAL INFORMATION: NG placement COMPARISON: 02/14/2018 FINDINGS: NG tube overlies the gastric body. Stool gas pattern is unremarkable. No free air or soft tissue mass. IMPRESSION: NG tube overlies the proximal gastric body. Interpreted and Authenticated by: Mushtaq Ware 02/16/18
[2018-02-16] MEDS ORDERED: [UNRECOGNIZED DRUG - REMARK] IV SCH ×2 (16:00)
[2018-02-16] MEDS ORDERED: DEXTROSE 5%-1/2NS W/20MEQ KCL 1,000 ML IV SCH (16:55)
[2018-02-16] MEDS ORDERED: TPN PER PHARMACY IV SCH (16:55)
[2018-02-16] MEDS ORDERED: LOPERAMIDE 2 MG CAPSULE PO PRN (16:55)
[2018-02-16] MEDS ORDERED: ACETAMINOPHEN 1,000 MG/100 ML BOTTLE IV PRN (16:55)
[2018-02-16] MEDS ORDERED: MAGNESIUM SULFATE 2 GM/50 ML BAG IV PRN (16:55)
[2018-02-16] MEDS ORDERED: ONDANSETRON 4 MG/2 ML VIAL IV PRN (16:55)
[2018-02-16] MEDS ORDERED: hydrALAZINE 20 MG/ML VIAL IV PRN (16:55)
[2018-02-16] MEDS ORDERED: DEXTROSE 50% 50 ML VIAL IV PRN (16:55)
[2018-02-16] MEDS ORDERED: VANCOMYCIN PER PHARMACY IV SCH (16:55)
[2018-02-16] MEDS: POTASSIUM CHLORIDE 20 MEQ PACKET PO SCH (17:31)
[2018-02-16] MEDS ORDERED: PEG 3350/NA SULF,BICARB,CL/KCL 4,000 ML ORAL.SOL PT ONE (18:36)
[2018-02-16] MEDS: ATORVASTATIN 20 MG TABLET PO SCH (21:35)
[2018-02-17] MEDS: INSULIN LISPRO 1 UNIT/0.01 ML UNIT SQ SCH ×4 (00:25→18:15)
[2018-02-17 07:02] LABS: Basophils # (Auto) 0 K/mcL (0.0-0.3); Basophils % (Auto) 0.5 % (0.0-2.0); Eosinophils # (Auto) 0.2 K/mcL (0.0-0.7); Eosinophils % (Auto) 2.5 % (0.0-7.0); Granulocytes % (Auto) 77.6 % (38.0-78.0); Lymphocytes % (Auto) 13.4 % (15.5-49.0); Mean Corpuscular HGB Conc 32.8 g/dL (31.0-36.0); Mean Corpuscular Hemoglobin 29.2 pg (26.0-34.0); Monocytes # (Auto) 0.4 K/mcL (0.1-0.9); Platelet Count 266 K/mcL (140-440); RBC 3.42 M/mcL (4.00-5.20); Red Cell Distribution Width 16.7 % (11.5-14.5)
[2018-02-17] MEDS ORDERED: KETAMINE 10 MG/ML ML IV PRN ×2 (07:07→07:25)
[2018-02-17] MEDS ORDERED: MIDAZOLAM 2 MG/2 ML VIAL IV SCH ×2 (07:15→07:30)
[2018-02-17] MEDS ORDERED: PROPOFOL 200 MG/20 ML VIAL IV SCH ×2 (07:15→07:30)
[2018-02-17 07:33] LABS: ALT/SGPT 23 U/l (0-40); Albumin 3.6 gm/dL (3.2-5.2); Albumin/Globulin Ratio 1.1 (1.0-2.3); Alkaline Phosphatase 55 U/L (39-117); Bilirubin,Direct < 0.2 mg/dL (0.0-0.3); Blood Urea Nitrogen 14 mg/dl (8-23); Gamma Glutamyl Transpeptidase 38 U/L (5-36); Uric Acid 1.7 mg/dL (2.5-8.0)
[2018-02-17] MEDS ORDERED: FLUCONAZOLE 40 MG/ML PO SCH (09:00)
[2018-02-17] MEDS: VANCOMYCIN 1,000 MG in 0.9 % SODIUM CHLORIDE 250 ML IV SCH ×2 (09:00→21:51)
[2018-02-17] MEDS ORDERED: HETASTARCH 6% 30 GM/500 ML BAG IV ONE (09:30)
[2018-02-17] MEDS ORDERED: METHYLENE BLUE 50 MG/10 ML AMPUL ONE (10:01)
[2018-02-17] MEDS ORDERED: METHYLENE BLUE 50 MG/10 ML AMPUL INJ ONE (10:03)
[2018-02-17] MEDS: 0.9 % SODIUM CHLORIDE 10 ML SYRINGE IV SCH ×2 (12:32→21:36)
[2018-02-17] MEDS: ENOXAPARIN 60 MG/0.6 ML SYRINGE SQ SCH ×2 (12:32→21:35)
[2018-02-17] MEDS: FAMOTIDINE/PF 20 MG/2 ML VIAL IV SCH ×2 (12:32→21:36)
--- NOTE | 2018-02-17 13:23 | XRay Report ---
CLINICAL INFORMATION: NG placement COMPARISON: 02/14/2018 FINDINGS: NG tube tip overlies the gastric antrum. Stool gas pattern is normal. No free air, soft tissue mass or organomegaly IMPRESSION: NG tube is optimally positioned. No acute disease Interpreted and Authenticated by: Mushtaq Ware 02/17/18
[2018-02-17] MEDS ORDERED: DIGOXIN 50 MCG/ML PT SCH (14:00)
[2018-02-17] MEDS: POTASSIUM CHLORIDE 20 MEQ PACKET PO SCH ×2 (15:02→16:03)
[2018-02-17] MEDS: ISOSORBIDE MONONITRATE 20 MG TABLET PO SCH ×2 (15:02)
[2018-02-17] MEDS: CLOPIDOGREL 75 MG TABLET PO SCH (15:03)
[2018-02-17] MEDS: METOPROLOL TARTRATE 50 MG TABLET PT SCH (15:03)
[2018-02-17] MEDS: MULTIVIT,THER IRON,CA,FA & MIN 1 TABLET PO SCH (15:03)
[2018-02-17] MEDS: FLUCONAZOLE 40 MG/ML PO SCH (15:04)
[2018-02-17] MEDS: LOSARTAN 25 MG TABLET PO SCH (15:06)
[2018-02-17] MEDS: SERTRALINE 100 MG TABLET PO SCH (15:20)
[2018-02-17] MEDS ORDERED: [UNRECOGNIZED DRUG - REMARK] IV SCH (16:00)
[2018-02-17] MEDS ORDERED: FAT EMULSION 20% 250 ML in PREMIX 1 BAG IV SCH (16:00)
[2018-02-17] MEDS ORDERED: [UNRECOGNIZED DRUG - REMARK] IV SCH (16:00)
--- NOTE | 2018-02-17 16:19 | Internal Med Progress Note ---
Medical - PN: Subj Patient information: Note initiated : 02/17/18 at 4:15 pm Service Date, if different from initiated Date: [] Patient: Dara Null a 77 y/o F admitted on 02/01/18 for Weakness, Diarrhea, Hypotension/Hypokalemia. Chief Complaint: [] Interval history: Has been stable overnight. Reviewed with nursing. Urine output continues with spontaneous diuresis - has been running about 80/hr last few hours. Diarrhea slowing, rectal tube in place, C.diff neg. No sedative drips for last 24 hours. Is slowly becoming more responsive. No other concerns in discussion with nursing staff. Patient unable to give subjective info due to intubated status. 6/ [facility] seen examined[facility], no baseline settings, ABG, CXR Reviewed, Pt is 11L positive since admission, started on IV lasix, does get a bit tachypneic when off sedation, but mental status is still quite poor, recent CT head reviewed, ammonia level is neg, ABG 7.42/35/105 plan of care reviewed with her 2 sons and her daugther, noted that mental status decline still could be lingering effect of high doses of ativan used, will wait till body clears it. avoid sedation for now, ok profol if pt gets agitated, no ativan labs reviewed, 6/3 Pt seen examined, no acute overnight events, vital signs stable, she did try to touch her ET tube last night but did not pull any lines. This AM she remained off sedation, Her mental status somewhat better, able to open eyes and try to squeeze hands to verbal commands but still quite drowsy, Her abg on wean parameters acceptable good cough reflex x ray reviewed by self, still has right lower lobe infitltrate but has no increased oxygen needs, baseline vent settings, and no incrased resp secretaions RSI index < 100 leak test positive, Patient was extubated sucessfully, somestridor noted post extubation, racemic epi given, IV steroids to be started Patient to be placed on bipap, as she has some tachypenia after extubation Monitor closely labs stable her son at bedside was updated on the plan,, / Pt seen examined, overnght did have some afib with rvr one episode of low bp yesterday, responded to IV salien, not sure if was accurate reading though. Pt hr stable now, back on home dose of digoxin 125mcg starting today, also on metoprolol 100 bid Off bipap since last night, this AM saturating well and not in resp distress, Still unable to speak well or have much st richa has NG placed yesterday for meds and feeds, Pt improving slowly expect protracted recovery. 02/14 patient seen and examined, overnight the ET tube came back out after he was placed back in repeat chest x-ray done. Chest x-ray shows possible worsening of pneumonia on the right side and some new infiltrate on the left side, labs are stable, patient has no increased oxygen needs. Patient is likely aspirating slowly. This morning again mental status is better compared to yesterday she is able to speak a few words although softly. We are going to try and see if she is able to swallow some.ST to evaluate We were considering to see if the patient would qualify for long-term acute care facility however it seems that the family does not wish for same. Will continue with aggressive speech therapy continue nutritional support, continue antibiotics, concern for thrush yesterday and IV Diflucan was added. GI consult appreciated, diarrhea likely to tube feeds. 02/15 Pt seen examined, no acute overnight issues, intermittent confustion, but no aggression, pt often has episodes of confusion, but overall is in better condition than yesterday, we have removed the NG tube today, as the diarrhea is still significant despite the loperamide. Plan to see if TPN helps with stool output, may need a colonoscopy, Plan to see how she does on ST eval today without any NG tube, will use TPN for caloric needs Continue antibiotics for possible pna/ uti, 02/16 Patient seen and examined, no acute overnight events, hemodynamically stable continues to have intermittent confusion but slow progression slow improvement every day, is able to tolerate p.o. diet now only pured foods. Had 25% of the meals yesterday. She is on TPN. Still having diarrhea. Awaiting to see if this resolves after cessation of tube feeds if not she may need a colonoscopy. We will plan to have a family conference today. I believe that the patient may benefit from an LTAC facility given that she is on antibiotics, and is on TPN. 02/17 Pt seen examined this am doing better than yesteday, NPO still for high risk of aspiration NG placed for med administration, needed bowel prep, colonoscopy today, results pending Pt denies any acute complaints. Pertinent ROS: soft voice denies any complaints not happy with the NG tube. Denies headache, dizziness Denies chest pain, palpitations Denies cough or shortness of breath Denies abdominal pain, nausea or vomiting. - Constitutional Vitals: Vital Signs Temp Pulse Resp BP Pulse Ox 97 F 94 H 16 125/11 98 02/17/18 11:47 02/17/18 10:25 02/17/18 11:47 02/17/18 11:47 02/17/18 11:47 Period Temp Pulse Resp BP Sys/Marques Pulse Ox Last 24 Hr 96.9 F-98.9 F 80-101 16-27 104-179/11-124 95-100 Intake and Output 02/17/18 02/17/18 02/17/18 05:59 13:59 21:59 Intake Total 250 / 250 1367 / 1367 320 / 320 Output Total 1900 / 1900 825 / 825 Balance -1650 / -1650 1367 / 1367 -505 / -505 Weight 151 lb 11.2 oz Patient Weight 02/18/18 05:59 Weight 151 lb 11.2 oz Intake & Output: Intake & Output 02/17/18 02/17/18 02/17/18 05:59 13:59 21:59 Intake Total 250 / 250 1367 / 1367 320 / 320 Output Total 1900 / 1900 825 / 825 Balance -1650 / -1650 1367 / 1367 -505 / -505 Weight 151 lb 11.2 oz Intake: IV 250 / 250 1367 / 1367 Potassium Phosphate 40 Meq 1117 / 1117 Infuvite Adult 10 ml Selenium 60 Mcg Potassium Acetate 40 Meq In Clinimix 5%-20% Solution 2, 000 ml @ 70 mls/hr IV Q24H [facility] Rx#:[id number] Vancomycin 1,000 mg In Sodium 250 / 250 250 / 250 Chloride 0.9% 250 ml @ 250 mls/ hr IV Q12H [facility] Rx#:[id number] Other 320 / 320 Output: Urine Catheter Amount 700 / 700 825 / 825 Stool 1200 / 1200 Other: Stool Size Moderate Stool Color Green Stool Consistency Liquid Exam: Constitutional; Afebrile, cooperative, alert, not in distress. Eyes- No icterus, , No periorbital swelling Ears- Ext ear normal,. Neck- Midline trachea, supple Respiratory system: Air Entry equal on both sides, No crackles or wheezing, no rhonchi. CVS- Rate rhythm irregular, S1,S2 heard, no gallop, no rub. Abdomen- Soft nontender abdomen, no organomegaly, no tenderness, no guarding or rigidity, ENDS DOWN CHECKER- AOOx2, moving all extremities, no gross focal deficit noted. has generalized weakness Medical - PN: Obj Da - Labs CBC & Chem 7: 02/17/18 03:45 02/17/18 03:45 Labs: Abnormal Lab Results 02/17/18 02/17/18 02/16/18 03:45 03:45 03:55 RBC 3.42 L Hgb 10.0 L Hct 30.4 L RDW 16.7 H Gran % Lymph % (Auto) 13.4 L Lymph # (Auto) 1.0 L Sodium Chloride 110 H Carbon Dioxide 21 L Glucose 107 H Uric Acid 1.7 L 1.8 L Calcium 8.3 L 8.3 L GGT 38 H 39 H Lactate Dehydrogenase 02/16/18 02/15/18 02/15/18 03:55 03:51 03:51 RBC 3.36 L 3.54 L Hgb 9.8 L 10.2 L Hct 29.7 L 31.2 L RDW 16.4 H 16.1 H Gran % 83.3 H Lymph % (Auto) 11.3 L Lymph # (Auto) 1.2 L 0.9 L Sodium 149 H Chloride 109 H Carbon Dioxide Glucose Uric Acid 1.9 L Calcium GGT 41 H Lactate Dehydrogenase 265 H Meds: Medications Acetaminophen (Tylenol) 650 mg PO Q4-6HP PRN PRN Reason: PAIN/FEVER > 101 Albuterol/Ipratropium (Duoneb) 3 ml NEB Q4HP PRN PRN Reason: Shortness Of Breath Atorvastatin Calcium (Lipitor) 80 mg PO HS [facility] Last Admin: 02/16/18 21:35 Dose: 80 mg Clopidogrel Bisulfate (Plavix) 75 mg PO DAILY [facility] Last Admin: 02/17/18 15:03 Dose: 75 mg Dextrose (Dextrose 50%) 0 ml IV UD PRN PRN Reason: Hypoglycemia Diagnostic Test (Pha) (Accu-Chek) 1 each FS Q6 [facility] Last Admin: 02/17/18 12:24 Dose: 1 each Digoxin (Lanoxin Pediatric) 125 mcg PT DAILY@1400 [facility] Last Admin: 02/17/18 15:04 Dose: 125 mcg Enoxaparin Sodium (Lovenox) 60 mg SQ BID [facility] Last Admin: 02/17/18 12:32 Dose: 60 mg Famotidine (Pepcid) 20 mg IV Q12 [facility] Last Admin: 02/17/18 12:32 Dose: 20 mg Fluconazole (Diflucan) 200 mg PO DAILY [facility] Stop: 02/20/18 08:59 Last Admin: 02/17/18 15:04 Dose: 200 mg Hydralazine HCl (Apresoline) 10 mg IV Q4-6HP PRN PRN Reason: Hypertension Last Admin: 02/17/18 03:30 Dose: 10 mg Fat Emulsion Intravenous 250 (ml/ Premix) 250 mls @ 25 mls/hr IV MoWeFr@1600 [facility] Last Admin: 02/17/18 15:49 Dose: 25 mls/hr Magnesium Sulfate (Magnesium Sulfate) 2 gm in 50 mls @ 50 mls/hr IV UD PRN PRN Reason: MG = or < 1.7 Acetaminophen (Ofirmev) 1,000 mg in 100 mls @ 200 mls/hr IV Q6HP PRN PRN Reason: PAIN/FEVER > 101 Vancomycin HCl 1,000 mg/ (Sodium Chloride) 250 mls @ 250 mls/hr IV Q12H [facility] Last Infusion: 02/17/18 11:00 Dose: Infused Potassium Phosphate 20 meq/Multivitamins/Minerals 10 ml/Selenium 60 mcg/ Potassium Acetate 20 meq/ Amino Acids 1,026.0455 mls @ 70 mls/hr IV Q14H [facility] Stop: 02/18/18 05:59 Last Admin: 02/17/18 15:50 Dose: 70 mls/hr Potassium Phosphate 20 meq/Multivitamins/Minerals 10 ml/Selenium 60 mcg/ Potassium Acetate 20 meq/ Amino Acids 1,026.0455 mls @ 70 mls/hr IV Q14H [facility] Stop: 02/18/18 19:59 Insulin Human Lispro (Humalog) 0 unit SQ Q6 [facility] PRN Reason: Protocol Last Admin: 02/17/18 15:05 Dose: Not Given Iron Carb/Multivit/Wilson/Folic Acid (Multivitamin W/Minerals) 1 tab PO DAILY [facility] Last Admin: 02/17/18 15:03 Dose: 1 tab Isosorbide Mononitrate (Monoket) 10 mg PO BID@0800,1500 [facility] Last Admin: 02/17/18 15:02 Dose: 10 mg Loperamide HCl (Imodium) 2 mg PO PRN PRN PRN Reason: Diarrhea Losartan Potassium (Cozaar) 50 mg PO QDAY [facility] Last Admin: 02/17/18 15:06 Dose: 50 mg Metoprolol Tartrate (Lopressor) 100 mg PT BID [facility] Last Admin: 02/17/18 15:03 Dose: 100 mg Nystatin (Nystatin Crm) 1 dose TOPICAL TIDP PRN PRN Reason: Skin Irritation Ondansetron HCl (Zofran) 4 mg IV Q4-6HP PRN PRN Reason: Nausea And Vomiting Potassium Chloride (Klor-Con) 40 meq PO BIDCC [facility] Last Admin: 02/17/18 16:03 Dose: Not Given Sertraline HCl (Zoloft) 200 mg PO DAILY [facility] Last Admin: 02/17/18 15:20 Dose: 200 mg Sodium Chloride (Saline Flush) 10 ml IV UD PRN PRN Reason: FLUSH Sodium Chloride (Saline Flush) 10 ml IV Q12 [facility] Last Admin: 02/17/18 12:32 Dose: 10 ml Vancomycin HCl (Vancomycin Per Pharmacy) 1 order IV UD [facility] Medical - PN: A/P - Time Spent With Patient Total time spent is greater than 50% in coordination of care (as documented) at patient's floor/unit and/or counseling patient: - Narrative A/P Narrative: a/p Atrial fibrillation: on metoprolol and digoxin, rate better controlled, Cardiomyopathy: possible cardiac event prior to admit, low lvef, out patient follow up Hypertension: on cozaar and metoprolol continue same, bp st able. PNA : right lower and now new left side pna noted, likely aspirations, no e/o acute infection, d/c abx completed course. repeat CXR done showed much improved lung knapp oral thrush: IV diflucan, improving. total 7 days of abx planned History of CVA in past - no significant sequelae, she had been prescribed atorvastatin and Plavix previously. Pulmonary/ Acute respiratory Failure : s/p exubation, on NIVV for 1 day, now doing well, monitor. Hypernatremia: start on d51/2 ns, sodium back to normal. Fluids/electrolytes/nutrition: replace electrolytes, mg and K, started on TPN now, NG back in for med admisnistation. Dysphagia: due to sedation/ intubation, unable to swallow still, st eval to continue, History of chronic left knee pain. Was on Nucynta at admission. Prior to intubation, there were several days she did not get it due to inability to take po's and florid alcohol withdrawal symptoms. Haven't restarted. Will likely need to as she wakes up and starts to move more. Alcohol dependence: will need to quit. DT: resolving. Metabolic encephalopathy: due to etoh/ encephalopathy, ativan given during Dt, clearing up slowly, workup has been negative, very slow improvement. she has intermittent delirum but over all slow improvement. GI: Recurrent diarrhea, likely tube feeds, also component of opiate withdrawal ? not on her usual opiates due to poor mentation, alcohol related? appreciate GI Input, colonoscopy todya, await results, microscopic colitis? consider cholestyramine for diarrhea Anemia: Hb stable monitor, no e/o gi bleed. UTI: enterococcus, on vancomycin, continue same. total 10-14 days treatment planned. Complication prophylaxis: IV famotidine, unable to use Pradaxa via OG tube, started sq Lovenox at therapeutic doses. continue with aggresive rehab for now, Xfer to med surg status family agreed to LTAC placement, hopefully on tuesday Medical - PN: Qual - VTE Deep Vein Thrombosis/Pulmonary Embolism Present on Admission: No Procedures - Arterial Line Size (Gauge): 20
[2018-02-17] MEDS: cloNIDine HCL 0.1 MG TABLET SL SCH ×2 (21:34)
[2018-02-17] MEDS: ATORVASTATIN 20 MG TABLET PO SCH (21:35)
[2018-02-17] MEDS: METOPROLOL TARTRATE 50 MG TABLET PO SCH (21:35)
[2018-02-17] MEDS: 0.9 % SODIUM CHLORIDE 10 ML SYRINGE IV PRN (21:40)
[2018-02-18] MEDS: INSULIN LISPRO 1 UNIT/0.01 ML UNIT SQ SCH ×5 (01:43→23:54)
[2018-02-18] MEDS ORDERED: [UNRECOGNIZED DRUG - REMARK] IV SCH (06:00)
[2018-02-18] MEDS: 0.9 % SODIUM CHLORIDE 10 ML SYRINGE IV PRN (06:19)
[2018-02-18 07:40] LABS: Basophils # (Auto) 0 K/mcL (0.0-0.3); Basophils % (Auto) 0.2 % (0.0-2.0); Eosinophils # (Auto) 0.1 K/mcL (0.0-0.7); Eosinophils % (Auto) 2.5 % (0.0-7.0); Granulocytes % (Auto) 74.2 % (38.0-78.0); Lymphocytes # (Auto) 0.9 K/mcL (1.5-4.8); Lymphocytes % (Auto) 16.2 % (15.5-49.0); Mean Cell Volume 87.9 fL (80.0-100.0); Monocytes # (Auto) 0.4 K/mcL (0.1-0.9); Monocytes % (Auto) 6.9 % (1.0-12.0); Platelet Count 251 K/mcL (140-440); RBC 3.24 M/mcL (4.00-5.20); Red Cell Distribution Width 16.7 % (11.5-14.5)
[2018-02-18 08:01] LABS: Prealbumin 24.6 mg/dl (20-40)
[2018-02-18 08:02] LABS: ALT/SGPT 20 U/l (0-40); Albumin 3.2 gm/dL (3.2-5.2); Alkaline Phosphatase 54 U/L (39-117); Bilirubin,Direct < 0.2 mg/dL (0.0-0.3); Blood Urea Nitrogen 16 mg/dl (8-23); Gamma Glutamyl Transpeptidase 32 U/L (5-36); Uric Acid 1.7 mg/dL (2.5-8.0)
[2018-02-18] MEDS: POTASSIUM CHLORIDE 20 MEQ PACKET PO SCH (09:46)
[2018-02-18] MEDS: ISOSORBIDE MONONITRATE 20 MG TABLET PO SCH ×2 (09:47→16:21)
[2018-02-18] MEDS: FAMOTIDINE/PF 20 MG/2 ML VIAL IV SCH ×2 (09:47→20:16)
[2018-02-18] MEDS: FLUCONAZOLE 40 MG/ML PO SCH (09:48)
[2018-02-18] MEDS: ENOXAPARIN 60 MG/0.6 ML SYRINGE SQ SCH ×2 (09:49→20:16)
[2018-02-18] MEDS ORDERED: VANCOMYCIN 1,000 MG in 0.9 % SODIUM CHLORIDE 250 ML IV SCH (10:00)
[2018-02-18] MEDS: MULTIVIT,THER IRON,CA,FA & MIN 1 TABLET PO SCH (10:10)
[2018-02-18] MEDS: SERTRALINE 100 MG TABLET PO SCH (10:10)
[2018-02-18] MEDS: LOSARTAN 25 MG TABLET PO SCH (10:10)
[2018-02-18] MEDS: METOPROLOL TARTRATE 50 MG TABLET PO SCH ×2 (10:10→22:04)
[2018-02-18] MEDS: CLOPIDOGREL 75 MG TABLET PO SCH (10:11)
[2018-02-18] MEDS: 0.9 % SODIUM CHLORIDE 10 ML SYRINGE IV SCH ×2 (10:11→20:17)
[2018-02-18] MEDS: VANCOMYCIN 1,000 MG in 0.9 % SODIUM CHLORIDE 250 ML IV SCH (10:56)
[2018-02-18] MEDS ORDERED: CYANOCOBALAMIN 1,000 MCG/ML VIAL SQ SCH (14:00)
[2018-02-18] MEDS: NYSTATIN CRM 1 DOSE TUBE TOPICAL PRN (16:22)
--- NOTE | 2018-02-18 18:41 | Internal Med Progress Note ---
Medical - PN: Subj Patient information: Note initiated : 02/18/18 at 6:33 pm Service Date, if different from initiated Date: [] Patient: Dara Null a 77 y/o F admitted on 02/01/18 for Weakness, Diarrhea, Hypotension/Hypokalemia. Chief Complaint: [] Interval history: 77 yo WF has hx CAD, afib, alcoholism. her about 3 months ago and she has been depressed and drinking more and eating less. She lost about 20lbs. She was admitted with hypokalemia and dehydration last month and just prior to discharge for that treated illness she developed severe alcohol withdrawal. The patient was extubated and reintubated at least once for respiratory failure. She also had prolonged obtundation attributed to benzodiazepine toxicity. last PM she pulled out her own NG. She was mildly agitated. I gave her one dose of clonidine 0.3 mg and for some reason the continuing order was stopped by someone. Today her son Mushtaq who is next of kin met with me and we discussed pts history, hospital course and prognosis. Today pt is following conversation patiently with good eye contact and a weak and slow to respond voice and affect. She answers all questions appropriately but is not oriented beyond hospital and self. Pt was noted to have aspiration on 02/13 but since NGT out has tolerated meds with applesauce ok. Also stronger on transfers to and from bed. Still having diarrhea dark green but small amount now. - Constitutional Vitals: Vital Signs Temp Pulse Resp BP Pulse Ox 97.7 F 94 H 20 133/79 96 02/18/18 16:00 02/18/18 16:00 02/18/18 16:00 02/18/18 16:00 02/18/18 16:00 Period Temp Pulse Resp BP Sys/Marques Pulse Ox Last 24 Hr 97.0 F-97.8 F 84-96 18-22 123-151/79-87 96-98 Intake and Output 02/18/18 02/18/18 02/18/18 05:59 13:59 21:59 Intake Total 500 / 500 1276.0455 / 1276.0455 50 / 50 Output Total 775 / 775 750 / 750 650 / 650 Balance -275 / -650 846.1831 / 526.0455 -600 / -600 Weight 149 lb Patient Weight 02/19/18 05:59 Weight 149 lb Intake & Output: Intake & Output 02/18/18 02/18/18 02/18/18 05:59 13:59 21:59 Intake Total 500 / 500 1276.0455 / 1276.0455 50 / 50 Output Total 775 / 775 750 / 750 650 / 650 Balance -275 / -093 842.4357 / 526.0455 -600 / -600 Weight 149 lb Intake: IV 500 / 500 1276.0455 / 1276.0455 Intralipid 20% 250 ml In Premix 250 / 250 1 Bag @ 25 mls/hr IV MoWeFr@ 1600 [facility] Rx#:[id number] Potassium Phosphate 20 Meq 1026.0455 / 1026.0455 Infuvite Adult 10 ml Selenium 60 Mcg Potassium Acetate 20 Meq In Clinimix 5%-20% Solution 1, 000 ml @ 70 mls/hr IV Q14H [facility] Rx#:[id number] Vancomycin 1,000 mg In Sodium 250 / 250 250 / 250 Chloride 0.9% 250 ml @ 250 mls/ hr IV Q24H [facility] Rx#:[id number] Oral 50 / 50 Output: Urine Catheter Amount 775 / 775 750 / 750 250 / 250 Urine/Stool Mix 400 / 400 Other: Meal Dinner Percent of Meal Consumed 5 Feeding Ability Total Assistance Stool Size Smear Moderate Stool Color Green Black Stool Consistency Loose - Respiratory Respiratory exam: Present: normal respiratory exam, CTAB. Absent: accessory muscle use, rales, respiratory distress, rhonchi, stridor, wheezes - Cardiovascular Cardiovascular exam: Present: irregular rhythm Additional comments: rate controlled - GI/Abdominal GI/Abdominal exam: Present: normal bowel sounds, soft. Absent: rebound, tenderness - Extremities Exam Extremities exam: Absent: pedal edema - Neurological Exam Neurological exam: Present: alert, altered (flat affect slowed responses but appropriate) - Expanded Neurological Exam Neurological exam: Absent: tremor (no tremor today. weak in raising arms no pronator drift) Patient oriented to: Present: person, place Cranial nerves: gag reflex: Normal, tongue deviation: Normal Cerebellar function: finger to nose: Abnormal Left, Abnormal Right (slow and deliberate required coaching. minimal tremor) Coma Scale Eye Opening: Spontaneous Coma Scale Motor Response: Obeys Commands Coma Scale Verbal Response: Oriented Coma Scale Total: 15 - Psychiatric Psychiatric exam: Present: flat affect. Absent: normal mood (reports depression and loss of appetite) - Skin Skin exam: Present: dry, warm Medical - PN: Obj Da - Labs CBC & Chem 7: 02/18/18 06:18 02/18/18 06:18 Labs: Abnormal Lab Results 02/18/18 02/18/18 02/17/18 06:18 06:18 03:45 RBC 3.24 L Hgb 9.4 L Hct 28.4 L RDW 16.7 H Lymph % (Auto) Lymph # (Auto) 0.9 L Chloride Carbon Dioxide 21 L 21 L Glucose 110 H Uric Acid 1.7 L 1.7 L Calcium 8.3 L 8.3 L GGT 38 H 02/17/18 02/16/18 02/16/18 03:45 03:55 03:55 RBC 3.42 L 3.36 L Hgb 10.0 L 9.8 L Hct 30.4 L 29.7 L RDW 16.7 H 16.4 H Lymph % (Auto) 13.4 L Lymph # (Auto) 1.0 L 1.2 L Chloride 110 H Carbon Dioxide Glucose 107 H Uric Acid 1.8 L Calcium 8.3 L GGT 39 H Meds: Medications Acetaminophen (Tylenol) 650 mg PO Q4-6HP PRN PRN Reason: PAIN/FEVER > 101 Albuterol/Ipratropium (Duoneb) 3 ml NEB Q4HP PRN PRN Reason: Shortness Of Breath Atorvastatin Calcium (Lipitor) 80 mg PO HS [facility] Last Admin: 02/17/18 21:35 Dose: Not Given Clopidogrel Bisulfate (Plavix) 75 mg PO DAILY [facility] Last Admin: 02/18/18 10:11 Dose: 75 mg Cyanocobalamin (Vitamin B12) 1,000 mcg SQ WEEKLY [facility] Dextrose (Dextrose 50%) 0 ml IV UD PRN PRN Reason: Hypoglycemia Diagnostic Test (Pha) (Accu-Chek) 1 each FS Q6 [facility] Last Admin: 02/18/18 17:45 Dose: 1 each Enoxaparin Sodium (Lovenox) 60 mg SQ BID [facility] Last Admin: 02/18/18 09:49 Dose: 60 mg Famotidine (Pepcid) 20 mg IV Q12 [facility] Last Admin: 02/18/18 09:47 Dose: 20 mg Fat Emulsion Intravenous 250 (ml/ Premix) 250 mls @ 25 mls/hr IV MoWeFr@1600 [facility] Last Infusion: 02/18/18 01:44 Dose: Infused Potassium Phosphate 20 meq/Multivitamins/Minerals 10 ml/Selenium 60 mcg/ Sodium Phosphate 20 mmol/ Sodium Acetate 20 meq/ Amino Acids 1,032.7122 mls @ 70 mls/ hr IV Q14H [facility] Thiamine HCl 100 mg/ Sodium (Chloride) 51 mls @ 50 mls/hr IV DAILY [facility] Stop: 02/21/18 10:02 Insulin Human Lispro (Humalog) 0 unit SQ Q6 [facility] PRN Reason: Protocol Last Admin: 02/18/18 17:45 Dose: Not Given Iron Carb/Multivit/[place]/Folic Acid (Multivitamin W/Minerals) 1 tab PO DAILY [facility] Last Admin: 02/18/18 10:10 Dose: 1 tab Isosorbide Mononitrate (Monoket) 10 mg PO BID@0800,1500 [facility] Last Admin: 02/18/18 16:21 Dose: 10 mg Loperamide HCl (Imodium) 2 mg PO PRN PRN PRN Reason: Diarrhea Metoprolol Tartrate (Lopressor) 50 mg PO BID [facility] Last Admin: 02/18/18 10:10 Dose: 50 mg Nystatin (Nystatin Crm) 1 dose TOPICAL TIDP PRN PRN Reason: Skin Irritation Last Admin: 02/18/18 16:22 Dose: 1 dose Ondansetron HCl (Zofran) 4 mg IV Q4-6HP PRN PRN Reason: Nausea And Vomiting Sertraline HCl (Zoloft) 200 mg PO DAILY [facility] Last Admin: 02/18/18 10:10 Dose: 200 mg Sodium Chloride (Saline Flush) 10 ml IV UD PRN PRN Reason: FLUSH Last Admin: 02/18/18 06:19 Dose: 10 ml Sodium Chloride (Saline Flush) 10 ml IV Q12 [facility] Last Admin: 02/18/18 10:11 Dose: 10 ml Medical - PN: A/P - Time Spent With Patient Total time spent is greater than 50% in coordination of care (as documented) at patient's floor/unit and/or counseling patient: Greater than 35 minutes (1) Benzodiazepine causing adverse effect in therapeutic use Status: Acute Assessment and plan: improving. No sedation needed currently and no need for pain meds either. Increase activity Current Visit: Yes (2) Alcohol withdrawal Status: Resolved Assessment and plan: essentially resolved. Mild agitation treated with clonidine yesterday. Very calm and cooperative, appropriate and appreciative of care today Current Visit: Yes (3) Atrial fibrillation Status: Chronic Assessment and plan: is on dabigatran home med Current Visit: Yes (4) Transient ischemic attack (TIA) Status: Chronic Assessment and plan: cant exclude new TIA but suspect lethargy and flat affect is residual of alcohol withdrawal and benzo effect. Current Visit: No (5) Coronary artery disease Problem details: occluded nondominant right coronary artery and minimal disease elsewhere Status: Chronic Assessment and plan: stable no chest pain Current Visit: No (6) Dysphagia Status: Acute Assessment and plan: improving. tolerated puree and honey thick liquid today. Speech Swallow not available today. Current Visit: Yes Medical - PN: Qual - VTE Deep Vein Thrombosis/Pulmonary Embolism Present on Admission: No Procedures - Arterial Line Size (Gauge): 20
[2018-02-18] MEDS: ATORVASTATIN 20 MG TABLET PO SCH (20:21)
[2018-02-18] MEDS ORDERED: [UNRECOGNIZED DRUG - REMARK] IV SCH (21:00)
[2018-02-19] MEDS: 0.9 % SODIUM CHLORIDE 10 ML SYRINGE IV PRN (04:24)
[2018-02-19] MEDS: INSULIN LISPRO 1 UNIT/0.01 ML UNIT SQ SCH ×4 (05:49→23:02)
[2018-02-19 06:57] LABS: Basophils # (Auto) 0 K/mcL (0.0-0.3); Basophils % (Auto) 0.4 % (0.0-2.0); Eosinophils # (Auto) 0.1 K/mcL (0.0-0.7); Eosinophils % (Auto) 1.2 % (0.0-7.0); Granulocytes % (Auto) 70.9 % (38.0-78.0); Lymphocytes # (Auto) 1.2 K/mcL (1.5-4.8); Lymphocytes % (Auto) 18.9 % (15.5-49.0); Mean Cell Volume 88.4 fL (80.0-100.0); Mean Corpuscular HGB Conc 33.3 g/dL (31.0-36.0); Mean Corpuscular Hemoglobin 29.4 pg (26.0-34.0); Monocytes # (Auto) 0.5 K/mcL (0.1-0.9); Monocytes % (Auto) 8.6 % (1.0-12.0); Platelet Count 240 K/mcL (140-440); RBC 3.16 M/mcL (4.00-5.20); Red Cell Distribution Width 16.3 % (11.5-14.5)
[2018-02-19 08:07] LABS: ALT/SGPT 17 U/l (0-40); Albumin 3.2 gm/dL (3.2-5.2); Albumin/Globulin Ratio 1.1 (1.0-2.3); Alkaline Phosphatase 52 U/L (39-117); Bilirubin,Direct < 0.2 mg/dL (0.0-0.3); Blood Urea Nitrogen 20 mg/dl (8-23); Gamma Glutamyl Transpeptidase 29 U/L (5-36)
[2018-02-19 08:14] LABS: Prealbumin 23.8 mg/dl (20-40)
[2018-02-19] MEDS: ISOSORBIDE MONONITRATE 20 MG TABLET PO SCH ×2 (09:18→16:54)
[2018-02-19] MEDS: SERTRALINE 100 MG TABLET PO SCH (09:39)
[2018-02-19] MEDS: MULTIVIT,THER IRON,CA,FA & MIN 1 TABLET PO SCH (09:40)
[2018-02-19] MEDS: CLOPIDOGREL 75 MG TABLET PO SCH ×2 (09:40→11:24)
[2018-02-19] MEDS: FAMOTIDINE/PF 20 MG/2 ML VIAL IV SCH ×2 (09:40→20:43)
[2018-02-19] MEDS: ENOXAPARIN 60 MG/0.6 ML SYRINGE SQ SCH ×2 (09:41→11:26)
[2018-02-19] MEDS: THIAMINE 100 MG in 0.9 % SODIUM CHLORIDE 50 ML IV SCH (09:41)
[2018-02-19] MEDS: 0.9 % SODIUM CHLORIDE 10 ML SYRINGE IV SCH ×2 (09:42→20:46)
[2018-02-19] MEDS: NYSTATIN CRM 1 DOSE TUBE TOPICAL PRN (09:43)
[2018-02-19] MEDS: METOPROLOL TARTRATE 50 MG TABLET PO SCH ×2 (11:10→20:43)
[2018-02-19] MEDS: [UNRECOGNIZED DRUG - REMARK] IV SCH (13:00)
[2018-02-19] MEDS: CHOLESTYRAMINE/ASPARTAME 4 GM POWD.PACK PO SCH ×3 (14:56→20:07)
[2018-02-19] MEDS: ACETAMINOPHEN 325 MG TABLET PO PRN (17:33)
--- NOTE | 2018-02-19 17:41 | Internal Med Progress Note ---
Medical - PN: Subj Patient information: Note initiated : 02/19/18 at 5:38 pm Service Date, if different from initiated Date: [] Patient: Dara Null a 77 y/o F admitted on 02/01/18 for Weakness, Diarrhea, Hypotension/Hypokalemia. Chief Complaint: [poor appetite] Interval history: 77 yo WF has hx CAD, afib, alcoholism. her about 3 months ago and she has been depressed and drinking more and eating less. She lost about 20lbs. She was admitted with hypokalemia and dehydration last month and just prior to discharge for that treated illness she developed severe alcohol withdrawal. The patient was extubated and reintubated at least once for respiratory failure. She also had prolonged obtundation attributed to benzodiazepine toxicity. on 02/17 PM she pulled out her own NG. She was mildly agitated. I gave her one dose of clonidine 0.3 mg and for some reason the continuing order was stopped by someone but pt has no longer been agitated. Started on thiamine yesterday and first iv dose this morning. Pt has been eating puree diet without coughing or respiratory compromise. changed to soft mechanical dysphagia 3 diet with nectar thick liquids. Diarrhea is lessened. Pt still with whisper voice and says cant make normal voice. - Constitutional Vitals: Vital Signs Temp Pulse Resp BP Pulse Ox 97.9 F 115 H 20 127/79 98 02/19/18 11:35 02/19/18 11:35 02/19/18 11:35 02/19/18 11:35 02/19/18 11:35 Period Temp Pulse Resp BP Sys/Marques Pulse Ox Last 24 Hr 97.4 F-98.1 F 90-115 14-20 95-131/62-79 96-98 Intake and Output 02/19/18 02/19/18 02/19/18 05:59 13:59 21:59 Intake Total 1327.0455 / 1327.0455 340 / 340 Output Total 700 / 700 500 / 500 Balance -700 / -136 500.9317 / 827.0455 340 / 340 Intake & Output: Intake & Output 02/19/18 02/19/18 02/19/18 05:59 13:59 21:59 Intake Total 1327.0455 / 1327.0455 340 / 340 Output Total 700 / 700 500 / 500 Balance -700 / -279 596.0083 / 827.0455 340 / 340 Intake: IV 1077.0455 / 1077.0455 Vitamin B1 100 mg In Sodium 51 / 51 Chloride 0.9% 50 ml @ 50 mls/hr IV DAILY [facility] Rx#:[id number] Oral 250 / 250 340 / 340 Output: Void Amount 225 / 225 500 / 500 Urine/Stool Mix 475 / 475 Other: Meal Breakfast Lunch Percent of Meal Consumed 25% 35 Feeding Ability Total Assistance Stool Size Small Small Stool Color Brown Stool Consistency Loose Soft Formed # Bowel Movements 1 - Head Head exam: Present: atraumatic - Respiratory Respiratory exam: Present: normal respiratory exam, CTAB. Absent: rales, respiratory distress, wheezes - Cardiovascular Cardiovascular exam: Present: irregular rhythm, tachycardia - GI/Abdominal GI/Abdominal exam: Present: soft - Extremities Exam Extremities exam: Present: pedal edema (trace) - Psychiatric Psychiatric exam: Present: normal affect, normal mood Additional comments: says doesnt want to feed self. - Skin Skin exam: Present: dry, warm Medical - PN: Obj Da - Labs CBC & Chem 7: 02/19/18 04:26 02/19/18 04:26 Labs: Abnormal Lab Results 02/19/18 02/19/18 02/18/18 04:26 04:26 06:18 RBC 3.16 L Hgb 9.3 L Hct 27.9 L RDW 16.3 H Lymph % (Auto) Lymph # (Auto) 1.2 L Carbon Dioxide 20 L 21 L Glucose 110 H Uric Acid 2.0 L 1.7 L Calcium 7.9 L 8.3 L GGT 02/18/18 02/17/18 02/17/18 06:18 03:45 03:45 RBC 3.24 L 3.42 L Hgb 9.4 L 10.0 L Hct 28.4 L 30.4 L RDW 16.7 H 16.7 H Lymph % (Auto) 13.4 L Lymph # (Auto) 0.9 L 1.0 L Carbon Dioxide 21 L Glucose Uric Acid 1.7 L Calcium 8.3 L GGT 38 H Meds: Medications Acetaminophen (Tylenol) 650 mg PO Q4-6HP PRN PRN Reason: PAIN/FEVER > 101 Last Admin: 02/19/18 17:33 Dose: 650 mg Albuterol/Ipratropium (Duoneb) 3 ml NEB Q4HP PRN PRN Reason: Shortness Of Breath Atorvastatin Calcium (Lipitor) 80 mg PO HS [facility] Last Admin: 02/18/18 20:21 Dose: 80 mg Cholestyramine Resin (Questran Light) 4 gm PO BID@0700,2000 [facility] Last Admin: 02/19/18 14:56 Dose: 4 gm Clopidogrel Bisulfate (Plavix) 75 mg PO DAILY [facility] Last Admin: 02/19/18 11:24 Dose: Not Given Cyanocobalamin (Vitamin B12) 1,000 mcg SQ WEEKLY [facility] Dextrose (Dextrose 50%) 0 ml IV UD PRN PRN Reason: Hypoglycemia Diagnostic Test (Pha) (Accu-Chek) 1 each FS Q6 [facility] Last Admin: 02/19/18 16:54 Dose: 1 each Enoxaparin Sodium (Lovenox) 60 mg SQ BID [facility] Last Admin: 02/19/18 11:26 Dose: Not Given Famotidine (Pepcid) 20 mg IV Q12 [facility] Last Admin: 02/19/18 09:40 Dose: 20 mg Fat Emulsion Intravenous 250 (ml/ Premix) 250 mls @ 25 mls/hr IV [id number]@1600 [facility] Last Infusion: 02/18/18 01:44 Dose: Infused Thiamine HCl 100 mg/ Sodium (Chloride) 51 mls @ 50 mls/hr IV DAILY [facility] Stop: 02/21/18 10:02 Last Infusion: 02/19/18 13:00 Dose: Infused Multivitamins/Minerals 10 ml/Selenium 60 mcg/ Sodium Acetate 20 meq/ Sodium Chloride 20 meq/ Potassium Acetate 30 meq/ Amino Acids 1,041.5 mls @ 70 mls/hr IV Q15H [facility] Last Admin: 02/19/18 13:00 Dose: 70 mls/hr Insulin Human Lispro (Humalog) 0 unit SQ Q6 [facility] PRN Reason: Protocol Last Admin: 02/19/18 16:55 Dose: Not Given Iron Carb/Multivit/[place]/Folic Acid (Multivitamin W/Minerals) 1 tab PO DAILY [facility] Last Admin: 02/19/18 09:40 Dose: 1 tab Isosorbide Mononitrate (Monoket) 10 mg PO BID@0800,1500 [facility] Last Admin: 02/19/18 16:54 Dose: 10 mg Loperamide HCl (Imodium) 2 mg PO PRN PRN PRN Reason: Diarrhea Metoprolol Tartrate (Lopressor) 50 mg PO BID [facility] Last Admin: 02/19/18 11:10 Dose: 50 mg Nystatin (Nystatin Crm) 1 dose TOPICAL TIDP PRN PRN Reason: Skin Irritation Last Admin: 02/19/18 09:43 Dose: 1 dose Ondansetron HCl (Zofran) 4 mg IV Q4-6HP PRN PRN Reason: Nausea And Vomiting Sertraline HCl (Zoloft) 200 mg PO DAILY [facility] Last Admin: 02/19/18 09:39 Dose: 200 mg Sodium Chloride (Saline Flush) 10 ml IV UD PRN PRN Reason: FLUSH Last Admin: 02/19/18 04:24 Dose: 10 ml Sodium Chloride (Saline Flush) 10 ml IV Q12 [facility] Last Admin: 02/19/18 09:42 Dose: 10 ml Medical - PN: A/P - Time Spent With Patient Total time spent is greater than 50% in coordination of care (as documented) at patient's floor/unit and/or counseling patient: Greater than 35 minutes (1) Benzodiazepine causing adverse effect in therapeutic use Status: Acute Assessment and plan: improving. No sedation needed currently and no need for pain meds either. Increase activity Current Visit: Yes (2) Alcohol withdrawal Status: Resolved Assessment and plan: essentially resolved. Mild agitation treated with clonidine yesterday. Very calm and cooperative, appropriate and appreciative of care today Current Visit: Yes (3) Atrial fibrillation Status: Chronic Assessment and plan: is on dabigatran home med. Lovenox stopped for now. Cont plavix. Hold anticoagulation for couple of days. Current Visit: Yes (4) Transient ischemic attack (TIA) Status: Chronic Assessment and plan: cant exclude new TIA but suspect lethargy and flat affect is residual of alcohol withdrawal and benzo effect. continues to improve mental status Current Visit: No (5) Coronary artery disease Problem details: occluded nondominant right coronary artery and minimal disease elsewhere Status: Chronic Assessment and plan: stable no chest pain cont plavix Current Visit: No (6) Dysphagia Status: Acute Assessment and plan: improving. tolerated soft mechanical and nectar thick today. Speech Swallow not available today. Current Visit: Yes Medical - PN: Qual - VTE Deep Vein Thrombosis/Pulmonary Embolism Present on Admission: No Procedures - Arterial Line Size (Gauge): 20
[2018-02-19] MEDS: ATORVASTATIN 20 MG TABLET PO SCH (20:43)
[2018-02-20] MEDS: [UNRECOGNIZED DRUG - REMARK] IV SCH (04:09)
[2018-02-20] MEDS: 0.9 % SODIUM CHLORIDE 10 ML SYRINGE IV PRN (04:09)
[2018-02-20] MEDS: INSULIN LISPRO 1 UNIT/0.01 ML UNIT SQ SCH ×3 (05:20→18:38)
[2018-02-20 06:44] LABS: Basophils # (Auto) 0 K/mcL (0.0-0.3); Basophils % (Auto) 0.2 % (0.0-2.0); Eosinophils # (Auto) 0 K/mcL (0.0-0.7); Eosinophils % (Auto) 0.2 % (0.0-7.0); Granulocytes % (Auto) 74.6 % (38.0-78.0); Lymphocytes # (Auto) 1.1 K/mcL (1.5-4.8); Lymphocytes % (Auto) 15.6 % (15.5-49.0); Mean Cell Volume 88.6 fL (80.0-100.0); Mean Corpuscular HGB Conc 33.3 g/dL (31.0-36.0); Mean Corpuscular Hemoglobin 29.5 pg (26.0-34.0); Monocytes # (Auto) 0.7 K/mcL (0.1-0.9); Monocytes % (Auto) 9.4 % (1.0-12.0); Platelet Count 273 K/mcL (140-440); Red Cell Distribution Width 16.9 % (11.5-14.5)
[2018-02-20 07:00] LABS: ALT/SGPT 17 U/l (0-40); Albumin 3.8 gm/dL (3.2-5.2); Albumin/Globulin Ratio 1.1 (1.0-2.3); Alkaline Phosphatase 59 U/L (39-117); Bilirubin,Direct < 0.2 mg/dL (0.0-0.3); Blood Urea Nitrogen 19 mg/dl (8-23); Gamma Glutamyl Transpeptidase 32 U/L (5-36); Uric Acid 2.1 mg/dL (2.5-8.0)
[2018-02-20] MEDS: FAMOTIDINE/PF 20 MG/2 ML VIAL IV SCH (10:41)
[2018-02-20] MEDS: CLOPIDOGREL 75 MG TABLET PO SCH ×2 (10:42→17:42)
[2018-02-20] MEDS: SERTRALINE 100 MG TABLET PO SCH ×2 (10:42→13:23)
[2018-02-20] MEDS: ISOSORBIDE MONONITRATE 20 MG TABLET PO SCH ×3 (10:43→17:45)
[2018-02-20] MEDS: METOPROLOL TARTRATE 50 MG TABLET PO SCH ×2 (10:43→17:42)
[2018-02-20] MEDS: 0.9 % SODIUM CHLORIDE 10 ML SYRINGE IV SCH ×3 (10:48→22:07)
[2018-02-20] MEDS: THIAMINE 100 MG in 0.9 % SODIUM CHLORIDE 50 ML IV SCH (10:48)
--- NOTE | 2018-02-20 12:50 | Surgical Pathology Report ---
HISTOLOGY SPECIMEN MICROSCOPIC DIAGNOSIS SPECIMEN A - COLON, ASCENDING, POLYPECTOMY: -- FIVE FRAGMENTS OF TUBULAR ADENOMA(S). SPECIMEN B - COLON, RANDOM, BIOPSY: -- NO DIAGNOSTIC ALTERATIONS. -- NO ARCHITECTURAL DISTORTION, ACTIVE COLITIS, GRANULOMAS OR MICROSCOPIC COLITIS IDENTIFIED. SPECIMEN C - COLON, TRANSVERSE LESION BASE, BIOPSY: -- INVASIVE MODERATELY DIFFERENTIATED ADENOCARCINOMA. SPECIMEN D - COLON, SIGMOID, POLYPECTOMY: -- TWO FRAGMENTS OF HYPERPLASTIC POLYP(S). (DMT:rita) CLINICAL HISTORY Diarrhea. PROCEDURAL IMPRESSION Malignant appearing lesion; polyps; (?) microscopic colitis. GROSS DESCRIPTION Specimen A: Received in formalin labeled ascending polyp, are four pink-coulter tissue fragments 0.2 to 0.5 cm. Also in the container is a 1.4 x 0.6 x 0.2 cm pink disrupted tissue fragment. The margin of the largest fragment is inked black and it is sectioned. Totally submitted - one cassette. Specimen B: Received in formalin labeled random colon biopsy, are eight pink-coulter tissue fragments 0.2 to 0.7 cm. Totally submitted - one cassette. Specimen C: Received in formalin labeled transverse colon lesion base biopsy, are six pink-coulter tissue fragments less than 0.1 to 0.5 cm. Totally submitted - one cassette. Specimen D: Received in formalin labeled rectosigmoid polyp (req states sigmoid), are two pink-coulter tissue fragments 0.4 and 0.5 cm. Totally submitted - one cassette. (GAS:sln) Electronically Signed by: Avila Gonzalez M.D.
[2018-02-20] MEDS: CHOLESTYRAMINE/ASPARTAME 4 GM POWD.PACK PO SCH ×2 (13:08→20:55)
[2018-02-20] MEDS: ENOXAPARIN 40 MG/0.4 ML SYRINGE SQ SCH (13:22)
[2018-02-20] MEDS: MULTIVIT,THER IRON,CA,FA & MIN 1 TABLET PO SCH (13:23)
[2018-02-20] MEDS ORDERED: traMADol 50 MG TABLET PO PRN (13:23)
--- NOTE | 2018-02-20 13:25 | Internal Med Progress Note ---
Medical - PN: Subj Patient information: Note initiated : 02/20/18 at 1:24 pm Service Date, if different from initiated Date: [] Patient: Dara Null a 77 y/o F admitted on 02/01/18 for Weakness, Diarrhea, Hypotension/Hypokalemia. Chief Complaint: planned transfer to LTAC Interval history: 77 yo WF with continued improvement overnight. Pt tracking and following conversation at hand. Voice still quite weak. Appetite is poor but swallowing has been without complication as advanced this weekend to soft mechanical and nectar thick. Taking meds ok. Pt no longer requires abx or tpn care home so not qualify or require LTAC any longer. Sons concerned about diarrhea but none overnight. Stool loose yesterday none today. - Constitutional Vitals: Vital Signs Temp Pulse Resp BP Pulse Ox 97.6 F 100 H 20 154/85 98 02/20/18 06:21 02/20/18 04:04 02/20/18 06:21 02/20/18 06:21 02/20/18 06:21 Period Temp Pulse Resp BP Sys/Marques Pulse Ox Last 24 Hr 97.6 F-98.1 F 87-100 18-22 127-156/75-85 94-99 Intake and Output 02/19/18 02/20/18 02/20/18 21:59 05:59 13:59 Intake Total 460 / 460 1161.5 / 1161.5 Output Total 750 / 750 825 / 825 325 / 325 Balance -290 / -290 336.5 / 336.5 -325 / -325 Weight 143 lb 8 oz Intake & Output: Intake & Output 02/19/18 02/20/18 02/20/18 21:59 05:59 13:59 Intake Total 460 / 460 1161.5 / 1161.5 Output Total 750 / 750 825 / 825 325 / 325 Balance -290 / -290 336.5 / 336.5 -325 / -325 Weight 143 lb 8 oz Intake: IV 1041.5 / 1041.5 Infuvite Adult 10 ml Selenium 1041.5 / 1041.5 60 Mcg Sodium Acetate 20 Meq Sodium Chloride 20 Meq Potassium Acetate 30 Meq In Clinimix 5%-20% Solution 1,000 ml @ 70 mls/hr IV Q15H [facility] Rx#: [id number] Oral 460 / 460 120 / 120 Output: Void Amount 750 / 750 825 / 825 325 / 325 Other: Meal Dinner Percent of Meal Consumed 25% Feeding Ability Total Assistance Stool Size Small Stool Color Brown Stool Consistency Soft # Bowel Movements 1 - Neck Neck exam: Present: normal inspection. Absent: tenderness - Cardiovascular Cardiovascular exam: Present: irregular rhythm - GI/Abdominal GI/Abdominal exam: Present: soft. Absent: rebound, rigid, tenderness - Expanded Lower Extremity Exam Lower leg exam: Absent: erythema, swelling - Neurological Exam Neurological exam: Present: alert. Absent: oriented X3 Additional comments: EOMI, face symmetric tongue protrusion is midline hand and arm strength equal no tremors. - Psychiatric Psychiatric exam: Present: flat affect - Skin Skin exam: Present: dry, warm Medical - PN: Obj Da - Labs CBC & Chem 7: 02/20/18 04:15 02/20/18 04:15 Labs: Abnormal Lab Results 02/20/18 02/20/18 02/19/18 04:15 04:15 04:26 RBC 3.50 L Hgb 10.3 L Hct 31.0 L RDW 16.9 H Lymph # (Auto) 1.1 L Carbon Dioxide 20 L Glucose Uric Acid 2.1 L 2.0 L Calcium 7.9 L Triglycerides 171 H 02/19/18 02/18/18 02/18/18 04:26 06:18 06:18 RBC 3.16 L 3.24 L Hgb 9.3 L 9.4 L Hct 27.9 L 28.4 L RDW 16.3 H 16.7 H Lymph # (Auto) 1.2 L 0.9 L Carbon Dioxide 21 L Glucose 110 H Uric Acid 1.7 L Calcium 8.3 L Triglycerides Meds: Medications Acetaminophen (Tylenol) 650 mg PO Q4-6HP PRN PRN Reason: PAIN/FEVER > 101 Last Admin: 02/19/18 17:33 Dose: 650 mg Albuterol/Ipratropium (Duoneb) 3 ml NEB Q4HP PRN PRN Reason: Shortness Of Breath Atorvastatin Calcium (Lipitor) 80 mg PO HS [facility] Last Admin: 02/19/18 20:43 Dose: 80 mg Cholestyramine Resin (Questran Light) 4 gm PO BID@1000,2000 [facility] Last Admin: 02/20/18 13:08 Dose: Not Given Clopidogrel Bisulfate (Plavix) 75 mg PO DAILY [facility] Last Admin: 02/19/18 11:24 Dose: Not Given Cyanocobalamin (Vitamin B12) 1,000 mcg SQ WEEKLY [facility] Dextrose (Dextrose 50%) 0 ml IV UD PRN PRN Reason: Hypoglycemia Stop: 02/21/18 00:01 Diagnostic Test (Pha) (Accu-Chek) 1 each FS Q6 [facility] Stop: 02/21/18 00:01 Last Admin: 02/20/18 05:19 Dose: 1 each Enoxaparin Sodium (Lovenox) 40 mg SQ DAILY [facility] Last Admin: 02/20/18 13:22 Dose: 40 mg Famotidine (Pepcid) 20 mg IV Q12 [facility] Last Admin: 02/20/18 10:41 Dose: 20 mg Thiamine HCl 100 mg/ Sodium (Chloride) 51 mls @ 50 mls/hr IV DAILY [facility] Stop: 02/21/18 10:02 Last Admin: 02/20/18 10:48 Dose: 51 mls/hr Multivitamins/Minerals 10 ml/Selenium 60 mcg/ Sodium Acetate 20 meq/ Sodium Chloride 20 meq/ Potassium Acetate 30 meq/ Amino Acids 1,041.5 mls @ 70 mls/hr IV Q15H [facility] Stop: 02/20/18 19:00 Last Admin: 02/20/18 04:09 Dose: 70 mls/hr Insulin Human Lispro (Humalog) 0 unit SQ Q6 [facility] PRN Reason: Protocol Stop: 02/21/18 00:01 Last Admin: 02/20/18 05:20 Dose: Not Given Iron Carb/Multivit/[place]/Folic Acid (Multivitamin W/Minerals) 1 tab PO DAILY [facility] Last Admin: 02/20/18 13:23 Dose: Not Given Isosorbide Mononitrate (Monoket) 10 mg PO BID@0800,1500 [facility] Last Admin: 02/20/18 13:22 Dose: Not Given Loperamide HCl (Imodium) 2 mg PO PRN PRN PRN Reason: Diarrhea Metoprolol Tartrate (Lopressor) 50 mg PO BID [facility] Last Admin: 02/19/18 20:43 Dose: 50 mg Nystatin (Nystatin Crm) 1 dose TOPICAL TIDP PRN PRN Reason: Skin Irritation Last Admin: 02/19/18 09:43 Dose: 1 dose Ondansetron HCl (Zofran) 4 mg IV Q4-6HP PRN PRN Reason: Nausea And Vomiting Sertraline HCl (Zoloft) 200 mg PO DAILY [facility] Last Admin: 02/20/18 13:23 Dose: 100 mg Sodium Chloride (Saline Flush) 10 ml IV UD PRN PRN Reason: FLUSH Last Admin: 02/20/18 04:09 Dose: 10 ml Sodium Chloride (Saline Flush) 10 ml IV Q12 [facility] Last Admin: 02/20/18 10:48 Dose: 10 ml Tramadol HCl (Ultram) 50 mg PO Q6HP PRN PRN Reason: Pain Medical - PN: A/P - Time Spent With Patient Total time spent is greater than 50% in coordination of care (as documented) at patient's floor/unit and/or counseling patient: Greater than 35 minutes (1) Benzodiazepine causing adverse effect in therapeutic use Status: Acute Assessment and plan: nearly resolved. Pt more interactive. Request meds for arthritis hand pain Current Visit: Yes (2) Alcohol withdrawal Status: Resolved Assessment and plan: essentially resolved. Not agitated. no sedation required. Cooperative. Will cont to personal counselor for abstinence. Current Visit: Yes (3) Atrial fibrillation Status: Chronic Assessment and plan: is on dabigatran home med. Lovenox limited to DVT prophylaxis dose. Cont plavix. Hold full anticoagulation till taking PO well Current Visit: Yes (4) Transient ischemic attack (TIA) Status: Chronic Assessment and plan: cant exclude new TIA. vocal cord shows right cord incomplete closer but responsive movement on speech. ENT Dr. Batista will cont to follow. Says nerve ischemia likely cause. No trauma signs seen. No infection seen on cord. Current Visit: No (5) Coronary artery disease Problem details: occluded nondominant right coronary artery and minimal disease elsewhere Status: Chronic Assessment and plan: stable no chest pain cont plavix Current Visit: No (6) Dysphagia Status: Acute Assessment and plan: improving. tolerated soft mechanical and nectar thick today. Speech Swallow reevaluation requested Current Visit: Yes (7) Dysphonia Status: Acute Current Visit: Yes (8) Hypofunctional dysphonia Status: Acute Assessment and plan: ENT Dr. Batista examined pt at my request and finds right vocal cord paresis but not paralysis or trauma or infection Current Visit: Yes (9) Chronic alcoholic pancreatitis Status: Acute Assessment and plan: pt reports previous pancreas. Resume pancreas and recently started cholestyramine for diarrhea. Current Visit: Yes (10) Colonic cancer Status: Acute Assessment and plan: colonoscopy for diarrhea this admission found transverse colon cancer small. will need resection and workup plan when improved from acute illness and medically ready. Current Visit: Yes - Narrative A/P Narrative: transfer discontinued. wean TPN off. Cont diet. start megace for appetite. Medical - PN: Qual - VTE Deep Vein Thrombosis/Pulmonary Embolism Present on Admission: No Procedures - Arterial Line Size (Gauge): 20
[2018-02-20] MEDS: LIPASE/PROTEASE/AMYLASE 1 CAP CAPSULE PO SCH (17:46)
[2018-02-21] MEDS: INSULIN LISPRO 1 UNIT/0.01 ML UNIT SQ SCH (00:12)
[2018-02-21] MEDS: FAMOTIDINE 20 MG TABLET PO SCH ×3 (00:19→21:26)
[2018-02-21] MEDS: METOPROLOL TARTRATE 50 MG TABLET PO SCH ×3 (00:19→19:40)
[2018-02-21] MEDS: ATORVASTATIN 20 MG TABLET PO SCH ×2 (00:20→21:25)
[2018-02-21] MEDS: ISOSORBIDE MONONITRATE 20 MG TABLET PO SCH ×3 (08:30→21:32)
[2018-02-21] MEDS ORDERED: MEGESTROL ACETATE 400 MG/10 ML ORAL.SUSP PO STA (10:29)
[2018-02-21] MEDS: ACETAMINOPHEN 325 MG TABLET PO PRN ×2 (10:49→21:29)
[2018-02-21] MEDS: THIAMINE 100 MG in 0.9 % SODIUM CHLORIDE 50 ML IV SCH (10:51)
[2018-02-21] MEDS: GABAPENTIN 100 MG CAPSULE PO SCH ×2 (10:53→18:28)
[2018-02-21] MEDS: MULTIVIT,THER IRON,CA,FA & MIN 1 TABLET PO SCH (11:20)
[2018-02-21] MEDS: CLOPIDOGREL 75 MG TABLET PO SCH (11:20)
[2018-02-21] MEDS: SERTRALINE 100 MG TABLET PO SCH (11:24)
[2018-02-21] MEDS: ENOXAPARIN 40 MG/0.4 ML SYRINGE SQ SCH (11:24)
[2018-02-21] MEDS: 0.9 % SODIUM CHLORIDE 10 ML SYRINGE IV PRN (11:28)
[2018-02-21] MEDS ORDERED: GABAPENTIN 100 MG CAPSULE PO SCH (14:00)
--- NOTE | 2018-02-21 15:02 | Internal Med Progress Note ---
Medical - PN: Subj Patient information: Note initiated : 02/21/18 at 2:59 pm Service Date, if different from initiated Date: [] Patient: Dara Null a 77 y/o F admitted on 02/01/18 for Weakness, Diarrhea, Hypotension/Hypokalemia. Chief Complaint: [] Interval history: 77 yo WF with continued improvement in cognition daily but still very reluctant and unwilling to participate in physical therapy or eat. Pt tracking and following conversation at hand. Voice still quite weak and she is slow to respond verbally Appetite is poor but swallowing has been without complication as advanced overnight to soft mechanical and thin liquids. Taking meds ok. Pt no longer requires abx or tpn residential so not qualify or require LTAC any longer. Diarrhea has stopped on pancreas and cholestyramine. Patient tells me she just does not have an appetite and does not want to eat. She does not want to but still does not want to eat. She does not want me to give her food down the IV. She did take her morning Megace without complaint and has been better about taking her other morning medications as well. Ex Patient's son Tito is present at bedside and is in agreement with the plan to continue and try and urge patient activity, participation and eating. - Constitutional Vitals: Vital Signs Temp Pulse Resp BP Pulse Ox 96.8 F L 67 16 143/89 90 02/21/18 12:22 02/21/18 12:22 02/21/18 12:22 02/21/18 12:22 02/21/18 12:22 Period Temp Pulse Resp BP Sys/Marques Pulse Ox Last 24 Hr 96.8 F-98.3 F 67-117 16-20 139-183/84-95 90-98 Intake and Output 02/21/18 02/21/18 02/21/18 05:59 13:59 21:59 Intake Total 10 / 10 Output Total 450 / 450 200 / 200 Balance -440 / -440 -200 / -200 Intake & Output: Intake & Output 02/21/18 02/21/18 02/21/18 05:59 13:59 21:59 Intake Total 10 / 10 Output Total 450 / 450 200 / 200 Balance -440 / -440 -200 / -200 Intake: Oral Output: Void Amount 450 / 450 200 / 200 - Respiratory Respiratory exam: Present: normal respiratory exam - Cardiovascular Cardiovascular exam: Present: irregular rhythm - Extremities Exam Extremities exam: Absent: pedal edema - Neurological Exam Neurological exam: Present: alert. Absent: oriented X3 Additional comments: Oriented to hospital but not town name of hospital or date Medical - PN: Obj Da - Labs CBC & Chem 7: 02/20/18 04:15 02/20/18 04:15 Labs: Abnormal Lab Results 02/20/18 02/20/18 02/19/18 04:15 04:15 04:26 RBC 3.50 L Hgb 10.3 L Hct 31.0 L RDW 16.9 H Lymph # (Auto) 1.1 L Carbon Dioxide 20 L Uric Acid 2.1 L 2.0 L Calcium 7.9 L Triglycerides 171 H 02/19/18 04:26 RBC 3.16 L Hgb 9.3 L Hct 27.9 L RDW 16.3 H Lymph # (Auto) 1.2 L Carbon Dioxide Uric Acid Calcium Triglycerides Meds: Medications Acetaminophen (Tylenol) 650 mg PO Q4-6HP PRN PRN Reason: PAIN/FEVER > 101 Last Admin: 02/21/18 10:49 Dose: 650 mg Albuterol/Ipratropium (Duoneb) 3 ml NEB Q4HP PRN PRN Reason: Shortness Of Breath Lipase/Protease/Amylase (Creon) 1 cap PO TIDCC [facility] Last Admin: 02/20/18 17:46 Dose: Not Given Atorvastatin Calcium (Lipitor) 40 mg PO HS [facility] Last Admin: 02/21/18 00:20 Dose: Not Given Cholestyramine Resin (Questran Light) 4 gm PO BID@1000,2000 [facility] Last Admin: 02/20/18 20:55 Dose: 4 gm Clopidogrel Bisulfate (Plavix) 75 mg PO DAILY [facility] Last Admin: 02/21/18 11:20 Dose: 75 mg Cyanocobalamin (Vitamin B12) 1,000 mcg SQ WEEKLY [facility] Dronabinol (Marinol) 5 mg PO BID@1130,1700 [facility] Enoxaparin Sodium (Lovenox) 40 mg SQ DAILY [facility] Last Admin: 02/21/18 11:24 Dose: 40 mg Famotidine (Pepcid) 20 mg PO BID [facility] Last Admin: 02/21/18 11:19 Dose: 20 mg Gabapentin (Neurontin) 100 mg PO Q8 [facility] Last Admin: 02/21/18 10:53 Dose: 100 mg Iron Carb/Multivit/[employer]/Folic Acid (Multivitamin W/Minerals) 1 tab PO DAILY [facility] Last Admin: 02/21/18 11:20 Dose: 1 tab Isosorbide Mononitrate (Monoket) 10 mg PO BID@0800,1500 [facility] Last Admin: 02/21/18 08:30 Dose: 10 mg Loperamide HCl (Imodium) 2 mg PO PRN PRN PRN Reason: Diarrhea Megestrol Acetate (Megace) 400 mg PO BID [facility] Metoprolol Tartrate (Lopressor) 50 mg PO BID [facility] Last Admin: 02/21/18 10:50 Dose: 50 mg Nystatin (Nystatin Crm) 1 dose TOPICAL TIDP PRN PRN Reason: Skin Irritation Last Admin: 02/19/18 09:43 Dose: 1 dose Ondansetron HCl (Zofran) 4 mg IV Q4-6HP PRN PRN Reason: Nausea And Vomiting Sertraline HCl (Zoloft) 200 mg PO DAILY [facility] Last Admin: 02/21/18 11:24 Dose: Not Given Sodium Chloride (Saline Flush) 10 ml IV UD PRN PRN Reason: FLUSH Last Admin: 02/21/18 11:28 Dose: 10 ml Sodium Chloride (Saline Flush) 10 ml IV Q12 [facility] Last Admin: 02/20/18 22:07 Dose: 10 ml Sodium Chloride (Saline Flush) 10 ml IV Q12 [facility] Last Admin: 02/20/18 22:07 Dose: 10 ml Tramadol HCl (Ultram) 50 mg PO Q6HP PRN PRN Reason: Pain Medical - PN: A/P - Time Spent With Patient Total time spent is greater than 50% in coordination of care (as documented) at patient's floor/unit and/or counseling patient: Greater than 35 minutes (1) Benzodiazepine causing adverse effect in therapeutic use Status: Acute Assessment and plan: nearly resolved. Patient still still limited in her participation but has had some hand pain treated with tramadol and will start Neurontin today. Given her dysphonia which was associated to past stroke but then nearly completely resolved as well as her altered and resistant personality change will pursue MRI of the brain without contrast today to look for stroke Current Visit: Yes (2) Alcohol withdrawal Status: Resolved Assessment and plan: essentially resolved. Not agitated. no sedation required. Cooperative. Will cont to counseling center director for abstinence. Current Visit: Yes (3) Atrial fibrillation Status: Chronic Assessment and plan: is on dabigatran home med. Lovenox limited to DVT prophylaxis dose. Cont plavix. Hold full anticoagulation till taking PO well Current Visit: Yes (4) Transient ischemic attack (TIA) Status: Chronic Assessment and plan: cant exclude new TIA. vocal cord shows right cord incomplete closer but responsive movement on speech. ENT Dr. Batista will cont to follow. Says nerve ischemia likely cause. No trauma signs seen. No infection seen on cord. MRI today to look for possible stroke Current Visit: No (5) Coronary artery disease Problem details: occluded nondominant right coronary artery and minimal disease elsewhere Status: Chronic Assessment and plan: stable no chest pain cont plavix Current Visit: No (6) Dysphagia Status: Acute Assessment and plan: improving. tolerated soft mechanical and clear liquids today Current Visit: Yes (7) Dysphonia Status: Acute Assessment and plan: No evidence of trauma seen on ENT exam however right vocal cord hypomobility may represent ischemia to the nerve or brain Current Visit: Yes (8) Chronic alcoholic pancreatitis Status: Acute Assessment and plan: pt reports previous pancreas. Resume pancreas and recently started cholestyramine for diarrhea. 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 will need resection and workup plan when improved from acute illness and medically ready. Current Visit: Yes Medical - PN: Qual - VTE Deep Vein Thrombosis/Pulmonary Embolism Present on Admission: No Procedures - Arterial Line Size (Gauge): 20
[2018-02-21] MEDS: LIPASE/PROTEASE/AMYLASE 1 CAP CAPSULE PO SCH ×3 (15:43→18:29)
[2018-02-21] MEDS: CHOLESTYRAMINE/ASPARTAME 4 GM POWD.PACK PO SCH ×2 (15:45→19:44)
[2018-02-21] MEDS: DRONABINOL 2.5 MG CAPSULE PO SCH (17:15)
[2018-02-21] MEDS: 0.9 % SODIUM CHLORIDE 10 ML SYRINGE IV SCH ×4 (17:15→21:26)
--- NOTE | 2018-02-21 17:44 | Magnetic Resonance Report ---
CLINICAL INFORMATION: Weakness, memory loss, dysphonia and suspected stroke COMPARISON: Head CT on 02/09/18 TECHNIQUE:Sagittal T1 FLAIR, axial T1 FLAIR, T2 FLAIR propeller, T2 propeller, gradient, diffusion, ADC and coronal T2 weighted images were acquired. FINDINGS: There is a moderate-sized old infarct in the cortex and subcortical white matter located laterally in the right frontal lobe. Measures approximately 2.5 cm and dimension. This has not changed since prior head CT. No acute infarct or hemorrhage are present. The T2 and FLAIR sequences reveal the presence of multiple scattered high signal lesions in the calle radiata and centrum semiovale throughout the frontal and parietal lobes bilaterally. There is milder involvement in the belly of the sarina and posterior temporal lobes. These lesions have no mass effect or restricted diffusion. There is mild generalized atrophy. The ventricles are normal in size allowing for the loss of brain parenchyma. No abnormal extra-axial fluid collection is present. 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 This may be due to white matter ischemia or degeneration Interpreted and Authenticated by: Sean Mak 02/21/18
[2018-02-21] MEDS ORDERED: ISOSORBIDE MONONITRATE 20 MG TABLET PO SCH (21:00)
[2018-02-21] MEDS: MEGESTROL ACETATE 400 MG/10 ML ORAL.SUSP PO SCH (21:24)
[2018-02-22] MEDS: GABAPENTIN 100 MG CAPSULE PO SCH ×4 (00:21→20:46)
[2018-02-22] MEDS: LIPASE/PROTEASE/AMYLASE 1 CAP CAPSULE PO SCH ×3 (08:15→17:11)
[2018-02-22] MEDS ORDERED: METOPROLOL TARTRATE 25 MG TABLET PO ONE (09:00)
[2018-02-22] MEDS: SERTRALINE 100 MG TABLET PO SCH (09:59)
[2018-02-22] MEDS: FAMOTIDINE 20 MG TABLET PO SCH ×2 (09:59→20:46)
[2018-02-22] MEDS: METOPROLOL TARTRATE 50 MG TABLET PO SCH ×2 (10:00→20:45)
[2018-02-22] MEDS: MULTIVIT,THER IRON,CA,FA & MIN 1 TABLET PO SCH (10:00)
[2018-02-22] MEDS: ENOXAPARIN 40 MG/0.4 ML SYRINGE SQ SCH (10:01)
[2018-02-22] MEDS: MEGESTROL ACETATE 400 MG/10 ML ORAL.SUSP PO SCH ×2 (10:01→20:49)
[2018-02-22] MEDS: CLOPIDOGREL 75 MG TABLET PO SCH (10:02)
[2018-02-22] MEDS: ISOSORBIDE MONONITRATE 20 MG TABLET PO SCH ×2 (10:02→20:49)
[2018-02-22] MEDS: 0.9 % SODIUM CHLORIDE 10 ML SYRINGE IV SCH ×4 (10:05→20:46)
[2018-02-22 10:10] LABS: Basophils # (Auto) 0 K/mcL (0.0-0.3); Basophils % (Auto) 0.3 % (0.0-2.0); Eosinophils # (Auto) 0 K/mcL (0.0-0.7); Eosinophils % (Auto) 0.4 % (0.0-7.0); Granulocytes % (Auto) 69.2 % (38.0-78.0); Lymphocytes # (Auto) 1.1 K/mcL (1.5-4.8); Mean Corpuscular HGB Conc 33.2 g/dL (31.0-36.0); Mean Corpuscular Hemoglobin 28.9 pg (26.0-34.0); Monocytes # (Auto) 0.6 K/mcL (0.1-0.9); Monocytes % (Auto) 10.1 % (1.0-12.0); Platelet Count 218 K/mcL (140-440); RBC 3.47 M/mcL (4.00-5.20); Red Cell Distribution Width 16.6 % (11.5-14.5)
[2018-02-22 10:31] LABS: ALT/SGPT 15 U/l (0-40); Albumin 3.7 gm/dL (3.2-5.2); Albumin/Globulin Ratio 1.1 (1.0-2.3); Alkaline Phosphatase 66 U/L (39-117); Bilirubin,Direct < 0.2 mg/dL (0.0-0.3); Blood Urea Nitrogen 19 mg/dl (8-23); Gamma Glutamyl Transpeptidase 30 U/L (5-36); Uric Acid 4.4 mg/dL (2.5-8.0)
--- NOTE | 2018-02-22 11:05 | Internal Med Progress Note ---
Medical - PN: Subj Patient information: Note initiated : 02/22/18 at 11:03 am Service Date, if different from initiated Date: [] Patient: Dara Null a 77 y/o F admitted on 02/01/18 for Weakness, Diarrhea, Hypotension/Hypokalemia. Chief Complaint: [] Interval history: Patient seen and examined, no acute overnight events. Patient still remains intermittently confused. She denies any acute complaints. She was sitting in bed appeared quite comfortable. Her oral intake is improving slowly. Diet has been advanced. She is off antibiotics now. Colonoscopy showed transverse colon invasive adenocarcinoma. I have consulted general surgery today to evaluate this further. She has not had bowel movements for a couple of days will hold cholestyramine and see how she does. MRI of the brain does not show any evidence of acute ischemic insult, has chronic white matter disease. The patient voice is slowly improving needs to follow-up with ENT as an outpatient Pertinent ROS: Denies headache, dizziness Denies chest pain, palpitations Denies cough or shortness of breath Denies abdominal pain, nausea or vomiting. - Constitutional Vitals: Vital Signs Temp Pulse Resp BP Pulse Ox 97.7 F 108 H 18 132/87 96 02/22/18 08:28 02/22/18 08:28 02/22/18 04:00 02/22/18 08:28 02/22/18 08:28 Period Temp Pulse Resp BP Sys/Marques Pulse Ox Last 24 Hr 96.8 F-98.8 F 67-121 16-20 103-143/68-89 90-98 Intake and Output 02/21/18 02/22/18 02/22/18 21:59 05:59 13:59 Intake Total 320 / 320 180 / 180 Output Total 900 / 900 300 / 300 Balance -580 / -580 -120 / -120 Weight 140 lb Intake & Output: Intake & Output 02/21/18 02/22/18 02/22/18 21:59 05:59 13:59 Intake Total 320 / 320 180 / 180 Output Total 900 / 900 300 / 300 Balance -580 / -580 -120 / -120 Weight 140 lb Intake: Oral 320 / 320 180 / 180 Output: Void Amount 900 / 900 300 / 300 Other: Meal ice cream Dinner Percent of Meal Consumed 100% 100% Feeding Ability Total Assistance Independent Exam: Constitutional; Afebrile, cooperative, alert, not in distress. Eyes- No icterus, , No periorbital swelling Ears- Ext ear normal, Neck- Midline trachea, supple Respiratory system: Air Entry equal on both sides, No crackles or wheezing, no rhonchi. CVS- Rate rhythm regular, S1,S2 heard, no gallop, no rub. Abdomen- Soft nontender abdomen, no organomegaly, no tenderness, no guarding or rigidity, COVER MARKER- AOOx2 , moving all extremities, no gross focal deficit noted. Medical - PN: Obj Da - Labs CBC & Chem 7: 02/22/18 09:18 02/22/18 09:18 Labs: Abnormal Lab Results 02/22/18 02/22/18 02/20/18 09:18 09:18 04:15 RBC 3.47 L Hgb 10.1 L Hct 30.2 L RDW 16.6 H Lymph # (Auto) 1.1 L Glucose 122 H Uric Acid 2.1 L Triglycerides 171 H 02/20/18 04:15 RBC 3.50 L Hgb 10.3 L Hct 31.0 L RDW 16.9 H Lymph # (Auto) 1.1 L Glucose Uric Acid Triglycerides Meds: Medications Acetaminophen (Tylenol) 650 mg PO Q4-6HP PRN PRN Reason: PAIN/FEVER > 101 Last Admin: 02/21/18 21:29 Dose: 650 mg Albuterol/Ipratropium (Duoneb) 3 ml NEB Q4HP PRN PRN Reason: Shortness Of Breath Lipase/Protease/Amylase (Creon) 1 cap PO TIDCC [facility] Last Admin: 02/22/18 08:15 Dose: 1 cap Atorvastatin Calcium (Lipitor) 40 mg PO HS [facility] Last Admin: 02/21/18 21:25 Dose: 40 mg Cholestyramine Resin (Questran Light) 4 gm PO BID@1000,2000 [facility] Last Admin: 02/21/18 19:44 Dose: Not Given Clopidogrel Bisulfate (Plavix) 75 mg PO DAILY [facility] Last Admin: 02/22/18 10:02 Dose: 75 mg Cyanocobalamin (Vitamin B12) 1,000 mcg SQ WEEKLY [facility] Dronabinol (Marinol) 5 mg PO BID@1130,1700 [facility] Last Admin: 02/21/18 17:15 Dose: 5 mg Enoxaparin Sodium (Lovenox) 40 mg SQ DAILY [facility] Last Admin: 02/22/18 10:01 Dose: 40 mg Famotidine (Pepcid) 20 mg PO BID [facility] Last Admin: 02/22/18 09:59 Dose: 20 mg Gabapentin (Neurontin) 100 mg PO Q8 [facility] Last Admin: 02/22/18 05:23 Dose: 100 mg Iron Carb/Multivit/[place]/Folic Acid (Multivitamin W/Minerals) 1 tab PO DAILY [facility] Last Admin: 02/22/18 10:00 Dose: 1 tab Isosorbide Mononitrate (Monoket) 10 mg PO BID [facility] Last Admin: 02/22/18 10:02 Dose: 10 mg Loperamide HCl (Imodium) 2 mg PO PRN PRN PRN Reason: Diarrhea Megestrol Acetate (Megace) 400 mg PO BID [facility] Last Admin: 02/22/18 10:01 Dose: 400 mg Metoprolol Tartrate (Lopressor) 50 mg PO BID [facility] Last Admin: 02/22/18 10:00 Dose: 50 mg Nystatin (Nystatin Crm) 1 dose TOPICAL TIDP PRN PRN Reason: Skin Irritation Last Admin: 02/19/18 09:43 Dose: 1 dose Ondansetron HCl (Zofran) 4 mg IV Q4-6HP PRN PRN Reason: Nausea And Vomiting Sertraline HCl (Zoloft) 200 mg PO DAILY [facility] Last Admin: 02/22/18 09:59 Dose: 200 mg Sodium Chloride (Saline Flush) 10 ml IV UD PRN PRN Reason: FLUSH Last Admin: 02/21/18 11:28 Dose: 10 ml Sodium Chloride (Saline Flush) 10 ml IV Q12 [facility] Last Admin: 02/22/18 10:05 Dose: 10 ml Sodium Chloride (Saline Flush) 10 ml IV Q12 [facility] Last Admin: 02/21/18 21:26 Dose: 10 ml Tramadol HCl (Ultram) 50 mg PO Q6HP PRN PRN Reason: Pain Medical - PN: A/P - Time Spent With Patient Total time spent is greater than 50% in coordination of care (as documented) at patient's floor/unit and/or counseling patient: - Narrative A/P Narrative: A/P Atrial fibrillation: on metoprolol and digoxin, it seems the metoprolol dosing is not quite consitent as the blood pressure has been soft as per the nurse. Will monitor Heart rate and increase the dosing to her home dose gradually. Anticoagulation with oral dabigatran. Colon cancer of transverse colon: Dr Ashraf to evaluate Cardiomyopathy/ CAD: on isosorbide, possible cardiac event prior to admit, low lvef, out patient follow up with cardiology. Hypertension: on metoprolol, 50bid, bp appears stable, off cozaar PNA/ oral thrush - s/p treatment, no e/o acute infection. History of CVA in past - no significant sequelae, she had been prescribed atorvastatin and Plavix previously, MRI head does not show any new insults. Pulmonary/ Acute respiratory Failure : s/p exubation, doing well on Room air. Dysphagia: due to sedation/ intubation, tolerating oral diet now, does not like the food choices, she has been started on marinol and megace by the previous hospitalist, will see how she responds. History of chronic left knee pain. Was on Nucynta at admission. Prior to intubation, there were several days she did not get it due to inability to take po's and florid alcohol withdrawal symptoms. Haven't restarted. on prn tamadol for now, monitor. Alcohol dependence: slow recovery, hopefully will not dring again. Metabolic encephalopathy: due to etoh/ encephalopathy, ativan given during Dt, clearing up slowly, workup has been negative, very slow improvement. GI: Recurrent diarrhea: multifactorial, noted colon cancer, responded to cholestyramine. Now no BM in 2 days, hold off and see how she does. Anemia: Hb stable monitor, no e/o gi bleed. UTI: enterococcus, s/p treatment. DVT prophyalxis : d/c lovenox and start back on dabigatran. continue with aggresive rehab for now, aggresive oral interventions. Medical - PN: Qual - VTE Deep Vein Thrombosis/Pulmonary Embolism Present on Admission: No Procedures - Arterial Line Size (Gauge): 20
[2018-02-22] MEDS: CHOLESTYRAMINE/ASPARTAME 4 GM POWD.PACK PO SCH ×2 (11:25→19:43)
[2018-02-22] MEDS ORDERED: MAGNESIUM SULFATE 2 GM/50 ML BAG IV ONE (13:25)
[2018-02-22] MEDS ORDERED: POTASSIUM CHLORIDE 20 MEQ PACKET PO ONE (13:25)
[2018-02-22] MEDS: DRONABINOL 2.5 MG CAPSULE PO SCH ×2 (14:50→17:11)
--- NOTE | 2018-02-22 16:33 | General Surgery Consult Note ---
History of Present Illness Patient information: Note initiated : 02/22/18 at 4:27 pm Service Date, if different from initiated Date: [] Patient: Dara Null 77 y/o F admitted on 02/01/18 for Weakness, Diarrhea, Hypotension/Hypokalemia. 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 The colonoscopy was done as part of the workup for intractable diarrhea. She had a previous colonoscopy in 2016 which only showed adenomatous polyps. This colonoscopy showed a lesion in the mid transverse colon that was suspicious for neoplasm and biopsies confirmed that it was primary adenocarcinoma. The actual size is not available in the chart but in talking to Ashlie Redding; it was noted by Dr. Kelsey that B lesion was about 1-1/2 cm. The lesion was tattooed for future reference. The patient is severely debilitated from her recent hospitalization which included severe diarrhea with hypotension; severe electrolyte imbalance; dehydration; posttreatment pulmonary edema with respiratory compromise requiring ventilatory support with intubation. She has recovered from that and is now scheduled to go to the rehabilitation Center prior to being considered for operative therapy. Discussed with the family that since the lesion is so small it would be best if we wait 6-8 weeks before considering operative therapy to give her time enough to recover and be strengthened prior to undertaking another operative procedure. This will also allow her nutritional status to improve so that she will have adequate proteins to assist with healing post surgery. Review of Systems - Constitutional anorexia, fatigue, malaise, weakness, weight loss - EENT Nose, mouth and throat: dizziness, hoarseness - Cardiovascular dyspnea, irregular heart rhythm, lightheadedness - Respiratory dyspnea on exertion, chest congestion - Gastrointestinal abdominal pain, diarrhea, fecal incontinence, loose stools, nausea - Genitourinary Genitourinary: no nocturia, no urinary incontinence, no urinary urgency - Musculoskeletal abnormal gait, arthralgias, joint swelling, muscle weakness, stiffness - Integumentary no bleeding lesions, no changing lesions, no new lesions, no photosensitivity, no rash, no swelling - Neurological confusion, dizziness, lack of coordination, tremor(s), weakness, no convulsions - Psychiatric confusion, depression, other (unresolved grief) - Endocrine fatigue, palpitations - Hematologic/Lymphatic other ( chronic anticoagulant therapy), no easy bleeding, no easy bruising, no lymphadenopathy - Allergic/Immunologic no tongue swelling, no throat swelling, no uticaria, no wheezing, no lip swelling Past History Past medical history: Hypertension 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 Chronic obstructive lung disease improved History of frontal lobe cerebral aneurysm stable History of TIA resolved Chronic atrial fibrillation status post multiple embolic events Anemia of chronic disease Coronary artery disease with occlusion of nondominant right main and mild left- sided disease with reduction in ejection fraction from 60% to 45% Osteoarthritis Past surgical history: Exploratory laparotomy with embolectomy of superior mesenteric artery,, right proximal colic artery and ileocolic branches--- December 2010 Right total knee arthroplasty Salpingo-oophorectomy History of salpingostomy for ectopic 2 History of mesenteric artery stent Status post right carotid endarterectomy Status post exploratory laparotomy with lysis of adhesions Past family history: Colon cancer Congestive heart failure Past social history: Recent Greater than [id number] smoking history History of heavy alcohol use on a daily basis Medications and Allergies Home Medications Medication Instructions Recorded Confirmed Type Flexin Supplement 1 supp PO .DAILY 05/07/15 02/01/18 History biotin 1 mg tablet 1 mg PO QDAY tab 05/07/15 02/01/18 History metoprolol tartrate 25 mg tablet 100 mg PO BID tab 08/12/16 02/01/18 History atorvastatin 80 mg tablet 80 mg PO QDAY #90 tab 06/29/17 02/01/18 Rx dabigatran etexilate 150 mg capsule 150 mg PO BID #180 cap 06/29/17 02/01/18 Rx digoxin 125 mcg tablet 125 mcg PO QDAY #90 tab 06/29/17 02/01/18 Rx furosemide 20 mg tablet 20 mg PO QDAY #90 tab 06/29/17 02/01/18 Rx isosorbide mononitrate 10 mg tablet 10 mg PO BID 90 Days #180 tab 06/29/1702/01 Rx mirabegron ER 25 mg 25 mg PO QDAY #90 tab 06/29/17 02/01/18 Rx tablet,extended release 24 hr omeprazole 40 mg capsule,delayed 40 mg PO QDAY #90 cap 06/29/17 02/01/18 Rx release potassium chloride ER 10 mEq 10 meq PO QDAY #90 cap 06/29/17 02/01/18 Rx capsule,extended release umeclidinium 62.5 mcg/actuation 1 inh INHALATION Q24H #90 each 06/29/17 Rx blister powder for inhalation losartan 25 mg tablet 50 mg PO QDAY #180 tab 09/27/17 02/01/18 Rx sertraline 100 mg tablet 200 mg PO QDAY #180 tab 09/27/17 02/01/18 Rx gabapentin 300 mg capsule 300 mg PO TID #90 cap 10/28/17 02/01/18 Rx trazodone 50 mg tablet 50 mg PO QHS PRN #30 tab 12/20/17 02/01/18 Rx tapentadol ER 50 mg 50 mg PO Q12H #60 tab 01/17/18 02/01/18 Rx tablet,extended release,12 hr Clopidogrel Bisulfate [Plavix] 75 mg PO DAILY 02/01/18 02/02/18 History Hydrocodone/APAP 7.5/325Mg [[place] 1 tab PO DAILYP PRN 02/01/18 02/02/18 History 7.5-325Mg] Meclizine [Antivert] 12.5 mg PO DAILYP PRN 02/01/18 02/01/18 History Amoxicillin/Potassium Clav 875 mg PO Q12H #10 tab 02/03/18 Rx [Augmentin] Allergies Allergy/AdvReac Type Severity Reaction Status Date / Time Influenza Virus Vaccines AdvReac Severe pain Verified 02/01/18 18:35 TAPE ALLERGY Allergy Intermediate RASH Uncoded 01/17/18 19:14 Exam Temp Pulse Resp BP Pulse Ox 98.6 F 101 H 18 117/74 97 02/22/18 13:09 02/22/18 13:09 02/22/18 13:09 02/22/18 13:09 02/22/18 13:09 - General physical appearance well developed, well nourished, moderate distress, no pain, cachectic, chronically ill - Eyes PERRL, normal ocular movement. negative: icteric - ENT normal pinna, normal nares, normal mucosa, no hearing loss, no congestion, other ( with hoarseness) - Head Head exam IM: Present: atraumatic, normal inspection, normocephalic - Neck no masses, no bruits, trachea midline, no lymphadectomy, no venous distension, other (Central venous catheter right neck) - Cardiovascular Cardiovascular exam IM: Present: normal rate and rhythm, irregular rhythm, +S1, +S2. Absent: JVD - Respiratory normal expansion, normal respiratory effort, clear to percussion, clear to auscultation - Abdomen Abdomen: Present: soft, non tender, bowel sounds Hernia: Present: none - Genitourinary Present: normal external genitalia - Integumentary Present: no rash, no growths, no abnormal pigmentation - Neurologic Present: normal coordination, normal sensation, memory loss - Musculoskeletal Present: other ( need for 2 person standby assistance for ambulation with walker ) - Psychiatric Present: oriented to time, oriented to person, oriented to place, speech is normal, memory intact Results - Labs 02/22/18 09:18 02/22/18 09:18 Abnormal lab results 02/22/18 02/22/18 Range/Units 09:18 09:18 RBC 3.47 L (4.00-5.20) M/mcL Hgb 10.1 L (12.0-15.0) g/dL Hct 30.2 L (36.0-48.0) % RDW 16.6 H (11.5-14.5) % Lymph # (Auto) 1.1 L (1.5-4.8) K/mcL Glucose 122 H (70-105) mg/dL Diabetes panel 02/22/18 Range/Units 09:18 Sodium 138 (133-145) mmol/L Potassium 3.4 (3.3-5.1) mmol/L Chloride 101 (96-108) mmol/L Carbon Dioxide 24 (22-30) mmol/L BUN 19 (8-23) mg/dl Creatinine 0.7 (0.6-1.1) mg/dl Glucose 122 H (70-105) mg/dL Calcium 9.1 (8.6-10.4) mg/dl AST 14 (0-37) U/l ALT 15 (0-40) U/l Alkaline Phosphatase 66 (39-117) U/L Total Protein 7.1 (5.9-8.4) gm/dL Albumin 3.7 (3.2-5.2) gm/dL Triglycerides 87 (<150) mg/dl Calcium panel 02/22/18 Range/Units 09:18 Calcium 9.1 (8.6-10.4) mg/dl Phosphorus 3.5 (2.7-4.5) mg/dL Albumin 3.7 (3.2-5.2) gm/dL Pituitary panel 02/22/18 Range/Units 09:18 Sodium 138 (133-145) mmol/L Potassium 3.4 (3.3-5.1) mmol/L Chloride 101 (96-108) mmol/L Carbon Dioxide 24 (22-30) mmol/L BUN 19 (8-23) mg/dl Creatinine 0.7 (0.6-1.1) mg/dl Glucose 122 H (70-105) mg/dL Calcium 9.1 (8.6-10.4) mg/dl Adrenal panel 02/22/18 Range/Units 09:18 Sodium 138 (133-145) mmol/L Potassium 3.4 (3.3-5.1) mmol/L Chloride 101 (96-108) mmol/L Carbon Dioxide 24 (22-30) mmol/L BUN 19 (8-23) mg/dl Creatinine 0.7 (0.6-1.1) mg/dl Glucose 122 H (70-105) mg/dL Calcium 9.1 (8.6-10.4) mg/dl Total Bilirubin 0.6 (0.0-1.0) mg/dL AST 14 (0-37) U/l ALT 15 (0-40) U/l Alkaline Phosphatase 66 (39-117) U/L Total Protein 7.1 (5.9-8.4) gm/dL Albumin 3.7 (3.2-5.2) gm/dL All other labs normal. Assessment and Plan (1) Primary adenocarcinoma of transverse colon since the patient has a very early lesion and is probably stage A,it should be safe to wait 6-8 weeks before consideration for operative therapy. This should allow her time to be adequately rehabilitated and strengthen so that she will be able to withstand the trauma of the colon surgery. I discussed this with the patient and her son and daughter. She will be discharged tomorrow and transferred to rehabilitation Center. They are advised to follow-up with me in 6 weeks in the office and we will make plans for operative therapy if she is physically stable at that time. To wait a few weeks longer should not jeopardize her survival from the lesion in her colon and we'll give her a better opportunity to recover from the operative procedure.. Status: Acute (2) Atrial fibrillation Status: Chronic (3) Chronic anticoagulation Status: Chronic (4) Adenomatous polyp of colon Status: Chronic (5) Cerebral aneurysm, nonruptured Status: Chronic Comment: frontal lobe (6) Chronic obstructive pulmonary disease Status: Chronic Qualifiers: COPD type: unspecified COPD Qualified Code(s): J44.9 - Chronic obstructive pulmonary disease, unspecified (7) Coronary artery disease Status: Chronic Comment: occluded nondominant right coronary artery and minimal disease elsewhere Qualifiers: Coronary Disease-Associated Artery/Lesion type: [place] artery [place] vs. transplanted heart: [place] heart Associated angina: with unspecified angina Qualified Code(s): I25.119 - Atherosclerotic heart disease of [place] coronary artery with unspecified angina pectoris (8) Gastroesophageal reflux Status: Chronic Qualifiers: Esophagitis presence: esophagitis presence not specified Qualified Code(s) : K21.9 - Gastro-esophageal reflux disease without esophagitis; K21.9 - Gastro- esophageal reflux disease without esophagitis; K21.9 - Gastro-esophageal reflux disease without esophagitis (9) Hypertension, essential Status: Chronic (10) Transient ischemic attack (TIA) Status: Chronic
[2018-02-22] MEDS: ATORVASTATIN 20 MG TABLET PO SCH (20:45)
[2018-02-22] MEDS: DABIGATRAN ETEXILATE MESYLATE 75 MG CAPSULE PO SCH (20:46)
[2018-02-22] MEDS ORDERED: METOPROLOL TARTRATE 50 MG TABLET PO SCH (21:00)
[2018-02-23] MEDS: GABAPENTIN 100 MG CAPSULE PO SCH (06:08)
[2018-02-23] MEDS ORDERED: METOPROLOL TARTRATE 50 MG TABLET PO SCH (09:00)
[2018-02-23] MEDS ORDERED: DULoxetine 30 MG CAPSULE PO SCH (09:00)
[2018-02-23] MEDS: LIPASE/PROTEASE/AMYLASE 1 CAP CAPSULE PO SCH ×2 (09:40→10:56)
[2018-02-23] MEDS: ISOSORBIDE MONONITRATE 20 MG TABLET PO SCH (09:41)
[2018-02-23] MEDS: MULTIVIT,THER IRON,CA,FA & MIN 1 TABLET PO SCH (09:41)
[2018-02-23] MEDS: FAMOTIDINE 20 MG TABLET PO SCH (09:41)
[2018-02-23] MEDS: MEGESTROL ACETATE 400 MG/10 ML ORAL.SUSP PO SCH (09:41)
[2018-02-23] MEDS: DABIGATRAN ETEXILATE MESYLATE 75 MG CAPSULE PO SCH (09:42)
[2018-02-23] MEDS: CLOPIDOGREL 75 MG TABLET PO SCH (09:42)
[2018-02-23] MEDS: 0.9 % SODIUM CHLORIDE 10 ML SYRINGE IV SCH ×2 (09:42)
[2018-02-23] MEDS: CHOLESTYRAMINE/ASPARTAME 4 GM POWD.PACK PO SCH (10:56)
[2018-02-23] MEDS: DRONABINOL 2.5 MG CAPSULE PO SCH (10:56)
--- NOTE | 2018-02-23 11:00 | Discharge Summary ---
Medical - DS: Prov Patient information: Note initiated : 02/23/18 at 10:58 am Service Date, if different from initiated Date: [] Patient: Dara Null 77 y/o F admitted on 02/01/18 for Weakness, Diarrhea, Hypotension/Hypokalemia. Chief Complaint: [] Date of admission: 02/01/18 21:36 Discharge date: 02/23/18 Primary care physician: Shae Cheatham Consults: 02/10/18 07:52 Consult to Physician [CONS] Routine Comment: Consulting Provider: Yony Washington Reason For Exam: Physician to Consult 02/22/18 09:01 Consult to Physician [CONS] Routine Comment: Consulting Provider: Rahul Sylvester Reason For Exam: Physician to Consult Discharging clinician: Toño Chavez Medical - DS: Meds - Discharge Medications Prescriptions: DULoxetine [Cymbalta] 30 mg PO DAILY #30 cap Megestrol Acetate [Megace] 400 mg PO BID #600 ml traMADol [Ultram] 50 mg PO Q6HP PRN #60 tab PRN Reason: Pain Active and Home Medications: Home Medications Flexin Supplement 1 supp PO .DAILY 05/07/15 [History Confirmed 02/01/18 Last Taken 07/19/16] biotin 1 mg tablet 1 mg PO QDAY tab 05/07/15 [History Confirmed 02/01/18 Last Taken 07/19/16] metoprolol tartrate 25 mg tablet 100 mg PO BID tab 08/12/16 [History Confirmed 02/01/18 Last Taken Unknown] atorvastatin 80 mg tablet 80 mg PO QDAY #90 tab 06/29/17 [Rx Confirmed 02/01/18 Last Taken Unknown] dabigatran etexilate 150 mg capsule 150 mg PO BID #180 cap 06/29/17 [Rx Confirmed 02/01/18 Last Taken Unknown] digoxin 125 mcg tablet 125 mcg PO QDAY #90 tab 06/29/17 [Rx Confirmed 02/01/18 Last Taken Unknown] furosemide 20 mg tablet 20 mg PO QDAY #90 tab 06/29/17 [Rx Confirmed 02/01/18 Last Taken Unknown] isosorbide mononitrate 10 mg tablet 10 mg PO BID 90 Days #180 tab 06/29/17 [Rx Confirmed 02/01/18 Last Taken Unknown] mirabegron ER 25 mg tablet,extended release 24 hr 25 mg PO QDAY #90 tab [Rx Confirmed 02/01/18 Last Taken Unknown] omeprazole 40 mg capsule,delayed release 40 mg PO QDAY #90 cap 06/29/17 [Rx Confirmed 02/01/18 Last Taken Unknown] potassium chloride ER 10 mEq capsule,extended release 10 meq PO QDAY #90 cap [Rx Confirmed 02/01/18 Last Taken Unknown] umeclidinium 62.5 mcg/actuation blister powder for inhalation 1 inh INHALATION Q24H #90 each 06/29/17 [Rx Confirmed 02/01/18 Last Taken Unknown] losartan 25 mg tablet 50 mg PO QDAY #180 tab 09/27/17 [Rx Confirmed 02/01/18 Last Taken Unknown] sertraline 100 mg tablet 200 mg PO QDAY #180 tab 09/27/17 [Rx Confirmed Last Taken Unknown] gabapentin 300 mg capsule 300 mg PO TID #90 cap 10/28/17 [Rx Confirmed 02/01/18 Last Taken Unknown] trazodone 50 mg tablet 50 mg PO QHS PRN #30 tab 12/20/17 [Rx Confirmed 02/01/18 Last Taken Unknown] tapentadol ER 50 mg tablet,extended release,12 hr 50 mg PO Q12H #60 tab [Rx Confirmed 02/01/18 Last Taken Unknown] Clopidogrel Bisulfate [Plavix] 75 mg PO DAILY 02/01/18 [History Confirmed Last Taken Unknown] Hydrocodone/APAP 7.5/325Mg [[place] 7.5-325Mg] 1 tab PO DAILYP PRN 02/01/18 [ History Confirmed 02/02/18 Last Taken Unknown] Meclizine [Antivert] 12.5 mg PO DAILYP PRN 02/01/18 [History Confirmed 02/01/18 Last Taken Unknown] Amoxicillin/Potassium Clav [Augmentin] 875 mg PO Q12H #10 tab 02/03/18 [Rx Last Taken Unknown] Medical - DS: Hosp Hospital course: Ms. Null is a 77 year old F presented to the ER with complaints of diarrhea and weakness. Patient has been actively grieving recent loss of her in November and has been living alone. Over the last couple of months patient has not been able to take care of herself and has frequently missed her medications. She carries a history of irritable bowel syndrome and has had intermittent diarrhea over the last couple of weeks along with associated loss of appetite and failure to take her usual medications. She also endorses to feeling dizzy and weak and very lethargic. She denies associated, fever, abdominal cramps blood, mucus. She has also experienced multiple episodes of bowel incontinence without even realizing until she noticed stool dripping down her legs on the floor. She has a son who lives nearby and frequently checks on her. With worsening symptoms and increasing weakness patient presents to the ER today. Initial workup was significant for potassium 2.1 and calcium 5.3. Significant pyuria on UA. She is started on emergent electrolyte replacement protocol. Hospitalist service was consulted for admission. The patient has had a long an a protracted hospital course, briefly the patients electrolytes were replaced and she was ready for discharge on the 04 of december, unfortunatlely the same day she started to go in etoh withdrawal, the patient continued to be in DT, needing high doses of ativan to keep her calm, eventually the patient was intubated for airway protection. The patient was successfully extubated, and has been weaned off oxygen. The patient has significant cognitive decline during this time. Her hospital course was complicated by pneumonia, and UTI for which she received antibiotics during the hospital stay, she has completed the course of abx while in [facility] hospital She had significant diarrhea, despite using loperamide, her Cdiff x 2 was negative. GI was consulted for evaluation. A colonoscopy was peformed, which showed colon cancer in the transverse colon. Dr Sylvester evaluated the patient and advised rest for few weeks, and improve strength before surgery could be contemplated. The patient has hoarsness of voice after intubation, MRI head does not show any acute DIXONAC OPERATOR insult, Ct head neg, ENT eval showed that vocal cords were not moving as well as they should, likely secondary intubation. Follow up with ENT has been advised, her voice is slowly recovering The patient has had significant cognitive decline, and was drowsy for a long time in during intubation and in the post extubation phase, at the time of discharge her mental status is much better, she is able to tolerate po diet well , she is follows commands, is not aggresive, but is unable to tell me the year, month or day. Atrial fibrillation: rate is controlled, she will be discharged back on her home regime of digoxin and metoprolol, Anticoagulation with dabigatran. Colon cancer of transverse colon: Dr Sylvester to evaluate, follow up as outpatient. Cardiomyopathy/ CAD: on isosorbide, possible cardiac event prior to admit, patient had normal lvef prior to admit based on previous echo cardiogram, but the echo during this visit showed mild to moderate decline in LVEF with apical wall being hypokinetic. She is on anticoagulation and on isosorbide. Given that a surgery is being planned for her colon cancer, I will refer her to cardiology for further evaluation at discharge. Hypertension: BP is stable, cozaar is being discontinued at the time of discharge as she needs full dose of metoprolol to keep her heart rate in check. PNA/ oral thrush - s/p treatment, no e/o acute infection. History of CVA in past - no significant sequelae, she had been prescribed atorvastatin and Plavix previously, MRI head does not show any new insults. She will continue these meds at dsicharge. Pulmonary/ Acute respiratory Failure : s/p exubation, doing well on Room air. Dysphagia: due to sedation/ intubation, tolerating oral diet now, does not like the food choices, will use megace at discharge as an appetitie stiumlant History of chronic left knee pain. Was on Nucynta at admission. Prior to intubation, there were several days she did not get it due to inability to take po's and florid alcohol withdrawal symptoms. Haven't restarted at dischage, will only use as needed tamadol. given her h/o etoh use, I would be hesitant to use a narcotic medication for pain control. Alcohol dependence: slow recovery, hopefully will not drink again. Metabolic encephalopathy: due to etoh/ encephalopathy, ativan given during Dt, clearing up slowly, workup has been negative, very slow improvement. GI: Recurrent diarrhea: multifactorial, noted colon cancer, responded to cholestyramine. This has resolved, neg cdiff, will discharge on cholestyramine once daily, PCP to titrate dose according to response. UTI: enterococcus, s/p treatment. The patient will be discahrged to snf, she will need to be followed by PCP, ENT , Cardiology and Dr sylvester (surgery) Her health is tenous, but is slowly improving. Discharge diagnosis: Alcohol withdrawal, UTI, Colon cancer, Diarrhe, electrolyte abnormalities. - Time Spent with Patient Total time spent providing and/or coordinating discharge services: Greater than 30 minutes Medical - DS: Exam - Constitutional Vitals: Vital Signs Temp Pulse Resp BP BP Pulse Ox 02/23/18 07:28 98.2 F 16 128/75 97 02/23/18 04:58 98.5 F 103 H 16 137/69 99 02/22/18 22:43 97.8 F 98 H 14 106/66 97 02/22/18 18:34 98.4 F 105 H 14 139/85 98 02/22/18 13:09 98.6 F 101 H 18 117/74 97 02/22/18 13:08 97 Intake and Output 02/22/18 02/23/18 02/23/18 21:59 05:59 13:59 Intake Total 690 / 690 180 / 180 200 / 200 Output Total 250 / 250 350 / 350 Balance 440 / 440 -170 / -170 200 / 200 Intake: IV 50 / 50 Oral 640 / 640 180 / 180 200 / 200 Output: Void Amount 250 / 250 350 / 350 Other: Meal Dinner Magic Cup Breakfast Percent of Meal Consumed 50% 100% Refused Feeding Ability Needs Supervision Independent Assist with Tray Set Up Stool Size Moderate Stool Color Brown Stool Consistency Soft Formed # Bowel Movements 1 Weight 141 lb Additional comments: Constitutional; Afebrile, cooperative, alert, not in distress. Eyes- No icterus, , No periorbital swelling Ears- Ext ear normal, hearing normal to conversation. Neck- Midline trachea, supple Respiratory system: Air Entry equal on both sides, No crackles or wheezing, no rhonchi. CVS- Rate rhythm irregular, S1,S2 heard, no gallop, no rub. Abdomen- Soft nontender abdomen, no organomegaly, no tenderness, no guarding or rigidity, DIXONAC OPERATOR- AOOx1, moving all extremities, no gross focal deficit noted. Medical - DS: A/P - Patient/Caregiver Discharge Instructions Activity: as per physical therapy Diet: Regular Diet, Cardiac Additional Instructions: Follow up with PCP in 1 week Follow up with Dr Martinez Cardiology in 2 weeks, for evaluation of Atrial fibrillation, CHF, and preop evaluation before colon cancer surgery Follow up with Dr Sylvester in 4-6 weeks. To schedule for surgery Follow up with Dr Batista, ENT in 2-4 weeks for dysphonia Aspiration precautions Aggresive OT/PT/ ST at the rehab center Avoid etoh in the future Go to the ER if worsening condition, chest pain, shortness of breath, fever or any other concerning symptom Prescriptions: Amoxicillin/Potassium Clav [Augmentin] 875 mg PO Q12H #10 tab - Follow up Plan Follow up with: Shae Cheatham DNP, SOIL CHECKER [Primary Care Provider] - (Call/Schedule hospital follow up. ) Disposition: Xfer SNF Prognosis: Fair Rehab Potential: Fair I certify that the patient requires SNF services: Yes Overall status at discharge: patient is progressing back to baseline Medical - DS: Qual - VTE Deep Vein Thrombosis/Pulmonary Embolism Present on Admission: No
--- NOTE | 2018-02-23 11:11 | Consultation ---
DATE OF CONSULTATION: 02/21/2018 REASON FOR CONSULTATION: Dysphonia. REFERRING PHYSICIAN: Germain Barker MD HISTORY OF PRESENT ILLNESS: The patient is a 77-year-old white female who was admitted on 02/01 for weakness and electrolyte issues. She was evaluated for these issues for several days and continued to decline. Her confusion that she came in with progressed and she ended at the end intubated for approximately a week and a half. While in the Intensive Care Unit, it was noted that she had alcoholism and was having withdrawals leading to her electrolyte problems and confusion. Multiple scans and imaging also revealed that she had a colon mass which has been identified as an adenocarcinoma after biopsy. More recently she was extubated and had some weakness in the voice. She has continued to be confused at the bedside, but this has slowly been improving according to notes as well as family's interpretation. There is some question whether or not she has had vocal cord weakness in the past and some hoarseness. On her medical diagnosis even before her admission, there is some mention of laryngeal nerve paralysis from her primary care provider, Shae Cheatham NP. I am not sure if this was something that was prior to the admission or not, but it is present at this point. She does deny any pain when swallowing or pain in her neck. She also does not admit to any shortness of breath or trouble breathing. She is confused as to why I am here evaluating her, but I do think she is genuine in her explanation of her symptoms at this point. REVIEW OF SYSTEMS: Positive for some diarrhea as well as abdominal discomfort. Voice was as explained above and is mostly just breathy with weak volume. Otherwise, all other systems were reviewed and were negative unless otherwise stated. MEDICATIONS: List is extensive and can be found in the EMR. Her medications were reviewed and I do not see anything that could acutely or chronically cause any nerve weakness or vocal cord weakness. ALLERGIES: ADHESIVE and EGG allergy associated with the FLU VACCINE. SOCIAL HISTORY: I understand she recently lost her in November and has been struggling with that. She did not tell me what she used to do for a living or what she is doing at this point. I do not know that she has suffered with alcoholism recently prior to this stay. I do not know if she smokes cigarettes. PHYSICAL EXAMINATION: GENERAL: A comfortable female that had normal vital signs per monitoring. Her general appearance was that is well-developed and rather well nourished. HEENT: Eyes equally round and reactive to light with normal movement and grossly normal vision. No evidence of any scleral icterus. From an ENT standpoint, she had normal external ears and normal ear canals as well as ear drums. Oral cavity looked relatively healthy and normal. Nose itself looked good with a straight septum and healthy tissue on the inside. Head was atraumatic and normocephalic. NECK: Soft with no masses, no lymphadenopathy. HEART: She has normal rate and rhythm. LUNGS: Normal respiratory effort with no evidence of any wheeze. ABDOMEN: Soft and nontender, nondistended. SKIN: No evidence of any rashes or bruising. NEUROLOGIC: She was oriented to person and place, not oriented to time today. She had a relatively normal cranial nerves II-XII. She does have some weakness in the voice, which could be some cranial nerve X issues. MUSCULOSKELETAL: She had symmetric upper and lower extremity strength and grossly normal coordination. PSYCHIATRIC: As I said, her orientation was slightly questionable. She is somewhat inappropriate in some of her responses in regards to her symptoms, which lets me know that she is confused, but she seems to have a relatively normal affect and is not hostile or aggressive. LABORATORY DATA: She has about 3 weeks of lab data from her admission but most recently her labs show just a consistent anemia which is likely from her alcoholism as well as colon cancer. For the most part, her chemistries have normalized. Her coags are slightly elevated but relatively normal. She has had multiple imaging studies during her stay. Most recently, there was an MRI of the brain for her multiple complaints including the dysphonia. I did incur that she had a relatively large stroke that is old, but did take place at some point. Aside from that, she has significant generalized atrophy of the neural tissue. No evidence of any metastases or anything was located. PROCEDURE IN DETAIL: A nasopharyngoscopy was done on the patient at the bedside. This was discussed with her; however, she was slightly confused and did not understand why I was doing it. She did agree with it, and with the help of the nurse we were able to get that accomplished today. The right nasal cavity was traversed with the scope and the glottis was able to be inspected. She definitely has some right-sided vocal cord weakness. It is incomplete paralysis. She does have relatively good motion of the arytenoid on the right side but there is incomplete glottic closure which looks to be unilateral. The vocal cords themselves are completely atraumatic and there is no evidence of any trauma or intubation granuloma. The rest of the pharyngeal rodríguez as well supraglottis were without masses. The scope was removed and the patient tolerated the procedure well. ASSESSMENT AND PLAN: 1. Dysphonia. Regarding this, She does have some right vocal cord weakness. I am unsure of the etiology of this at this point. There does not look to be any intubation trauma. However, there could be some cartilage issues from the prolonged intubation. I highly doubt this. I do feel like this is likely to be neurological. Whether or not she had some issues with her hypotension and had some vagal nerve ischemia is difficult to discern. At this point, I just recommended that we evaluate her swallow and make sure she is not having issues with aspiration. We will need to follow her as an outpatient to see if there is any recovery of this nerve. As I said previously, there is some evidence that this was going on before the admission per Shae Zhang PA medical history but we will plan to follow it in the office and we will re-scope her for a full evaluation. 2. Colon adenocarcinoma. 3. Atrial fibrillation. 4. COPD. 5. Gastroesophageal reflux. 6. History of CVA. SP:[email or web address] Job ID: [id number] Doc ID: [id number] Ronni Batista DO
--- NOTE | 2018-03-08 15:04 | Colonoscopy Procedure Note ---
Colonoscopy Procedure Notes - Procedure Information Patient information: Note initiated : 03/08/18 at 3:00 pm Service Date: 02/17/2018 Patient: Dara Null 77 y/o F admitted on 02/01/18 for Weakness, Diarrhea, Hypotension/Hypokalemia. Pre-op diagnosis general: Diarrhea. Post-op diagnosis general: Probable small cancer in transverse colon. Colonic polyps. Procedure narrative: The procedure, alternatives and risks were discussed with the patient and the patient's questions were answered. With endoscopist administered intravenous sedation, the Olympus colonoscope was introduced into the rectum and advanced to the cecum. Ileocecal valve was identified, intubated, and several centimeters of the terminal ileum were examined. Colonic polyps were seen in the ascending colon. The proximal polyps were removed with a snare. There was a small malignant-appearing lesion in the mid transverse colon. The base was injected with heptastarch and resected piecemeal. A tattoo was placed distal to this lesion. They were retrieved for histological examination. Diverticula appear uncomplicated. Random colon biopsies were taken to check for microscopic colitis. Assessment: Probable small cancer in transverse colon. Colonic polyps. Query microscopic colitis. Surgical resection of cancer when patient is stable.
== END 2018-02-23 13:20 | DRG 640 ==
LOC: ED 18:26 → ICU 21:36 → MEDSUR 02-17 13:59
PROVIDERS: ADMIT Internal Medicine; ATTEND Internal Medicine

== ENCOUNTER 2018-04-19 07:06 | Inpatient (IN) ==
--- NOTE | 2018-04-14 12:23 | General Surgery Progress Note ---
Surgical - Auxillary Note - Subjective Patient Information: Note initiated : 04/14/18 at 12:17 pm Service Date, if different from initiated Date: [] Patient: Dara Null a 77 y/o F admitted on for Segmental Transverse Colectomy. Chief Complaint: [preop documentation review pt is high risk for perioperative mortality/morbidity plan for herrera, possible central line (per Dr Ashraf) plan for post op ventilation/sedation and gradual weaning off vent support to protect wound, poor baseline pulmonary function, tight hemodynamic management. DIETER]
[2018-04-17 15:41] LABS: Basophils # (Auto) 0 K/mcL (0.0-0.3); Basophils % (Auto) 0.3 % (0.0-2.0); Eosinophils # (Auto) 0.1 K/mcL (0.0-0.7); Eosinophils % (Auto) 1.8 % (0.0-7.0); Granulocytes % (Auto) 58.4 % (38.0-78.0); Lymphocytes # (Auto) 1.2 K/mcL (1.5-4.8); Lymphocytes % (Auto) 30.9 % (15.5-49.0); Mean Cell Volume 85.3 fL (80.0-100.0); Mean Corpuscular HGB Conc 33.6 g/dL (31.0-36.0); Mean Corpuscular Hemoglobin 28.7 pg (26.0-34.0); Monocytes # (Auto) 0.3 K/mcL (0.1-0.9); Monocytes % (Auto) 8.6 % (1.0-12.0); Platelet Count 168 K/mcL (140-440); RBC 3.51 M/mcL (4.00-5.20)
--- NOTE | 2018-04-17 16:04 | XRay Report ---
HISTORY: ITS.REASON: pre op surgery for segmental transverse colectomy FINDINGS: Lungs are clear and well expanded. There is attenuation of the peripheral pulmonary vessels bilaterally suggesting mild COPD. There is no evidence of pneumonia, mass, congestive heart failure or pleural effusion. The heart size, mediastinum and imtiaz are normal. IMPRESSION: Mild COPD and no acute abnormality Interpreted and Authenticated by: Sean Mak 04/17/18
[~2018-04-19 07:06] MED LIST: 0.9 % SODIUM CHLORIDE 250 ML IV SCH; cefOXitin 2 GM VIAL IV SCH; metroNIDAZOLE 500 MG/100 ML BAG IV SCH
[2018-04-19 08:45] LABS: ALT/SGPT 12 U/l (0-40); Albumin 3.9 gm/dL (3.2-5.2); Albumin/Globulin Ratio 1.5 (1.0-2.3); Alkaline Phosphatase 60 U/L (39-117); Blood Urea Nitrogen 8 mg/dl (8-23)
[2018-04-19] MEDS ORDERED: HEPARIN/NS 500 ML IV ONE (09:09)
[2018-04-19] MEDS ORDERED: NEOSTIGMINE 1 MG/ML VIAL IV ONE (09:10)
[2018-04-19] MEDS ORDERED: MIDAZOLAM 2 MG/2 ML VIAL IV ONE (09:10)
[2018-04-19] MEDS ORDERED: cefOXitin 2 GM VIAL IV ONE ×2 (09:10→11:05)
[2018-04-19] MEDS ORDERED: MEPERIDINE 25 MG/ML SYRINGE IV ONE (09:10)
[2018-04-19] MEDS ORDERED: HYDROmorphone 2 MG/ML VIAL IV ONE (09:10)
[2018-04-19] MEDS ORDERED: DEXAMETHASONE 10 MG/ML VIAL IV ONE (09:10)
[2018-04-19] MEDS ORDERED: KETAMINE 100 MG/ML ML IV ONE (09:10)
[2018-04-19] MEDS ORDERED: ROCURONIUM 10 MG/ML ML IV ONE (09:10)
[2018-04-19] MEDS ORDERED: PROPOFOL 200 MG/20 ML VIAL IV ONE (09:10)
[2018-04-19] MEDS ORDERED: GLYCOPYRROLATE 0.2 MG/ML VIAL IV ONE (09:10)
[2018-04-19] MEDS ORDERED: fentaNYL 250 MCG/5 ML VIAL IV ONE (09:10)
[2018-04-19] MEDS ORDERED: GUM MASTIC/STORAX/MSAL/ALCOHOL 1 DOSE DROPERETTE TOPICAL ONE (09:30)
[2018-04-19] MEDS ORDERED: 0.9 % SODIUM CHLORIDE 10 ML SYRINGE IV PRN (11:02)
[2018-04-19] MEDS ORDERED: HEPARIN/NS 500 ML IV SCH ×3 (11:15→13:30)
--- NOTE | 2018-04-19 11:28 | Brief Operative Note ---
Date of procedure: 04/19/18 Pre-op diagnosis: TRANSVERSE COLON NEOPLASM Post-op diagnosis: other (TRANSVERSE COLON CANCER) Procedure: SEGMENTAL COLECTOMY TRANSVERSE COLON Grafts/Implants: No Anesthesia: GETA Findings: SMALL HARD MASS PROXIMAL TO AREA OF TATOO IN MID TRANSVERSE COLON Complications: none Surgeon: Rahul Ashraf Estimated blood loss (cc): 25 Specimens Removed/Pathology: other (SEGMENT OF TRANSVERSE COLON) Condition: stable Disposition: PACU
[2018-04-19] MEDS ORDERED: cefTRIAXone 1 GM VIAL IV SCH (11:45)
[2018-04-19] MEDS ORDERED: METOPROLOL TARTRATE 5 MG/5 ML VIAL IV PRN (11:46)
[2018-04-19] MEDS: 0.9 % SODIUM CHLORIDE 1,000 ML IV SCH (12:10)
[2018-04-19] MEDS: ONDANSETRON 4 MG/2 ML VIAL IV PRN (12:51)
[2018-04-19] MEDS: cefTRIAXone 1 GM VIAL IV SCH (13:35)
[2018-04-19] MEDS: HYDROmorphone 2 MG/ML VIAL IV PRN ×2 (14:12→19:06)
[2018-04-19] MEDS: DIGOXIN 500 MCG/2 ML AMPUL IV SCH (14:16)
[2018-04-19] MEDS: hydrALAZINE 20 MG/ML VIAL IV PRN ×2 (14:16→21:17)
[2018-04-19] MEDS: 0.9 % SODIUM CHLORIDE 10 ML SYRINGE IV SCH ×2 (14:19→21:25)
[2018-04-19] MEDS: PANTOPRAZOLE 40 MG VIAL IV SCH (17:18)
[2018-04-19] MEDS: METOPROLOL TARTRATE 5 MG/5 ML VIAL IV PRN (19:08)
[2018-04-19] MEDS ORDERED: 0.9 % SODIUM CHLORIDE 10 ML SYRINGE IV SCH (21:00)
[2018-04-20] MEDS: 0.9 % SODIUM CHLORIDE 1,000 ML IV SCH ×2 (01:49→13:52)
[2018-04-20 05:38] LABS: Basophils # (Auto) 0 K/mcL (0.0-0.3); Basophils % (Auto) 0.3 % (0.0-2.0); Eosinophils # (Auto) 0 K/mcL (0.0-0.7); Eosinophils % (Auto) 0 % (0.0-7.0); Granulocytes % (Auto) 73.2 % (38.0-78.0); Lymphocytes # (Auto) 1.1 K/mcL (1.5-4.8); Mean Cell Volume 85.8 fL (80.0-100.0); Mean Corpuscular HGB Conc 33.2 g/dL (31.0-36.0); Mean Corpuscular Hemoglobin 28.5 pg (26.0-34.0); Monocytes # (Auto) 0.7 K/mcL (0.1-0.9); Monocytes % (Auto) 10.5 % (1.0-12.0); Platelet Count 156 K/mcL (140-440); RBC 3.25 M/mcL (4.00-5.20); Red Cell Distribution Width 17.5 % (11.5-14.5)
[2018-04-20] MEDS: 0.9 % SODIUM CHLORIDE 10 ML SYRINGE IV SCH ×5 (05:55→22:00)
[2018-04-20 05:57] LABS: ALT/SGPT 13 U/l (0-40); Albumin 3.3 gm/dL (3.2-5.2); Albumin/Globulin Ratio 1.3 (1.0-2.3); Alkaline Phosphatase 51 U/L (39-117); Bilirubin,Direct < 0.2 mg/dL (0.0-0.3); Blood Urea Nitrogen 10 mg/dl (8-23); Gamma Glutamyl Transpeptidase 12 U/L (5-36)
[2018-04-20] MEDS: PANTOPRAZOLE 40 MG VIAL IV SCH ×2 (08:08→17:33)
[2018-04-20] MEDS: cefTRIAXone 1 GM VIAL IV SCH (08:08)
[2018-04-20] MEDS: METOPROLOL TARTRATE 5 MG/5 ML VIAL IV PRN ×2 (09:17→18:49)
[2018-04-20] MEDS: ACETAMINOPHEN 1,000 MG/100 ML BOTTLE IV PRN ×2 (09:22→18:09)
[2018-04-20] MEDS ORDERED: MAGNESIUM SULFATE 2 GM/50 ML BAG IV ONE ×2 (10:00→11:00)
--- NOTE | 2018-04-20 12:38 | General Surgery Progress Note ---
Subjective Patient reports: feels better, still having pain, pain is less, no flatus, no bowel movement, nausea, fever Narrative: Note initiated : 04/20/18 at 12:37 pm Service Date, if different from initiated Date: [] Patient: Dara Null a 77 y/o F admitted on 04/19/18 for Segmental Transverse Colectomy. Chief Complaint: [Patient is doing exceptionally well. She is bright and alert and fully oriented. She denies any chest pain or shortness of breath. Her abdominal pain is controlled with her present medications. She had mild nausea but no vomiting. NG output is minimal. She has not had flatus or bowel movement so far. Urine output is about 30 cc/h which is adequate. Her white blood count is normal. There is been slight decrease in hemoglobin but this is probably dilutional. Chemistry panel is normal except for mildly decreased magnesium.] Objective Temp Pulse Resp BP Pulse Ox 100 F H 108 H 16 118/61 100 04/20/18 10:07 04/20/18 04:27 04/20/18 04:27 04/20/18 04:01 04/20/18 04:27 - Additional Data Intake & Output - Last 24 hours: Intake & Output 04/18/18 04/19/18 04/20/18 04/21/18 05:59 05:59 05:59 05:59 Intake Total 2990 / 2990 150 / 150 Output Total 1032 / 1032 150 / 150 Balance 1957 / 1957 0 / 0 Weight 156 lb - General physical appearance well developed, well nourished, no distress - Eyes PERRL, normal ocular movement - ENT normal pinna, normal nares, normal mucosa, no hearing loss, no congestion - Neck no masses, no bruits, trachea midline, no lymphadectomy, no venous distension - Respiratory normal expansion, normal respiratory effort, clear to auscultation - Cardiovascular Cardiovascular exam: Present: irregular rhythm, +S1, +S2, tachycardia. Absent: JVD - Abdomen soft, tender (mild mid abdominal tenderness around incision; good active bowel sounds; no abdominal distention) - Integumentary no rash, no growths, no abnormal pigmentation - Neurologic normal coordination, normal sensation - Psychiatric oriented to time, oriented to person, oriented to place, speech is normal, memory intact - Labs 04/20/18 03:50 04/20/18 03:50 Diabetes panel 04/20/18 Range/Units 03:50 Sodium 144 (133-145) mmol/L Potassium 3.6 (3.3-5.1) mmol/L Chloride 109 H (96-108) mmol/L Carbon Dioxide 23 (22-30) mmol/L BUN 10 (8-23) mg/dl Creatinine 0.6 (0.6-1.1) mg/dl Glucose 97 (70-105) mg/dL Calcium 7.9 L (8.6-10.4) mg/dl AST 15 (0-37) U/l ALT 13 (0-40) U/l Alkaline Phosphatase 51 (39-117) U/L Total Protein 5.8 L (5.9-8.4) gm/dL Albumin 3.3 (3.2-5.2) gm/dL Triglycerides 81 (<150) mg/dl Calcium panel 04/20/18 Range/Units 03:50 Calcium 7.9 L (8.6-10.4) mg/dl Phosphorus 3.8 (2.7-4.5) mg/dL Albumin 3.3 (3.2-5.2) gm/dL Pituitary panel 04/20/18 Range/Units 03:50 Sodium 144 (133-145) mmol/L Potassium 3.6 (3.3-5.1) mmol/L Chloride 109 H (96-108) mmol/L Carbon Dioxide 23 (22-30) mmol/L BUN 10 (8-23) mg/dl Creatinine 0.6 (0.6-1.1) mg/dl Glucose 97 (70-105) mg/dL Calcium 7.9 L (8.6-10.4) mg/dl Adrenal panel 04/20/18 Range/Units 03:50 Sodium 144 (133-145) mmol/L Potassium 3.6 (3.3-5.1) mmol/L Chloride 109 H (96-108) mmol/L Carbon Dioxide 23 (22-30) mmol/L BUN 10 (8-23) mg/dl Creatinine 0.6 (0.6-1.1) mg/dl Glucose 97 (70-105) mg/dL Calcium 7.9 L (8.6-10.4) mg/dl Total Bilirubin 0.9 (0.0-1.0) mg/dL AST 15 (0-37) U/l ALT 13 (0-40) U/l Alkaline Phosphatase 51 (39-117) U/L Total Protein 5.8 L (5.9-8.4) gm/dL Albumin 3.3 (3.2-5.2) gm/dL Assessment and Plan (1) Primary adenocarcinoma of transverse colon Status: Acute Assessment and plan: Patient is doing very well. Postoperative day #16 Will continue present therapy Current Visit: No (2) Atrial fibrillation Status: Chronic Assessment and plan: Heart rate is controlled on present IV metoprolol Current Visit: No (3) Chronic obstructive pulmonary disease Status: Chronic Current Visit: No (4) Coronary artery disease Problem details: occluded nondominant right coronary artery and minimal disease elsewhere Status: Chronic Assessment and plan: No complaints of chest pain or shortness of breath Current Visit: No (5) Hypertension, essential Status: Chronic Assessment and plan: Blood pressure is better controlled with IV Apresoline and metoprolol Current Visit: No - Time Spent With Patient Total time spent is greater than 50% in coordination of care (as documented) at patient's floor/unit and/or counseling patient:
[2018-04-20] MEDS: DIGOXIN 500 MCG/2 ML AMPUL IV SCH (14:07)
[2018-04-21] MEDS: METOPROLOL TARTRATE 5 MG/5 ML VIAL IV PRN ×5 (00:30→19:03)
[2018-04-21] MEDS: 0.9 % SODIUM CHLORIDE 1,000 ML IV SCH ×2 (03:44→17:55)
[2018-04-21] MEDS: 0.9 % SODIUM CHLORIDE 10 ML SYRINGE IV SCH ×5 (05:42→23:44)
[2018-04-21 05:44] LABS: Basophils # (Auto) 0 K/mcL (0.0-0.3); Basophils % (Auto) 0.3 % (0.0-2.0); Eosinophils # (Auto) 0 K/mcL (0.0-0.7); Eosinophils % (Auto) 0.9 % (0.0-7.0); Granulocytes % (Auto) 62.7 % (38.0-78.0); Lymphocytes # (Auto) 1.1 K/mcL (1.5-4.8); Lymphocytes % (Auto) 27.7 % (15.5-49.0); Mean Cell Volume 86.7 fL (80.0-100.0); Mean Corpuscular HGB Conc 32.8 g/dL (31.0-36.0); Mean Corpuscular Hemoglobin 28.5 pg (26.0-34.0); Monocytes # (Auto) 0.3 K/mcL (0.1-0.9); Monocytes % (Auto) 8.4 % (1.0-12.0); Platelet Count 119 K/mcL (140-440); RBC 3.06 M/mcL (4.00-5.20); Red Cell Distribution Width 16.9 % (11.5-14.5)
[2018-04-21 06:07] LABS: ALT/SGPT 11 U/l (0-40); Albumin 3.3 gm/dL (3.2-5.2); Albumin/Globulin Ratio 1.3 (1.0-2.3); Alkaline Phosphatase 49 U/L (39-117); Bilirubin,Direct < 0.2 mg/dL (0.0-0.3); Blood Urea Nitrogen 8 mg/dl (8-23); Gamma Glutamyl Transpeptidase 12 U/L (5-36); Uric Acid 5.3 mg/dL (2.5-8.0)
[2018-04-21] MEDS: ONDANSETRON 4 MG/2 ML VIAL IV PRN (08:18)
[2018-04-21] MEDS: PANTOPRAZOLE 40 MG VIAL IV SCH ×2 (08:18→17:55)
[2018-04-21] MEDS: cefTRIAXone 1 GM VIAL IV SCH (08:18)
[2018-04-21] MEDS: hydrALAZINE 20 MG/ML VIAL IV PRN ×2 (09:34→23:05)
[2018-04-21] MEDS: ACETAMINOPHEN 1,000 MG/100 ML BOTTLE IV PRN (10:56)
--- NOTE | 2018-04-21 13:51 | General Surgery Progress Note ---
Subjective Patient reports: feels better, pain is less, no flatus, no bowel movement, afebrile Narrative: Note initiated : 04/21/18 at 1:49 pm Service Date, if different from initiated Date: [] Patient: Dara Null a 77 y/o F admitted on 04/19/18 for Segmental Transverse Colectomy. Chief Complaint: [patient continues to improve. She is bright and alert though intermittently confused. She complains of hunger.. She does not have any nausea. She has not had flatus or past bowel movement. Her pain is adequately controlled. Urinary output is adequate. White blood count is normal and hemoglobin is stable. Chem panel is normal except for potassium of 3.3.] Objective Temp Pulse Resp BP Pulse Ox 99.2 F H 107 H 15 149/71 94 04/21/18 12:01 04/21/18 08:01 04/21/18 12:01 04/21/18 12:01 04/21/18 12:40 - Additional Data Intake & Output - Last 24 hours: Intake & Output 04/19/18 04/20/18 04/21/18 04/22/18 05:59 05:59 05:59 05:59 Intake Total 2990 / 2990 2564 / 2564 370 / 370 Output Total 1032 / 1032 2815 / 2815 430 / 430 Balance 8 / 1957 -251 / -251 -60 / -60 Weight 156 lb 157 lb 3.2 oz - General physical appearance well developed, well nourished, no distress, severe distress - Eyes PERRL, normal ocular movement - ENT normal pinna, normal nares, normal mucosa, no hearing loss, no congestion - Neck no masses, no bruits, trachea midline, no venous distension - Respiratory normal expansion, normal respiratory effort, clear to auscultation - Cardiovascular Cardiovascular exam: Present: normal rate and rhythm, RRR, +S1, +S2, tachycardia. Absent: gallop, JVD - Abdomen tender (mildly tender along incision but otherwise abdomen is benign;;;;; good active bowel sounds), bowel sounds (present), surgical scars (none), masses ( none) - Integumentary no rash, no growths, no abnormal pigmentation - Neurologic normal coordination, normal sensation - Musculoskeletal normal gait, normal posture - Psychiatric oriented to time, oriented to person, oriented to place, speech is normal, memory intact - Labs 04/21/18 03:35 04/21/18 03:35 Diabetes panel 04/21/18 Range/Units 03:35 Sodium 144 (133-145) mmol/L Potassium 3.3 (3.3-5.1) mmol/L Chloride 109 H (96-108) mmol/L Carbon Dioxide 23 (22-30) mmol/L BUN 8 (8-23) mg/dl Creatinine 0.6 (0.6-1.1) mg/dl Glucose 76 (70-105) mg/dL Calcium 7.8 L (8.6-10.4) mg/dl AST 12 (0-37) U/l ALT 11 (0-40) U/l Alkaline Phosphatase 49 (39-117) U/L Total Protein 5.9 (5.9-8.4) gm/dL Albumin 3.3 (3.2-5.2) gm/dL Triglycerides 109 (<150) mg/dl Calcium panel 04/21/18 Range/Units 03:35 Calcium 7.8 L (8.6-10.4) mg/dl Phosphorus 2.9 (2.7-4.5) mg/dL Albumin 3.3 (3.2-5.2) gm/dL Pituitary panel 04/21/18 Range/Units 03:35 Sodium 144 (133-145) mmol/L Potassium 3.3 (3.3-5.1) mmol/L Chloride 109 H (96-108) mmol/L Carbon Dioxide 23 (22-30) mmol/L BUN 8 (8-23) mg/dl Creatinine 0.6 (0.6-1.1) mg/dl Glucose 76 (70-105) mg/dL Calcium 7.8 L (8.6-10.4) mg/dl Adrenal panel 04/21/18 Range/Units 03:35 Sodium 144 (133-145) mmol/L Potassium 3.3 (3.3-5.1) mmol/L Chloride 109 H (96-108) mmol/L Carbon Dioxide 23 (22-30) mmol/L BUN 8 (8-23) mg/dl Creatinine 0.6 (0.6-1.1) mg/dl Glucose 76 (70-105) mg/dL Calcium 7.8 L (8.6-10.4) mg/dl Total Bilirubin 0.8 (0.0-1.0) mg/dL AST 12 (0-37) U/l ALT 11 (0-40) U/l Alkaline Phosphatase 49 (39-117) U/L Total Protein 5.9 (5.9-8.4) gm/dL Albumin 3.3 (3.2-5.2) gm/dL Assessment and Plan (1) Primary adenocarcinoma of transverse colon Status: Acute Assessment and plan: Patient is doing very well. Postoperative day #2 Will continue present therapy Current Visit: No (2) Atrial fibrillation Status: Chronic Assessment and plan: Heart rate is controlled on present IV metoprolol Current Visit: No (3) Chronic obstructive pulmonary disease Status: Chronic Current Visit: No (4) Coronary artery disease Problem details: occluded nondominant right coronary artery and minimal disease elsewhere Status: Chronic Assessment and plan: No complaints of chest pain or shortness of breath Current Visit: No (5) Hypertension, essential Status: Chronic Assessment and plan: Blood pressure is better controlled with IV Apresoline and metoprolol Current Visit: No - Time Spent With Patient Total time spent is greater than 50% in coordination of care (as documented) at patient's floor/unit and/or counseling patient:
[2018-04-21] MEDS: POTASSIUM CHLORIDE 40 MEQ in DEXTROSE 5% IN WATER 500 ML IV SCH ×2 (14:19→18:59)
[2018-04-21] MEDS: DIGOXIN 500 MCG/2 ML AMPUL IV SCH (14:23)
[2018-04-22] MEDS: ACETAMINOPHEN 1,000 MG/100 ML BOTTLE IV PRN ×3 (00:29→19:54)
[2018-04-22] MEDS: hydrALAZINE 20 MG/ML VIAL IV PRN (01:58)
[2018-04-22] MEDS: METOPROLOL TARTRATE 5 MG/5 ML VIAL IV PRN ×3 (02:28→11:55)
[2018-04-22 05:47] LABS: Basophils # (Auto) 0 K/mcL (0.0-0.3); Basophils % (Auto) 0.3 % (0.0-2.0); Eosinophils # (Auto) 0 K/mcL (0.0-0.7); Granulocytes % (Auto) 70.1 % (38.0-78.0); Lymphocytes # (Auto) 0.9 K/mcL (1.5-4.8); Lymphocytes % (Auto) 20.7 % (15.5-49.0); Mean Cell Volume 86.3 fL (80.0-100.0); Mean Corpuscular HGB Conc 32.6 g/dL (31.0-36.0); Mean Corpuscular Hemoglobin 28.1 pg (26.0-34.0); Monocytes # (Auto) 0.3 K/mcL (0.1-0.9); Monocytes % (Auto) 7.9 % (1.0-12.0); Platelet Count 126 K/mcL (140-440); Red Cell Distribution Width 17.1 % (11.5-14.5)
[2018-04-22 06:19] LABS: ALT/SGPT 9 U/l (0-40); Albumin 3.6 gm/dL (3.2-5.2); Albumin/Globulin Ratio 1.3 (1.0-2.3); Alkaline Phosphatase 54 U/L (39-117); Bilirubin,Direct < 0.2 mg/dL (0.0-0.3); Blood Urea Nitrogen 4 mg/dl (8-23); Gamma Glutamyl Transpeptidase 12 U/L (5-36); Uric Acid 4.3 mg/dL (2.5-8.0)
[2018-04-22] MEDS: 0.9 % SODIUM CHLORIDE 10 ML SYRINGE IV SCH ×5 (06:19→21:58)
[2018-04-22] MEDS: PANTOPRAZOLE 40 MG VIAL IV SCH ×2 (07:06→16:56)
[2018-04-22] MEDS: ONDANSETRON 4 MG/2 ML VIAL IV PRN (07:10)
[2018-04-22] MEDS: 0.9 % SODIUM CHLORIDE 1,000 ML IV SCH ×2 (08:24→21:59)
[2018-04-22] MEDS: cefTRIAXone 1 GM VIAL IV SCH (08:25)
[2018-04-22] MEDS ORDERED: MAGNESIUM SULFATE 32.48 MEQ in DEXTROSE 5% IN WATER 100 ML IV ONE ×2 (10:24→12:30)
[2018-04-22] MEDS: MAGNESIUM SULFATE 2 GM/50 ML BAG IV SCH ×4 (11:56→15:18)
--- NOTE | 2018-04-22 14:05 | General Surgery Progress Note ---
Subjective Patient reports: feels better, pain is less, no flatus, no bowel movement, afebrile Narrative: Note initiated : 04/22/18 at 2:03 pm Service Date, if different from initiated Date: [] Patient: Dara Null a 77 y/o F admitted on 04/19/18 for Segmental Transverse Colectomy. Chief Complaint: [patient is doing well. Her pain is controlled. She has good bowel sounds but no flatus so for.. Abdominal exam is benign.. X-rays of the abdomen shows gas in her colon without distended small bowel.. She is afebrile and has normal white blood count] Objective Temp Pulse Resp BP Pulse Ox 98.3 F 107 H 14 163/90 97 04/22/18 13:06 04/21/18 08:01 04/22/18 13:06 04/22/18 13:06 04/22/18 13:06 - Additional Data Intake & Output - Last 24 hours: Intake & Output 04/20/18 04/21/18 04/22/18 04/23/18 05:59 05:59 05:59 05:59 Intake Total 2990 / 2990 2564 / 2564 2190 / 2190 1717 / 1717 Output Total 1032 / 1032 2815 / 2815 2835 / 2835 880 / 880 Balance 1957 / 1957 -251 / -251 -645 / -645 837 / 837 Weight 156 lb 157 lb 3.2 oz 157 lb 3.2 oz - General physical appearance well developed, well nourished, no distress, other (Xenia midabdominal incisional pain) - Eyes PERRL, normal ocular movement - ENT normal pinna, normal nares, normal mucosa, no hearing loss, no congestion - Neck no masses, no bruits, trachea midline, no venous distension - Respiratory normal expansion, normal respiratory effort, clear to auscultation - Cardiovascular Cardiovascular exam: Present: normal rate and rhythm, irregular rhythm, +S1, +S2 , tachycardia. Absent: JVD - Abdomen tender ( Xenia midabdominal incisional tenderness with good active bowel sounds ;;; no distention), bowel sounds (present), surgical scars (none), masses (none) - Integumentary no rash, no growths, no abnormal pigmentation - Neurologic normal coordination, normal sensation - Musculoskeletal normal gait, normal posture - Psychiatric oriented to time, oriented to person, oriented to place, speech is normal, memory intact - Labs 04/22/18 03:55 04/22/18 03:55 Diabetes panel 04/22/18 Range/Units 03:55 Sodium 142 (133-145) mmol/L Potassium 3.5 (3.3-5.1) mmol/L Chloride 107 (96-108) mmol/L Carbon Dioxide 23 (22-30) mmol/L BUN 4 L (8-23) mg/dl Creatinine 0.5 L (0.6-1.1) mg/dl Glucose 87 (70-105) mg/dL Calcium 8.4 L (8.6-10.4) mg/dl AST 11 (0-37) U/l ALT 9 (0-40) U/l Alkaline Phosphatase 54 (39-117) U/L Total Protein 6.3 (5.9-8.4) gm/dL Albumin 3.6 (3.2-5.2) gm/dL Triglycerides 111 (<150) mg/dl Calcium panel 04/22/18 Range/Units 03:55 Calcium 8.4 L (8.6-10.4) mg/dl Phosphorus 2.6 L (2.7-4.5) mg/dL Albumin 3.6 (3.2-5.2) gm/dL Pituitary panel 04/22/18 Range/Units 03:55 Sodium 142 (133-145) mmol/L Potassium 3.5 (3.3-5.1) mmol/L Chloride 107 (96-108) mmol/L Carbon Dioxide 23 (22-30) mmol/L BUN 4 L (8-23) mg/dl Creatinine 0.5 L (0.6-1.1) mg/dl Glucose 87 (70-105) mg/dL Calcium 8.4 L (8.6-10.4) mg/dl Adrenal panel 04/22/18 Range/Units 03:55 Sodium 142 (133-145) mmol/L Potassium 3.5 (3.3-5.1) mmol/L Chloride 107 (96-108) mmol/L Carbon Dioxide 23 (22-30) mmol/L BUN 4 L (8-23) mg/dl Creatinine 0.5 L (0.6-1.1) mg/dl Glucose 87 (70-105) mg/dL Calcium 8.4 L (8.6-10.4) mg/dl Total Bilirubin 0.9 (0.0-1.0) mg/dL AST 11 (0-37) U/l ALT 9 (0-40) U/l Alkaline Phosphatase 54 (39-117) U/L Total Protein 6.3 (5.9-8.4) gm/dL Albumin 3.6 (3.2-5.2) gm/dL Assessment and Plan (1) Primary adenocarcinoma of transverse colon Status: Acute Assessment and plan: Patient is doing very well. Postoperative day #3 Will continue present therapy Discontinue nasogastric tube Discontinue Steele catheter Restart oral medication May have water & Jell-O Current Visit: No (2) Atrial fibrillation Status: Chronic Assessment and plan: Heart rate is controlled on present IV metoprolol Will start oral metoprolol and Cardizem Current Visit: No (3) Chronic obstructive pulmonary disease Status: Chronic Current Visit: No (4) Coronary artery disease Problem details: occluded nondominant right coronary artery and minimal disease elsewhere Status: Chronic Assessment and plan: No complaints of chest pain or shortness of breath Current Visit: No (5) Hypertension, essential Status: Chronic Assessment and plan: Blood pressure is better controlled with IV Apresoline and metoprolol Current Visit: No - Time Spent With Patient Total time spent is greater than 50% in coordination of care (as documented) at patient's floor/unit and/or counseling patient:
--- NOTE | 2018-04-22 14:38 | XRay Report ---
HISTORY: Follow-up after segmental transverse colectomy FINDINGS: Stomach is decompressed. Nasogastric tube. The tip is in the antrum near the pylorus. Air is present in nondistended cecum and ascending colon. Paralleling the ascending colon there is a solitary dilated segment of small intestine which measures 3.2 cm. No free intra-abdominal air is present. Only a couple air-fluid levels are seen. There are patchy alveolar infiltrates in both lower lobes. The heart is mildly enlarged. Multiple clips are present in the mid abdomen. There is also a stent at the L2 and L3 levels. IMPRESSION: Isolated segment of dilated small bowel in the right side of the abdomen. This is a nonspecific pattern following recent surgery. Bibasilar pneumonia /atelectasis Interpreted and Authenticated by: Sean Mak 04/22/18
[2018-04-22] MEDS: DIGOXIN 500 MCG/2 ML AMPUL IV SCH (14:57)
[2018-04-22] MEDS: METOPROLOL TARTRATE 50 MG TABLET PO SCH (19:54)
[2018-04-22] MEDS ORDERED: DILTIAZEM 180 MG CAP.XL.24H PO ONE (20:41)
[2018-04-22] MEDS: ARIPIPRAZOLE 5 MG TABLET PO SCH (20:52)
[2018-04-23] MEDS: ACETAMINOPHEN 1,000 MG/100 ML BOTTLE IV PRN ×2 (03:21→22:04)
[2018-04-23] MEDS: 0.9 % SODIUM CHLORIDE 10 ML SYRINGE IV SCH ×3 (06:55→22:08)
[2018-04-23] MEDS: PANTOPRAZOLE 40 MG VIAL IV SCH ×2 (06:58→16:31)
[2018-04-23 07:29] LABS: Basophils # (Auto) 0 K/mcL (0.0-0.3); Basophils % (Auto) 0.2 % (0.0-2.0); Eosinophils # (Auto) 0.1 K/mcL (0.0-0.7); Eosinophils % (Auto) 2.3 % (0.0-7.0); Granulocytes % (Auto) 65.4 % (38.0-78.0); Lymphocytes # (Auto) 0.7 K/mcL (1.5-4.8); Lymphocytes % (Auto) 23.3 % (15.5-49.0); Mean Cell Volume 85.2 fL (80.0-100.0); Mean Corpuscular Hemoglobin 28.1 pg (26.0-34.0); Monocytes # (Auto) 0.3 K/mcL (0.1-0.9); Monocytes % (Auto) 8.8 % (1.0-12.0); Platelet Count 144 K/mcL (140-440); RBC 3.55 M/mcL (4.00-5.20); Red Cell Distribution Width 17.1 % (11.5-14.5)
[2018-04-23 07:49] LABS: ALT/SGPT 8 U/l (0-40); Albumin 3.5 gm/dL (3.2-5.2); Albumin/Globulin Ratio 1.4 (1.0-2.3); Alkaline Phosphatase 54 U/L (39-117); Bilirubin,Direct < 0.2 mg/dL (0.0-0.3); Blood Urea Nitrogen 4 mg/dl (8-23); Gamma Glutamyl Transpeptidase 11 U/L (5-36); Uric Acid 3.8 mg/dL (2.5-8.0)
[2018-04-23] MEDS: cefTRIAXone 1 GM VIAL IV SCH (08:24)
[2018-04-23] MEDS: ARIPIPRAZOLE 5 MG TABLET PO SCH (08:24)
[2018-04-23] MEDS: METOPROLOL TARTRATE 50 MG TABLET PO SCH ×2 (08:24→20:57)
[2018-04-23] MEDS ORDERED: DILTIAZEM 180 MG CAP.XL.24H PO SCH (09:00)
--- NOTE | 2018-04-23 11:56 | General Surgery Progress Note ---
Subjective Patient reports: feels better, pain is less, tolerating liquids well, flatus, no bowel movement, afebrile Narrative: Note initiated : 04/23/18 at 11:56 am Service Date, if different from initiated Date: [] Patient: Dara Null a 77 y/o F admitted on 04/19/18 for Segmental Transverse Colectomy. Chief Complaint: [patient continues to improve.. She started having some flatus and has tolerated clear liquids without difficulty. She does have mild abdominal distention but she denies nausea or vomiting. Her pain is well controlled. She denies chest pain or shortness of breath. Her heart rate is controlled with the oral metoprolol.] Objective Temp Pulse Resp BP Pulse Ox 98.1 F 107 H 19 164/76 97 04/23/18 11:49 04/21/18 08:01 04/23/18 11:49 04/23/18 11:49 04/23/18 11:49 - Additional Data Intake & Output - Last 24 hours: Intake & Output 04/21/18 04/22/18 04/23/18 04/24/18 05:59 05:59 05:59 05:59 Intake Total 2564 / 2564 2190 / 2190 2917 / 2917 1721 / 1721 Output Total 2815 / 2815 2835 / 2835 3765 / 3765 450 / 450 Balance -251 / -251 -645 / -645 -848 / -848 1271 / 1271 Weight 157 lb 3.2 oz 157 lb 3.2 oz 158 lb 6.4 oz - General physical appearance well developed, well nourished, no distress - Eyes PERRL, normal ocular movement - ENT normal pinna, normal nares, normal mucosa, no hearing loss, no congestion - Neck no masses, no bruits, trachea midline, no venous distension - Respiratory normal expansion, normal respiratory effort, clear to auscultation - Cardiovascular Cardiovascular exam: Present: irregular rhythm, +S1, +S2. Absent: JVD, tachycardia - Abdomen soft, bowel sounds (abdomen is distended with mild tenderness; she has good active bowel sounds. Incision looks good), distended - Integumentary no rash, no growths, no abnormal pigmentation - Neurologic normal coordination, normal sensation - Musculoskeletal normal gait, normal posture - Psychiatric oriented to time, oriented to person, oriented to place, speech is normal, memory intact - Labs 04/23/18 06:40 04/23/18 06:40 Diabetes panel 04/23/18 Range/Units 06:40 Sodium 140 (133-145) mmol/L Potassium 3.3 (3.3-5.1) mmol/L Chloride 106 (96-108) mmol/L Carbon Dioxide 26 (22-30) mmol/L BUN 4 L (8-23) mg/dl Creatinine 0.6 (0.6-1.1) mg/dl Glucose 87 (70-105) mg/dL Calcium 8.2 L (8.6-10.4) mg/dl AST 9 (0-37) U/l ALT 8 (0-40) U/l Alkaline Phosphatase 54 (39-117) U/L Total Protein 6.0 (5.9-8.4) gm/dL Albumin 3.5 (3.2-5.2) gm/dL Triglycerides 103 (<150) mg/dl Calcium panel 04/23/18 Range/Units 06:40 Calcium 8.2 L (8.6-10.4) mg/dl Phosphorus 3.0 (2.7-4.5) mg/dL Albumin 3.5 (3.2-5.2) gm/dL Pituitary panel 04/23/18 Range/Units 06:40 Sodium 140 (133-145) mmol/L Potassium 3.3 (3.3-5.1) mmol/L Chloride 106 (96-108) mmol/L Carbon Dioxide 26 (22-30) mmol/L BUN 4 L (8-23) mg/dl Creatinine 0.6 (0.6-1.1) mg/dl Glucose 87 (70-105) mg/dL Calcium 8.2 L (8.6-10.4) mg/dl Adrenal panel 04/23/18 Range/Units 06:40 Sodium 140 (133-145) mmol/L Potassium 3.3 (3.3-5.1) mmol/L Chloride 106 (96-108) mmol/L Carbon Dioxide 26 (22-30) mmol/L BUN 4 L (8-23) mg/dl Creatinine 0.6 (0.6-1.1) mg/dl Glucose 87 (70-105) mg/dL Calcium 8.2 L (8.6-10.4) mg/dl Total Bilirubin 0.9 (0.0-1.0) mg/dL AST 9 (0-37) U/l ALT 8 (0-40) U/l Alkaline Phosphatase 54 (39-117) U/L Total Protein 6.0 (5.9-8.4) gm/dL Albumin 3.5 (3.2-5.2) gm/dL Assessment and Plan (1) Primary adenocarcinoma of transverse colon Status: Resolved Assessment and plan: Patient is doing very well. Postoperative day #3 Will continue present therapy Discontinue nasogastric tube Discontinue Steele catheter Restart oral medication May have water & Jell-O Current Visit: No (2) Atrial fibrillation Status: Chronic Assessment and plan: Heart rate is controlled on present IV metoprolol Will start oral metoprolol and Cardizem Current Visit: No (3) Chronic obstructive pulmonary disease Status: Chronic Current Visit: No (4) Coronary artery disease Problem details: occluded nondominant right coronary artery and minimal disease elsewhere Status: Chronic Assessment and plan: No complaints of chest pain or shortness of breath Current Visit: No (5) Hypertension, essential Status: Chronic Assessment and plan: Blood pressure is better controlled with IV Apresoline and metoprolol Current Visit: No - Time Spent With Patient Total time spent is greater than 50% in coordination of care (as documented) at patient's floor/unit and/or counseling patient:
[2018-04-23] MEDS: 0.9 % SODIUM CHLORIDE 1,000 ML IV SCH ×2 (12:00→12:25)
[2018-04-23] MEDS ORDERED: MAGNESIUM SULFATE 32.48 MEQ in DEXTROSE 5% IN WATER 100 ML IV ONE (12:02)
[2018-04-23] MEDS ORDERED: ONDANSETRON 4 MG/2 ML VIAL IV PRN (12:02)
[2018-04-23] MEDS ORDERED: DIGOXIN 125 MCG TABLET PO SCH (14:00)
[2018-04-23] MEDS: DIGOXIN 125 MCG TABLET PO SCH (14:56)
[2018-04-23] MEDS ORDERED: BENZOCAINE/MENTHOL 1 LOZENGE PO PRN (16:27)
[2018-04-23] MEDS ORDERED: BENZOCAINE/MENTHOL 1 LOZENGE PO ONE (16:50)
[2018-04-24] MEDS: 0.9 % SODIUM CHLORIDE 1,000 ML IV SCH ×2 (01:16→16:04)
[2018-04-24] MEDS: 0.9 % SODIUM CHLORIDE 10 ML SYRINGE IV SCH ×3 (05:37→21:45)
[2018-04-24] MEDS: PANTOPRAZOLE 40 MG VIAL IV SCH ×2 (07:08→17:19)
[2018-04-24] MEDS: METOPROLOL TARTRATE 50 MG TABLET PO SCH ×2 (08:43→21:39)
[2018-04-24] MEDS: ARIPIPRAZOLE 5 MG TABLET PO SCH (08:43)
[2018-04-24] MEDS: cefTRIAXone 1 GM VIAL IV SCH (08:44)
[2018-04-24] MEDS: ACETAMINOPHEN 1,000 MG/100 ML BOTTLE IV PRN (13:09)
--- NOTE | 2018-04-24 13:45 | Surgical Pathology Report ---
HISTOLOGY SPECIMEN MICROSCOPIC DIAGNOSIS COLON AND OMENTUM, TRANSVERSE, SEGMENTAL RESECTION: -- COLON: - INVASIVE MODERATELY DIFFERENTIATED ADENOCARCINOMA WITH THE FOLLOWING FEATURES: - TUMOR SIZE: 0.8 cm IN GREATEST DIMENSION. - MICROSCOPIC TUMOR EXTENSION: TUMOR INVADES MUSCULARIS PROPRIA. - MACROSCOPIC TUMOR PERFORATION: NOT IDENTIFIED. - LYMPH-VASCULAR INVASION: NOT IDENTIFIED. - PERINEURAL INVASION: NOT IDENTIFIED. - TUMOR DEPOSITS: NOT IDENTIFIED. - MARGINS: END MARGINS AND MESENTERIC MARGIN UNINVOLVED BY INVASIVE CARCINOMA; INVASIVE CARCINOMA IS 3.2 cm FROM THE NEAREST (UNDESIGNATED END) MARGIN. - PATHOLOGIC STAGE: pT2 N0. - SEE SUMMARY CANCER DATA FOR DETAILS. - ADDITIONAL PORTION OF COLONIC MUCOSA WITH NO DIAGNOSTIC ALTERATIONS; NO MALIGNANCY IDENTIFIED. -- LYMPH NODES: - NO METASTATIC CARCINOMA IDENTIFIED IN TWELVE LYMPH NODES (0/12). -- OMENTUM: - NO DIAGNOSTIC ALTERATIONS. - NO MALIGNANCY IDENTIFIED. (DMT:rita) SUMMARY CANCER DATA Procedure: Transverse colectomy. Tumor Site: Transverse colon. Tumor Size: 0.8 cm in greatest dimension. Histologic Type: Adenocarcinoma. Histologic Grade: Moderately differentiated. Microscopic Tumor Extension: Tumor invades muscularis propria. Macroscopic Tumor Perforation: Not identified. Lymph-Vascular Invasion: Not identified. Perineural Invasion: Not identified. Tumor Deposits (discontinuous extramural extension): Not identified. Margins: End Margins (undesignated): Uninvolved by invasive carcinoma. Mesenteric Margin: Uninvolved by invasive carcinoma. Distance of invasive carcinoma from closest (undesignated end) margin: 3.2 cm. Lymph nodes: Number of Lymph Nodes examined: 12. Number of Lymph Nodes involved: 0. Pathologic Stage: pT2 N0. PROCEDURAL IMPRESSION Primary adenocarcinoma of transverse colon. GROSS DESCRIPTION Received in formalin labeled transverse colon segment, is a 8.2 cm long, up to 2.9 cm diameter portion of intestine with attached adipose tissue and possible omentum. The attached adipose tissue is 12 x 6 x 2.7 cm. The external surface of the intestine is coulter-pink, smooth and glistening. The ends are unoriented. A 1.5 x 1 cm area of black tattoo ink is present 4 cm from one end and 3.2 cm from the opposite end. The specimen is opened along its length to reveal the usual intestinal mucosal fold pattern. 0.7 cm from the tattoo ink is a 0.4 x 0.4 cm red-brown area of ulceration. The area of ulceration is 3.2 cm from the nearest stapled margin and 5.7 cm from the opposite stapled margin. The nearest mesenteric margin is 4 cm from the area of ulceration. The fat includes a 10.5 x 5.5 x 0.8 cm portion of omentum. The mesentery is extensively sectioned and no definite lymph nodes are grossly identified. The portion of omentum consists of coulter lobulated adipose tissue. No omental masses, lesions or lymph nodes are seen. In addition to the main specimen a 5.5 x 0.5 x 0.4 cm portion of coulter-pink possible mucosa with associated hemorrhage is received. Evening Or Night Nurse Supervisor sections are submitted as follows: A1 - end margins, closest ulcer inked blue and furthest from ulcer inked orange; A2 - nearest adipose tissue margin; A3-A4 - entire ulcer and surrounding tissue; A5 - random colon; A6-A13 - random cross sections of mesentery (A8 - portion of omentum and separate mucosal tissue fragment); A14-A19 - additional sections of mesentery. (DMT:sln) Electronically Signed by: Avila Gonzalez M.D.
[2018-04-24] MEDS: DIGOXIN 125 MCG TABLET PO SCH (14:01)
--- NOTE | 2018-04-24 17:38 | General Surgery Progress Note ---
Subjective Patient reports: feels better, pain is less, tolerating liquids well, flatus, bowel movement, afebrile Narrative: Note initiated : 04/24/18 at 5:34 pm Service Date, if different from initiated Date: [] Patient: Dara Null a 77 y/o F admitted on 04/19/18 for Segmental Transverse Colectomy. Chief Complaint: [Patient is stable and improved. She has had multiple bowel movements and flatus. She is tolerating a liquid diet without difficulty. She is ambulating in the hallway without difficulty. She denies chest pain shortness of breath. She has not had any documented tachycardia.] Objective Temp Pulse Resp BP Pulse Ox 98.1 F 74 18 149/91 95 04/24/18 15:01 04/24/18 07:20 04/24/18 15:01 04/24/18 15:01 04/24/18 15:01 - Additional Data Intake & Output - Last 24 hours: Intake & Output 04/22/18 04/23/18 04/24/18 04/25/18 05:59 05:59 05:59 05:59 Intake Total 2190 / 2190 2967 / 2967 3955 / 3955 1700 / 1700 Output Total 2835 / 2835 3765 / 3765 1300 / 1300 200 / 200 Balance -645 / -645 -798 / -798 2655 / 2655 1500 / 1500 Weight 157 lb 3.2 oz 158 lb 6.4 oz 157 lb 8 oz 157 lb 8 oz - General physical appearance well developed, well nourished, no distress - Eyes PERRL, normal ocular movement - ENT normal pinna, normal nares, normal mucosa, no hearing loss, no congestion - Neck no masses, no bruits, trachea midline, no lymphadectomy, no venous distension - Respiratory normal expansion, normal respiratory effort, clear to auscultation - Cardiovascular Cardiovascular exam: Present: irregular rhythm, +S1, +S2. Absent: JVD, tachycardia - Abdomen soft, tender (mild incisional tenderness; good active bowel sounds; no distention noted) - Integumentary no rash, no growths, no abnormal pigmentation - Neurologic normal coordination, normal sensation - Musculoskeletal normal gait, normal posture - Psychiatric oriented to time, oriented to person, oriented to place, speech is normal, memory intact - Labs 04/23/18 06:40 08/12/18 06:40 Assessment and Plan (1) Primary adenocarcinoma of transverse colon Status: Resolved Assessment and plan: Patient is doing very well. Postoperative day #4 Advance to soft diet Saline lock IV Check labs in the morning Discussed possible swing bed status with case management Current Visit: No (2) Atrial fibrillation Status: Chronic Assessment and plan: Heart rate is controlled on present IV metoprolol Will start oral metoprolol and Cardizem Current Visit: No (3) Chronic obstructive pulmonary disease Status: Chronic Current Visit: No (4) Coronary artery disease Problem details: occluded nondominant right coronary artery and minimal disease elsewhere Status: Chronic Assessment and plan: No complaints of chest pain or shortness of breath Current Visit: No (5) Hypertension, essential Status: Chronic Assessment and plan: Blood pressure is better controlled with IV Apresoline and metoprolol Current Visit: No - Time Spent With Patient Total time spent is greater than 50% in coordination of care (as documented) at patient's floor/unit and/or counseling patient:
[2018-04-25] MEDS: ACETAMINOPHEN 1,000 MG/100 ML BOTTLE IV PRN ×2 (01:12→18:29)
[2018-04-25] MEDS ORDERED: hydrALAZINE 25 MG TABLET PO PRN (04:08)
[2018-04-25] MEDS: 0.9 % SODIUM CHLORIDE 10 ML SYRINGE IV SCH ×3 (05:26→20:08)
[2018-04-25] MEDS: PANTOPRAZOLE 40 MG VIAL IV SCH ×2 (07:11→17:41)
[2018-04-25] MEDS: ARIPIPRAZOLE 5 MG TABLET PO SCH (08:57)
[2018-04-25] MEDS: cefTRIAXone 1 GM VIAL IV SCH (08:57)
[2018-04-25] MEDS: METOPROLOL TARTRATE 50 MG TABLET PO SCH ×2 (08:57→20:07)
[2018-04-25] MEDS: DIGOXIN 125 MCG TABLET PO SCH (14:48)
--- NOTE | 2018-04-25 17:39 | General Surgery Progress Note ---
Subjective Patient reports: feels better, pain is less, tolerating a regular diet, flatus, bowel movement, afebrile Narrative: Note initiated : 04/25/18 at 5:36 pm Service Date, if different from initiated Date: [] Patient: Dara Null a 77 y/o F admitted on 04/19/18 for Segmental Transverse Colectomy. Chief Complaint: [] Patient is doing well.. She is tolerating a regular diet and is having multiple bowel movements and copious flatus. Her abdominal discomfort is significantly less. Her pathology shows a T2 N0 adenocarcinoma confined to the muscularis mucosa. 12. Nodes negative for metastasis Objective Temp Pulse Resp BP Pulse Ox 98 F 98 H 14 161/90 93 04/25/18 16:00 04/25/18 03:54 04/25/18 16:00 04/25/18 16:00 04/25/18 16:00 - Additional Data Intake & Output - Last 24 hours: Intake & Output 04/23/18 04/24/18 04/25/18 04/26/18 05:59 05:59 05:59 05:59 Intake Total 2967 / 2967 3955 / 3955 2500 / 2500 360 / 360 Output Total 3765 / 3765 1300 / 1300 250 / 250 1000 / 1000 Balance -798 / -798 2655 / 2655 2250 / 2250 -640 / -640 Weight 158 lb 6.4 oz 157 lb 8 oz 158 lb - General physical appearance well developed, well nourished, no distress - Eyes PERRL, normal ocular movement - ENT normal pinna, normal nares, normal mucosa, no hearing loss, no congestion - Neck no masses (genital wart about 10 days heart that she had about), no bruits, trachea midline, no venous distension - Respiratory normal expansion, normal respiratory effort, clear to percussion, clear to auscultation - Cardiovascular Cardiovascular exam: Present: normal rate and rhythm, RRR, +S1, +S2. Absent: JVD, tachycardia - Abdomen soft, non tender (good. Active bowel sounds. Incision is unremarkable) - Integumentary no rash, no growths, no abnormal pigmentation - Neurologic normal coordination, normal sensation - Musculoskeletal normal gait, normal posture - Psychiatric oriented to time ( transfer time for 20 seconds tomorrow is 4 to), oriented to person, oriented to place, speech is normal, memory intact - Labs 04/23/18 06:40 04/23/18 06:40 Assessment and Plan (1) Primary adenocarcinoma of transverse colon Status: Resolved Assessment and plan: Patient is doing very well. Postoperative dday #5. Transferred to shelter facility tomorrow and Current Visit: No (2) Atrial fibrillation Status: Chronic Assessment and plan: Heart rate is controlled on present IV metoprolol Will start oral metoprolol and Cardizem Current Visit: No (3) Chronic obstructive pulmonary disease Status: Chronic Current Visit: No (4) Coronary artery disease Problem details: occluded nondominant right coronary artery and minimal disease elsewhere Status: Chronic Assessment and plan: No complaints of chest pain or shortness of breath Current Visit: No (5) Hypertension, essential Status: Chronic Assessment and plan: Blood pressure is better controlled with IV Apresoline and metoprolol Current Visit: No - Time Spent With Patient Total time spent is greater than 50% in coordination of care (as documented) at patient's floor/unit and/or counseling patient:
[2018-04-25] MEDS: hydrALAZINE 25 MG TABLET PO PRN (23:34)
[2018-04-25] MEDS: oxyCODONE/APAP 5/325MG TABLET PO PRN (23:35)
[2018-04-26] MEDS: oxyCODONE/APAP 5/325MG TABLET PO PRN ×3 (03:03→12:01)
[2018-04-26] MEDS: hydrALAZINE 25 MG TABLET PO PRN ×2 (03:56→14:02)
[2018-04-26] MEDS: 0.9 % SODIUM CHLORIDE 10 ML SYRINGE IV SCH (04:11)
[2018-04-26] MEDS: ACETAMINOPHEN 1,000 MG/100 ML BOTTLE IV PRN (04:12)
[2018-04-26] MEDS: PANTOPRAZOLE 40 MG VIAL IV SCH (07:10)
[2018-04-26] MEDS: cefTRIAXone 1 GM VIAL IV SCH (08:20)
[2018-04-26] MEDS: ARIPIPRAZOLE 5 MG TABLET PO SCH (08:20)
[2018-04-26] MEDS: METOPROLOL TARTRATE 50 MG TABLET PO SCH (08:21)
[2018-04-26 09:06] LABS: Basophils # (Auto) 0 K/mcL (0.0-0.3); Basophils % (Auto) 0.6 % (0.0-2.0); Eosinophils # (Auto) 0.1 K/mcL (0.0-0.7); Eosinophils % (Auto) 2.8 % (0.0-7.0); Granulocytes % (Auto) 53.5 % (38.0-78.0); Lymphocytes # (Auto) 1.2 K/mcL (1.5-4.8); Lymphocytes % (Auto) 34.6 % (15.5-49.0); Mean Cell Volume 85.5 fL (80.0-100.0); Mean Corpuscular HGB Conc 32.8 g/dL (31.0-36.0); Mean Corpuscular Hemoglobin 28.1 pg (26.0-34.0); Monocytes # (Auto) 0.3 K/mcL (0.1-0.9); Monocytes % (Auto) 8.5 % (1.0-12.0); Platelet Count 157 K/mcL (140-440); RBC 3.44 M/mcL (4.00-5.20); Red Cell Distribution Width 17.1 % (11.5-14.5)
[2018-04-26 09:50] LABS: ALT/SGPT 7 U/l (0-40); Albumin 3.6 gm/dL (3.2-5.2); Albumin/Globulin Ratio 1.5 (1.0-2.3); Alkaline Phosphatase 55 U/L (39-117); Bilirubin,Direct < 0.2 mg/dL (0.0-0.3); Blood Urea Nitrogen 4 mg/dl (8-23); Gamma Glutamyl Transpeptidase 11 U/L (5-36); Uric Acid 3.7 mg/dL (2.5-8.0)
[2018-04-26] MEDS ORDERED: POTASSIUM CHLORIDE 20 MEQ TABLET PO ONE (10:02)
[2018-04-26] MEDS ORDERED: MAGNESIUM SULFATE 32.48 MEQ in DEXTROSE 5% IN WATER 100 ML IV ONE (10:02)
[2018-04-26] MEDS: MAGNESIUM SULFATE 2 GM/50 ML BAG IV SCH ×2 (10:25→11:24)
--- NOTE | 2018-04-26 12:45 | Discharge Summary ---
Providers - Providers Patient information: Note initiated : 04/26/18 at 12:43 pm Service Date, if different from initiated Date: [] Patient: Dara Null 77 y/o F admitted on 04/19/18 for Segmental Transverse Colectomy. Chief Complaint: [] Date of admission: 04/19/18 Discharge date: 04/26/18 Attending physician: Rahul Ashraf Hospitalization Hospital course: 77-year-old female with diagnosed adenocarcinoma of the transverse colon. The patient underwent segmental transverse colectomy on 19 April. She had primary repair anastomosis without difficulty. She had no problems in the postoperative period. She had flatus starting 23 April and had bowel movements the next day. Her diet was gradually progressed and she is now tolerating soft diet. She has no abdominal pain. She denies chest pain or shortness of breath. Her hemoglobin has been stable. She was transferred to nursing care facility in satisfactory condition. Discharge diagnosis: adenocarcinoma of transverse colon T2 N0 Secondary discharge diagnosis: Chronic obstructive lung disease, stable. Coronary artery disease, stable. Hypertension stable. Chronic atrial fibrillation, stable chronic anticoagulation. Patient stable a Reason for admission: adenocarcinoma of transverse colon Procedures: Segmental transverse colectomy Pertinent studies/significant findings: None Complications: None Exam Temp Pulse Resp BP Pulse Ox 96.6 F L 90 18 170/88 97 04/26/18 07:14 04/26/18 07:14 04/26/18 07:14 04/26/18 07:14 04/26/18 07:14 - General physical appearance well developed, well nourished, no distress - Eyes PERRL, normal ocular movement - ENT normal pinna, normal nares, normal mucosa, no hearing loss, no congestion - Head Head exam IM: Present: atraumatic, normal inspection, normocephalic - Neck no masses, no bruits, trachea midline, no lymphadectomy, no venous distension - Cardiovascular Cardiovascular exam IM: Present: normal rate and rhythm, irregular rhythm, +S1, +S2, tachycardia. Absent: JVD - Respiratory normal expansion, normal respiratory effort, clear to auscultation - Abdomen Abdomen: Present: soft, non tender, bowel sounds, distended (no distention. Abdomen is soft with good active bowel sounds; incision is healing unremarkably ) Hernia: Present: none - Integumentary Present: no rash, no growths, no abnormal pigmentation - Neurologic Present: normal coordination, normal sensation - Musculoskeletal Present: normal gait, normal posture - Psychiatric Present: oriented to time, oriented to person, oriented to place, speech is normal, memory intact Discharge Plan - Patient/Caregiver Discharge Instructions Activity: increase activity as tolerated Diet: Regular Diet Prescriptions: oxyCODONE/APAP [Percocet 5-325 mg] 1 tab PO Q4HP PRN #30 tab PRN Reason: Pain Level 3-6 Other Amb Orders: OT Discharge Order Location: None Selected Physical Therapy at Discharge - General Location: None Selected - Follow up Plan Disposition: Xfer SNF Prognosis: Good Rehab Potential: Good I certify that the patient requires SNF services.: Yes Overall status at discharge: patient is not back to baseline Pending Studies Resuscitation Status Full Code Diet GI Soft/Transitional Start TueApr 24 1722 Ceftriaxone Sodium (Rocephin) 1 gm IV Q24H [facility] Last Admin: 04/26/18 08:20 Dose: 1 gm Admin: 04/25/18 08:57 Dose: 1 gm Admin: 04/24/18 08:44 Dose: 1 gm Digoxin (Lanoxin) 125 mcg PO DAILY@1400 [facility] Last Admin: 04/25/18 14:48 Dose: 125 mcg Admin: 04/24/18 14:01 Dose: 125 mcg Admin: 04/23/18 14:56 Dose: Not Given Hydralazine HCl (Apresoline) 25 mg PO Q4HP PRN PRN Reason: Hypertension Last Admin: 04/26/18 03:56 Dose: 25 mg Admin: 04/25/18 23:34 Dose: 25 mg Acetaminophen (Ofirmev) 1,000 mg in 100 mls @ 200 mls/hr IV Q6HP PRN PRN Reason: Pain Last Infusion: 04/26/18 04:44 Dose: 0 mls/hr Admin: 04/26/18 04:12 Dose: 200 mls/hr Infusion: 04/25/18 20:05 Dose: 0 mls/hr Admin: 04/25/18 18:29 Dose: 200 mls/hr Infusion: 04/25/18 01:45 Dose: 0 mls/hr Admin: 04/25/18 01:12 Dose: 200 mls/hr Infusion: 04/24/18 13:45 Dose: 0 mls/hr Admin: 04/24/18 13:09 Dose: 200 mls/hr Infusion: 04/23/18 22:35 Dose: 0 mls/hr Admin: 04/23/18 22:04 Dose: 200 mls/hr Metoprolol Tartrate (Lopressor) 100 mg PO BID DORA Last Admin: 04/26/18 08:21 Dose: 100 mg Admin: 04/25/18 20:07 Dose: 100 mg Admin: 04/25/18 08:57 Dose: 100 mg Admin: 04/24/18 21:39 Dose: 100 mg Admin: 04/24/18 08:43 Dose: 100 mg Admin: 04/23/18 20:57 Dose: 100 mg Morphine Sulfate (Morphine) 4 mg IV Q4HP PRN PRN Reason: PAIN LEVEL > 6 Last Admin: 04/25/18 20:32 Dose: 4 mg Admin: 04/25/18 16:22 Dose: 4 mg Admin: 04/25/18 02:06 Dose: 4 mg Admin: 04/24/18 21:40 Dose: 4 mg Admin: 04/24/18 14:29 Dose: 4 mg Admin: 04/24/18 10:20 Dose: 4 mg Admin: 04/24/18 03:32 Dose: 4 mg Admin: 04/23/18 20:57 Dose: 4 mg Admin: 04/23/18 17:55 Dose: 4 mg Ondansetron HCl (Zofran) 4 mg IV Q4HP PRN PRN Reason: Nausea And Vomiting Last Admin: 04/26/18 04:40 Dose: 4 mg Oxycodone/Acetaminophen (Percocet 5-325 Mg) 1 tab PO Q4HP PRN PRN Reason: PAIN LEVEL 3-6 Last Admin: 04/26/18 12:01 Dose: 1 tab Admin: 04/26/18 07:16 Dose: 1 tab Admin: 04/26/18 03:03 Dose: 1 tab Admin: 04/25/18 23:35 Dose: 1 tab Pantoprazole Sodium (Protonix) 40 mg IV BIDAC DORA Last Admin: 04/26/18 07:10 Dose: 40 mg Admin: 04/25/18 17:41 Dose: 40 mg Admin: 04/25/18 07:11 Dose: 40 mg Admin: 04/24/18 17:19 Dose: 40 mg Admin: 04/24/18 07:08 Dose: 40 mg Admin: 04/23/18 16:31 Dose: 40 mg Sodium Chloride (Saline Flush) 10 ml IV Q8 DORA Last Admin: 04/26/18 04:11 Dose: 10 ml Admin: 04/25/18 20:08 Dose: 10 ml Admin: 04/25/18 14:49 Dose: 10 ml Admin: 04/25/18 05:26 Dose: 10 ml Admin: 04/24/18 21:45 Dose: 10 ml Admin: 04/24/18 14:01 Dose: 10 ml Admin: 04/24/18 05:37 Dose: 10 ml Admin: 04/23/18 22:08 Dose: 10 ml Admin: 04/23/18 14:56 Dose: 10 ml Shift Summary 04/26/18 03:41 Shift Summary by Catherine Beltran Patient slept off and on this shift. Medicated for pain with Percocet 5-325 1 tab x2 and Morphine 4mg IV x1 with moderate effect. Patient GI soft diet, patient tolerated well. Denies any nausea or vomiting. Had loose stools this morning. Midline incision on abdomen, tiffanie and tegaderm in place. Abdominal binder in place. Up ad tayla in room. TEDs on bilateral legs. IV on LFA kept SL. SBP elevated, 170's-180's mmHg. Given apresoline x2. Will check again after 1 hour. For discharge to [facility] today at 1400H. Initialized on 04/26/18 03:41 - END OF NOTE
[2018-04-26] MEDS: DIGOXIN 125 MCG TABLET PO SCH (14:02)
--- NOTE | 2018-04-26 15:44 | Operative Note ---
DATE OF OPERATION: 04/19/2018 PREOPERATIVE DIAGNOSIS: Transverse colon neoplasm. POSTOPERATIVE DIAGNOSIS: Transverse colon cancer. PROCEDURE: Segmental colectomy of the transverse colon with primary anastomosis. SURGEON: Rahul Ashraf M.D. FINDINGS: Small, hard mass proximal to an area of tattoo in the mid-transverse colon. DESCRIPTION OF PROCEDURE: Under general anesthesia, the patient's abdomen was prepped and draped in the sterile field. Timeout procedure was carried out as per protocol. Upper midline incision was made. The peritoneal cavity was entered. There was a very easily discernible ink tattoo noted in the mid-transverse colon. Proximal to this, there was about a centimeter-sized hard nodule in the lumen. It was felt that this confirmed the position of the lesion since the endoscopist had noted that his tattoo was placed immediately distal to the lesion. About 5 inches was chosen on each side of the mass since it appeared to be confined to the mucosa and was not infiltrated in the wall. The mesentery was divided proximally in order to get a Contour stapler from the colon proximally and distally. The mesocolon was not dissected extensively because I wanted to preserve the marginal artery of Maryana. 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 I did not wish to sacrifice any of the vascularity to the residual colon. It was felt that since this was a very early lesion that she probably did not have any elena metastasis. The mesentery that was palpated was very thin, and there were only very tiny physiologic nodes noted. The mesentery to this segment was then divided using the LigaSure above the marginal artery to preserve it in continuity. The segment was passed off. A [id number] anastomosis was performed using a KINDRA 55 stapler. This was oversewn using running 2-0 Prolene circumferentially. The mesenteric defect was closed with 2-0 Monocryl. The patient tolerated the procedure well. Nasogastric tube was positioned in the stomach. Sponge, instrument and blade counts were verified as correct. The peritoneum and fascia were closed with running #1 Prolene. Subcutaneous tissue was closed with 2-0 Monocryl. Skin was closed with tiffanie. Dressing of Tegaderm was placed. The patient tolerated the procedure well. She was hemodynamically stable throughout the procedure. She was awakened and transferred to the postanesthetic care unit in a stable, satisfactory condition. LCS:rudy Job ID: [id number] Doc ID: [id number] Rahul Ashraf M.D.
== END 2018-04-26 14:06 | DRG 331 ==
LOC: MEDSUR 07:06 → EDSTATUS 08:30 → ICU 11:22 → MEDSUR 04-23 17:39
PROVIDERS: ADMIT Family Medicine Adult Medicine; ATTEND Family Medicine Adult Medicine

== ENCOUNTER 2024-10-17 06:47 | Inpatient (IN) ==
[2024-10-10 11:18] LABS: Basophils # (Auto) 0.03 K/mcL (0.00-0.30); Basophils % (Auto) 0.5 % (0.0-2.0); Eosinophils # (Auto) 0.17 K/mcL (0.00-0.70); Eosinophils % (Auto) 3.1 % (0.0-7.0); Hematocrit 40.6 % (34.1-44.9); Hemoglobin 12.5 g/dL (11.2-15.7); Lymphocytes # (Auto) 1.63 K/mcL (1.50-4.80); Lymphocytes % (Auto) 29.7 % (15.5-49.0); Mean Cell Volume 96.2 fL (80.0-100.0); Mean Corpuscular HGB Conc 30.8 g/dL (31.0-36.0); Mean Platelet Volume 9.6 fL (8.8-12.5); Monocytes % (Auto) 9.1 % (1.0-12.0); Neutrophils % (Auto) 57.4 % (38.0-78.0); Platelet Count 154 K/mcL (140-440); RBC 4.22 M/mcL (3.59-5.38); Red Cell Distribution Width 14.3 % (11.5-14.5); WBC 5.5 K/mcL (4.5-11.0)
[2024-10-10 11:42] LABS: INR 1.4 (0.9-1.1); Prothrombin Time 17.2 sec (11.9-14.5)
[2024-10-10 11:46] LABS: ALT/SGPT 12 U/L (<40); AST/SGOT 19 U/L (<32); Albumin 4.2 gm/dL (3.2-5.2); Albumin/Globulin Ratio 1.8 (1.0-2.3); Alkaline Phosphatase 63 U/L (39-117); Bilirubin,Total 0.7 mg/dL (0.1-1.0); Blood Urea Nitrogen 20 mg/dL (8-23); Carbon Dioxide 27 mmol/L (22-30); Chloride 100 mmol/L (96-108); Globulin 2.4 gm/dL (2.2-3.7); Glomerular Filtration Rate 41; Glucose 86 mg/dL (70-105); Potassium 4.3 mmol/L (3.3-5.1); Sodium 140 mmol/L (133-145)
[2024-10-17 07:27] VITALS: TEMP 97.5; O2SAT 99
[2024-10-17] MEDS ORDERED: fentaNYL 100 MCG/2 ML VIAL ONE (08:33)
[2024-10-17] MEDS ORDERED: PROPOFOL 200 MG/20 ML VIAL IV ONE (08:33)
[2024-10-17] MEDS ORDERED: KETAMINE 50 MG/ML Syringe IV ONE (08:33)
[2024-10-17] MEDS ORDERED: LIDOCAINE 2% PF 5 ML VIAL ONE (08:36)
[2024-10-17] MEDS ORDERED: ROCURONIUM 10 MG/ML ML IV ONE (08:36)
[2024-10-17] MEDS ORDERED: ONDANSETRON 4 MG/2 ML VIAL ONE (08:36)
[2024-10-17] MEDS ORDERED: DEXAMETHASONE 10 MG/ML VIAL ONE (08:36)
[2024-10-17] MEDS ORDERED: MAGNESIUM SULFATE 0 GM/0 ML BAG IV ONE (08:42)
[2024-10-17] MEDS ORDERED: ROPIVACAINE HCL/PF 30 ML VIAL IJ ONE (09:43)
[2024-10-17] MEDS: metroNIDAZOLE 500 MG/100 ML BAG IV SCH (11:12)
[2024-10-17] MEDS: CEFEPIME 1 GM VIAL IV SCH (11:12)
== END 2024-10-17 10:30 | DRG 394 ==
LOC: MEDSUR 06:47 → EDSTATUS 11:00
PROVIDERS: ADMIT Family Medicine Adult Medicine; ATTEND Family Medicine Adult Medicine